=== PATIENT | male | born 1975 | race American Indian/Alaskan Native ===

== ENCOUNTER 2019-09-22 14:01 | Inpatient (IN) | payer OTHER ==
[2019-09-22] MEDS ORDERED: ONDANSETRON 4 MG/2 ML INJ ONE (14:12)
[2019-09-22] MEDS ORDERED: ONDANSETRON 4 MG/2 ML INJ IV ONE (14:14)
[2019-09-22] MEDS ORDERED: METOCLOPRAMIDE 10 MG/2 ML INJ IV ONE (14:28)
--- NOTE | 2019-09-22 14:29 | Emergency Department Report ---
ED General Adult HPI - General Chief complaint: Weakness Stated complaint: HBS Time Seen by Provider: 09/22/19 14:03 Source: patient, EMS (verbal report received from emergency medical services. EMS documentation not available at time of chart dictation ), RN notes reviewed, old records reviewed Mode of arrival: Stretcher Limitations: Physical Limitation - History of Present Illness Initial comments: Primary care DrBarrett: [facility] Past medical history: Stroke, cardiomyopathy, history of DVT, on xarelto The patient is a 43-year-old gentleman who is not known to this provider previously. He is brought to the hospital by EMS for weakness. Patient reports being in his usual state of health earlier on today, when approximately 30-45 minutes prior to arrival to this department, he develops generalized malaise, weakness, headache which is not sudden or thunderclap in nature, nausea, dizziness, and a feeling like his left upper extremity "was not there." He also endorses nontraumatic nonradiating chest pain. Symptoms are intermittent, and do not radiate anywhere, worse with attempted movement. The patient states he has to move his left upper extremity "to make sure it is there." He has no midline neck pain. He has mild neck discomfort. There is no abdominal pain. There is no back pain. He has an old stroke with reported residual right-sided deficits. He denies hematemesis of bright red blood per rectum. He denies black stool. He states he took his systemic anticoagulation this morning, as scheduled. -: Sudden Location: head, chest, left, upper extremity Quality: other Consistency: other Improves with: other Worsens with: other Associated Symptoms: other - Related Data Previous Rx's Medication Instructions Recorded Last Taken Type Acetaminophen [Acetaminophen TAB] 650 mg PO Q4H PRN #30 tablet 11/09/17 Unknown Rx AtorvaSTATin [Lipitor] 40 mg PO QHS #30 tablet 11/09/17 Unknown Rx Metoprolol Xl [Metoprolol 100 mg PO QDAY #60 tablet 11/09/17 Unknown Rx SUCCINATE ER TAB] Ondansetron [Zofran INJ] 4 mg IV Q8H PRN #1 vial 11/09/17 Unknown Rx Torsemide [Demadex] 60 mg PO BID@0600,1800 #60 tablet 11/09/17 Unknown Rx levoFLOXacin [Levaquin TAB] 500 mg PO Q24HR #5 tablet 11/09/17 Unknown Rx oxyCODONE /ACETAMINOPHEN [Percocet 1 tab PO Q4H PRN #20 tablet 11/09/17 Unknown Rx 5/325 mg] Allergies Allergy/AdvReac Type Severity Reaction Status Date / Time No Known Allergies Allergy Unverified 11/07/17 13:18 ED Review of Systems ROS: Stated complaint: HBS Other details as noted in HPI Constitutional: fever, malaise, weakness Eyes: denies: eye discharge ENT: denies: congestion Respiratory: denies: wheezing Cardiovascular: denies: chest pain, syncope Gastrointestinal: denies: abdominal pain Genitourinary: denies: dysuria Musculoskeletal: denies: back pain Skin: denies: lesions Neurological: headache, weakness Psychiatric: anxiety Hematological/Lymphatic: denies: easy bleeding ED Past Medical Hx - Past Medical History Hx Hypertension: Yes Hx CVA: Yes (TIA's) Hx Heart Attack/AMI: No Hx Congestive Heart Failure: Yes Hx Diabetes: Yes Hx Deep Vein Thrombosis: No Hx Liver Disease: No Hx Seizures: No Hx Asthma: No Hx COPD: No Hx Dementia: No - Surgical History Hx Coronary Stent: No Hx Pacemaker: No Hx Internal Defibrillator: No - Social History Smoking Status: Never Smoker Substance Use Type: None - Medications Home Medications: Home Medications Medication Instructions Recorded Confirmed Last Taken Type Acetaminophen [Acetaminophen TAB] 650 mg PO Q4H PRN #30 tablet 11/09/17 Unknown Rx AtorvaSTATin [Lipitor] 40 mg PO QHS #30 tablet 11/09/17 Unknown Rx Metoprolol Xl [Metoprolol 100 mg PO QDAY #60 tablet 11/09/17 Unknown Rx SUCCINATE ER TAB] Ondansetron [Zofran INJ] 4 mg IV Q8H PRN #1 vial 11/09/17 Unknown Rx Torsemide [Demadex] 60 mg PO BID@0600,1800 #60 tablet 11/09/17 Unknown Rx levoFLOXacin [Levaquin TAB] 500 mg PO Q24HR #5 tablet 11/09/17 Unknown Rx oxyCODONE /ACETAMINOPHEN [Percocet 1 tab PO Q4H PRN #20 tablet 11/09/17 Unknown Rx 5/325 mg] ED Physical Exam - General Limitations: No Limitations, Physical Limitation General appearance: alert, anxious, in distress, obese - Head Head exam: Present: atraumatic, normocephalic - Eye Eye exam: Present: normal appearance, PERRL, EOMI, other (visual acuity intact to finger counting and color perception at a close distance). Absent: nystagmus - ENT ENT exam: Present: mucous membranes moist - Neck Neck exam: Present: normal inspection, full ROM. Absent: tenderness, meningismus - Respiratory Respiratory exam: Present: normal lung sounds bilaterally. Absent: respiratory distress - Cardiovascular Cardiovascular Exam: Present: regular rate, normal rhythm, tachycardia, normal heart sounds. Absent: bradycardia, irregular rhythm, systolic murmur, diastolic murmur, rubs, gallop - GI/Abdominal GI/Abdominal exam: Present: soft. Absent: distended, tenderness, guarding, rebound, rigid, pulsatile mass - Rectal Rectal exam: Present: deferred - Extremities Exam Extremities exam: Present: normal inspection, full ROM, other (2+ pulses noted in the bilateral upper and lower extremities. There is no palpable cord. negative Homans sign. Muscular compartments are soft. The pelvis is stable.). Absent: pedal edema, calf tenderness - Back Exam Back exam: Present: normal inspection, full ROM. Absent: tenderness, CVA tenderness (R), CVA tenderness (L), paraspinal tenderness, vertebral tenderness - Neurological Exam Neurological exam: Present: alert, oriented X3, other (there is 4 out of 5 strength left arm. There is 4 out of 5 strength left leg. Decreased sensation to light touch left arm, left leg. There is discoordination in the left upper extremity. There is no facial droop. The tongue is midline. The extraocular movements are intact bilaterally. There is 5 out of 5 strength right arm and right leg.) - Psychiatric Psychiatric exam: Present: anxious - Skin Skin exam: Present: warm, dry, intact, normal color. Absent: rash ED Course Vital Signs 09/22/19 09/22/19 09/22/19 14:08 14:15 14:24 Temperature 97.5 F L Pulse Rate 112 H 110 H Respiratory 22 20 12 Rate Blood Pressure 148/110 O2 Sat by Pulse 100 100 Oximetry 09/22/19 09/22/19 09/22/19 14:46 15:00 15:15 Temperature Pulse Rate 103 H 110 H 102 H Respiratory 14 21 Rate Blood Pressure 128/94 128/94 O2 Sat by Pulse 96 100 99 Oximetry 09/22/19 16:00 Temperature Pulse Rate 108 H Respiratory 19 Rate Blood Pressure 138/92 O2 Sat by Pulse 99 Oximetry - Reevaluation(s) Reevaluation #1: 09/22/19 16:41 Differential diagnosis, including not limited to: Stroke, hemorrhagic versus ischemic, pneumonia, urinary tract infection, diabetic ketoacidosis, acute coronary syndrome, aortic dissection Assessment and plan: 43-year-old gentleman who is compliant with systemic anticoagulation, presenting with nonspecific neurologic symptoms and concomitant chest pain. I think an aortic dissection is unlikely as his x-ray the chest is unremarkable, and he has equal pulses in the upper and lower extremities. The patient is not a TPA candidate given that aortic dissection is currently on the differential diagnoses however, and also given that he takes systemic anticoagulation, and last took a dose of anticoagulation within the past 12 hours. He was seen in conjunction with neurology, Dr. Sevilla, who agreed with all of the aforementioned. In addition, he is found to be hyperglycemic with an anion gap acidosis, suggestive of possible diabetic ketoacidosis. The patient gave verbal and written consent for CT angiogram with contrast to exclude aortic dissection. We talked about risks, benefits and alternatives. The patient is awake and alert and oriented, clinically sober and does have decision-making capacity at this time. His headache is treated with Reglan. Small dose of IV fluids ordered given anticipation of contrast bolus, and hyperglycemia. We will reassess after his data points have resulted. I think a pulmonary embolism is unlikely at this time, as it would not be an adequate unifying diagnosis for chest pain and neurologic symptoms. In addition, he is compliant with systemic anticoagulation, and is not hypoxic at this time. Tachycardia likely multifactorial, including probable dehydration, anxiety, hyperglycemia. 09/22/19 16:43 Reevaluation #2: 09/22/19 17:07 Repeat laboratory studies suggest worsening anion gap acidosis. CT angiogram head and neck negative for acute disease. We will admit the patient to the medical service at this hospital. Hospital physician national coverage specialist was paged. We discussed with Dr. Vargas who recommends aspirin be held today Reevaluation #3: 09/22/19 17:13 Dr Jonna LOPEZ Medical Decision Making - Lab Data Result diagrams: 09/22/19 14:09 09/22/19 16:42 Vital Signs 09/22/19 09/22/19 09/22/19 14:08 14:15 14:24 Temperature 97.5 F L Pulse Rate 112 H 110 H Respiratory 22 20 12 Rate Blood Pressure 148/110 O2 Sat by Pulse 100 100 Oximetry 09/22/19 09/22/19 09/22/19 14:46 15:00 15:15 Temperature Pulse Rate 103 H 110 H 102 H Respiratory 14 21 Rate Blood Pressure 128/94 128/94 O2 Sat by Pulse 96 100 99 Oximetry 09/22/19 16:00 Temperature Pulse Rate 108 H Respiratory 19 Rate Blood Pressure 138/92 O2 Sat by Pulse 99 Oximetry Lab Results 09/22/19 09/22/19 09/22/19 Range/Units 14:09 14:09 14:09 WBC 11.5 H (4.5-11.0) K/mm3 RBC 6.87 H (3.65-5.03) M/mm3 Hgb 15.6 H (11.8-15.2) gm/dl Hct 50.5 H (35.5-45.6) % MCV 73 L (84-94) fl MCH 23 L (28-32) pg MCHC 31 L (32-34) % RDW 16.4 H (13.2-15.2) % Plt Count 134 L (140-440) K/mm3 Lymph % (Auto) 23.6 (13.4-35.0) % [place] % (Auto) 6.4 (0.0-7.3) % Eos % (Auto) 0.4 (0.0-4.3) % Baso % (Auto) 0.9 (0.0-1.8) % Lymph # 2.7 (1.2-5.4) K/mm3 [place] # 0.7 (0.0-0.8) K/mm3 Eos # 0.0 (0.0-0.4) K/mm3 Baso # 0.1 (0.0-0.1) K/mm3 Seg Neutrophils % 68.7 (40.0-70.0) % Seg Neutrophils # 7.9 H (1.8-7.7) K/mm3 PT 13.6 (12.2-14.9) Sec. INR 1.05 (0.87-1.13) APTT 29.0 (24.2-36.6) Sec. VBG pH (7.320-7.420) Sodium 134 L (137-145) mmol/L Potassium 3.9 (3.6-5.0) mmol/L Chloride 94.8 L (98-107) mmol/L Carbon Dioxide 20 L (22-30) mmol/L Anion Gap 23 mmol/L BUN 15 (9-20) mg/dL Creatinine 1.1 (0.8-1.5) mg/dL Estimated GFR > 60 ml/min BUN/Creatinine Ratio 14 % Glucose 512 H* (75-100) mg/dL Ketones Quantitative (Negative) Calcium 9.3 (8.4-10.2) mg/dL Magnesium (1.7-2.3) mg/dL Total Bilirubin 1.30 H (0.1-1.2) mg/dL AST 13 (5-40) units/L ALT 12 (7-56) units/L Alkaline Phosphatase 131 H (35-129) units/L Total Creatine Kinase (55-170) units/L Troponin T < 0.010 (0.00-0.029) ng/mL NT-Pro-B Natriuret Pep (0-450) pg/mL Total Protein 7.3 (6.3-8.2) g/dL Albumin 3.6 L (3.9-5) g/dL Albumin/Globulin Ratio 1.0 % Plasma/Serum Alcohol (0-0.07) % 09/22/19 09/22/19 09/22/19 Range/Units 14:09 14:09 14:09 WBC (4.5-11.0) K/mm3 RBC (3.65-5.03) M/mm3 Hgb (11.8-15.2) gm/dl Hct (35.5-45.6) % MCV (84-94) fl MCH (28-32) pg MCHC (32-34) % RDW (13.2-15.2) % Plt Count (140-440) K/mm3 Lymph % (Auto) (13.4-35.0) % [place] % (Auto) (0.0-7.3) % Eos % (Auto) (0.0-4.3) % Baso % (Auto) (0.0-1.8) % Lymph # (1.2-5.4) K/mm3 [place] # (0.0-0.8) K/mm3 Eos # (0.0-0.4) K/mm3 Baso # (0.0-0.1) K/mm3 Seg Neutrophils % (40.0-70.0) % Seg Neutrophils # (1.8-7.7) K/mm3 PT (12.2-14.9) Sec. INR (0.87-1.13) APTT (24.2-36.6) Sec. VBG pH 7.445 H (7.320-7.420) Sodium (137-145) mmol/L Potassium (3.6-5.0) mmol/L Chloride (98-107) mmol/L Carbon Dioxide (22-30) mmol/L Anion Gap mmol/L BUN (9-20) mg/dL Creatinine (0.8-1.5) mg/dL Estimated GFR ml/min BUN/Creatinine Ratio % Glucose (75-100) mg/dL Ketones Quantitative Negative (Negative) Calcium (8.4-10.2) mg/dL Magnesium (1.7-2.3) mg/dL Total Bilirubin (0.1-1.2) mg/dL AST (5-40) units/L ALT (7-56) units/L Alkaline Phosphatase (35-129) units/L Total Creatine Kinase (55-170) units/L Troponin T (0.00-0.029) ng/mL NT-Pro-B Natriuret Pep (0-450) pg/mL Total Protein (6.3-8.2) g/dL Albumin (3.9-5) g/dL Albumin/Globulin Ratio % Plasma/Serum Alcohol < 0.01 (0-0.07) % 09/22/19 09/22/19 Range/Units 14:09 14:09 WBC (4.5-11.0) K/mm3 RBC (3.65-5.03) M/mm3 Hgb (11.8-15.2) gm/dl Hct (35.5-45.6) % MCV (84-94) fl MCH (28-32) pg MCHC (32-34) % RDW (13.2-15.2) % Plt Count (140-440) K/mm3 Lymph % (Auto) (13.4-35.0) % [place] % (Auto) (0.0-7.3) % Eos % (Auto) (0.0-4.3) % Baso % (Auto) (0.0-1.8) % Lymph # (1.2-5.4) K/mm3 [place] # (0.0-0.8) K/mm3 Eos # (0.0-0.4) K/mm3 Baso # (0.0-0.1) K/mm3 Seg Neutrophils % (40.0-70.0) % Seg Neutrophils # (1.8-7.7) K/mm3 PT (12.2-14.9) Sec. INR (0.87-1.13) APTT (24.2-36.6) Sec. VBG pH (7.320-7.420) Sodium (137-145) mmol/L Potassium (3.6-5.0) mmol/L Chloride (98-107) mmol/L Carbon Dioxide (22-30) mmol/L Anion Gap mmol/L BUN (9-20) mg/dL Creatinine (0.8-1.5) mg/dL Estimated GFR ml/min BUN/Creatinine Ratio % Glucose (75-100) mg/dL Ketones Quantitative (Negative) Calcium (8.4-10.2) mg/dL Magnesium 1.80 (1.7-2.3) mg/dL Total Bilirubin (0.1-1.2) mg/dL AST (5-40) units/L ALT (7-56) units/L Alkaline Phosphatase (35-129) units/L Total Creatine Kinase 72 (55-170) units/L Troponin T (0.00-0.029) ng/mL NT-Pro-B Natriuret Pep 764.8 H (0-450) pg/mL Total Protein (6.3-8.2) g/dL Albumin (3.9-5) g/dL Albumin/Globulin Ratio % Plasma/Serum Alcohol (0-0.07) % - EKG Data -: EKG Interpreted by [facility] EKG shows normal: sinus rhythm Rate: normal - EKG Data 09/22/19 16:40 EKG today shows a sinus rhythm, tachycardia, there is a borderline leftward axis deviation, the QTC is prolonged, there is atrial enlargement, nonspecific T-wave abnormalities, the EKG is abnormal, it is not consistent with ST elevation myocardial infarction. The EKG appears to be grossly unchanged from prior EKG from 11/08/2017. - Radiology Data Radiology results: pending, report reviewed, image reviewed Noncontrast CT scan of the brain is negative for acute findings. X-ray the chest is negative for acute findings. Critical Care Time: Yes Critical care time in (mins) excluding proc time.: 60 Critical care attestation.: If time is entered above; I have spent that time in minutes in the direct care of this critically ill patient, excluding procedure time. ED Disposition Clinical Impression: Diabetes, Metabolic acidosis Stroke (cerebrum) Qualifiers: CVA mechanism: unspecified Qualified Code(s): I63.9 - Cerebral infarction, unspecified Disposition: DC-09 OP ADMIT IP TO THIS HOSP Is pt being admited?: Yes Condition: Stable Instructions: Diabetes Mellitus Type 2 in Adults (ED) Referrals: PRIMARY CARE, [Referring] - 3-5 Days
[2019-09-22 14:44] LABS: Basophils # (Auto) 0.1 K/mm3 (0.0-0.1); Basophils % (Auto) 0.9 % (0.0-1.8); Eosinophils % (Auto) 0.4 % (0.0-4.3); Lymphocytes # (Auto) 2.7 K/mm3 (1.2-5.4); Lymphocytes % (Auto) 23.6 % (13.4-35.0); Mean Corpuscular HGB Conc 31 % (32-34); Mean Corpuscular Volume 73 fl (84-94); Monocytes # (Auto) 0.7 K/mm3 (0.0-0.8); Monocytes % (Auto) 6.4 % (0.0-7.3); Red Blood Count 6.87 M/mm3 (3.65-5.03); Red Cell Distribution Width 16.4 % (13.2-15.2)
[2019-09-22 14:48] LABS: Alanine Aminotransferase 12 units/L (7-56); Albumin 3.6 g/dL (3.9-5); BUN/Creatinine Ratio 14; Blood Urea Nitrogen 15 mg/dL (9-20); Calcium 9.3 mg/dL (8.4-10.2); Hematocrit 50.5 % (35.5-45.6); Hemoglobin 15.6 gm/dl (11.8-15.2); Hemolysis Index 17
--- NOTE | 2019-09-22 14:48 | XRay Report ---
CHEST 1 VIEW INDICATION: CP. COMPARISON: 11/07/2017 FINDINGS: Support devices: None. Heart: Mild cardiomegaly. Lungs/Pleura: No acute air space or interstitial disease. Additional findings: None. IMPRESSION: 1. No acute findings. Signer Name: Daniel Barba MD Signed: 09/22/2019 2:44 PM Workstation Name: [id number]
[2019-09-22 14:49] LABS: Platelet Count 134 K/mm3 (140-440)
[2019-09-22 14:53] LABS: INR 1.05 (0.87-1.13)
[2019-09-22] MEDS ORDERED: SODIUM CHLORIDE 0.9% 250ML 250 ML IV ONE (15:02)
--- NOTE | 2019-09-22 15:11 | Cat Scan Report ---
CT HEAD WITHOUT CONTRAST INDICATION / CLINICAL INFORMATION: tsang neuro deficits. Code stroke TECHNIQUE: All CT scans at this location are performed using CT dose reduction for ALARA by means of automated e xposure control. COMPARISON: Head CT 01/07/2018 and MRI brain 11/09/2017 FINDINGS: HEMORRHAGE: No evidence of intracranial hemorrhage or extra-axial fluid collection. EXTRA-AXIAL SPACES: Cortical sulci, sylvian fissures and basilar cisterns have an unremarkable appear ance. VENTRICULAR SYSTEM: The ventricular system is of normal size and configuration. CEREBRAL PARENCHYMA: No areas of abnormal brain parenchymal attenuation are identified. There is no i ndication of recent infarction. MIDLINE SHIFT OR HERNIATION: There is no mass effect. CEREBELLUM / BRAINSTEM: Brainstem has an unremarkable appearance. An area of encephalomalacia is obse rved along the anterior inferior aspect of the left cerebellar hemisphere at the site of a previously documented left cerebellar infarction. The left cerebellar infarction was identified on head CT and MRI examinations dated 11/09/2027. INTRACRANIAL VESSELS:No abnormalities are identified on this noncon trast head CT. ORBITS: visualized portions of the orbits have an unremarkable appearance. SOFT TISSUES of HEAD: No significant abnormality. CALVARIUM: Evaluation of bone windows reveals no abnormalities. PARANASAL SINUSES / MASTOID AIR CELLS: Retention cyst versus polyp is present at the base of the righ t maxillary sinus. This is unchanged. Paranasal sinuses have an otherwise unremarkable appearance. Ev aluation of the orbits is remarkable for rightward deviation of the globes in a bilaterally symmetric al fashion. IMPRESSION: 1. Remote left cerebellar infarction. 2. No acute intracranial abnormalities are identified. Code stroke patient: I called report of this study to Dr. Mitchell at the [facility] at about 1356 C entral standard time. Signer Name: Eduardo Perez MD Signed: 09/22/2019 3:07 PM Workstation Name: [id number]
--- NOTE | 2019-09-22 15:21 | Emergency Department Report ---
ED Neuro Deficit HPI - General Chief Complaint: Weakness Stated Complaint: HBS Time Seen by Provider: 09/22/19 14:03 Source: patient Mode of arrival: Stretcher Limitations: No Limitations - History of Present Illness Initial Comments: [facility] TeleNeurology Consult Services The patient was informed the neurology consult would happen via TeleHealth by way of interactive audio and visual telecommunications and consented to receiving care in this manner for acute stroke protocol. DATE: August 23, 2019 Impression: Stroke Global weakness chest pain and fatigue right-sided numbness-the patient's overall exam is fairly nonfocal except for the right-sided numbness. It seems unlikely this is a large vessel occlusion but since he has some chest pain not unreasonable to get ah/n with visuallization of the aortic arch shortness of raffi ath and hypercoagulable state history. Can't get CT angiogram head and neck but do not expect large vessel occlusion. If no large vessel occlusion is seen patient can be admitted for workup for his neurologic symptoms. Would recommend consideration for inpatient neurology consultation. Also his hyperglycemia is likely playing a role. CT of the head without contrast does not show any acute changes and was relatively nonfocal exam may want to continue Xarelto or get MRI of the brain today to exclude her include strokes B anticoagulation can be continued if stroke is not present. Also his cardiomyopathy may be playing a role. Goal is for blood glucose in the approximately 120-140 range Not a tpa candidate due to: On full anticoagulation relatively nonfocal exam Symptoms (not) consistent with LVO however head and neck obtained with chest pain and neurologic symptoms this can eval aoritc arch as well Differential Diagnosis: Toxic metabolic encephalopathy with hyperglycemia, heart failure, TIA CVA 1. Cardioembolic stroke 2. Small vessel disease/lacune 3. Thromboembolic, geierr-yb-wogmkj mechanism 4. Hypercoagulable state-related infarct 5. Transient ischemic attack 6. Thrombotic mechanism, large artery disease Comments: [facility] contacted:14:49 [facility] at bedside:14:55 Called out stat NIHSS assessment time:14:55 Recommendations: -cta chest h/n -Lower blood glucose -Admitted for toxic metabolic/stroke workup Inpatient neurology consultation Inpatient stroke evaluation as per Neurology/ Internal Medicine Discussed with ED MD Please call with questions --------- CC weakness n/v dizziness History of Present Illness Patient is a 52 year old gentleman who was getting some lunch earlier and his hands stopped working with n/v/HERNANDEZ/CP. He feels weak all over. He began having symptomms at 13:15. He has CHF, TIAS, stroke one year ago. Gets SOB with exertion. TIAs with prior right sided weakness in the past. 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 Takes xerelto for DVTs. The patient's that his blood sugars typically run 300 or more. He feels very fatigued generally unwell. Diagnostic: BP 128/94 Glucose 444 Exam: 1a- LOC: Keenly responsive - =0 1b- LOC questions: Answers both questions correctly - 0 1c- LOC commands- Performs both tasks correctly- 0 2- Gaze: Normal; no gaze paresis or gaze deviation - 0 3- Visual [place]: normal, no Visual field deficit - 0 4- Facial movements: no facial palsy - 0 5- Upper limb motor - no drift -0 6- Lower limb motor - no drift - 0 7- Limb Coordination: absent ataxia - 0 8- Sensory : right face/arm/leg decreased on the right =1 9- Language - No aphasia - 0 10- Speech - No dysarthria -0 11- Neglect / Extinction - none found -0 NIHSS score =1 Medical Decision Making: - Extensive number of diagnosis or management options are considered above. - Extensive amount of complex data reviewed. - High risk of complication and/or morbidity or mortality are associated with differential diagnostic considerations above. - There may be Uncertain outcome and increased probability of prolonged functional impairment or high probability of severe prolonged functional impairment associated with some of these differential diagnosis. Medical Data Reviewed: 1.Data reviewed include clinical labs, radiology, Medical Tests; 2.Tests results discussed w/performing or interpreting physician; 3.Obtaining/reviewing old medical records; 4.Obtaining case history from another source; 5.Independent review of image, tracing or specimen. Patient was informed the Neurology Consult would happen via telehealth (remote video) and consented to receiving care in this manner. - Related Data Home Medications: Previous Rx's Medication Instructions Recorded Last Taken Type Acetaminophen [Acetaminophen TAB] 650 mg PO Q4H PRN #30 tablet 11/09/17 Unknown Rx AtorvaSTATin [Lipitor] 40 mg PO QHS #30 tablet 11/09/17 Unknown Rx Metoprolol Xl [Metoprolol 100 mg PO QDAY #60 tablet 11/09/17 Unknown Rx SUCCINATE ER TAB] Ondansetron [Zofran INJ] 4 mg IV Q8H PRN #1 vial 11/09/17 Unknown Rx Torsemide [Demadex] 60 mg PO BID@0600,1800 #60 tablet 11/09/17 Unknown Rx levoFLOXacin [Levaquin TAB] 500 mg PO Q24HR #5 tablet 11/09/17 Unknown Rx oxyCODONE /ACETAMINOPHEN [Percocet 1 tab PO Q4H PRN #20 tablet 11/09/17 Unknown Rx 5/325 mg] Allergies/Adverse Reactions: Allergies Allergy/AdvReac Type Severity Reaction Status Date / Time No Known Allergies Allergy Unverified 11/07/17 13:18 ED Review of Systems ROS: Stated complaint: HBS Other details as noted in HPI ED Past Medical Hx - Past Medical History Hx Hypertension: Yes Hx CVA: Yes (TIA's) Hx Heart Attack/AMI: No Hx Congestive Heart Failure: Yes Hx Diabetes: Yes Hx Deep Vein Thrombosis: No Hx Liver Disease: No Hx Seizures: No Hx Asthma: No Hx COPD: No Hx Dementia: No - Surgical History Hx Coronary Stent: No Hx Pacemaker: No Hx Internal Defibrillator: No - Social History Smoking Status: Never Smoker Substance Use Type: None - Medications Home Medications: Home Medications Medication Instructions Recorded Confirmed Last Taken Type Acetaminophen [Acetaminophen TAB] 650 mg PO Q4H PRN #30 tablet 11/09/17 Unknown Rx AtorvaSTATin [Lipitor] 40 mg PO QHS #30 tablet 11/09/17 Unknown Rx Metoprolol Xl [Metoprolol 100 mg PO QDAY #60 tablet 11/09/17 Unknown Rx SUCCINATE ER TAB] Ondansetron [Zofran INJ] 4 mg IV Q8H PRN #1 vial 11/09/17 Unknown Rx Torsemide [Demadex] 60 mg PO BID@0600,1800 #60 tablet 11/09/17 Unknown Rx levoFLOXacin [Levaquin TAB] 500 mg PO Q24HR #5 tablet 11/09/17 Unknown Rx oxyCODONE /ACETAMINOPHEN [Percocet 1 tab PO Q4H PRN #20 tablet 11/09/17 Unknown Rx 5/325 mg] ED Neuro Physical Exam - General Limitations: No Limitations Suspected Stroke: Yes - NIHSS Assessment Interval: Baseline 1a. Level of Consciousness: alert/keenly responsive 1b. LOC Questions: answers both correctly 1c. LOC Commands: performs tasks correctly 2. Best Gaze: normal 3. Visual: no visual loss 4. Facial Palsy: normal symmetrical movement 5b. Motor Arm Right: no drift 5a. Motor Arm Left: no drift 6a. Motor Leg Left: no drift 6b. Motor Leg Right: no drift 7. Limb Ataxia: absent 8. Sensory: mild/moderate sensory loss 9. Best Language: no aphasia 10. Dysarthria: normal 11. Extinction/Inattention: no abnormality Total Score: 1 Stroke Severity: Minor Stroke ED Course Vital Signs 09/22/19 09/22/19 14:08 14:15 Temperature 97.5 F L Pulse Rate 112 H Respiratory 22 20 Rate Blood Pressure 148/110 O2 Sat by Pulse 100 Oximetry - Lab Data Result diagrams: 09/22/19 14:09 09/22/19 14:09 Lab Results 09/22/19 09/22/19 09/22/19 Range/Units 14:09 14:09 14:09 WBC 11.5 H (4.5-11.0) K/mm3 RBC 6.87 H (3.65-5.03) M/mm3 Hgb 15.6 H (11.8-15.2) gm/dl Hct 50.5 H (35.5-45.6) % MCV 73 L (84-94) fl MCH 23 L (28-32) pg MCHC 31 L (32-34) % RDW 16.4 H (13.2-15.2) % Plt Count 134 L (140-440) K/mm3 Lymph % (Auto) 23.6 (13.4-35.0) % [place] % (Auto) 6.4 (0.0-7.3) % Eos % (Auto) 0.4 (0.0-4.3) % Baso % (Auto) 0.9 (0.0-1.8) % Lymph # 2.7 (1.2-5.4) K/mm3 [place] # 0.7 (0.0-0.8) K/mm3 Eos # 0.0 (0.0-0.4) K/mm3 Baso # 0.1 (0.0-0.1) K/mm3 Seg Neutrophils % 68.7 (40.0-70.0) % Seg Neutrophils # 7.9 H (1.8-7.7) K/mm3 PT 13.6 (12.2-14.9) Sec. INR 1.05 (0.87-1.13) APTT 29.0 (24.2-36.6) Sec. VBG pH (7.320-7.420) Sodium 134 L (137-145) mmol/L Potassium 3.9 (3.6-5.0) mmol/L Chloride 94.8 L (98-107) mmol/L Carbon Dioxide 20 L (22-30) mmol/L Anion Gap 23 mmol/L BUN 15 (9-20) mg/dL Creatinine 1.1 (0.8-1.5) mg/dL Estimated GFR > 60 ml/min BUN/Creatinine Ratio 14 % Ketones Quantitative (Negative) Calcium 9.3 (8.4-10.2) mg/dL Magnesium (1.7-2.3) mg/dL Total Bilirubin 1.30 H (0.1-1.2) mg/dL AST 13 (5-40) units/L ALT 12 (7-56) units/L Alkaline Phosphatase 131 H (35-129) units/L Total Creatine Kinase (55-170) units/L Troponin T < 0.010 (0.00-0.029) ng/mL NT-Pro-B Natriuret Pep (0-450) pg/mL Total Protein 7.3 (6.3-8.2) g/dL Albumin 3.6 L (3.9-5) g/dL Albumin/Globulin Ratio 1.0 % Plasma/Serum Alcohol (0-0.07) % 09/22/19 09/22/19 09/22/19 Range/Units 14:09 14:09 14:09 WBC (4.5-11.0) K/mm3 RBC (3.65-5.03) M/mm3 Hgb (11.8-15.2) gm/dl Hct (35.5-45.6) % MCV (84-94) fl MCH (28-32) pg MCHC (32-34) % RDW (13.2-15.2) % Plt Count (140-440) K/mm3 Lymph % (Auto) (13.4-35.0) % [place] % (Auto) (0.0-7.3) % Eos % (Auto) (0.0-4.3) % Baso % (Auto) (0.0-1.8) % Lymph # (1.2-5.4) K/mm3 [place] # (0.0-0.8) K/mm3 Eos # (0.0-0.4) K/mm3 Baso # (0.0-0.1) K/mm3 Seg Neutrophils % (40.0-70.0) % Seg Neutrophils # (1.8-7.7) K/mm3 PT (12.2-14.9) Sec. INR (0.87-1.13) APTT (24.2-36.6) Sec. VBG pH 7.445 H (7.320-7.420) Sodium (137-145) mmol/L Potassium (3.6-5.0) mmol/L Chloride (98-107) mmol/L Carbon Dioxide (22-30) mmol/L Anion Gap mmol/L BUN (9-20) mg/dL Creatinine (0.8-1.5) mg/dL Estimated GFR ml/min BUN/Creatinine Ratio % Ketones Quantitative Negative (Negative) Calcium (8.4-10.2) mg/dL Magnesium (1.7-2.3) mg/dL Total Bilirubin (0.1-1.2) mg/dL AST (5-40) units/L ALT (7-56) units/L Alkaline Phosphatase (35-129) units/L Total Creatine Kinase (55-170) units/L Troponin T (0.00-0.029) ng/mL NT-Pro-B Natriuret Pep (0-450) pg/mL Total Protein (6.3-8.2) g/dL Albumin (3.9-5) g/dL Albumin/Globulin Ratio % Plasma/Serum Alcohol < 0.01 (0-0.07) % 09/22/19 09/22/19 Range/Units 14:09 14:09 WBC (4.5-11.0) K/mm3 RBC (3.65-5.03) M/mm3 Hgb (11.8-15.2) gm/dl Hct (35.5-45.6) % MCV (84-94) fl MCH (28-32) pg MCHC (32-34) % RDW (13.2-15.2) % Plt Count (140-440) K/mm3 Lymph % (Auto) (13.4-35.0) % [place] % (Auto) (0.0-7.3) % Eos % (Auto) (0.0-4.3) % Baso % (Auto) (0.0-1.8) % Lymph # (1.2-5.4) K/mm3 [place] # (0.0-0.8) K/mm3 Eos # (0.0-0.4) K/mm3 Baso # (0.0-0.1) K/mm3 Seg Neutrophils % (40.0-70.0) % Seg Neutrophils # (1.8-7.7) K/mm3 PT (12.2-14.9) Sec. INR (0.87-1.13) APTT (24.2-36.6) Sec. VBG pH (7.320-7.420) Sodium (137-145) mmol/L Potassium (3.6-5.0) mmol/L Chloride (98-107) mmol/L Carbon Dioxide (22-30) mmol/L Anion Gap mmol/L BUN (9-20) mg/dL Creatinine (0.8-1.5) mg/dL Estimated GFR ml/min BUN/Creatinine Ratio % Ketones Quantitative (Negative) Calcium (8.4-10.2) mg/dL Magnesium 1.80 (1.7-2.3) mg/dL Total Bilirubin (0.1-1.2) mg/dL AST (5-40) units/L ALT (7-56) units/L Alkaline Phosphatase (35-129) units/L Total Creatine Kinase 72 (55-170) units/L Troponin T (0.00-0.029) ng/mL NT-Pro-B Natriuret Pep 764.8 H (0-450) pg/mL Total Protein (6.3-8.2) g/dL Albumin (3.9-5) g/dL Albumin/Globulin Ratio % Plasma/Serum Alcohol (0-0.07) % Critical care attestation.: If time is entered above; I have spent that time in minutes in the direct care of this critically ill patient, excluding procedure time. ED Disposition Clinical Impression: Stroke (cerebrum) Qualifiers: CVA mechanism: unspecified Qualified Code(s): I63.9 - Cerebral infarction, unspecified Disposition: OP ADMIT IP TO THIS HOSP Is pt being admited?: Yes Condition: Stable Referrals: PRIMARY CARE, [Primary Care Provider] - 3-5 Days
[2019-09-22] MEDS ORDERED: INSULIN REGULAR, HUMAN 100 UNITS/1 ML IV ONE (16:33)
[2019-09-22] MEDS ORDERED: DEXTROSE 50% IN WATER (25GM) 50 ML SYRINGE IV PRN ×2 (16:33→20:39)
--- NOTE | 2019-09-22 16:42 | Cat Scan Report ---
CTA neck without and with intravenous contrast material CLINICAL HISTORY: Cerebrovascular accident. TECHNIQUE: Following acquisition of a timing bolus 0.625 mm thick contiguous axial scans were obtained from aort ic arch to the skull base during rapid bolus intravenous contrast infusion. In addition to evaluation of axial source images multiplanar reconstructions were produced and reviewed for this report. 3 karli ne MIP reconstructions were produced.. These were also reviewed for this report. FINDINGS: No abnormalities are seen at the origins of the great vessels. Common carotid arteries, carotid bifurcations and cervical portions of the internal carotid arteries all have a normal appearance. There is no indication of hemodynamically significant stenosis. Normal and symmetrical vertebral arteries are present. There is no indication of stenosis along the c ourse of the vertebral arteries. Both vertebral arteries contribute to the basilar artery origin. The basilar artery has an unremarkable appearance. The degree of stenosis, if any, is determined utilizing NASCET like criteria. In this case there is no indication of hemodynamically significant stenosis at the carotid bifurcations or elsewhere. Evaluation of the nonvascular soft tissue structures reveal no abnormality. There is no indication of cervical lymphadenopathy. No abnormalities are seen along the course of the airway. Visualized porti ons of the parotid glands and the submandibular salivary glands have a normal appearance. Thyroid gla nd has a normal appearance. Retention cyst or polyp is demonstrated in the right maxillary sinus. Elisa luation of the lung apices reveals no evidence of lung nodule or infiltrate. Evaluation of the cervic al spine revealed no significant abnormalities. IMPRESSION: 1. No indication of hemodynamically significant stenosis at the carotid bifurcations or elsewhere. Contrast dose report: Omnipaque 350: 150 mL, administered intravenously All CT examinations performed at this facility utilize modulated dose reduction, iterative reconstruc tion or weight-based dosing, as appropriate, to obtain a radiation dose which is as low as can reason ably be achieved. Signer Name: Eduardo Perez MD Signed: 09/22/2019 4:37 PM Workstation Name: [id number]
--- NOTE | 2019-09-22 16:47 | Cat Scan Report ---
CTA head with intravenous contrast CLINICAL HISTORY: tsang cva TECHNIQUE: 0.625 mm thick contiguous axial scans were obtained from the skull base to the skull vertex during ra pid bolus administration of intravenous contrast material. Multiplanar reconstructions were produced in the coronal and sagittal planes. In addition 3 plane MIP instructions were produced and reviewed f or this report. The axial source images and reconstructed images were reviewed for this report. All CT scans at this location are performed using CT dose reduction for ALARA by means of automated e xposure control. FINDINGS: The caliber of the intracranial vessels is normal throughout. There is no indication of intracranial stenosis or large vessel occlusion. There is no indication of vasculitis. There is no evidence of aneurysm or other vascular malformation. IMPRESSION: No abnormalities are identified on CTA head. CONTRAST DOSE REPORT: Omnipaque 350: 150 ml administered intravenously. Signer Name: Eduardo Perez MD Signed: 09/22/2019 4:42 PM Workstation Name: [id number]
[2019-09-22 16:52] LABS: BUN/Creatinine Ratio 13; Blood Urea Nitrogen 15 mg/dL (9-20); Calcium 9.4 mg/dL (8.4-10.2); Hemolysis Index 20
[2019-09-22] MEDS ORDERED: D5W/0.45% NACL/KCL 20 MEQ 20 MEQ/1,000 ML BAG IV SCH (17:00)
[2019-09-22] MEDS ORDERED: INSULIN REGULAR, HUMAN 100 UNITS in SODIUM CHLORIDE 0.9% 99 ML IV SCH ×2 (17:00→21:00)
[2019-09-22 20:26] LABS: BUN/Creatinine Ratio 13; Blood Urea Nitrogen 14 mg/dL (9-20); Calcium 9.4 mg/dL (8.4-10.2); Hemolysis Index 8
[2019-09-22] MEDS ORDERED: ACETAMINOPHEN 325 MG TAB PO PRN ×3 (20:37→21:31)
[2019-09-22] MEDS ORDERED: SODIUM CHLORIDE 0.9% 1000 ML 1,000 ML IV ONE (20:39)
[2019-09-22] MEDS ORDERED: POTASSIUM CHLORIDE 10 MEQ 10 MEQ/100 ML BAG IV SCH ×2 (21:00)
--- NOTE | 2019-09-22 21:23 | History and Physical Report ---
History of Present Illness Date of examination: 09/22/19 Date of admission: 09/22/19 17:14 Chief complaint: Generalized weakness and left upper extremity numbness for 1 day History of present illness: 43 year old -[place] male with history of hypertension, CHF and type 2 diabetes comes in for generalized weakness and left upper extremity numbness and weakness. Left upper extremity symptoms have resolved while in the emergency room. Telemetry neurology was called and ER physician was advised stroke workup. During my exam patient was moving all 4 extremities. Slightly lethargic. His blood glucose levels were high in the emergency room. Patient being admitted for hyperosmolar nonketotic state. Not comatose. No fever or chills. Not taking any day diabetic medications for couple of months. Some shortness of breath present. No orthopnea. No hematemesis or vomiting. Past Medical History Hypertension: Yes CVA: Yes (TIA's) Congestive Heart Failure: Yes Diabetes: Yes Surgical History None Social History Smoking Status: Never Smoker Substance Use Type: None Family history htn - Medications Home Medications: Home Medications Medication Instructions Recorded Confirmed Last Taken Type Acetaminophen [Acetaminophen TAB] 650 mg PO Q4H PRN #30 tablet 11/09/17 Unknown Rx AtorvaSTATin [Lipitor] 40 mg PO QHS #30 tablet 11/09/17 Unknown Rx Metoprolol Xl [Metoprolol 100 mg PO QDAY #60 tablet 11/09/17 Unknown Rx SUCCINATE ER TAB] Ondansetron [Zofran INJ] 4 mg IV Q8H PRN #1 vial 11/09/17 Unknown Rx Torsemide [Demadex] 60 mg PO BID@0600,1800 #60 tablet 11/09/17 Unknown Rx levoFLOXacin [Levaquin TAB] 500 mg PO Q24HR #5 tablet 11/09/17 Unknown Rx oxyCODONE /ACETAMINOPHEN [Percocet 1 tab PO Q4H PRN #20 tablet 11/09/17 Unknown Rx 5/325 mg] Review of Systems ROS: Stated complaint: HBS Other details as noted in HPI Constitutional: fever, malaise, weakness Eyes: denies: eye discharge ENT: denies: congestion Respiratory: denies: wheezing Cardiovascular: denies: chest pain, syncope Gastrointestinal: denies: abdominal pain Genitourinary: denies: dysuria Musculoskeletal: denies: back pain Skin: denies: lesions Neurological: headache, weakness Psychiatric: anxiety Hematological/Lymphatic: denies: easy bleeding Medications and Allergies Allergies Allergy/AdvReac Type Severity Reaction Status Date / Time No Known Allergies Allergy Unverified 11/07/17 13:18 Home Medications Medication Instructions Recorded Confirmed Last Taken Type Acetaminophen [Acetaminophen TAB] 650 mg PO Q4H PRN #30 tablet 11/09/17 Unknown Rx AtorvaSTATin [Lipitor] 40 mg PO QHS #30 tablet 11/09/17 Unknown Rx Metoprolol Xl [Metoprolol 100 mg PO QDAY #60 tablet 11/09/17 Unknown Rx SUCCINATE ER TAB] Ondansetron [Zofran INJ] 4 mg IV Q8H PRN #1 vial 11/09/17 Unknown Rx Torsemide [Demadex] 60 mg PO BID@0600,1800 #60 tablet 11/09/17 Unknown Rx levoFLOXacin [Levaquin TAB] 500 mg PO Q24HR #5 tablet 11/09/17 Unknown Rx oxyCODONE /ACETAMINOPHEN [Percocet 1 tab PO Q4H PRN #20 tablet 11/09/17 Unknown Rx 5/325 mg] Active Meds: Active Medications Acetaminophen (Tylenol) 650 mg PO Q4H PRN PRN Reason: Pain MILD(1-3)/Fever >100.5/HERNANDEZ Dextrose (D50w (25gm) Syringe) 0 ml IV Q30MIN PRN; Protocol PRN Reason: Hypoglycemia Famotidine (Pepcid) 20 mg IV BID DELTA Hydromorphone HCl (Dilaudid) 1 mg IV Q3H PRN PRN Reason: Pain , Severe (7-10) Potassium Chloride/Dextrose/Sod Cl (D5w/0.45% Nacl/Kcl 20 Meq) 20 meq in 1,000 mls @ 125 mls/hr IV DIRECT DELTA Insulin Human Regular 100 (units/ Sodium Chloride) 100 mls @ 1 mls/hr IV TITR DELTA; Protocol Sodium Chloride (Nacl 0.9% 1000 Ml) 1,000 mls @ 125 mls/hr IV BOLUS ONE Stop: 09/23/19 04:38 Insulin Human Isoph/Insulin Regular (Humulin 70/30) 20 unit SUB-Q BIDDIAB [facility] Ondansetron HCl (Zofran) 4 mg IV Q8H PRN PRN Reason: Nausea And Vomiting Sodium Chloride (Sodium Chloride Flush Syringe 10 Ml) 10 ml IV BID DELTA Sodium Chloride (Sodium Chloride Flush Syringe 10 Ml) 10 ml IV PRN PRN PRN Reason: LINE FLUSH Exam - Constitutional Vitals: Temp Pulse Resp BP Pulse Ox 97.5 F L 108 H 19 138/92 99 09/22/19 14:08 09/22/19 16:00 09/22/19 16:00 09/22/19 16:00 09/22/19 16:00 General appearance: Present: no acute distress, well-nourished - EENT Eyes: Present: PERRL ENT: hearing intact, clear oral mucosa - Neck Neck: Present: supple, normal ROM - Respiratory Respiratory effort: normal Respiratory: bilateral: CTA - Cardiovascular Heart rate: 78 Rhythm: regular Heart Sounds: Present: S1 & S2. Absent: rub, click - Extremities Extremities: no ischemia, pulses intact, pulses symmetrical, No edema Peripheral Pulses: within normal limits - Abdominal General gastrointestinal: Present: soft, non-tender, non-distended, normal bowel sounds Male genitourinary: Present: normal - Rectal Rectal Exam: deferred - Integumentary Integumentary: Present: clear, warm, dry - Musculoskeletal Musculoskeletal: strength equal bilaterally (no focal deficits) - Psychiatric Psychiatric: appropriate mood/affect, intact judgment & insight - Neurologic Neurologic: CNII-XII intact, moves all extremities, gait normal Results - Labs CBC & Chem 7: 09/22/19 14:09 09/22/19 19:39 Labs: Laboratory Last Values WBC 11.5 K/mm3 (4.5-11.0) H 09/22/19 14:09 RBC 6.87 M/mm3 (3.65-5.03) H 09/22/19 14:09 Hgb 15.6 gm/dl (11.8-15.2) H 09/22/19 14:09 Hct 50.5 % (35.5-45.6) H 09/22/19 14:09 MCV 73 fl (84-94) L 09/22/19 14:09 MCH 23 pg (28-32) L 09/22/19 14:09 MCHC 31 % (32-34) L 09/22/19 14:09 RDW 16.4 % (13.2-15.2) H 09/22/19 14:09 Plt Count 134 K/mm3 (140-440) L 09/22/19 14:09 Lymph % (Auto) 23.6 % (13.4-35.0) 09/22/19 14:09 [place] % (Auto) 6.4 % (0.0-7.3) 09/22/19 14:09 Eos % (Auto) 0.4 % (0.0-4.3) 09/22/19 14:09 Baso % (Auto) 0.9 % (0.0-1.8) 09/22/19 14:09 Lymph # 2.7 K/mm3 (1.2-5.4) 09/22/19 14:09 [place] # 0.7 K/mm3 (0.0-0.8) 09/22/19 14:09 Eos # 0.0 K/mm3 (0.0-0.4) 09/22/19 14:09 Baso # 0.1 K/mm3 (0.0-0.1) 09/22/19 14:09 Seg Neutrophils % 68.7 % (40.0-70.0) 09/22/19 14:09 Seg Neutrophils # 7.9 K/mm3 (1.8-7.7) H 09/22/19 14:09 PT 13.6 Sec. (12.2-14.9) 09/22/19 14:09 INR 1.05 (0.87-1.13) 09/22/19 14:09 APTT 29.0 Sec. (24.2-36.6) 09/22/19 14:09 VBG pH 7.445 (7.320-7.420) H 09/22/19 14:09 Sodium 137 mmol/L (137-145) 09/22/19 19:39 Potassium 4.0 mmol/L (3.6-5.0) 09/22/19 19:39 Chloride 98.2 mmol/L (98-107) 09/22/19 19:39 Carbon Dioxide 21 mmol/L (22-30) L 09/22/19 19:39 Anion Gap 22 mmol/L 09/22/19 19:39 BUN 14 mg/dL (9-20) 09/22/19 19:39 Creatinine 1.1 mg/dL (0.8-1.5) 09/22/19 19:39 Estimated GFR > 60 ml/min 09/22/19 19:39 BUN/Creatinine Ratio 13 % 09/22/19 19:39 Glucose 318 mg/dL (75-100) H 09/22/19 19:39 POC Glucose 315 (70-105) H 09/22/19 18:59 Ketones Quantitative Negative (Negative) 09/22/19 14:09 Calcium 9.4 mg/dL (8.4-10.2) 09/22/19 19:39 Phosphorus 4.10 mg/dL (2.5-4.5) 09/22/19 16:42 Magnesium 1.70 mg/dL (1.7-2.3) 09/22/19 16:42 Total Bilirubin 1.30 mg/dL (0.1-1.2) H 09/22/19 14:09 AST 13 units/L (5-40) 09/22/19 14:09 ALT 12 units/L (7-56) 09/22/19 14:09 Alkaline Phosphatase 131 units/L (35-129) H 09/22/19 14:09 Total Creatine Kinase 72 units/L (55-170) 09/22/19 14:09 Troponin T 0.014 ng/mL (0.00-0.029) 09/22/19 19:39 NT-Pro-B Natriuret Pep 764.8 pg/mL (0-450) H 09/22/19 14:09 Total Protein 7.3 g/dL (6.3-8.2) 09/22/19 14:09 Albumin 3.6 g/dL (3.9-5) L 09/22/19 14:09 Albumin/Globulin Ratio 1.0 % 09/22/19 14:09 Plasma/Serum Alcohol < 0.01 % (0-0.07) 09/22/19 14:09 - Imaging and Cardiology EKG: report reviewed Chest x-ray: report reviewed (no acute findings) CT Scan - head: report reviewed Imaging and Cardiology: Head CT IMPRESSION: 1. Remote left cerebellar infarction. 2. No acute intracranial abnormalities are identified. Head CTA and neck CTA IMPRESSION: 1. No indication of hemodynamically significant stenosis at the carotid bifurcations or elsewhere. Assessment and Plan Assessment and plan: Critical care time 32 minutes Advance Directives: Yes (full code) VTE prophylaxis?: Chemical Plan of care discussed with patient/family: Yes - Patient Problems (1) Hyperosmolar non-ketotic state in patient with type 2 diabetes mellitus Onset Date: ~09/22/19 Current Visit: Yes Status: Acute Plan to address problem: Patient initiated on IV insulin IV fluids Novolin 70/30 20 units twice a day initiated Patient needs to be compliant Monitor lites closely (2) TIA (transient ischemic attack) Current Visit: Yes Status: Acute Plan to address problem: Patient had left upper extremity weakness which has resolved No MRA\ MRI brain ordered (3) CHF (congestive heart failure) Current Visit: No Status: Chronic Plan to address problem: Continue Lasix (4) Hypertension Current Visit: Yes Status: Chronic Qualifiers: Hypertension type: essential hypertension Qualified Code(s): I10 - Essential (primary) hypertension Plan to address problem: Continue antihypertensives (5) Hyponatremia Current Visit: Yes Status: Acute Plan to address problem: Mild Should correct with IV fluids and correction of blood glucose (6) DVT prophylaxis Current Visit: No Status: Acute Plan to address problem: Heparin 5000 every 12 and GI prophylaxis
[2019-09-22] MEDS ORDERED: FAMOTIDINE 20 MG/2 ML INJ IV ONE (21:30)
[2019-09-22] MEDS ORDERED: oxyCODONE /ACETAMINOPHEN 5-325MG TAB PO PRN (21:30)
[2019-09-22] MEDS ORDERED: ONDANSETRON 4 MG/2 ML INJ IV PRN (21:31)
[2019-09-22 21:37] LABS: BUN/Creatinine Ratio 13; Blood Urea Nitrogen 13 mg/dL (9-20); Calcium 9.2 mg/dL (8.4-10.2); Hemolysis Index 26
[2019-09-22] MEDS: HYDROmorphone 1 MG/1 ML INJ IV PRN (21:58)
[2019-09-22] MEDS ORDERED: HYDROmorphone 1 MG/1 ML INJ ONE (21:58)
[2019-09-22] MEDS: FAMOTIDINE 20 MG/2 ML INJ IV SCH (22:00)
[2019-09-23 00:17] LABS: BUN/Creatinine Ratio 12; Blood Urea Nitrogen 12 mg/dL (9-20); Calcium 9.2 mg/dL (8.4-10.2); Hemolysis Index 7
[2019-09-23 01:38] LABS: BUN/Creatinine Ratio 13; Blood Urea Nitrogen 12 mg/dL (9-20); Calcium 8.9 mg/dL (8.4-10.2); Hemolysis Index 2
[2019-09-23] MEDS ORDERED: DEXTROSE 50% IN WATER (25GM) 50 ML SYRINGE IV PRN (03:57)
[2019-09-23 04:23] LABS: BUN/Creatinine Ratio 12; Blood Urea Nitrogen 12 mg/dL (9-20); Calcium 8.9 mg/dL (8.4-10.2); Hemolysis Index 3
[2019-09-23 05:46] LABS: BUN/Creatinine Ratio 12; Blood Urea Nitrogen 12 mg/dL (9-20); Calcium 8.6 mg/dL (8.4-10.2); Hemolysis Index 8
[2019-09-23] MEDS: METOPROLOL SUCCINATE XL 100 MG TAB PO SCH ×2 (06:13→10:30)
[2019-09-23] MEDS: INSULIN LISPRO 100 UNIT/ML SUB-Q SCH ×4 (09:29→22:39)
[2019-09-23 09:31] LABS: Bilirubin,Urine NEG (Negative); Blood,Urine SM (Negative); Color,Urine Yellow (Yellow); Mucus,Urine FEW /HPF; Urobilinogen,Urine < 2.0 mg/dL (<2.0)
[2019-09-23 09:35] LABS: Protein,Urine >500 mg/dL (Negative)
[2019-09-23] MEDS: INSULIN NPH/REGULAR 70/30 INJ SUB-Q SCH ×2 (09:35→17:55)
[2019-09-23 09:36] LABS: Creatinine,Urine 212.5 mg/dL (0.1-20.0)
[2019-09-23 09:42] LABS: Amphetamine Screen,Urine PRESUMPTIVE NEGATIVE; Benzodiazepines Screen,Urine PRESUMPTIVE NEGATIVE; Cannabinoid Screen,Urine PRESUMPTIVE NEGATIVE; Cocaine Screen,Urine PRESUMPTIVE NEGATIVE; Methadone Screen,Urine PRESUMPTIVE NEGATIVE; Opiate Screen,Urine PRESUMPTIVE NEGATIVE
[2019-09-23] MEDS: FAMOTIDINE 20 MG/2 ML INJ IV SCH (10:03)
[2019-09-23 10:29] LABS: Microalbumin/Creatinine Ratio 713.4 ug/mg
--- NOTE | 2019-09-23 11:10 | Progress Note ---
Assessment and Plan Assessment and plan: Hyperosmolar non-ketotic state in patient with type 2 diabetes mellitus Patient initiated on IV insulin IV fluids Novolin 70/30 20 units twice a day initiated Patient needs to be compliant Monitor lytes closely Left upper extremity weakness and numbness MRI brain ordered To r/o stroke Chronic congestive heart failure Continue Lasix Entresto Hypertension Continue antihypertensives Hyponatremia Mild Should correct with IV fluids and correction of blood glucose DVT prophylaxis On Xarelto History of DVT On Xarelto Thrombocytopenia Monitor Patient stable to transfer to [facility] History Interval history: gen weakness improved left upper ext weakness and numbness Hospitalist Physical - Physical exam Narrative exam: Gen: Not in acute distress, lying in bed HEENT: Normocephalic, atraumatic Neck: supple, no JVD Heart: S1 and S2 reg, no murmurs, rubs or gallop Lungs: cleat to auscultation bilat, no crackles Abd: soft, NT, non distended, normal BS Ext: No edema, no clubbing, no cyanosis Neuro: Awake, alert, oriented to person, place, time,slight weakness LUE - Constitutional Vitals: Temp Pulse Resp BP Pulse Ox 97.5 F L 101 H 25 H 127/97 100 09/22/19 14:08 09/23/19 09:00 09/23/19 09:00 09/23/19 07:27 09/23/19 09:00 General appearance: Present: no acute distress, well-nourished Results - Labs CBC & Chem 7: 09/22/19 14:09 09/23/19 11:26 Labs: Laboratory Last Values WBC 11.5 K/mm3 (4.5-11.0) H 09/22/19 14:09 RBC 6.87 M/mm3 (3.65-5.03) H 09/22/19 14:09 Hgb 15.6 gm/dl (11.8-15.2) H 09/22/19 14:09 Hct 50.5 % (35.5-45.6) H 09/22/19 14:09 MCV 73 fl (84-94) L 09/22/19 14:09 MCH 23 pg (28-32) L 09/22/19 14:09 MCHC 31 % (32-34) L 09/22/19 14:09 RDW 16.4 % (13.2-15.2) H 09/22/19 14:09 Plt Count 134 K/mm3 (140-440) L 09/22/19 14:09 Lymph % (Auto) 23.6 % (13.4-35.0) 09/22/19 14:09 [place] % (Auto) 6.4 % (0.0-7.3) 09/22/19 14:09 Eos % (Auto) 0.4 % (0.0-4.3) 09/22/19 14:09 Baso % (Auto) 0.9 % (0.0-1.8) 09/22/19 14:09 Lymph # 2.7 K/mm3 (1.2-5.4) 09/22/19 14:09 [place] # 0.7 K/mm3 (0.0-0.8) 09/22/19 14:09 Eos # 0.0 K/mm3 (0.0-0.4) 09/22/19 14:09 Baso # 0.1 K/mm3 (0.0-0.1) 09/22/19 14:09 Seg Neutrophils % 68.7 % (40.0-70.0) 09/22/19 14:09 Seg Neutrophils # 7.9 K/mm3 (1.8-7.7) H 09/22/19 14:09 PT 13.6 Sec. (12.2-14.9) 09/22/19 14:09 INR 1.05 (0.87-1.13) 09/22/19 14:09 APTT 29.0 Sec. (24.2-36.6) 09/22/19 14:09 VBG pH 7.445 (7.320-7.420) H 09/22/19 14:09 Sodium 141 mmol/L (137-145) 09/23/19 04:48 Potassium 3.7 mmol/L (3.6-5.0) 09/23/19 04:48 Chloride 106.5 mmol/L (98-107) 09/23/19 04:48 Carbon Dioxide 25 mmol/L (22-30) 09/23/19 04:48 Anion Gap 13 mmol/L 09/23/19 04:48 BUN 12 mg/dL (9-20) 09/23/19 04:48 Creatinine 1.0 mg/dL (0.8-1.5) 09/23/19 04:48 Estimated GFR > 60 ml/min 09/23/19 04:48 BUN/Creatinine Ratio 12 % 09/23/19 04:48 Glucose 149 mg/dL (75-100) H 09/23/19 04:48 POC Glucose 102 (70-105) 09/22/19 23:18 Hemoglobin A1c 13.6 % (4-6) H 09/22/19 21:13 Ketones Quantitative Negative (Negative) 09/22/19 14:09 Calcium 8.6 mg/dL (8.4-10.2) 09/23/19 04:48 Phosphorus 3.30 mg/dL (2.5-4.5) 09/22/19 21:13 Magnesium 1.90 mg/dL (1.7-2.3) 09/22/19 21:13 Total Bilirubin 1.30 mg/dL (0.1-1.2) H 09/22/19 14:09 AST 13 units/L (5-40) 09/22/19 14:09 ALT 12 units/L (7-56) 09/22/19 14:09 Alkaline Phosphatase 131 units/L (35-129) H 09/22/19 14:09 Total Creatine Kinase 72 units/L (55-170) 09/22/19 14:09 Troponin T 0.014 ng/mL (0.00-0.029) 09/22/19 19:39 NT-Pro-B Natriuret Pep 764.8 pg/mL (0-450) H 09/22/19 14:09 Total Protein 7.3 g/dL (6.3-8.2) 09/22/19 14:09 Albumin 3.6 g/dL (3.9-5) L 09/22/19 14:09 Albumin/Globulin Ratio 1.0 % 09/22/19 14:09 Urine Color Yellow (Yellow) 09/23/19 08:00 Urine Turbidity Clear (Clear) 09/23/19 08:00 Urine pH 6.0 (5.0-7.0) 09/23/19 08:00 Ur Specific [place] 1.060 (1.003-1.030) H 09/23/19 08:00 Urine Protein >500 mg/dL (Negative) 09/23/19 08:00 Urine Glucose (UA) >=500 mg/dL (Negative) 09/23/19 08:00 Urine Ketones Neg mg/dL (Negative) 09/23/19 08:00 Urine Blood Sm (Negative) 09/23/19 08:00 Urine Nitrite Neg (Negative) 09/23/19 08:00 Urine Bilirubin Neg (Negative) 09/23/19 08:00 Urine Urobilinogen < 2.0 mg/dL (<2.0) 09/23/19 08:00 Ur Leukocyte Esterase Neg (Negative) 09/23/19 08:00 Urine WBC (Auto) 1.0 /HPF (0.0-6.0) 09/23/19 08:00 Urine RBC (Auto) 4.0 /HPF (0.0-6.0) 09/23/19 08:00 Urine Mucus Few /HPF 09/23/19 08:00 Urine Creatinine 212.5 mg/dL (0.1-20.0) H 09/23/19 08:49 Urine Microalbumin 151.6 mg/dL (0.1-34.0) H 09/23/19 08:49 Microalb/Creat Ratio 713.4 ug/mg 09/23/19 08:49 Urine Opiates Screen Presumptive negative 09/23/19 08:00 Urine Methadone Screen Presumptive negative 09/23/19 08:00 Ur Barbiturates Screen Presumptive negative 09/23/19 08:00 Ur Phencyclidine Scrn Presumptive negative 09/23/19 08:00 Ur Amphetamines Screen Presumptive negative 09/23/19 08:00 U Benzodiazepines Scrn Presumptive negative 09/23/19 08:00 Urine Cocaine Screen Presumptive negative 09/23/19 08:00 U Marijuana (THC) Screen Presumptive negative 09/23/19 08:00 Drugs of Abuse Note Disclamer 09/23/19 08:00 Plasma/Serum Alcohol < 0.01 % (0-0.07) 09/22/19 14:09 Active Medications - Current Medications Current Medications: Generic Name Dose Route Start Last Admin Trade Name Freq PRN Reason Stop Dose Admin Acetaminophen 650 mg 09/22/19 20:37 Tylenol PO Q4H PRN Pain MILD(1-3)/Fever >100.5/HERNANDEZ Atorvastatin Calcium 40 mg 09/22/19 22:00 09/23/19 06:13 Lipitor PO Not Given QHS DELTA Dextrose 50 ml 09/23/19 03:57 D50w (25gm) Syringe IV Q30MIN PRN Hypoglycemia Protocol Famotidine 20 mg 09/22/19 22:00 09/22/19 22:00 Pepcid IV 20 mg BID DELTA Administration Hydromorphone HCl 1 mg 09/22/19 20:37 09/22/19 21:58 Dilaudid IV 1 mg Q3H PRN Administration Pain , Severe (7-10) Potassium Chloride/Dextrose/Sod Cl 20 meq in 1,000 mls @ 75 mls/hr 09/22/19 17:00 09/22/19 21:58 D5w/0.45% Nacl/Kcl 20 Meq IV 75 mls/hr DIRECT DELTA Administration Insulin Glargine 10 units 09/23/19 08:00 Lantus SUB-Q QAMDIAB [facility] Insulin Human Isoph/Insulin Regular 20 unit 09/23/19 08:00 Humulin 70/30 SUB-Q BIDDIAB [facility] Insulin Human Lispro 0 unit 09/23/19 06:00 09/23/19 09:29 Humalog SUB-Q Not Given Q6HR [facility] Protocol Metoprolol Succinate 100 mg 09/22/19 22:00 09/23/19 06:13 Metoprolol Xl PO Not Given QDAY [facility] Ondansetron HCl 4 mg 09/22/19 20:37 Zofran IV Q8H PRN Nausea And Vomiting Oxycodone/Acetaminophen 1 tab 09/22/19 21:30 Percocet 5/325 PO Q4H PRN Pain, Moderate (4-6) Sodium Chloride 10 ml 09/22/19 22:00 09/22/19 22:00 Sodium Chloride Flush Syringe 10 Ml IV 10 ml BID DELTA Administration Sodium Chloride 10 ml 09/22/19 20:37 Sodium Chloride Flush Syringe 10 Ml IV PRN PRN LINE FLUSH Nutrition/Malnutrition Assess - Dietary Evaluation Nutrition/Malnutrition Findings: Nutrition Notes Start: 09/23/19 10:49 Freq: Status: Active Protocol: Document 09/23/19 10:50 LP (Rec: 09/23/19 10:53 LP [id number]) Nutrition Notes Need for Assessment generated from: MD Order Initial or Follow up Brief Note Current Diagnosis Diabetes,Hypertension,Heart Failure,Stroke Other Pertinent Diagnosis TIA Current Diet Clear Liquid Labs/Tests A1c 13.6 Pertinent Medications D5 1/2 NS KCL 20mEq at 75ml/hr Height 6 ft Weight 94.522 kg [place] Body Weight (kg) 80.90 BMI 28.2 Weight Status Overweight Subjective/Other Information Consult for diet education. Pt in ED. Nutrition Intervention Follow-Up By: 09/24/19 Additional Comments Follow for diet education
[2019-09-23 12:08] LABS: BUN/Creatinine Ratio 13; Blood Urea Nitrogen 13 mg/dL (9-20); Hemolysis Index 2
[2019-09-23] MEDS: INSULIN GLARGINE 100 UNITS/ML SUB-Q SCH (12:35)
[2019-09-23 16:33] LABS: BUN/Creatinine Ratio 12; Blood Urea Nitrogen 13 mg/dL (9-20); Calcium 9.1 mg/dL (8.4-10.2); Hemolysis Index 52
[2019-09-23] MEDS ORDERED: VALSARTAN PO SCH (18:30)
[2019-09-23] MEDS ORDERED: SACUBITRIL PO SCH (18:30)
[2019-09-23] MEDS: RIVAROXABAN 20 MG TAB PO SCH (20:35)
[2019-09-23 20:47] LABS: BUN/Creatinine Ratio 13; Blood Urea Nitrogen 14 mg/dL (9-20); Calcium 8.8 mg/dL (8.4-10.2); Hemolysis Index 6
[2019-09-23] MEDS ORDERED: INSULIN LISPRO 100 UNIT/ML SUB-Q SCH (22:00)
[2019-09-23] MEDS: SACUBITRIL/VALSARTAN 49-51 MG TAB PO SCH (22:38)
[2019-09-23] MEDS: FAMOTIDINE 20 MG TAB PO SCH (22:38)
[2019-09-24] MEDS: INSULIN NPH/REGULAR 70/30 INJ SUB-Q SCH ×2 (08:00→17:50)
[2019-09-24 08:13] LABS: Hematocrit 45.1 % (35.5-45.6); Hemoglobin 14.1 gm/dl (11.8-15.2); Mean Corpuscular HGB Conc 31 % (32-34); Mean Corpuscular Volume 74 fl (84-94); Red Blood Count 6.11 M/mm3 (3.65-5.03); Red Cell Distribution Width 15.9 % (13.2-15.2)
[2019-09-24 08:20] LABS: BUN/Creatinine Ratio 15; Blood Urea Nitrogen 15 mg/dL (9-20); Calcium 8.6 mg/dL (8.4-10.2); Hemolysis Index 3
[2019-09-24 08:24] LABS: Platelet Count 128 K/mm3 (140-440)
[2019-09-24] MEDS: INSULIN LISPRO 100 UNIT/ML SUB-Q SCH ×4 (08:50→22:20)
[2019-09-24 10:40] LABS: Chol/HDL Ratio 5.43 %
--- NOTE | 2019-09-24 10:42 | Magnetic Resonance Report ---
MRI BRAIN WITHOUT CONTRAST INDICATION / CLINICAL INFORMATION: TIA, altered mental status. TECHNIQUE: Multisequence, multiplanar images were obtained. COMPARISON: MR brain dated 11/09/2017, CT head dated 09/22/2019 FINDINGS: CEREBRAL and CEREBELLAR HEMISPHERES: There are multiple small and medium size areas of diffusion rest riction throughout the posterior right MCA distribution. These areas of diffusion restriction are ray isai within the posterior right frontal lobe, right parietal lobe and right subinsular cortex. One of the largest areas of diffusion restriction in the right parietal region measures 2.9 x 2.2 cm in a xial plane. No evidence for hemorrhage, mass or mass effect. Chronic infarct in the left inferior cer ebellum appears stable since the previous MR brain. The remaining brain parenchyma signal intensity a nd its johns-white interface are within normal limits. No extra-axial fluid collection. VENTRICLES: Normal in size and configuration for age. VISUALIZED ORBITS: No significant abnormality. VISUALIZED PARANASAL SINUSES: 2.4 cm mucous retention cyst in the inferior right maxillary sinus is n oted. The remaining sinuses are adequately aerated. The mastoid air cells are clear. ADDITIONAL FINDINGS: None. IMPRESSION: There are multiple small and medium size areas of subacute ischemia in the posterior division of the right MCA as described. No evidence for hemorrhage or mass effect. Chronic left cerebellar infarct. Signer Name: Wallace Hurd Jr, MD Signed: 09/24/2019 10:38 AM Workstation Name: [id number]
[2019-09-24] MEDS: ASPIRIN EC 81 MG TAB PO SCH (13:28)
[2019-09-24] MEDS: METOPROLOL SUCCINATE XL 100 MG TAB PO SCH (13:28)
[2019-09-24] MEDS: FAMOTIDINE 20 MG TAB PO SCH ×2 (13:28→21:39)
[2019-09-24] MEDS: RIVAROXABAN 20 MG TAB PO SCH (13:29)
[2019-09-24] MEDS: INSULIN GLARGINE 100 UNITS/ML SUB-Q SCH (13:30)
[2019-09-24] MEDS: SACUBITRIL/VALSARTAN 49-51 MG TAB PO SCH ×2 (13:30→21:39)
--- NOTE | 2019-09-24 15:25 | Consultation ---
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 Pt is regularly followed by [facility]. He presented with c/o bilateral hand numbness and left upper extremity weakness for about an hour prior to arrival. 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 He was standing at the counter getting his food when he noted the onset of his symptoms. He drove back to his workplace and suddenly felt nauseous and diaphoretic and sat down in a chair. He believes he lost consciousness at that point. His co-workers said he "passed out" and thus they called EMS. Pt next recalls being in the ambulance. On evaluation, pt still c/o bilateral hand numbness, the weakness has resolved. Head CT and CTA with NAF, neck CTA with NAF, brain MRI shows multiple small and medium size areas of subacute ischemia in the posterior division of the right MCA, no hemorrhage, chronic left cerebellar infarct. Pt denies any current cardiac complaints and states he has been doing well from a cardiac perspective. [facility] He was noted to have 12 beat run NSVT on tele this morning and thus cardiology has been consulted. Echocardiogram done here 10/2017 showed EF 15-20%, mild LVH, severe global hypokinesis of the LV, RV mild to mod dilated, RV systolic function mildly reduced, no atrial septal defect demonstrated, trace AR, trace MR, mild TR, mod pulm HTN with RVSP 57mmHg, no change in dimension of inferior vena cava with respiration c/w markedly increased RA pressure. Of note, pt was diagnosed with new onset HF and CMP in 12/2016 thought to be s econdary to viral myocarditis. 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 Shortly after the exposure, he developed fatigue, n/v, diarrhea and was subsequently hospitalized and diagnosed with HF and CMP. He reportedly underwent coronary angiography (LHC and RHC) at that time and was told his coronaries were normal. Past History Past Medical History: other (as per HPI) Medications and Allergies Allergies Allergy/AdvReac Type Severity Reaction Status Date / Time No Known Allergies Allergy Unverified 11/07/17 13:18 Home Medications Medication Instructions Recorded Confirmed Last Taken Type AtorvaSTATin [Lipitor] 40 mg PO QHS #30 tablet 11/09/17 09/23/19 Unknown Rx Metoprolol Xl [Metoprolol 100 mg PO QDAY #60 tablet 11/09/17 09/23/19 Unknown Rx SUCCINATE ER TAB] Torsemide [Demadex] 60 mg PO BID@0600,1800 #60 tablet 11/09/17 09/23/19 Unknown Rx Rivaroxaban [Xarelto] 20 mg PO DAILY 09/23/19 09/23/19 Unknown History Sacubitril/Valsartan [Entresto 97 1 tab PO BID 09/23/19 09/23/19 Unknown History mg-103 mg Tablet] Active Meds: Active Medications Acetaminophen (Tylenol) 650 mg PO Q4H PRN PRN Reason: Pain MILD(1-3)/Fever >100.5/HERNANDEZ Aspirin (Halfprin Ec) 81 mg PO QDAY [facility] Last Admin: 09/24/19 13:28 Dose: 81 mg Documented by: Atorvastatin Calcium (Lipitor) 40 mg PO QHS [facility] Last Admin: 09/23/19 22:38 Dose: 40 mg Documented by: Dextrose (D50w (25gm) Syringe) 50 ml IV Q30MIN PRN; Protocol PRN Reason: Hypoglycemia Famotidine (Pepcid) 20 mg PO BID [facility] Last Admin: 09/24/19 13:28 Dose: 20 mg Documented by: Hydromorphone HCl (Dilaudid) 1 mg IV Q3H PRN PRN Reason: Pain , Severe (7-10) Last Admin: 09/22/19 21:58 Dose: 1 mg Documented by: Insulin Glargine (Lantus) 10 units SUB-Q QAMDIAB [facility] Last Admin: 09/24/19 13:30 Dose: 10 units Documented by: Insulin Human Isoph/Insulin Regular (Humulin 70/30) 20 unit SUB-Q BIDDIAB [facility] Last Admin: 09/24/19 08:00 Dose: Not Given Documented by: Insulin Human Lispro (Humalog) 0 unit SUB-Q ACHS [facility]; Protocol Last Admin: 09/23/19 22:39 Dose: 4 unit Documented by: Metoprolol Succinate (Metoprolol Xl) 100 mg PO QDAY [facility] Last Admin: 09/24/19 13:28 Dose: 100 mg Documented by: Ondansetron HCl (Zofran) 4 mg IV Q8H PRN PRN Reason: Nausea And Vomiting Oxycodone/Acetaminophen (Percocet 5/325) 1 tab PO Q4H PRN PRN Reason: Pain, Moderate (4-6) Rivaroxaban (Xarelto) 20 mg PO DAILY [facility]; Protocol Last Admin: 09/24/19 13:29 Dose: 20 mg Documented by: Sodium Chloride (Sodium Chloride Flush Syringe 10 Ml) 10 ml IV BID [facility] Last Admin: 09/23/19 22:40 Dose: 10 ml Documented by: Sodium Chloride (Sodium Chloride Flush Syringe 10 Ml) 10 ml IV PRN PRN PRN Reason: LINE FLUSH Sodium Chloride (Sodium Chloride Flush Syringe 10 Ml) 10 ml IV PRN PRN PRN Reason: LINE FLUSH Torsemide (Demadex) 60 mg PO BID@0600,1800 [facility] Review of Systems Constitutional: no weight loss, no weight gain, no fever, no chills, no sweats Ears, nose, mouth and throat: no ear pain, no nose pain, no sinus pressure, no sinus pain Cardiovascular: syncope, no chest pain, no orthopnea, no palpitations, no rapid/irregular heart beat, no edema, no shortness of breath, no dyspnea on exertion, no high blood pressure Respiratory: no cough, no shortness of breath, no dyspnea on exertion, no congestion, no wheezing, no pain on inspiration Gastrointestinal: no abdominal pain, no nausea, no vomiting, no diarrhea, no constipation, no change in bowel habits Genitourinary Male: no dysuria, no hematuria, no flank pain, no discharge, no urinary frequency, no urinary hesitancy Musculoskeletal: other (bilateral hand numbness, LUE weakness), no neck stiffness, no neck pain, no shooting arm pain, no arm numbness/tingling, no low back pain, no shooting leg pain Integumentary: no rash, no pruritis, no redness, no sores, no wounds Neurological: syncope, other (bilateral hand numbness, LUE weakness), no head injury, no paralysis, no parathesias, no numbness, no tingling, no seizures Psychiatric: no anxiety Endocrine: no cold intolerance, no heat intolerance Hematologic/Lymphatic: no easy bruising, no easy bleeding Allergic/Immunologic: no urticaria, no wheezing Physical Examination Vital Signs Temp Pulse Resp BP Pulse Ox 97.5 F L 112 H 22 148/110 100 09/22/19 14:08 09/22/19 14:08 09/22/19 14:08 09/22/19 14:08 09/22/19 14:08 General appearance: no acute distress HEENT: Positive: PERRL, Normocephaly, Mucus Membranes Moist Neck: Positive: neck supple, trachea midline Cardiac: Positive: Reg Rate and Rhythm, S1/S2 Lungs: Positive: Decreased Breath Sounds Neuro: Positive: Grossly Intact Abdomen: Negative: Tender Skin: Negative: Rash Musculoskeletal: No Pain Extremities: Absent: edema Results 09/24/19 07:10 09/24/19 07:10 Lipids 09/24/19 Range/Units 07:10 Triglycerides 105 (2-149) mg/dL Cholesterol 174 (50-199) mg/dL HDL Cholesterol 32 L (40-59) mg/dL Cholesterol/HDL Ratio 5.43 % CBC 09/24/19 Range/Units 07:10 WBC 9.4 (4.5-11.0) K/mm3 RBC 6.11 H (3.65-5.03) M/mm3 Hgb 14.1 (11.8-15.2) gm/dl Hct 45.1 (35.5-45.6) % Plt Count 128 L (140-440) K/mm3 Comprehensive Metabolic Panel 09/23/19 09/23/19 09/24/19 Range/Units 15:56 20:23 07:10 Sodium 135 L 135 L 136 L (137-145) mmol/L Potassium 4.3 4.3 3.7 (3.6-5.0) mmol/L Chloride 96.9 L 102.4 100.4 (98-107) mmol/L Carbon Dioxide 21 L 23 23 (22-30) mmol/L BUN 13 14 15 (9-20) mg/dL Creatinine 1.1 1.1 1.0 (0.8-1.5) mg/dL Glucose 378 H 342 H 173 H (75-100) mg/dL Calcium 9.1 8.8 8.6 (8.4-10.2) mg/dL - Imaging and Cardiology Echo: report reviewed (Echocardiogram done here 10/2017 showed EF 15-20%, mild LVH, severe global hypokinesis of the LV, RV mild to mod dilated, RV systolic function mildly reduced, no atrial septal defect demonstrated, trace AR, trace MR, mild TR, mod pulm HTN with RVSP 57mmHg, no change in dimension of inferior vena cava with respiration c/w markedly increased RA pressure. ) Cardiac cath: report reviewed (coronary angiography (LHC and RHC) in 12/2016 was reportedly normal) EKG: report reviewed, image reviewed EKG interpretations - Telemetry EKG Rhythm: Sinus Rhythm - EKG Sinus rhythms and dysrhythmias: sinus rhythm Chamber hypertrophy or enlargement: left ventricular hypertro Assessment and Plan Pt presented with neurological symptoms, syncope and was noted to have NSVT this AM. Brain MRI shows multiple small and medium size areas of subacute ischemia in the posterior division of the right MCA, no hemorrhage, chronic left cerebellar infarct. Await neurology recs. Of note, pt is chronically anticoagulated with Xarelto which neurology may wish to hold in setting of subacute CVA. Pt has longstanding history of NICMP and NSVT and we cannot rule out a ca rdiogenic cause for his syncopal event. Therefore, we have recommended cardiac defibrillator. Pt is agreeable to LifeVest at this time and [facility] LifeVest ordered. Cont to observe on telemetry. F/u echo. Cont home GDMT for CMP as tolerated. The patient has been seen in conjunction with Dr. Bauer who agrees with the assessment and plan of care. - Patient Problems (1) CVA (cerebral vascular accident) Current Visit: Yes Status: Suspected (2) Syncope Current Visit: Yes Status: Suspected (3) HHNC (hyperglycemic hyperosmolar nonketotic coma) Current Visit: Yes Status: Acute (4) NSVT (nonsustained ventricular tachycardia) Current Visit: Yes Status: Acute (5) Nonischemic cardiomyopathy Current Visit: Yes Status: Chronic (6) Hypertension Current Visit: Yes Status: Chronic Qualifiers: Hypertension type: essential hypertension Qualified Code(s): I10 - Essenti tanya (primary) hypertension (7) Diabetes Current Visit: Yes Status: Chronic (8) History of DVT (deep vein thrombosis) Current Visit: Yes Status: Chronic (9) Dyslipidemia Current Visit: Yes Status: Acute (10) Thrombocytopenia Current Visit: Yes Status: Acute
--- NOTE | 2019-09-24 15:59 | Progress Note ---
Assessment and Plan Assessment and plan: Hyperosmolar non-ketotic state in patient with type 2 diabetes mellitus Now resolved, On Novolin 70/30 20 units twice a day initiated Patient needs to be compliant Monitor lytes closely Acute ischemic stroke Multiple small and medium infarcts in distribution of Right MCA Left upper extremity weakness and numbness Was on Xarelto for DVT Add Aspirin 81mg Consult Neurology PT/OT Chronic congestive heart failure Continue Lasix Entresto Hypertension Continue antihypertensives Hyponatremia Mild Should correct with IV fluids and correction of blood glucose DVT prophylaxis On Xarelto History of DVT On Xarelto Thrombocytopenia Monitor Full code status Poss dc home tomorrow after work up completed. History Interval history: gen weakness improved left upper ext numbness Hospitalist Physical - Physical exam Narrative exam: Gen: Not in acute distress, lying in bed HEENT: Normocephalic, atraumatic Neck: supple, no JVD Heart: S1 and S2 reg, no murmurs, rubs or gallop Lungs: clear to auscultation bilat, no crackles Abd: soft, NT, non distended, normal BS Ext: No edema, no clubbing, no cyanosis Neuro: Awake, alert, oriented to person, place, time, moves all ext, numness left upper ext - Constitutional Vitals: Temp Pulse Resp BP Pulse Ox 98.2 F 94 H 18 108/72 96 09/24/19 12:02 09/24/19 13:28 09/24/19 12:02 09/24/19 12:02 09/24/19 11:00 General appearance: Present: no acute distress Results - Labs CBC & Chem 7: 09/24/19 07:10 09/24/19 07:10 Labs: Laboratory Last Values WBC 9.4 K/mm3 (4.5-11.0) 09/24/19 07:10 RBC 6.11 M/mm3 (3.65-5.03) H 09/24/19 07:10 Hgb 14.1 gm/dl (11.8-15.2) 09/24/19 07:10 Hct 45.1 % (35.5-45.6) 09/24/19 07:10 MCV 74 fl (84-94) L 09/24/19 07:10 MCH 23 pg (28-32) L 09/24/19 07:10 MCHC 31 % (32-34) L 09/24/19 07:10 RDW 15.9 % (13.2-15.2) H 09/24/19 07:10 Plt Count 128 K/mm3 (140-440) L 09/24/19 07:10 Lymph % (Auto) 23.6 % (13.4-35.0) 09/22/19 14:09 [place] % (Auto) 6.4 % (0.0-7.3) 09/22/19 14:09 Eos % (Auto) 0.4 % (0.0-4.3) 09/22/19 14:09 Baso % (Auto) 0.9 % (0.0-1.8) 09/22/19 14:09 Lymph # 2.7 K/mm3 (1.2-5.4) 09/22/19 14:09 [place] # 0.7 K/mm3 (0.0-0.8) 09/22/19 14:09 Eos # 0.0 K/mm3 (0.0-0.4) 09/22/19 14:09 Baso # 0.1 K/mm3 (0.0-0.1) 09/22/19 14:09 Seg Neutrophils % 68.7 % (40.0-70.0) 09/22/19 14:09 Seg Neutrophils # 7.9 K/mm3 (1.8-7.7) H 09/22/19 14:09 PT 13.6 Sec. (12.2-14.9) 09/22/19 14:09 INR 1.05 (0.87-1.13) 09/22/19 14:09 APTT 29.0 Sec. (24.2-36.6) 09/22/19 14:09 VBG pH 7.445 (7.320-7.420) H 09/22/19 14:09 Sodium 136 mmol/L (137-145) L 09/24/19 07:10 Potassium 3.7 mmol/L (3.6-5.0) 09/24/19 07:10 Chloride 100.4 mmol/L (98-107) 09/24/19 07:10 Carbon Dioxide 23 mmol/L (22-30) 09/24/19 07:10 Anion Gap 16 mmol/L 09/24/19 07:10 BUN 15 mg/dL (9-20) 09/24/19 07:10 Creatinine 1.0 mg/dL (0.8-1.5) 09/24/19 07:10 Estimated GFR > 60 ml/min 09/24/19 07:10 BUN/Creatinine Ratio 15 % 09/24/19 07:10 Glucose 173 mg/dL (75-100) H 09/24/19 07:10 POC Glucose 174 (70-105) H 09/24/19 12:09 Hemoglobin A1c 13.6 % (4-6) H 09/22/19 21:13 Ketones Quantitative Negative (Negative) 09/22/19 14:09 Calcium 8.6 mg/dL (8.4-10.2) 09/24/19 07:10 Phosphorus 3.40 mg/dL (2.5-4.5) 09/24/19 07:10 Magnesium 1.80 mg/dL (1.7-2.3) 09/24/19 07:10 Total Bilirubin 1.30 mg/dL (0.1-1.2) H 09/22/19 14:09 AST 13 units/L (5-40) 09/22/19 14:09 ALT 12 units/L (7-56) 09/22/19 14:09 Alkaline Phosphatase 131 units/L (35-129) H 09/22/19 14:09 Total Creatine Kinase 72 units/L (55-170) 09/22/19 14:09 Troponin T 0.014 ng/mL (0.00-0.029) 09/22/19 19:39 NT-Pro-B Natriuret Pep 764.8 pg/mL (0-450) H 09/22/19 14:09 Total Protein 7.3 g/dL (6.3-8.2) 09/22/19 14:09 Albumin 3.6 g/dL (3.9-5) L 09/22/19 14:09 Albumin/Globulin Ratio 1.0 % 09/22/19 14:09 Triglycerides 105 mg/dL (2-149) 09/24/19 07:10 Cholesterol 174 mg/dL (50-199) 09/24/19 07:10 LDL Cholesterol Direct 138 mg/dL (50-130) H 09/24/19 07:10 HDL Cholesterol 32 mg/dL (40-59) L 09/24/19 07:10 Cholesterol/HDL Ratio 5.43 % 09/24/19 07:10 Urine Color Yellow (Yellow) 09/23/19 08:00 Urine Turbidity Clear (Clear) 09/23/19 08:00 Urine pH 6.0 (5.0-7.0) 09/23/19 08:00 Ur Specific [place] 1.060 (1.003-1.030) H 09/23/19 08:00 Urine Protein >500 mg/dL (Negative) 09/23/19 08:00 Urine Glucose (UA) >=500 mg/dL (Negative) 09/23/19 08:00 Urine Ketones Neg mg/dL (Negative) 09/23/19 08:00 Urine Blood Sm (Negative) 09/23/19 08:00 Urine Nitrite Neg (Negative) 09/23/19 08:00 Urine Bilirubin Neg (Negative) 09/23/19 08:00 Urine Urobilinogen < 2.0 mg/dL (<2.0) 09/23/19 08:00 Ur Leukocyte Esterase Neg (Negative) 09/23/19 08:00 Urine WBC (Auto) 1.0 /HPF (0.0-6.0) 09/23/19 08:00 Urine RBC (Auto) 4.0 /HPF (0.0-6.0) 09/23/19 08:00 Urine Mucus Few /HPF 09/23/19 08:00 Urine Creatinine 212.5 mg/dL (0.1-20.0) H 09/23/19 08:49 Urine Microalbumin 151.6 mg/dL (0.1-34.0) H 09/23/19 08:49 Microalb/Creat Ratio 713.4 ug/mg 09/23/19 08:49 Urine Opiates Screen Presumptive negative 09/23/19 08:00 Urine Methadone Screen Presumptive negative 09/23/19 08:00 Ur Barbiturates Screen Presumptive negative 09/23/19 08:00 Ur Phencyclidine Scrn Presumptive negative 09/23/19 08:00 Ur Amphetamines Screen Presumptive negative 09/23/19 08:00 U Benzodiazepines Scrn Presumptive negative 09/23/19 08:00 Urine Cocaine Screen Presumptive negative 09/23/19 08:00 U Marijuana (THC) Screen Presumptive negative 09/23/19 08:00 Drugs of Abuse Note Disclamer 09/23/19 08:00 Plasma/Serum Alcohol < 0.01 % (0-0.07) 09/22/19 14:09 Active Medications - Current Medications Current Medications: Generic Name Dose Route Start Last Admin Trade Name Freq PRN Reason Stop Dose Admin Acetaminophen 650 mg 09/22/19 20:37 Tylenol PO Q4H PRN Pain MILD(1-3)/Fever >100.5/HERNANDEZ Aspirin 81 mg 09/24/19 13:00 09/24/19 13:28 Halfprin Ec PO 81 mg QDAY DELTA Administration Atorvastatin Calcium 40 mg 09/22/19 22:00 09/23/19 22:38 Lipitor PO 40 mg QHS DELTA Administration Dextrose 50 ml 09/23/19 03:57 D50w (25gm) Syringe IV Q30MIN PRN Hypoglycemia Protocol Famotidine 20 mg 09/23/19 22:00 09/24/19 13:28 Pepcid PO 20 mg BID DELTA Administration Hydromorphone HCl 1 mg 09/22/19 20:37 09/22/19 21:58 Dilaudid IV 1 mg Q3H PRN Administration Pain , Severe (7-10) Insulin Glargine 10 units 09/23/19 08:00 09/24/19 13:30 Lantus SUB-Q 10 units QAMDIAB DELTA Administration Insulin Human Isoph/Insulin Regular 20 unit 09/23/19 08:00 09/24/19 08:00 Humulin 70/30 SUB-Q Not Given BIDDIAB DELTA Insulin Human Lispro 0 unit 09/23/19 22:30 09/23/19 22:39 Humalog SUB-Q 4 unit ACHS DELTA Administration Protocol Metoprolol Succinate 100 mg 09/22/19 22:00 09/24/19 13:28 Metoprolol Xl PO 100 mg QDAY DELTA Administration Ondansetron HCl 4 mg 09/22/19 20:37 Zofran IV Q8H PRN Nausea And Vomiting Oxycodone/Acetaminophen 1 tab 09/22/19 21:30 Percocet 5/325 PO Q4H PRN Pain, Moderate (4-6) Rivaroxaban 20 mg 09/23/19 19:00 09/24/19 13:29 Xarelto PO 20 mg DAILY DELTA Administration Protocol Sodium Chloride 10 ml 09/22/19 22:00 12/08/19 22:40 Sodium Chloride Flush Syringe 10 Ml IV 10 ml BID DELTA Administration Sodium Chloride 10 ml 09/22/19 20:37 Sodium Chloride Flush Syringe 10 Ml IV PRN PRN LINE FLUSH Sodium Chloride 10 ml 09/24/19 12:05 Sodium Chloride Flush Syringe 10 Ml IV PRN PRN LINE FLUSH Torsemide 60 mg 09/24/19 20:00 Demadex PO BID@0600,1800 [facility] Nutrition/Malnutrition Assess - Dietary Evaluation Nutrition/Malnutrition Findings: Nutrition Notes Start: 09/23/19 10:49 Freq: Status: Active Protocol: Document 09/24/19 12:55 LP (Rec: 09/24/19 12:58 LP [id number]) Nutrition Notes Initial or Follow up Brief Note Subjective/Other Information Pt states eating well, but has some vomiting at times after meals for months. Pt does know what he should be eating but eating take out frequently. Pt states drinking sugary drinks . Minimum of two criteria No Fluid Accumulation Mild (non-severe) #1 Nutrition Diagnosis Food and nutrition-related knowledge deficit Etiology DM and CHF diet As Evidenced by Signs and Symptoms Pt states not following diet at home Nutrition Intervention Teaching Recipient Patient Learning Readiness Good Teaching Methods Discussion,Handout Response to Teaching Verbalize understanding Education Handouts Provided CHF and fluid, consistent CHO Barriers to Learning No Barriers RD phone number provided Yes Patient aware of follow up options Yes Revisit per MD consult or patient Sign Off request:
[2019-09-24] MEDS: HYDROmorphone 1 MG/1 ML INJ IV PRN (21:37)
[2019-09-24] MEDS: TORSEMIDE 10 MG TAB PO SCH (21:39)
[2019-09-24] MEDS: ONDANSETRON 4 MG/2 ML INJ IV PRN (22:38)
[2019-09-25] MEDS: TORSEMIDE 10 MG TAB PO SCH ×2 (06:28→17:02)
[2019-09-25] MEDS: INSULIN LISPRO 100 UNIT/ML SUB-Q SCH ×4 (08:38→22:50)
[2019-09-25] MEDS: INSULIN NPH/REGULAR 70/30 INJ SUB-Q SCH ×2 (08:39→17:02)
[2019-09-25] MEDS: FAMOTIDINE 20 MG TAB PO SCH ×2 (10:45→21:36)
[2019-09-25] MEDS: ASPIRIN EC 81 MG TAB PO SCH (10:45)
[2019-09-25] MEDS: RIVAROXABAN 20 MG TAB PO SCH (10:46)
[2019-09-25] MEDS: SACUBITRIL/VALSARTAN 49-51 MG TAB PO SCH ×2 (10:47→21:36)
--- NOTE | 2019-09-25 10:48 | Progress Note ---
Assessment and Plan Echo reviewed - EF 15-20%, abnormal diastolic function, LA mod dilated, RV mildly dilated, RV systolic function mod reduced, negative bubble study, mild MR, mild TR, RVSP 42mmHg. Brain MRI shows multiple small and medium size areas of subacute ischemia in the posterior division of the right MCA, no hemorrhage, chronic left cerebellar infa rct. Await neurology recs. Of note, pt is chronically anticoagulated with Xarelto which neurology may wish to hold in setting of subacute CVA. Await LifeVest placement. Cont to observe on telemetry. Cont home cardiac regimen. The patient has been seen in conjunction with Dr. Bauer who agrees with the assessment and plan of care. - Patient Problems (1) CVA (cerebral vascular accident) Current Visit: Yes Status: Suspected (2) Syncope Current Visit: Yes Status: Suspected (3) HHNC (hyperglycemic hyperosmolar nonketotic coma) Current Visit: Yes Status: Acute (4) NSVT (nonsustained ventricular tachycardia) Current Visit: Yes Status: Acute (5) Nonischemic cardiomyopathy Current Visit: Yes Status: Chronic (6) Hypertension Current Visit: Yes Status: Chronic Qualifiers: Hypertension type: essential hypertension Qualified Code(s): I10 - Essential (primary) hypertension (7) Diabetes Current Visit: Yes Status: Chronic (8) History of DVT (deep vein thrombosis) Current Visit: Yes Status: Chronic (9) Dyslipidemia Current Visit: Yes Status: Acute (10) Thrombocytopenia Current Visit: Yes Status: Acute Subjective Date of service: 09/25/19 Principal diagnosis: CVA; NSVT Interval history: pt resting in bed, no current cardiac complaints. still with LUE numbness. in SR on tele, no acute events overnight. Objective Last Vital Signs Temp 98.4 F 09/25/19 07:43 Pulse 93 H 09/25/19 07:43 Resp 18 09/25/19 07:43 BP 104/76 09/25/19 07:43 Pulse Ox 98 09/25/19 08:20 - Physical Examination General: No Apparent Distress HEENT: Positive: PERRL, Normocephaly, Mucus Membranes Moist Neck: Positive: neck supple, trachea midline Cardiac: Positive: Reg Rate and Rhythm, S1/S2 Lungs: Positive: Decreased Breath Sounds Neuro: Positive: Grossly Intact, Other (LUE numbness) Abdomen: Negative: Tender Skin: Negative: Rash Musculoskeletal: No Pain Extremities: Absent: edema - Imaging and Cardiology EKG: report reviewed, image reviewed Echo: report reviewed (Echocardiogram done here 10/2017 showed EF 15-20%, mild LVH, severe global hypokinesis of the LV, RV mild to mod dilated, RV systolic function mildly reduced, no atrial septal defect demonstrated, trace AR, trace MR, mild TR, mod pulm HTN with RVSP 57mmHg, no change in dimension of inferior vena cava with respiration c/w markedly increased RA pressure. ) Cardiac cath: report reviewed (coronary angiography (LHC and RHC) in 12/2016 was reportedly normal) - Telemetry EKG Rhythm: Sinus Rhythm - EKG Sinus rhythms and dysrhythmias: sinus rhythm Chamber hypertrophy or enlargement: left ventricular hypertro
[2019-09-25] MEDS: INSULIN GLARGINE 100 UNITS/ML SUB-Q SCH (10:50)
[2019-09-25] MEDS: METOPROLOL SUCCINATE XL 100 MG TAB PO SCH (10:55)
[2019-09-25] MEDS: ONDANSETRON 4 MG/2 ML INJ IV PRN (12:16)
--- NOTE | 2019-09-25 15:42 | Progress Note ---
Assessment and Plan This is a 43 YO M with subacute r MCA stroke, on Xarelto and reports compliance Recommend: Would continue to anticoagulate but would consider switching to a different NOAC since technically he "failed" Xarelto. Risk of new stroke outweighs small chance of hemorrhagic conversion. Pt will need case management to check [facility] to see what he can get. [place] would be good if he can get it. Reviewed additional work up VTE prophylaxis, statin, A1C and lipids Continue care for all medical issues as you are doing Follow up with Neurology outpatient POC discussed at length with patient at the bedside. Subjective Date of service: 09/25/19 Principal diagnosis: CVA; NSVT Interval history: Feels better. Inquiring about discharge Objective - Vital Sign Vital Signs - 12hr 09/25/19 09/25/19 09/25/19 03:58 05:43 07:43 Temperature 98.0 F 98.4 F Pulse Rate 89 89 93 H Respiratory 18 18 Rate Blood Pressure 108/84 104/76 O2 Sat by Pulse 98 99 Oximetry 09/25/19 09/25/19 09/25/19 08:20 10:00 10:55 Temperature Pulse Rate 80 94 H Respiratory Rate Blood Pressure 98/62 O2 Sat by Pulse 98 Oximetry - General Apperance Constitutional: comfortable - EENT EENT: PERRL - Respiratory Respiratory: lungs clear, normal breath sounds - Cardiovascular Cardiovascular: regular rate - Gastrointestinal Gastrointestinal: normoactive bowel sounds - Neurologic Cranial nerve examination: PERRL, EOMI, V1/V2/V3 grossly intact, face symmetric, tongue midline Speech examination: intact Motor examination - right side: 5/5: biceps, triceps, wrist flexion, wrist extension, cad intern, hip flexors, knee extensors, dorsiflexion, toe extension (EHL), plantarflexion Motor examination - left side: 5/5: biceps, triceps, wrist flexion, wrist extension, cad intern, hip flexors, knee extensors, dorsiflexion, toe extension (EHL), plantarflexion Detailed sensory examination: intact - Laboratory Findings CBC and BMP: 09/24/19 07:10 09/24/19 07:10 Abnormal Lab Findings: Abnormal Labs 09/22/19 09/22/19 09/22/19 14:09 14:09 14:09 WBC 11.5 H RBC 6.87 H Hgb 15.6 H Hct 50.5 H MCV 73 L MCH 23 L MCHC 31 L RDW 16.4 H Plt Count 134 L Seg Neutrophils # 7.9 H VBG pH 7.445 H Sodium 134 L Potassium Chloride 94.8 L Carbon Dioxide 20 L Glucose 512 H* POC Glucose Hemoglobin A1c Total Bilirubin 1.30 H Alkaline Phosphatase 131 H NT-Pro-B Natriuret Pep Albumin 3.6 L LDL Cholesterol Direct HDL Cholesterol Ur Specific [place] Urine Creatinine Urine Microalbumin 09/22/19 09/22/19 09/22/19 14:09 14:10 16:42 WBC RBC Hgb Hct MCV MCH MCHC RDW Plt Count Seg Neutrophils # VBG pH Sodium 134 L Potassium Chloride 93.8 L Carbon Dioxide 17 L Glucose 512 H* POC Glucose 444 H Hemoglobin A1c Total Bilirubin Alkaline Phosphatase NT-Pro-B Natriuret Pep 764.8 H Albumin LDL Cholesterol Direct HDL Cholesterol Ur Specific [place] Urine Creatinine Urine Microalbumin 09/22/19 09/22/19 09/22/19 17:11 18:59 19:39 WBC RBC Hgb Hct MCV MCH MCHC RDW Plt Count Seg Neutrophils # VBG pH Sodium Potassium Chloride Carbon Dioxide 21 L Glucose 318 H POC Glucose 424 H 315 H Hemoglobin A1c Total Bilirubin Alkaline Phosphatase NT-Pro-B Natriuret Pep Albumin LDL Cholesterol Direct HDL Cholesterol Ur Specific [place] Urine Creatinine Urine Microalbumin 09/22/19 09/22/19 09/22/19 21:13 21:16 21:24 WBC RBC Hgb Hct MCV MCH MCHC RDW Plt Count Seg Neutrophils # VBG pH Sodium Potassium Chloride Carbon Dioxide 21 L Glucose 213 H POC Glucose 195 H Hemoglobin A1c 13.6 H Total Bilirubin Alkaline Phosphatase NT-Pro-B Natriuret Pep Albumin LDL Cholesterol Direct HDL Cholesterol Ur Specific [place] Urine Creatinine Urine Microalbumin 09/22/19 09/23/19 09/23/19 23:09 00:19 01:02 WBC RBC Hgb Hct MCV MCH MCHC RDW Plt Count Seg Neutrophils # VBG pH Sodium Potassium 3.5 L 3.5 L Chloride Carbon Dioxide Glucose 117 H 158 H POC Glucose 161 H Hemoglobin A1c Total Bilirubin Alkaline Phosphatase NT-Pro-B Natriuret Pep Albumin LDL Cholesterol Direct HDL Cholesterol Ur Specific [place] Urine Creatinine Urine Microalbumin 09/23/19 09/23/19 09/23/19 01:50 03:51 04:00 WBC RBC Hgb Hct MCV MCH MCHC RDW Plt Count Seg Neutrophils # VBG pH Sodium Potassium Chloride Carbon Dioxide Glucose 149 H POC Glucose 149 H 145 H Hemoglobin A1c Total Bilirubin Alkaline Phosphatase NT-Pro-B Natriuret Pep Albumin LDL Cholesterol Direct HDL Cholesterol Ur Specific [place] Urine Creatinine Urine Microalbumin 09/23/19 09/23/19 09/23/19 04:48 07:23 08:00 WBC RBC Hgb Hct MCV MCH MCHC RDW Plt Count Seg Neutrophils # VBG pH Sodium Potassium Chloride Carbon Dioxide Glucose 149 H POC Glucose 163 H Hemoglobin A1c Total Bilirubin Alkaline Phosphatase NT-Pro-B Natriuret Pep Albumin LDL Cholesterol Direct HDL Cholesterol Ur Specific [place] 1.060 H Urine Creatinine Urine Microalbumin 09/23/19 09/23/19 09/23/19 08:49 11:26 11:50 WBC RBC Hgb Hct MCV MCH MCHC RDW Plt Count Seg Neutrophils # VBG pH Sodium Potassium Chloride Carbon Dioxide 21 L Glucose 260 H POC Glucose 222 H Hemoglobin A1c Total Bilirubin Alkaline Phosphatase NT-Pro-B Natriuret Pep Albumin LDL Cholesterol Direct HDL Cholesterol Ur Specific [place] Urine Creatinine 212.5 H Urine Microalbumin 151.6 H 09/23/19 09/23/19 09/23/19 12:15 15:56 18:14 WBC RBC Hgb Hct MCV MCH MCHC RDW Plt Count Seg Neutrophils # VBG pH Sodium 135 L Potassium Chloride 96.9 L Carbon Dioxide 21 L Glucose 378 H POC Glucose 238 H 344 H Hemoglobin A1c Total Bilirubin Alkaline Phosphatase NT-Pro-B Natriuret Pep Albumin LDL Cholesterol Direct HDL Cholesterol Ur Specific [place] Urine Creatinine Urine Microalbumin 09/23/19 09/23/19 09/24/19 20:23 22:10 07:10 WBC RBC 6.11 H Hgb Hct MCV 74 L MCH 23 L MCHC 31 L RDW 15.9 H Plt Count 128 L Seg Neutrophils # VBG pH Sodium 135 L Potassium Chloride Carbon Dioxide Glucose 342 H POC Glucose 263 H Hemoglobin A1c Total Bilirubin Alkaline Phosphatase NT-Pro-B Natriuret Pep Albumin LDL Cholesterol Direct HDL Cholesterol Ur Specific [place] Urine Creatinine Urine Microalbumin 09/24/19 09/24/19 09/24/19 07:10 07:10 12:09 WBC RBC Hgb Hct MCV MCH MCHC RDW Plt Count Seg Neutrophils # VBG pH Sodium 136 L Potassium Chloride Carbon Dioxide Glucose 173 H POC Glucose 174 H Hemoglobin A1c Total Bilirubin Alkaline Phosphatase NT-Pro-B Natriuret Pep Albumin LDL Cholesterol Direct 138 H HDL Cholesterol 32 L Ur Specific [place] Urine Creatinine Urine Microalbumin 09/24/19 09/24/19 09/25/19 17:32 21:06 07:51 WBC RBC Hgb Hct MCV MCH MCHC RDW Plt Count Seg Neutrophils # VBG pH Sodium Potassium Chloride Carbon Dioxide Glucose POC Glucose 261 H 205 H 336 H Hemoglobin A1c Total Bilirubin Alkaline Phosphatase NT-Pro-B Natriuret Pep Albumin LDL Cholesterol Direct HDL Cholesterol Ur Specific [place] Urine Creatinine Urine Microalbumin 09/25/19 12:19 WBC RBC Hgb Hct MCV MCH MCHC RDW Plt Count Seg Neutrophils # VBG pH Sodium Potassium Chloride Carbon Dioxide Glucose POC Glucose 111 H Hemoglobin A1c Total Bilirubin Alkaline Phosphatase NT-Pro-B Natriuret Pep Albumin LDL Cholesterol Direct HDL Cholesterol Ur Specific [place] Urine Creatinine Urine Microalbumin - Diagnostic Findings Additional findings: MRI Brain r MCA stroke
--- NOTE | 2019-09-25 16:44 | Progress Note ---
Assessment and Plan Acute ischemic stroke Multiple small and medium infarcts in distribution of Right MCA on Ms. Simon Shows no ASD Left upper extremity weakness and numbness Continue with PT OT Was on Xarelto for DVT Continue Aspirin 81mg, statins Consult Neurology PT/OT Hyperosmolar non-ketotic state in patient with type 2 diabetes mellitus Now resolved, On Novolin 70/30 20 units twice a day initiated Patient needs to be compliant Monitor lytes closely Chronic congestive heart failure Condition fraction of 15-20% Continue Lasix Entresto Hypertension Continue antihypertensives Hyponatremia Mild Should correct with IV fluids and correction of blood glucose DVT prophylaxis On Xarelto History of DVT On Xarelto Thrombocytopenia Monitor Full code status Disposition: Discussed with case management. I withdrew life vest didn't prove by [facility] to be discharged thereafter Subjective Date of service: 09/25/19 Principal diagnosis: CVA; NSVT Interval history: Shortness of breath doing improved. Demanding to have a shower. Patient so obliged. I would continue life vest after [facility] approves Objective - Exam Narrative Exam: Constitutional: Well-nourished well-developed. In no distress Head: Normocephalic atraumatic Eyes: Pupils are equal round and reactive to light Nose: No enlarged turbinates, no septal deviation. Mouth: Moist mucous membranes. Neck: Supple no thyromegaly. No bruit. No JVD Heart: Regular rate and rhythm, S1-S2, S3. No rubs murmurs or gallop Lungs: Clear to auscultation bilaterally. no rales or rhonchi Abdomen: Soft, nontender. Bowel sound are present. Extremities: No edema, no cyanosis, no clubbing. Neuro: Alert oriented Oriented x3. No focal sensory or motor deficit. Skin: No rashes or hyperpigmented spots Musculoskeletal system: No joint pain or swelling Hematological: No petechia or subcutanous hemorrhages. Immunological: No multiple septic spots on the skin Lymphatic: No generalized lymphadenopathy Psychiatry: Euthymic. Calm. - Constitutional Vitals: Vital Signs - 12hr 09/25/19 09/25/19 09/25/19 05:43 07:43 08:20 Temperature 98.4 F Pulse Rate 89 93 H Respiratory 18 Rate Blood Pressure 104/76 O2 Sat by Pulse 99 98 Oximetry 09/25/19 09/25/19 10:00 10:55 Temperature Pulse Rate 80 94 H Respiratory Rate Blood Pressure 98/62 O2 Sat by Pulse Oximetry - Labs CBC & Chem 7: 09/24/19 07:10 09/24/19 07:10 Labs: Abnormal lab results 09/24/19 09/24/19 09/25/19 Range/Units 17:32 21:06 07:51 POC Glucose 261 H 205 H 336 H (70-105) 09/25/19 Range/Units 12:19 POC Glucose 111 H (70-105)
[2019-09-26] MEDS: TORSEMIDE 10 MG TAB PO SCH ×2 (05:52→17:18)
[2019-09-26 06:11] LABS: Basophils % (Auto) 0.3 % (0.0-1.8); Eosinophils # (Auto) 0.1 K/mm3 (0.0-0.4); Eosinophils % (Auto) 1.5 % (0.0-4.3); Lymphocytes # (Auto) 2.7 K/mm3 (1.2-5.4); Lymphocytes % (Auto) 30.6 % (13.4-35.0); Mean Corpuscular HGB Conc 31 % (32-34); Mean Corpuscular Volume 75 fl (84-94); Monocytes # (Auto) 0.6 K/mm3 (0.0-0.8); Monocytes % (Auto) 7.4 % (0.0-7.3); Red Blood Count 6.38 M/mm3 (3.65-5.03); Red Cell Distribution Width 16.3 % (13.2-15.2)
[2019-09-26 06:13] LABS: Hematocrit 47.7 % (35.5-45.6); Hemoglobin 14.7 gm/dl (11.8-15.2)
[2019-09-26 06:16] LABS: Platelet Count 130 K/mm3 (140-440)
[2019-09-26 06:36] LABS: Alanine Aminotransferase 13 units/L (7-56); BUN/Creatinine Ratio 19; Blood Urea Nitrogen 23 mg/dL (9-20); Calcium 8.7 mg/dL (8.4-10.2); Hemolysis Index 35
[2019-09-26] MEDS: RIVAROXABAN 20 MG TAB PO SCH (09:01)
[2019-09-26] MEDS: SACUBITRIL/VALSARTAN 49-51 MG TAB PO SCH ×2 (09:01→21:59)
[2019-09-26] MEDS: ASPIRIN EC 81 MG TAB PO SCH (09:01)
[2019-09-26] MEDS: FAMOTIDINE 20 MG TAB PO SCH ×2 (09:01→21:59)
[2019-09-26] MEDS: INSULIN NPH/REGULAR 70/30 INJ SUB-Q SCH ×2 (09:01→18:24)
[2019-09-26] MEDS: INSULIN LISPRO 100 UNIT/ML SUB-Q SCH ×4 (09:02→21:59)
[2019-09-26] MEDS: METOPROLOL SUCCINATE XL 100 MG TAB PO SCH (10:43)
[2019-09-26] MEDS: INSULIN GLARGINE 100 UNITS/ML SUB-Q SCH (10:44)
--- NOTE | 2019-09-26 10:53 | Progress Note ---
Assessment and Plan Currently stable cardiac status. Neurology recs noted - consider transition of Xarelto to Eliquis pending pt is able to obtain Eliquis from the [place]. Await [place] decision regarding LifeVest approval. Pending LifeVest is placed, pt may discharge from cardiology standpoint. Recommend pt follow up with [facility] cardiology within 1-2 weeks. The patient has been seen in conjunction with Dr. Bauer who agrees with the assessment and plan of care. - Patient Problems (1) CVA (cerebral vascular accident) Current Visit: Yes Status: Suspected (2) Syncope Current Visit: Yes Status: Suspected (3) HHNC (hyperglycemic hyperosmolar nonketotic coma) Current Visit: Yes Status: Acute (4) NSVT (nonsustained ventricular tachycardia) Current Visit: Yes Status: Acute (5) Nonischemic cardiomyopathy Current Visit: Yes Status: Chronic (6) Hypertension Current Visit: Yes Status: Chronic Qualifiers: Hypertension type: essential hypertension Qualified Code(s): I10 - Essential (primary) hypertension (7) Diabetes Current Visit: Yes Status: Chronic (8) History of DVT (deep vein thrombosis) Current Visit: Yes Status: Chronic (9) Dyslipidemia Current Visit: Yes Status: Acute (10) Thrombocytopenia Current Visit: Yes Status: Acute Subjective Date of service: 09/26/19 Principal diagnosis: CVA; NSVT Interval history: pt resting in bed, no current cardiac complaints. still with LUE numbness. in SR on tele, no acute events overnight. Objective Last Vital Signs Temp 98.0 F 09/26/19 08:35 Pulse 96 H 09/26/19 10:43 Resp 18 09/26/19 08:35 BP 105/72 09/26/19 10:43 Pulse Ox 99 09/26/19 08:33 - Physical Examination General: No Apparent Distress HEENT: Positive: PERRL, Normocephaly, Mucus Membranes Moist Neck: Positive: neck supple, trachea midline Cardiac: Positive: Reg Rate and Rhythm, S1/S2 Lungs: Positive: Decreased Breath Sounds Neuro: Positive: Grossly Intact, Other (LUE numbness) Abdomen: Negative: Tender Skin: Negative: Rash Musculoskeletal: No Pain Extremities: Absent: edema - Labs and Meds Cardiac Enzymes 09/26/19 Range/Units 05:01 AST 17 (5-40) units/L CBC 09/26/19 Range/Units 05:01 WBC 8.7 (4.5-11.0) K/mm3 RBC 6.38 H (3.65-5.03) M/mm3 Hgb 14.7 (11.8-15.2) gm/dl Hct 47.7 H (35.5-45.6) % Plt Count 130 L (140-440) K/mm3 Lymph # 2.7 (1.2-5.4) K/mm3 [place] # 0.6 (0.0-0.8) K/mm3 Eos # 0.1 (0.0-0.4) K/mm3 Baso # 0.0 (0.0-0.1) K/mm3 Comprehensive Metabolic Panel 09/26/19 Range/Units 05:01 Sodium 138 (137-145) mmol/L Potassium 3.6 (3.6-5.0) mmol/L Chloride 98.4 (98-107) mmol/L Carbon Dioxide 23 (22-30) mmol/L BUN 23 H (9-20) mg/dL Creatinine 1.2 (0.8-1.5) mg/dL Glucose 181 H (75-100) mg/dL Calcium 8.7 (8.4-10.2) mg/dL AST 17 (5-40) units/L ALT 13 (7-56) units/L Alkaline Phosphatase 107 (35-129) units/L Total Protein 6.5 (6.3-8.2) g/dL Albumin 3.0 L (3.9-5) g/dL - Imaging and Cardiology EKG: report reviewed, image reviewed Echo: report reviewed ( EF 15-20%, abnormal diastolic function, LA mod dilated, RV mildly dilated, RV systolic function mod reduced, negative bubble study, mild MR, mild TR, RVSP 42mmHg.) Cardiac cath: report reviewed (coronary angiography (LHC and RHC) in 12/2016 was reportedly normal) - Telemetry EKG Rhythm: Sinus Rhythm - EKG Sinus rhythms and dysrhythmias: sinus rhythm Chamber hypertrophy or enlargement: left ventricular hypertro
--- NOTE | 2019-09-26 13:55 | Progress Note ---
Assessment and Plan Assessment and plan: 43 year old -[place] male with history of hypertension, CHF and type 2 diabetes comes in for generalized weakness and left upper extremity numbness and weakness. Telemetry neurology was called and ER physician was advised stroke workup. Slightly lethargic. His blood glucose levels were high in the emergency room. Patient being admitted for hyperosmolar nonketotic state. Not comatose. No fever or chills. Not taking any day diabetic medications for couple of months. Some shortness of breath present. No orthopnea. No hematemesis or vomiting. Hyperosmolar non-ketotic state in patient with type 2 diabetes mellitus Now resolved, On Novolin 70/30 20 units twice a day initiated Patient needs to be compliant Monitor lytes closely Acute ischemic stroke Multiple small and medium infarcts in distribution of Right MCA Left upper extremity weakness and numbness Was on Xarelto for DVT Added Aspirin 81mg Consult Neurology PT/OT Non-ischemic cardiomyopathy EF 15-20% Life vest recommended Awaiting NSVT due to cardiomyopathy Chronic congestive heart failure Continue Lasix Entresto Hypertension Continue antihypertensives Hyponatremia Mild Should correct with IV fluids and correction of blood glucose DVT prophylaxis On Xarelto History of DVT On Xarelto Thrombocytopenia Monitor Full code status Patient stable to dc home after life vest to follow with cardiology in 1 week. History Interval history: gen weakness improved Still has left upper ext numbness Hospitalist Physical - Physical exam Narrative exam: Gen: Not in acute distress, lying in bed HEENT: Normocephalic, atraumatic Neck: supple, no JVD Heart: S1 and S2 reg, no murmurs, rubs or gallop Lungs: clear to auscultation bilat, no crackles Abd: soft, NT, non distended, normal BS Ext: No edema, no clubbing, no cyanosis Neuro: Awake, alert, oriented to person, place, time, moves all ext, paresthesia left upper ext - Constitutional Vitals: Temp Pulse Resp BP Pulse Ox 98.0 F 96 H 18 105/72 99 09/26/19 08:35 09/26/19 10:43 09/26/19 08:35 09/26/19 10:43 09/26/19 08:33 General appearance: Present: no acute distress Results - Labs CBC & Chem 7: 09/26/19 05:01 09/26/19 05:01 Labs: Laboratory Last Values WBC 8.7 K/mm3 (4.5-11.0) 09/26/19 05:01 RBC 6.38 M/mm3 (3.65-5.03) H 09/26/19 05:01 Hgb 14.7 gm/dl (11.8-15.2) 09/26/19 05:01 Hct 47.7 % (35.5-45.6) H 09/26/19 05:01 MCV 75 fl (84-94) L 09/26/19 05:01 MCH 23 pg (28-32) L 09/26/19 05:01 MCHC 31 % (32-34) L 09/26/19 05:01 RDW 16.3 % (13.2-15.2) H 09/26/19 05:01 Plt Count 130 K/mm3 (140-440) L 09/26/19 05:01 Lymph % (Auto) 30.6 % (13.4-35.0) 09/26/19 05:01 [place] % (Auto) 7.4 % (0.0-7.3) H 09/26/19 05:01 Eos % (Auto) 1.5 % (0.0-4.3) 09/26/19 05:01 Baso % (Auto) 0.3 % (0.0-1.8) 09/26/19 05:01 Lymph # 2.7 K/mm3 (1.2-5.4) 09/26/19 05:01 [place] # 0.6 K/mm3 (0.0-0.8) 09/26/19 05:01 Eos # 0.1 K/mm3 (0.0-0.4) 09/26/19 05:01 Baso # 0.0 K/mm3 (0.0-0.1) 09/26/19 05:01 Seg Neutrophils % 60.2 % (40.0-70.0) 09/26/19 05:01 Seg Neutrophils # 5.2 K/mm3 (1.8-7.7) 09/26/19 05:01 PT 13.6 Sec. (12.2-14.9) 09/22/19 14:09 INR 1.05 (0.87-1.13) 09/22/19 14:09 APTT 29.0 Sec. (24.2-36.6) 09/22/19 14:09 VBG pH 7.445 (7.320-7.420) H 09/22/19 14:09 Sodium 138 mmol/L (137-145) 09/26/19 05:01 Potassium 3.6 mmol/L (3.6-5.0) 09/26/19 05:01 Chloride 98.4 mmol/L (98-107) 09/26/19 05:01 Carbon Dioxide 23 mmol/L (22-30) 09/26/19 05:01 Anion Gap 20 mmol/L 09/26/19 05:01 BUN 23 mg/dL (9-20) H 09/26/19 05:01 Creatinine 1.2 mg/dL (0.8-1.5) 09/26/19 05:01 Estimated GFR > 60 ml/min 09/26/19 05:01 BUN/Creatinine Ratio 19 % 09/26/19 05:01 Glucose 181 mg/dL (75-100) H 09/26/19 05:01 POC Glucose 111 (70-105) H 09/26/19 12:57 Hemoglobin A1c 13.6 % (4-6) H 09/22/19 21:13 Ketones Quantitative Negative (Negative) 09/22/19 14:09 Calcium 8.7 mg/dL (8.4-10.2) 09/26/19 05:01 Phosphorus 3.40 mg/dL (2.5-4.5) 09/24/19 07:10 Magnesium 1.80 mg/dL (1.7-2.3) 09/24/19 07:10 Total Bilirubin 0.50 mg/dL (0.1-1.2) 09/26/19 05:01 AST 17 units/L (5-40) 09/26/19 05:01 ALT 13 units/L (7-56) 09/26/19 05:01 Alkaline Phosphatase 107 units/L (35-129) 09/26/19 05:01 Total Creatine Kinase 72 units/L (55-170) 09/22/19 14:09 Troponin T 0.014 ng/mL (0.00-0.029) 09/22/19 19:39 NT-Pro-B Natriuret Pep 764.8 pg/mL (0-450) H 09/22/19 14:09 Total Protein 6.5 g/dL (6.3-8.2) 09/26/19 05:01 Albumin 3.0 g/dL (3.9-5) L 09/26/19 05:01 Albumin/Globulin Ratio 0.9 % 09/26/19 05:01 Triglycerides 105 mg/dL (2-149) 09/24/19 07:10 Cholesterol 174 mg/dL (50-199) 09/24/19 07:10 LDL Cholesterol Direct 138 mg/dL (50-130) H 09/24/19 07:10 HDL Cholesterol 32 mg/dL (40-59) L 09/24/19 07:10 Cholesterol/HDL Ratio 5.43 % 09/24/19 07:10 Urine Color Yellow (Yellow) 09/23/19 08:00 Urine Turbidity Clear (Clear) 09/23/19 08:00 Urine pH 6.0 (5.0-7.0) 09/23/19 08:00 Ur Specific [place] 1.060 (1.003-1.030) H 09/23/19 08:00 Urine Protein >500 mg/dL (Negative) 09/23/19 08:00 Urine Glucose (UA) >=500 mg/dL (Negative) 09/23/19 08:00 Urine Ketones Neg mg/dL (Negative) 09/23/19 08:00 Urine Blood Sm (Negative) 09/23/19 08:00 Urine Nitrite Neg (Negative) 09/23/19 08:00 Urine Bilirubin Neg (Negative) 09/23/19 08:00 Urine Urobilinogen < 2.0 mg/dL (<2.0) 09/23/19 08:00 Ur Leukocyte Esterase Neg (Negative) 09/23/19 08:00 Urine WBC (Auto) 1.0 /HPF (0.0-6.0) 09/23/19 08:00 Urine RBC (Auto) 4.0 /HPF (0.0-6.0) 09/23/19 08:00 Urine Mucus Few /HPF 09/23/19 08:00 Urine Creatinine 212.5 mg/dL (0.1-20.0) H 09/23/19 08:49 Urine Microalbumin 151.6 mg/dL (0.1-34.0) H 09/23/19 08:49 Microalb/Creat Ratio 713.4 ug/mg 09/23/19 08:49 Urine Opiates Screen Presumptive negative 09/23/19 08:00 Urine Methadone Screen Presumptive negative 09/23/19 08:00 Ur Barbiturates Screen Presumptive negative 09/23/19 08:00 Ur Phencyclidine Scrn Presumptive negative 09/23/19 08:00 Ur Amphetamines Screen Presumptive negative 09/23/19 08:00 U Benzodiazepines Scrn Presumptive negative 09/23/19 08:00 Urine Cocaine Screen Presumptive negative 09/23/19 08:00 U Marijuana (THC) Screen Presumptive negative 09/23/19 08:00 Drugs of Abuse Note Disclamer 09/23/19 08:00 Plasma/Serum Alcohol < 0.01 % (0-0.07) 09/22/19 14:09 Active Medications - Current Medications Current Medications: Generic Name Dose Route Start Last Admin Trade Name Freq PRN Reason Stop Dose Admin Acetaminophen 650 mg 09/22/19 20:37 Tylenol PO Q4H PRN Pain MILD(1-3)/Fever >100.5/HERNANDEZ Aspirin 81 mg 09/24/19 13:00 09/26/19 09:01 Halfprin Ec PO 81 mg QDAY DELTA Administration Atorvastatin Calcium 40 mg 09/22/19 22:00 09/25/19 21:36 Lipitor PO 40 mg QHS DELTA Administration Dextrose 50 ml 09/23/19 03:57 D50w (25gm) Syringe IV Q30MIN PRN Hypoglycemia Protocol Famotidine 20 mg 09/23/19 22:00 09/26/19 09:01 Pepcid PO 20 mg BID DELTA Administration Hydromorphone HCl 1 mg 09/22/19 20:37 09/24/19 21:37 Dilaudid IV 1 mg Q3H PRN Administration Pain , Severe (7-10) Insulin Glargine 10 units 09/23/19 08:00 09/26/19 10:44 Lantus SUB-Q 10 units QAMDIAB DELTA Administration Insulin Human Isoph/Insulin Regular 20 unit 09/23/19 08:00 09/26/19 09:01 Humulin 70/30 SUB-Q 20 unit BIDDIAB DELTA Administration Insulin Human Lispro 0 unit 09/23/19 22:30 09/26/19 12:59 Humalog SUB-Q Not Given ACHS DELTA Protocol Metoprolol Succinate 100 mg 09/22/19 22:00 09/26/19 10:43 Metoprolol Xl PO 100 mg QDAY DELTA Administration Ondansetron HCl 4 mg 09/22/19 20:37 09/25/19 12:16 Zofran IV 4 mg Q8H PRN Administration Nausea And Vomiting Oxycodone/Acetaminophen 1 tab 09/22/19 21:30 Percocet 5/325 PO Q4H PRN Pain, Moderate (4-6) Rivaroxaban 20 mg 09/23/19 19:00 09/26/19 09:01 Xarelto PO 20 mg DAILY DELTA Administration Protocol Sodium Chloride 10 ml 09/22/19 22:00 09/26/19 09:04 Sodium Chloride Flush Syringe 10 Ml IV 10 ml BID DELTA Administration Sodium Chloride 10 ml 09/22/19 20:37 09/24/19 22:38 Sodium Chloride Flush Syringe 10 Ml IV 10 ml PRN PRN Administration LINE FLUSH Torsemide 60 mg 09/24/19 20:00 09/26/19 05:52 Demadex PO 60 mg BID@0600,1800 DELTA Administration Nutrition/Malnutrition Assess - Dietary Evaluation Nutrition/Malnutrition Findings: Nutrition Notes Start: 09/23/19 10:49 Freq: Status: Active Protocol: Document 09/24/19 12:55 LP (Rec: 09/24/19 12:58 LP [id number]) Nutrition Notes Initial or Follow up Brief Note Subjective/Other Information Pt states eating well, but has some vomiting at times after meals for months. Pt does know what he should be eating but eating take out frequently. Pt states drinking sugary drinks . Minimum of two criteria No Fluid Accumulation Mild (non-severe) #1 Nutrition Diagnosis Food and nutrition-related knowledge deficit Etiology DM and CHF diet As Evidenced by Signs and Symptoms Pt states not following diet at home Nutrition Intervention Teaching Recipient Patient Learning Readiness Good Teaching Methods Discussion,Handout Response to Teaching Verbalize understanding Education Handouts Provided CHF and fluid, consistent CHO Barriers to Learning No Barriers RD phone number provided Yes Patient aware of follow up options Yes [facility]is[facility] per MD consult or patient Sign Off request:
--- NOTE | 2019-09-26 18:03 | Progress Note ---
Assessment and Plan This is a 43 YO M with subacute r MCA stroke, on Xarelto and reports compliance Recommend: Would continue to anticoagulate but would consider switching to a different NOAC since technically he "failed" Xarelto. Risk of new stroke outweighs small chance of hemorrhagic conversion. Pt will need case management to check the [facility] formulary to see what he can get. Irish would be good if he can get it. Looks like case management is working on this Reviewed additional work up VTE prophylaxis, statin, A1C and lipids Continue care for all medical issues as you are doing Follow up with Neurology outpatient POC discussed at length with patient at the bedside. Subjective Date of service: 09/26/19 Principal diagnosis: CVA; NSVT Interval history: No new complaints, feeling ok Objective - Vital Sign Vital Signs - 12hr 09/26/19 09/26/19 09/26/19 08:33 08:35 10:00 Temperature 98.0 F Pulse Rate 105 H Respiratory 18 Rate Blood Pressure 97/70 O2 Sat by Pulse 99 Oximetry 09/26/19 10:43 Temperature Pulse Rate 96 H Respiratory Rate Blood Pressure 105/72 O2 Sat by Pulse Oximetry - General Apperance Constitutional: comfortable - EENT EENT: mucous membranes moist, mucous membranes dry - Respiratory Respiratory: lungs clear - Cardiovascular Cardiovascular: regular rate - Gastrointestinal Gastrointestinal: normoactive bowel sounds - Neurologic Cranial nerve examination: PERRL, EOMI, face symmetric, tongue midline Detailed motor examination: grossly full strength in - Laboratory Findings CBC and BMP: 09/26/19 05:01 09/26/19 05:01 Abnormal Lab Findings: Abnormal Labs 09/22/19 09/22/19 09/22/19 14:09 14:09 14:09 WBC 11.5 H RBC 6.87 H Hgb 15.6 H Hct 50.5 H MCV 73 L MCH 23 L MCHC 31 L RDW 16.4 H Plt Count 134 L Jack % (Auto) Seg Neutrophils # 7.9 H VBG pH 7.445 H Sodium 134 L Potassium Chloride 94.8 L Carbon Dioxide 20 L BUN Glucose 512 H* POC Glucose Hemoglobin A1c Total Bilirubin 1.30 H Alkaline Phosphatase 131 H NT-Pro-B Natriuret Pep Albumin 3.6 L LDL Cholesterol Direct HDL Cholesterol Ur Specific [place] Urine Creatinine Urine Microalbumin 09/22/19 09/22/19 09/22/19 14:09 14:10 16:42 WBC RBC Hgb Hct MCV MCH MCHC RDW Plt Count Jack % (Auto) Seg Neutrophils # VBG pH Sodium 134 L Potassium Chloride 93.8 L Carbon Dioxide 17 L BUN Glucose 512 H* POC Glucose 444 H Hemoglobin A1c Total Bilirubin Alkaline Phosphatase NT-Pro-B Natriuret Pep 764.8 H Albumin LDL Cholesterol Direct HDL Cholesterol Ur Specific [place] Urine Creatinine Urine Microalbumin 09/22/19 09/22/19 09/22/19 17:11 18:59 19:39 WBC RBC Hgb Hct MCV MCH MCHC RDW Plt Count Jack % (Auto) Seg Neutrophils # VBG pH Sodium Potassium Chloride Carbon Dioxide 21 L BUN Glucose 318 H POC Glucose 424 H 315 H Hemoglobin A1c Total Bilirubin Alkaline Phosphatase NT-Pro-B Natriuret Pep Albumin LDL Cholesterol Direct HDL Cholesterol Ur Specific [place] Urine Creatinine Urine Microalbumin 09/22/19 09/22/19 09/22/19 21:13 21:16 21:24 WBC RBC Hgb Hct MCV MCH MCHC RDW Plt Count Jack % (Auto) Seg Neutrophils # VBG pH Sodium Potassium Chloride Carbon Dioxide 21 L BUN Glucose 213 H POC Glucose 195 H Hemoglobin A1c 13.6 H Total Bilirubin Alkaline Phosphatase NT-Pro-B Natriuret Pep Albumin LDL Cholesterol Direct HDL Cholesterol Ur Specific [place] Urine Creatinine Urine Microalbumin 09/22/19 09/23/19 09/23/19 23:09 00:19 01:02 WBC RBC Hgb Hct MCV MCH MCHC RDW Plt Count Jack % (Auto) Seg Neutrophils # VBG pH Sodium Potassium 3.5 L 3.5 L Chloride Carbon Dioxide BUN Glucose 117 H 158 H POC Glucose 161 H Hemoglobin A1c Total Bilirubin Alkaline Phosphatase NT-Pro-B Natriuret Pep Albumin LDL Cholesterol Direct HDL Cholesterol Ur Specific [place] Urine Creatinine Urine Microalbumin 09/23/19 09/23/19 09/23/19 01:50 03:51 04:00 WBC RBC Hgb Hct MCV MCH MCHC RDW Plt Count Jack % (Auto) Seg Neutrophils # VBG pH Sodium Potassium Chloride Carbon Dioxide BUN Glucose 149 H POC Glucose 149 H 145 H Hemoglobin A1c Total Bilirubin Alkaline Phosphatase NT-Pro-B Natriuret Pep Albumin LDL Cholesterol Direct HDL Cholesterol Ur Specific [place] Urine Creatinine Urine Microalbumin 09/23/19 09/23/19 09/23/19 04:48 07:23 08:00 WBC RBC Hgb Hct MCV MCH MCHC RDW Plt Count Jack % (Auto) Seg Neutrophils # VBG pH Sodium Potassium Chloride Carbon Dioxide BUN Glucose 149 H POC Glucose 163 H Hemoglobin A1c Total Bilirubin Alkaline Phosphatase NT-Pro-B Natriuret Pep Albumin LDL Cholesterol Direct HDL Cholesterol Ur Specific [place] 1.060 H Urine Creatinine Urine Microalbumin 09/23/19 09/23/19 09/23/19 08:49 11:26 11:50 WBC RBC Hgb Hct MCV MCH MCHC RDW Plt Count Jack % (Auto) Seg Neutrophils # VBG pH Sodium Potassium Chloride Carbon Dioxide 21 L BUN Glucose 260 H POC Glucose 222 H Hemoglobin A1c Total Bilirubin Alkaline Phosphatase NT-Pro-B Natriuret Pep Albumin LDL Cholesterol Direct HDL Cholesterol Ur Specific [place] Urine Creatinine 212.5 H Urine Microalbumin 151.6 H 09/23/19 09/23/19 09/23/19 12:15 15:56 18:14 WBC RBC Hgb Hct MCV MCH MCHC RDW Plt Count Jack % (Auto) Seg Neutrophils # VBG pH Sodium 135 L Potassium Chloride 96.9 L Carbon Dioxide 21 L BUN Glucose 378 H POC Glucose 238 H 344 H Hemoglobin A1c Total Bilirubin Alkaline Phosphatase NT-Pro-B Natriuret Pep Albumin LDL Cholesterol Direct HDL Cholesterol Ur Specific [place] Urine Creatinine Urine Microalbumin 09/23/19 09/23/19 09/24/19 20:23 22:10 07:10 WBC RBC 6.11 H Hgb Hct MCV 74 L MCH 23 L MCHC 31 L RDW 15.9 H Plt Count 128 L Jack % (Auto) Seg Neutrophils # VBG pH Sodium 135 L Potassium Chloride Carbon Dioxide BUN Glucose 342 H POC Glucose 263 H Hemoglobin A1c Total Bilirubin Alkaline Phosphatase NT-Pro-B Natriuret Pep Albumin LDL Cholesterol Direct HDL Cholesterol Ur Specific [place] Urine Creatinine Urine Microalbumin 09/24/19 09/24/19 09/24/19 07:10 07:10 12:09 WBC RBC Hgb Hct MCV MCH MCHC RDW Plt Count Jack % (Auto) Seg Neutrophils # VBG pH Sodium 136 L Potassium Chloride Carbon Dioxide BUN Glucose 173 H POC Glucose 174 H Hemoglobin A1c Total Bilirubin Alkaline Phosphatase NT-Pro-B Natriuret Pep Albumin LDL Cholesterol Direct 138 H HDL Cholesterol 32 L Ur Specific [place] Urine Creatinine Urine Microalbumin 09/24/19 09/24/19 09/25/19 17:32 21:06 07:51 WBC RBC Hgb Hct MCV MCH MCHC RDW Plt Count Jack % (Auto) Seg Neutrophils # VBG pH Sodium Potassium Chloride Carbon Dioxide BUN Glucose POC Glucose 261 H 205 H 336 H Hemoglobin A1c Total Bilirubin Alkaline Phosphatase NT-Pro-B Natriuret Pep Albumin LDL Cholesterol Direct HDL Cholesterol Ur Specific [place] Urine Creatinine Urine Microalbumin 09/25/19 09/25/19 09/25/19 12:19 17:09 22:39 WBC RBC Hgb Hct MCV MCH MCHC RDW Plt Count Jack % (Auto) Seg Neutrophils # VBG pH Sodium Potassium Chloride Carbon Dioxide BUN Glucose POC Glucose 111 H 230 H 268 H Hemoglobin A1c Total Bilirubin Alkaline Phosphatase NT-Pro-B Natriuret Pep Albumin LDL Cholesterol Direct HDL Cholesterol Ur Specific [place] Urine Creatinine Urine Microalbumin 09/26/19 09/26/19 09/26/19 05:01 05:01 08:43 WBC RBC 6.38 H Hgb Hct 47.7 H MCV 75 L MCH 23 L MCHC 31 L RDW 16.3 H Plt Count 130 L Jack % (Auto) 7.4 H Seg Neutrophils # VBG pH Sodium Potassium Chloride Carbon Dioxide BUN 23 H Glucose 181 H POC Glucose 150 H Hemoglobin A1c Total Bilirubin Alkaline Phosphatase NT-Pro-B Natriuret Pep Albumin 3.0 L LDL Cholesterol Direct HDL Cholesterol Ur Specific [place] Urine Creatinine Urine Microalbumin 09/26/19 09/26/19 09/26/19 10:48 12:57 16:32 WBC RBC Hgb Hct MCV MCH MCHC RDW Plt Count Jack % (Auto) Seg Neutrophils # VBG pH Sodium Potassium Chloride Carbon Dioxide BUN Glucose POC Glucose 198 H 111 H 235 H Hemoglobin A1c Total Bilirubin Alkaline Phosphatase NT-Pro-B Natriuret Pep Albumin LDL Cholesterol Direct HDL Cholesterol Ur Specific [place] Urine Creatinine Urine Microalbumin
[2019-09-27] MEDS: TORSEMIDE 10 MG TAB PO SCH (07:09)
[2019-09-27] MEDS: INSULIN NPH/REGULAR 70/30 INJ SUB-Q SCH (08:53)
[2019-09-27] MEDS: INSULIN LISPRO 100 UNIT/ML SUB-Q SCH (08:53)
[2019-09-27] MEDS: INSULIN GLARGINE 100 UNITS/ML SUB-Q SCH (08:54)
[2019-09-27] MEDS: ASPIRIN EC 81 MG TAB PO SCH (10:07)
[2019-09-27] MEDS: FAMOTIDINE 20 MG TAB PO SCH (10:07)
[2019-09-27] MEDS: METOPROLOL SUCCINATE XL 100 MG TAB PO SCH (10:08)
[2019-09-27] MEDS: RIVAROXABAN 20 MG TAB PO SCH (10:08)
[2019-09-27] MEDS: SACUBITRIL/VALSARTAN 49-51 MG TAB PO SCH (10:08)
[2019-09-27 10:09] VITALS: BP 105/71
--- NOTE | 2019-09-27 18:47 | Event Note ---
Date: 09/27/19 I did not see this patient as he left AMA prior to my arrival. I had informed the Nurse I will see him but he chose to leave. Nursing and case management to follow with life vest.
== END 2019-09-27 11:40 | disposition left against medical advice (07) | DRG 64 ==
LOC: ED 14:01 → CC1 17:14 → 4A 09-23 21:45
PROVIDERS: ADMIT Internal Medicine; ATTEND Internal Medicine
DX: I63.9 Cerebral infarction, unspecified (principal); E11.00 Type 2 diabetes mellitus with hyperosmolarity without nonketotic hyperglycemic-hyperosmolar coma (NKHHC); E87.2 Acidosis; E87.1 Hypo-osmolality and hyponatremia; I42.9 Cardiomyopathy, unspecified; I47.2 Ventricular tachycardia; I11.0 Hypertensive heart disease with heart failure; E78.5 Hyperlipidemia, unspecified; D69.6 Thrombocytopenia, unspecified; G83.24 Monoplegia of upper limb affecting left nondominant side; R29.701 NIHSS score 1; E11.65 Type 2 diabetes mellitus with hyperglycemia; I50.9 Heart failure, unspecified; Z86.718 Personal history of other venous thrombosis and embolism; Z86.73 Personal history of transient ischemic attack (TIA), and cerebral infarction without residual deficits; Z82.49 Family history of ischemic heart disease and other diseases of the circulatory system; Z79.4 Long term (current) use of insulin
CPT/HCPCS: 36415; 70450; 70496; 70498; 70551; 71045; 80048; 80053; 80061; 80307; 80320; 81001; 82010; 82043; 82550; 82805; 82962; 83036; 83735; 83880; 84100; 84484; 85025; 85027; 85610; 85730; 93005; 93010; 93306; 94760; 96374; 96375; G0378; A9270-GY; G0480; J1170; J1815; J2405; Q9967

== ENCOUNTER 2020-04-27 21:44 | Emergency (ER) | payer OTHER ==
[2020-04-27 22:05] VITALS: BP 143/102
--- NOTE | 2020-04-27 22:48 | XRay Report ---
CHEST 2 VIEWS INDICATION / CLINICAL INFORMATION: Chest Pain. COMPARISON: 09/22/2019 FINDINGS: SUPPORT DEVICES: None. HEART / MEDIASTINUM: No significant abnormality. LUNGS / PLEURA: Pulmonary opacities are present in the right lung base. Left lung is grossly clear. N o pleural effusion. No pneumothorax. ADDITIONAL FINDINGS: No significant additional findings. IMPRESSION: 1. Right basilar pulmonary opacities possibly representing pneumonia. Please correlate clinically. Signer Name: Lia Ordonez MD Signed: 04/27/2020 10:43 PM Workstation Name: [id number]
[2020-04-27 23:00] LABS: Basophils # (Auto) 0.1 K/mm3 (0.0-0.1); Basophils % (Auto) 1.1 % (0.0-1.8); Eosinophils # (Auto) 0.1 K/mm3 (0.0-0.4); Eosinophils % (Auto) 0.7 % (0.0-4.3); Hematocrit 45.7 % (35.5-45.6); Hemoglobin 14.5 gm/dl (11.8-15.2); Lymphocytes # (Auto) 2.3 K/mm3 (1.2-5.4); Lymphocytes % (Auto) 31.1 % (13.4-35.0); Mean Corpuscular HGB Conc 32 % (32-34); Mean Corpuscular Volume 74 fl (84-94); Monocytes # (Auto) 0.5 K/mm3 (0.0-0.8); Monocytes % (Auto) 6.3 % (0.0-7.3); Red Blood Count 6.17 M/mm3 (3.65-5.03)
[2020-04-27 23:08] LABS: Platelet Count 140 K/mm3 (140-440)
[2020-04-27 23:14] LABS: INR 1.05 (0.87-1.13)
[2020-04-27 23:15] LABS: Partial Thromboplastin Time 31.4 Sec. (24.2-36.6)
[2020-04-27 23:22] LABS: BUN/Creatinine Ratio 12; Blood Urea Nitrogen 14 mg/dL (9-20); Calcium 9.1 mg/dL (8.4-10.2); Hemolysis Index 10
== END 2020-04-28 01:05 | disposition left against medical advice (07) ==
LOC: ED 21:44
DX: R06.00 Dyspnea, unspecified (principal); R07.89 Other chest pain; Z53.21 Procedure and treatment not carried out due to patient leaving prior to being seen by health care provider
CPT/HCPCS: 36415; 71046; 80048; 84484; 85025; 85610; 85730; 93005

== ENCOUNTER 2021-01-09 09:07 | Emergency (ER) | payer OTHER ==
[2021-01-09] MEDS ORDERED: ASPIRIN 325 MG TAB PO ONE (09:23)
--- NOTE | 2021-01-09 10:02 | XRay Report ---
CHEST 2 VIEWS INDICATION: chest pain, SOB. COMPARISON: 04/27/2020 FINDINGS: Support devices: None. Heart: Within normal limits. Lungs/pleura: No acute air space or interstitial disease. No pneumothorax. Subtle right infrahilar o pacity has resolved since the previous exam. Additional findings: None. IMPRESSION: No acute findings. Signer Name: Wallace Hurd Jr, MD Signed: 01/09/2021 9:57 AM Workstation Name: [id number]
[2021-01-09 10:20] LABS: Basophils % (Auto) 0.6 % (0.0-1.8); Eosinophils % (Auto) 0.7 % (0.0-4.3); Lymphocytes # (Auto) 1.1 K/mm3 (1.2-5.4); Lymphocytes % (Auto) 17.8 % (13.4-35.0); Mean Corpuscular HGB Conc 31 % (32-34); Mean Corpuscular Volume 75 fl (84-94); Monocytes # (Auto) 0.6 K/mm3 (0.0-0.8); Monocytes % (Auto) 9.7 % (0.0-7.3); Red Blood Count 6.57 M/mm3 (3.65-5.03); Red Cell Distribution Width 16.1 % (13.2-15.2)
[2021-01-09 10:21] LABS: Hematocrit 49.4 % (35.5-45.6); Hemoglobin 15.3 gm/dl (11.8-15.2)
[2021-01-09 10:22] LABS: Platelet Count 114 K/mm3 (140-440)
[2021-01-09 11:09] LABS: Alanine Aminotransferase 15 units/L (7-56); Albumin 3.4 g/dL (3.9-5)
--- NOTE | 2021-01-09 12:05 | Emergency Department Report ---
ED Shortness of Breath HPI - General Chief Complaint: Chest Pain Stated Complaint: HEART PAIN Time Seen by Provider: 01/09/21 11:41 Source: patient Mode of arrival: Ambulatory Limitations: No Limitations - History of Present Illness Initial Comments: Chief complaint: "I have been uncomfortable for a while. This is an exacerbation of my heart failure." HPI: This is a 45-year-old male with history of systolic heart failure ejection fraction 15 to 20%, CVA, diabetes mellitus, dyslipidemia, hypertension, DVT, who presents with shortness of breath for the past 4 days. Patient has been unable to lay flat. He has been unable to sleep. He has increased heart rate. He also has shortness of breath at rest. No changes in diet. He has been compliant with his medications. He has had several [facility] for similar presentations. Patient has chronic stabbing sharp chest pain daily. He states that "I am used to it" in regard to chest pain. Patient was diagnosed with COVID-19 last December. He received his first vaccine dose last week [facility]. Patient has had body aches. He denies fever. He has had nonproductive cough. Mr. Miranda takes Xarelto for history of upper and lower extremity DVT. He has been compliant with torsemide 60 mg twice daily as well as Entresto. PCP Randy Kelly. 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 Carlo CARDOZA Complaint: shortness of breath -: Gradual, days(s) (4 days) Severity: severe Consistency: constant Improves With: nothing Worsens With: lying flat, exertion Known History Of: congestive heart failure Associated Symptoms: chest pain, other (body aches) - Related Data Home Medications Medication Instructions Recorded Confirmed Last Taken Rivaroxaban [Xarelto] 20 mg PO DAILY 09/23/19 09/23/19 Unknown Sacubitril/Valsartan [Entresto 97 1 tab PO BID 09/23/19 09/23/19 Unknown mg-103 mg Tablet] Previous Rx's Medication Instructions Recorded Last Taken Type AtorvaSTATin [Lipitor] 40 mg PO QHS #30 tablet 11/09/17 Unknown Rx Metoprolol Xl [Metoprolol 100 mg PO QDAY #60 tablet 11/09/17 Unknown Rx SUCCINATE ER TAB] Torsemide [Demadex] 60 mg PO BID@0600,1800 #60 tablet 11/09/17 Unknown Rx Allergies Allergy/AdvReac Type Severity Reaction Status Date / Time No Known Allergies Allergy Verified 01/09/21 11:44 ED Review of Systems ROS: Stated complaint: HEART PAIN Other details as noted in HPI Comment: All other systems reviewed and negative Constitutional: denies: fever, malaise Respiratory: cough, shortness of breath Cardiovascular: chest pain Gastrointestinal: diarrhea. denies: abdominal pain, nausea, vomiting Neurological: headache ED Past Medical Hx - Past Medical History Previous Medical History?: Yes Hx Hypertension: Yes Hx CVA: Yes (TIA's right side weakness) Hx Heart Attack/AMI: Yes Hx Congestive Heart Failure: Yes Hx Diabetes: Yes Hx Deep Vein Thrombosis: No Hx Liver Disease: No Hx Seizures: No Hx Asthma: No Hx COPD: No Hx Dementia: No Additional medical history: Hyperlipidemia - Surgical History Past Surgical History?: Yes Hx Coronary Stent: No Hx Pacemaker: No Hx Internal Defibrillator: No Additional Surgical History: Tonsillectomy, incision and drainage axillary abscess - Family History Family history: hypertension - Social History Smoking Status: Never Smoker Substance Use Type: None - Medications Home Medications: Home Medications Medication Instructions Recorded Confirmed Last Taken Type AtorvaSTATin [Lipitor] 40 mg PO QHS #30 tablet 11/09/17 09/23/19 Unknown Rx Metoprolol Xl [Metoprolol 100 mg PO QDAY #60 tablet 11/09/17 09/23/19 Unknown Rx SUCCINATE ER TAB] Torsemide [Demadex] 60 mg PO BID@0600,1800 #60 tablet 11/09/17 09/23/19 Unknown Rx Rivaroxaban [Xarelto] 20 mg PO DAILY 09/23/19 09/23/19 Unknown History Sacubitril/Valsartan [Entresto 97 1 tab PO BID 09/23/19 09/23/19 Unknown History mg-103 mg Tablet] ED Physical Exam - General Limitations: No Limitations General appearance: alert, anxious, other (Hyperventilating, speaking sentences while out of breath, appears uncomfortable) - Head Head exam: Present: atraumatic, normocephalic - Eye Eye exam: Present: normal appearance - ENT ENT exam: Present: mucous membranes moist - Neck Neck exam: Present: normal inspection, full ROM - Respiratory Respiratory exam: Present: normal lung sounds bilaterally, other (Rapid breathing). Absent: wheezes, rales, rhonchi, chest wall tenderness, accessory muscle use, decreased breath sounds, prolonged expiratory - Cardiovascular Cardiovascular Exam: Present: normal rhythm, tachycardia, normal heart sounds. Absent: systolic murmur, diastolic murmur, rubs, gallop - GI/Abdominal GI/Abdominal exam: Present: soft, normal bowel sounds. Absent: distended, tenderness, guarding, rebound - Rectal Rectal exam: Present: deferred - Extremities Exam Extremities exam: Present: normal inspection - Back Exam Back exam: Present: normal inspection - Neurological Exam Neurological exam: Present: alert, oriented X3, normal gait (Normal steady gait with cane) - Psychiatric Psychiatric exam: Present: normal affect, anxious - Skin Skin exam: Present: warm, dry, intact, normal color. Absent: rash ED Course Vital Signs 01/09/21 01/09/21 09:23 10:18 Temperature 97.9 F 98.4 F Pulse Rate 109 H 74 Respiratory 20 22 Rate Blood Pressure 124/87 199/102 O2 Sat by Pulse 99 99 Oximetry - Reevaluation(s) Reevaluation #1: 01/09/21 13:15 I reevaluated patient. He is calm. He is breathing normally. Heart rate 102 bpm. I offered furosemide IV. He politely declined Lasix. He states that he has this medication at home. I attribute neck control hyperventilation to anxiety. Patient is now calm speaking full word sentences. He appears comfortable. ED Medical Decision Making - Lab Data Result diagrams: 01/09/21 10:05 01/09/21 10:05 Vital Signs - 24 hr 01/09/21 01/09/21 09:23 10:18 Temperature 97.9 F 98.4 F Pulse Rate 109 H 74 Respiratory 20 22 Rate Blood Pressure 124/87 199/102 O2 Sat by Pulse 99 99 Oximetry - Radiology Data Radiology results: report reviewed CHEST 2 VIEWS INDICATION: chest pain, SOB. COMPARISON: 04/27/2020 FINDINGS: Support devices: None. Heart: Within normal limits. Lungs/pleura: No acute air space or interstitial disease. No pneumothorax. Subtle right infrahilar opacity has resolved since the previous exam. Additional findings: None. IMPRESSION: No acute findings. Signer Name: Wallace Hurd Jr, MD Signed: 01/09/2021 8:57 AM Workstation Name: [id number] CTA CHEST WITH CONTRAST INDICATION : Dyspnea, tachycardia, history of DVT. TECHNIQUE: Axial imaging performed through the chest, with contrast bolus timing set to maximize opacification of the pulmonary arteries. Sagittal and coronal reformatted images. 3-plane MIP reformatted images were obtained. All CT scans at this location are performed using CT dose reduction for ALARA by means of automated exposure control. 100 mL of intravenous contrast administered. COMPARISON: None FINDINGS: Bolus: Contrast bolus timing is adequate. PTE: No filling defect is present to suggest PTE. Mediastinum: Mild cardiomegaly. No pericardial effusion. No pathologic mediastinal adenopathy. Lungs: The lungs are clear with no evidence for infiltrate, pleural effusion or pneumothorax. No significant underlying parenchymal lung disease. Bones: Degenerative changes in the spine with nothing acute. Upper abdomen: Limited imaging of the upper abdomen shows nothing acute. IMPRESSION: No evidence for pulmonary embolus. Mild cardiomegaly. Lungs clear. - Medical Decision Making 1. Mild exacerbation of systolic heart failure: No evidence of pulmonary embolism or pulmonary edema. No evidence of pneumonia. Due to history of DVT and tachycardia initially, CT angiogram indicated to rule out PE. CT angiogram was negative for acute thoracic process. I encouraged extra dose of torsemide for the next 3 days. BNP is elevated above baseline. 2. Chronic chest pain: I do not suspect acute coronary syndrome, patient's main concern was shortness of breath. Troponin within normal limits. Critical care attestation.: If time is entered above; I have spent that time in minutes in the direct care of this critically ill patient, excluding procedure time. ED Disposition Clinical Impression: Acute systolic heart failure, Cerebellar stroke, acute Disposition: DC-01 TO HOME OR SELFCARE Is pt being admited?: No Does the pt Need Aspirin: No Condition: Stable Instructions: Living With Heart Failure Referrals: [facility]Other] - 3-5 Days Heart Score - HEART Score History: Slightly suspicious EKG: Non-specific Age: 45-65 Risk factors: > 3 risk factors or hx of atherosclerotic disease Troponin: < normal limit HEART Score: 4
[2021-01-09 12:19] LABS: BUN/Creatinine Ratio 10; Blood Urea Nitrogen 13 mg/dL (9-20); Calcium 9.4 mg/dL (8.4-10.2); Hemolysis Index 3
[2021-01-09] MEDS ORDERED: FUROSEMIDE 40 MG/4 ML INJ IV ONE (13:09)
--- NOTE | 2021-01-09 13:30 | Cat Scan Report ---
CTA CHEST WITH CONTRAST INDICATION : Dyspnea, tachycardia, history of DVT. TECHNIQUE: Axial imaging performed through the chest, with contrast bolus timing set to maximize opa cification of the pulmonary arteries. Sagittal and coronal reformatted images. 3-plane MIP reformatte d images were obtained. All CT scans at this location are performed using CT dose reduction for ALAR A by means of automated exposure control. 100 mL of intravenous contrast administered. COMPARISON: None FINDINGS: Bolus: Contrast bolus timing is adequate. PTE: No filling defect is present to suggest PTE. Mediastinum: Mild cardiomegaly. No pericardial effusion. No pathologic mediastinal adenopathy. Lungs: The lungs are clear with no evidence for infiltrate, pleural effusion or pneumothorax. No sig nificant underlying parenchymal lung disease. Bones: Degenerative changes in the spine with nothing acute. Upper abdomen: Limited imaging of the upper abdomen shows nothing acute. IMPRESSION: No evidence for pulmonary embolus. Mild cardiomegaly. Lungs clear. Signer Name: Wallace Hurd Jr, MD Signed: 01/09/2021 1:25 PM Workstation Name: [id number]
[2021-01-09 14:20] VITALS: BP 132/94
== END 2021-01-09 14:21 | disposition home or self-care (01) ==
LOC: ED 09:07
DX: I50.21 Acute systolic (congestive) heart failure (principal); G46.4 Cerebellar stroke syndrome; I11.0 Hypertensive heart disease with heart failure; I50.9 Heart failure, unspecified; E11.9 Type 2 diabetes mellitus without complications; Z90.89 Acquired absence of other organs; Z98.890 Other specified postprocedural states; Z79.899 Other long term (current) drug therapy
CPT/HCPCS: 36415; 71046; 71275; 80053; 83880; 84484; 85025; 99284; Q9967

== ENCOUNTER 2021-02-12 05:36 | Observation (INO) | payer OTHER ==
[2021-02-12] MEDS ORDERED: FUROSEMIDE 40 MG/4 ML INJ IV ONE (06:25)
--- NOTE | 2021-02-12 06:29 | Emergency Department Report ---
HPI - General Chief Complaint: Dyspnea/Respdistress Time Seen by Provider: 02/12/21 06:18 - HPI HPI: Room 25 The patient is a 45-year-old male present with a chief complaint of shortness of breath. The patient states for the past 1.5 days he has had shortness of breath at rest and with exertion. Patient states he believes it is too much fluid on him. Patient has a history of CHF and states he has been compliant with his torsemide. Patient does admit to occasional sharp substernal chest pain but states that he "always" has chest pain. Patient admits to a cough that is occasionally productive for 1 day. Patient denies history of fever. Patient admits to bilateral lower extremity edema for the past 2 to 3 days ED Past Medical Hx - Past Medical History Previous Medical History?: Yes Hx Hypertension: Yes Hx CVA: Yes (TIA's right side weakness) Hx Heart Attack/AMI: Yes Hx Congestive Heart Failure: Yes Hx Diabetes: Yes Additional medical history: Hyperlipidemia - Surgical History Past Surgical History?: Yes Additional Surgical History: Tonsillectomy, incision and drainage axillary abscess - Family History Family history: no significant - Social History Smoking Status: Never Smoker Substance Use Type: None (Denies illicit drug use) - Medications Home Medications: Home Medications Medication Instructions Recorded Confirmed Last Taken Type AtorvaSTATin [Lipitor] 40 mg PO QHS #30 tablet 11/09/17 09/23/19 Unknown Rx Metoprolol Xl [Metoprolol 100 mg PO QDAY #60 tablet 11/09/17 09/23/19 Unknown Rx SUCCINATE ER TAB] Torsemide [Demadex] 60 mg PO BID@0600,1800 #60 tablet 11/09/17 09/23/19 Unknown Rx Rivaroxaban [Xarelto] 20 mg PO DAILY 09/23/19 09/23/19 Unknown History Sacubitril/Valsartan [Entresto 97 1 tab PO BID 09/23/19 09/23/19 Unknown History mg-103 mg Tablet] ED Review of Systems ROS: Stated complaint: SOB Other details as noted in HPI Constitutional: denies: fever Eyes: denies: eye pain ENT: denies: throat pain Respiratory: cough, shortness of breath Cardiovascular: chest pain Endocrine: no symptoms reported Gastrointestinal: denies: abdominal pain Genitourinary: denies: dysuria Musculoskeletal: denies: back pain Neurological: denies: headache Physical Exam - Physical Exam Vital Signs: Vital Signs 02/12/21 05:41 Temperature 97.6 F Pulse Rate 117 H Respiratory 18 Rate Blood Pressure 119/95 O2 Sat by Pulse 96 Oximetry Physical Exam: GENERAL: The patient is well-developed well-nourished male lying on stretcher not appearing to be in acute distress. [] HEENT: Normocephalic. Atraumatic. Extraocular motions are intact. Patient has moist mucous membranes. NECK: Supple. Trachea midline CHEST/LUNGS: Clear to auscultation. There is slightly increased work of breathing HEART/CARDIOVASCULAR: Regular. There is tachycardia. There is no gallop rub or murmur. ABDOMEN: Abdomen is soft, nontender. Patient has normal bowel sounds. There is no abdominal distention. SKIN: There is no rash. There is trace bilateral lower extremity pedal edema. There is no diaphoresis. NEURO: The patient is awake, alert, and oriented. The patient is cooperative. The patient has no focal neurologic deficits. The patient has normal speech MUSCULOSKELETAL: There is no evidence of acute injury. ED Course Vital Signs 02/12/21 05:41 Temperature 97.6 F Pulse Rate 117 H Respiratory 18 Rate Blood Pressure 119/95 O2 Sat by Pulse 96 Oximetry ED Medical Decision Making - Lab Data Result diagrams: 02/12/21 05:59 02/12/21 05:59 Laboratory Tests 02/12/21 02/12/21 02/12/21 05:59 05:59 05:59 WBC 7.9 RBC 6.80 H Hgb 15.8 H Hct 50.9 H MCV 75 L MCH 23 L MCHC 31 L RDW 15.6 H Plt Count 150 Lymph % (Auto) 29.9 [place] % (Auto) 6.7 Eos % (Auto) 0.6 Baso % (Auto) 0.9 Lymph # (Auto) 2.4 [place] # (Auto) 0.5 Eos # (Auto) 0.0 Baso # (Auto) 0.1 Seg Neutrophils % 61.9 Seg Neutrophils # 4.9 PT 22.3 H INR 1.96 H D-Dimer Sodium 135 L Potassium 4.7 Chloride 96.5 L Carbon Dioxide 27 Anion Gap 16 BUN 21 H Creatinine 1.6 H Estimated GFR 56 BUN/Creatinine Ratio 13 Glucose 556 H* Calcium 9.8 Total Bilirubin 1.20 AST 22 ALT 32 Alkaline Phosphatase 154 H Troponin T 0.021 NT-Pro-B Natriuret Pep Total Protein 6.9 Albumin 3.8 L Albumin/Globulin Ratio 1.2 02/12/21 02/12/21 05:59 07:01 WBC RBC Hgb Hct MCV MCH MCHC RDW Plt Count Lymph % (Auto) [place] % (Auto) Eos % (Auto) Baso % (Auto) Lymph # (Auto) [place] # (Auto) Eos # (Auto) Baso # (Auto) Seg Neutrophils % Seg Neutrophils # PT INR D-Dimer 248.92 H Sodium Potassium Chloride Carbon Dioxide Anion Gap BUN Creatinine Estimated GFR BUN/Creatinine Ratio Glucose Calcium Total Bilirubin AST ALT Alkaline Phosphatase Troponin T NT-Pro-B Natriuret Pep 4841 H Total Protein Albumin Albumin/Globulin Ratio Laboratory Tests 02/12/21 02/12/21 02/12/21 05:59 05:59 05:59 WBC 7.9 RBC 6.80 H Hgb 15.8 H Hct 50.9 H MCV 75 L MCH 23 L MCHC 31 L RDW 15.6 H Plt Count 150 Lymph % (Auto) 29.9 [place] % (Auto) 6.7 Eos % (Auto) 0.6 Baso % (Auto) 0.9 Lymph # (Auto) 2.4 [place] # (Auto) 0.5 Eos # (Auto) 0.0 Baso # (Auto) 0.1 Seg Neutrophils % 61.9 Seg Neutrophils # 4.9 PT 22.3 H INR 1.96 H D-Dimer VBG pH Sodium 135 L Potassium 4.7 Chloride 96.5 L Carbon Dioxide 27 Anion Gap 16 BUN 21 H Creatinine 1.6 H Estimated GFR 56 BUN/Creatinine Ratio 13 Glucose 556 H* Calcium 9.8 Total Bilirubin 1.20 AST 22 ALT 32 Alkaline Phosphatase 154 H Troponin T 0.021 NT-Pro-B Natriuret Pep Total Protein 6.9 Albumin 3.8 L Albumin/Globulin Ratio 1.2 02/12/21 02/12/21 02/12/21 05:59 07:01 08:22 WBC RBC Hgb Hct MCV MCH MCHC RDW Plt Count Lymph % (Auto) [place] % (Auto) Eos % (Auto) Baso % (Auto) Lymph # (Auto) [place] # (Auto) Eos # (Auto) Baso # (Auto) Seg Neutrophils % Seg Neutrophils # PT INR D-Dimer 248.92 H VBG pH Sodium Potassium Chloride Carbon Dioxide Anion Gap BUN Creatinine Estimated GFR BUN/Creatinine Ratio Glucose Calcium Total Bilirubin AST ALT Alkaline Phosphatase Troponin T 0.016 NT-Pro-B Natriuret Pep 4841 H Total Protein Albumin Albumin/Globulin Ratio 02/12/21 08:22 WBC RBC Hgb Hct MCV MCH MCHC RDW Plt Count Lymph % (Auto) [place] % (Auto) Eos % (Auto) Baso % (Auto) Lymph # (Auto) [place] # (Auto) Eos # (Auto) Baso # (Auto) Seg Neutrophils % Seg Neutrophils # PT INR D-Dimer VBG pH 7.401 Sodium Potassium Chloride Carbon Dioxide Anion Gap BUN Creatinine Estimated GFR BUN/Creatinine Ratio Glucose Calcium Total Bilirubin AST ALT Alkaline Phosphatase Troponin T NT-Pro-B Natriuret Pep Total Protein Albumin Albumin/Globulin Ratio - EKG Data -: EKG Interpreted by Me EKG shows normal: sinus rhythm Rate: tachycardia (111 bpm) - EKG Data When compared to previous EKG there are: previous EKG unavailable Interpretation: nonspecific ST-T wave junaid (T wave inversions in leads V5, V6) - Radiology Data Radiology results: report reviewed (Chest x-ray, VQ scan), image reviewed (Chest x-ray, VQ scan) interpreted by me: Chest [id number], no definite focal infiltrates. No pneumothorax [facility] [address] [place] [address] XRay Report Signed Patient: SOO DEAN MR#: [id number] : 1975 Acct:[id number] Age/Sex: 45 / M ADM Date: 02/12/21 Loc: ED Attending Dr: Ordering Physician: JULIO RAMIREZ MD Date of Service: 02/12/21 Procedure(s): XR chest routine 2V Accession Number(s): [id number] cc: JULIO RAMIREZ MD Fluoro Time In Minutes: CHEST 2 VIEWS INDICATION / CLINICAL INFORMATION: SOB. COMPARISON: 01/09/21. FINDINGS: SUPPORT DEVICES: None. HEART / MEDIASTINUM: Cardiomegaly is stable. Pulmonary vasculature is normal. LUNGS / PLEURA: No significant pulmonary or pleural abnormality. No pneumothorax. ADDITIONAL FINDINGS: No significant additional findings. IMPRESSION: Mild cardiomegaly without acute pulmonary disease or other change. Signer Name: Giancarlo Barboza MD Signed: 02/12/2021 6:30 AM Workstation Name: [id number] Transcribed By: RT Dictated By: Giancarlo Barboza MD Electronically Authenticated By: Giancarlo Barboza MD Signed Date/Time: 02/12/21629 DD/ 8 TD/TT: Print Cancel [facility] [address] [place] [address] Nuclear Medicine Report Signed Patient: SOO DEAN MR#: [id number] : 1975 Acct:[id number] Age/Sex: 45 / M ADM Date: 02/12/21 Loc: ED Attending Dr: Ordering Physician: JULIO RAMIREZ MD Date of Service: 02/12/21 Procedure(s): NM perfusion only lung scan Accession Number(s): [id number] cc: JULIO RAMIREZ MD NUCLEAR MEDICINE PERFUSION SCAN INDICATION: Shortness of breath, chest pain CORRELATION: Chest x-ray performed earlier today at 0612 hours. RADIOPHARMACEUTICAL: Perfusion: 5.5 mCi Tc-99m MAA given IV FINDINGS: Perfusion images show symmetric and uniform radiotracer distribution throughout bilateral lung zones with no evidence of segmental perfusion defects. Slightly prominent cardiac silhouette is noted. IMPRESSION: Low probability perfusion scan for pulmonary embolism. Signer Name: Wallace Hurd Jr, MD Signed: 02/12/2021 8:05 AM Workstation Name: [id number] Transcribed By: TTR Dictated By: WALLACE HURD JR, MD Electronically Authenticated By: WALLACE HURD JR, MD Signed Date/Time: 02/12/21804 DD/ 2 TD/TT: Print Cancel - Differential Diagnosis CHF exacerbation, pneumonia, bronchitis, ACS Critical care attestation.: If time is entered above; I have spent that time in minutes in the direct care of this critically ill patient, excluding procedure time. ED Disposition Clinical Impression: CHF exacerbation, Shortness of breath, Hyperglycemia Disposition: OP ADMIT IP TO THIS HOSP Is pt being admited?: Yes Does the pt Need Aspirin: No Condition: Fair Referrals: PRIMARY CARE, [Primary Care Provider] - 3-5 Days Time of Disposition: 09:49 (Hospitalist paged) Heart Score - HEART Score History: Slightly suspicious EKG: Non-specific Age: 45-65 Risk factors: > 3 risk factors or hx of atherosclerotic disease Troponin: < normal limit HEART Score: 4 - EKG Read Time Time EKG Completed: 06:03 EKG Read Time: 06:05
[2021-02-12 06:31] LABS: Basophils # (Auto) 0.1 K/mm3 (0.0-0.1); Basophils % (Auto) 0.9 % (0.0-1.8); Eosinophils % (Auto) 0.6 % (0.0-4.3); Lymphocytes # (Auto) 2.4 K/mm3 (1.2-5.4); Lymphocytes % (Auto) 29.9 % (13.4-35.0); Mean Corpuscular HGB Conc 31 % (32-34); Mean Corpuscular Volume 75 fl (84-94); Monocytes # (Auto) 0.5 K/mm3 (0.0-0.8); Monocytes % (Auto) 6.7 % (0.0-7.3); Red Cell Distribution Width 15.6 % (13.2-15.2)
--- NOTE | 2021-02-12 06:35 | XRay Report ---
CHEST 2 VIEWS INDICATION / CLINICAL INFORMATION: SOB. COMPARISON: 01/09/21. FINDINGS: SUPPORT DEVICES: None. HEART / MEDIASTINUM: Cardiomegaly is stable. Pulmonary vasculature is normal. LUNGS / PLEURA: No significant pulmonary or pleural abnormality. No pneumothorax. ADDITIONAL FINDINGS: No significant additional findings. IMPRESSION: Mild cardiomegaly without acute pulmonary disease or other change. Signer Name: Giancarlo Barboza MD Signed: 02/12/2021 6:30 AM Workstation Name: [id number]
[2021-02-12 06:36] LABS: Hematocrit 50.9 % (35.5-45.6); Hemoglobin 15.8 gm/dl (11.8-15.2); Platelet Count 150 K/mm3 (140-440)
[2021-02-12 06:46] LABS: INR 1.96 (0.87-1.13)
[2021-02-12 06:49] LABS: Albumin 3.8 g/dL (3.9-5); Calcium 9.8 mg/dL (8.4-10.2)
--- NOTE | 2021-02-12 08:10 | Nuclear Medicine Report ---
NUCLEAR MEDICINE PERFUSION SCAN INDICATION: Shortness of breath, chest pain CORRELATION: Chest x-ray performed earlier today at 0612 hours. RADIOPHARMACEUTICAL: Perfusion: 5.5 mCi Tc-99m MAA given IV FINDINGS: Perfusion images show symmetric and uniform radiotracer distribution throughout bilateral lung zones with no evidence of segmental perfusion defects. Slightly prominent cardiac silhouette is noted. IMPRESSION: Low probability perfusion scan for pulmonary embolism. Signer Name: Wallace Hurd Jr, MD Signed: 02/12/2021 8:05 AM Workstation Name: [id number]
[2021-02-12] MEDS ORDERED: INSULIN REGULAR, HUMAN 100 UNITS/1 ML IV ONE (09:17)
--- NOTE | 2021-02-12 10:55 | Electrocardiograph Report ---
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
[2021-02-12] MEDS ORDERED: DEXTROSE 50% IN WATER (25GM) 50 ML SYRINGE IV PRN (11:33)
--- NOTE | 2021-02-12 11:43 | History and Physical Report ---
History of Present Illness Chief complaint: Shortness of breath History of present illness: 45-year-old male with a medical history of congestive heart failure. He presented to the emergency room with shortness of breath. He states symptoms started about 2 days prior to presentation. He denies any dietary discretion. He also notes worsening leg swelling for the past 1 week even though he has been using his diuretics as ordered. He occasionally has chest pain but states that this is not new. Due to the above symptoms, he presented for further evaluation Here in the ER, he was noted to be tachypneic. He has pulmonary vascular congestion on chest x-ray. proBNP more than 5000. Patient was given Lasix and now been admitted for CHF Medications and Allergies Allergies Allergy/AdvReac Type Severity Reaction Status Date / Time No Known Allergies Allergy Verified 01/09/21 11:44 Home Medications Medication Instructions Recorded Confirmed Last Taken Type AtorvaSTATin [Lipitor] 40 mg PO QHS #30 tablet 03/13/21 Unknown Rx Insulin Glargine [Lantus VIAL] 20 units SUB-Q BID units 03/13/21 Unknown Rx Metoprolol Xl [Metoprolol 100 mg PO QDAY #60 tablet 03/13/21 Unknown Rx SUCCINATE ER TAB] Rivaroxaban [Xarelto] 20 mg PO DAILY #30 03/13/21 Unknown Rx Sacubitril/Valsartan [Entresto 97 1 each PO BID 30 Days #60 tablet 03/13/21 Unknown Rx mg-103 mg Tablet] Spironolactone [Aldactone] 25 mg PO QDAY #30 tablet 03/13/21 Unknown Rx Active Meds: Active Medications Dextrose (Dextrose 50% In Water (25gm) 50 Ml Syringe) 50 ml IV Q30MIN PRN; Protocol PRN Reason: Hypoglycemia Insulin Human Regular (Insulin Regular, Human 100 Units/1 Ml) 0 units SUB-Q ACHS DELTA; Protocol Review of Systems All systems: negative Respiratory: shortness of breath Exam - Constitutional Vitals: Temp Pulse Resp BP Pulse Ox 97.6 F 117 H 30 H 119/95 100 02/12/21 05:41 02/12/21 05:41 02/12/21 06:42 02/12/21 05:41 02/12/21 06:42 General appearance: Present: no acute distress, well-nourished - EENT Eyes: Present: PERRL ENT: hearing intact, clear oral mucosa - Neck Neck: Present: supple, normal ROM - Respiratory Respiratory effort: normal Respiratory: bilateral: CTA - Cardiovascular Heart Sounds: Present: S1 & S2. Absent: rub, click - Extremities Extremities: pulses symmetrical, No edema Peripheral Pulses: within normal limits - Abdominal General gastrointestinal: Present: soft, non-tender, non-distended, normal bowel sounds Male genitourinary: Present: normal - Integumentary Integumentary: Present: clear, warm, dry - Musculoskeletal Musculoskeletal: gait normal, strength equal bilaterally - Psychiatric Psychiatric: appropriate mood/affect, intact judgment & insight - Neurologic Neurologic: CNII-XII intact, moves all extremities HEART Score - HEART Score EKG: Non-specific Age: 45-65 Risk factors: > 3 risk factors or hx of atherosclerotic disease Troponin: Troponin T 0.016 ng/mL (0.00-0.029) 02/12/21 08:22 Troponin: < normal limit Results - Labs CBC & Chem 7: 02/12/21 05:59 02/12/21 05:59 Labs: Laboratory Last Values WBC 7.9 K/mm3 (4.5-11.0) 02/12/21 05:59 RBC 6.80 M/mm3 (3.65-5.03) H 02/12/21 05:59 Hgb 15.8 gm/dl (11.8-15.2) H 02/12/21 05:59 Hct 50.9 % (35.5-45.6) H 02/12/21 05:59 MCV 75 fl (84-94) L 02/12/21 05:59 MCH 23 pg (28-32) L 02/12/21 05:59 MCHC 31 % (32-34) L 02/12/21 05:59 RDW 15.6 % (13.2-15.2) H 02/12/21 05:59 Plt Count 150 K/mm3 (140-440) 02/12/21 05:59 Lymph % (Auto) 29.9 % (13.4-35.0) 02/12/21 05:59 Kay % (Auto) 6.7 % (0.0-7.3) 02/12/21 05:59 Eos % (Auto) 0.6 % (0.0-4.3) 02/12/21 05:59 Baso % (Auto) 0.9 % (0.0-1.8) 02/12/21 05:59 Lymph # (Auto) 2.4 K/mm3 (1.2-5.4) 02/12/21 05:59 Kay # (Auto) 0.5 K/mm3 (0.0-0.8) 02/12/21 05:59 Eos # (Auto) 0.0 K/mm3 (0.0-0.4) 02/12/21 05:59 Baso # (Auto) 0.1 K/mm3 (0.0-0.1) 02/12/21 05:59 Seg Neutrophils % 61.9 % (40.0-70.0) 02/12/21 05:59 Seg Neutrophils # 4.9 K/mm3 (1.8-7.7) 02/12/21 05:59 PT 22.3 Sec. (12.2-14.9) H 02/12/21 05:59 INR 1.96 (0.87-1.13) H 02/12/21 05:59 D-Dimer 248.92 ng/mlDDU (0-234) H 02/12/21 07:01 VBG pH 7.401 (7.320-7.420) 02/12/21 08:22 Sodium 135 mmol/L (137-145) L 02/12/21 05:59 Potassium 4.7 mmol/L (3.6-5.0) 02/12/21 05:59 Chloride 96.5 mmol/L (98-107) L 02/12/21 05:59 Carbon Dioxide 27 mmol/L (22-30) 02/12/21 05:59 Anion Gap 16 mmol/L 02/12/21 05:59 BUN 21 mg/dL (9-20) H 02/12/21 05:59 Creatinine 1.6 mg/dL (0.8-1.3) H 02/12/21 05:59 Estimated GFR 56 ml/min 02/12/21 05:59 BUN/Creatinine Ratio 13 % 02/12/21 05:59 Glucose 556 mg/dL (75-100) H* 02/12/21 05:59 Calcium 9.8 mg/dL (8.4-10.2) 02/12/21 05:59 Total Bilirubin 1.20 mg/dL (0.1-1.2) 02/12/21 05:59 AST 22 units/L (5-40) 02/12/21 05:59 ALT 32 units/L (7-56) 02/12/21 05:59 Alkaline Phosphatase 154 units/L (35-129) H 02/12/21 05:59 Troponin T 0.016 ng/mL (0.00-0.029) 02/12/21 08:22 NT-Pro-B Natriuret Pep 4841 pg/mL (0-450) H 02/12/21 05:59 Total Protein 6.9 g/dL (6.3-8.2) 02/12/21 05:59 Albumin 3.8 g/dL (3.9-5) L 02/12/21 05:59 Albumin/Globulin Ratio 1.2 % 02/12/21 05:59 Assessment and Plan Assessment and plan: Patient decided to leave [place]
[2021-02-12 12:31] VITALS: BP 126/86
--- NOTE | 2021-02-12 13:18 | Event Note ---
Date: 02/12/21 45-year-old male with a medical history of congestive heart failure. He presented to the emergency room with shortness of breath. He states symptoms started about 2 days prior to presentation. He denies any dietary discretion. He also notes worsening leg swelling for the past 1 week even though he has been using his diuretics as ordered. He occasionally has chest pain but states that this is not new. Due to the above symptoms, he presented for further evaluation Here in the ER, he was noted to be tachypneic. He has pulmonary vascular con gestion on chest x-ray. proBNP more than 5000. Patient was given Lasix. Plan was to admit patient for management of acute on chronic congestive heart failure but patient subsequently decided to go AGAINST MEDICAL ADVICE. He mentions that his is and he has a lot of things to go home. He understands the need to stay back in the hospital to be treated for his congestive heart failure but he still refuses admission. He signed AMA paper and left the hospital.
[2021-02-12] MEDS ORDERED: INSULIN REGULAR, HUMAN 100 UNITS/1 ML SUB-Q SCH (16:30)
== END 2021-02-12 12:15 | disposition left against medical advice (07) ==
LOC: ED 05:36 → 4A 10:25
PROVIDERS: ADMIT Internal Medicine; ATTEND Internal Medicine
DX: I11.0 Hypertensive heart disease with heart failure (principal); I50.9 Heart failure, unspecified; E11.65 Type 2 diabetes mellitus with hyperglycemia; E78.5 Hyperlipidemia, unspecified; Z86.73 Personal history of transient ischemic attack (TIA), and cerebral infarction without residual deficits; Z90.49 Acquired absence of other specified parts of digestive tract
CPT/HCPCS: 36415; 71046; 78580; 80053; 82805; 82962; 83880; 84484; 85025; 85379; 85610; 93005; 96374; 96375; 99285; A9540; G0378; J1940; J1815

== ENCOUNTER 2021-02-20 00:01 | Emergency (ER) | payer OTHER ==
--- NOTE | 2021-02-20 02:32 | XRay Report ---
CHEST 2 VIEWS INDICATION / CLINICAL INFORMATION: GRETA. COMPARISON: Chest radiograph 02/12/2021 FINDINGS: SUPPORT DEVICES: None. HEART / MEDIASTINUM: Stable mild cardiomegaly. Mild cephalization of the pulmonary vasculature. LUNGS / PLEURA: No significant pulmonary or pleural abnormality. No pneumothorax. ADDITIONAL FINDINGS: No significant additional findings. IMPRESSION: 1. Stable mild cardiomegaly with mild pulmonary vascular congestion. No focal consolidation or overt edema. Signer Name: Loly Hardin MD Signed: 02/20/2021 2:28 AM Workstation Name: [id number]
[2021-02-20 02:34] LABS: Basophils # (Auto) 0.1 K/mm3 (0.0-0.1); Eosinophils # (Auto) 0.1 K/mm3 (0.0-0.4); Eosinophils % (Auto) 0.7 % (0.0-4.3); Lymphocytes # (Auto) 2.2 K/mm3 (1.2-5.4); Mean Corpuscular HGB Conc 31 % (32-34); Mean Corpuscular Volume 74 fl (84-94); Monocytes # (Auto) 0.5 K/mm3 (0.0-0.8); Monocytes % (Auto) 5.6 % (0.0-7.3); Red Cell Distribution Width 15.8 % (13.2-15.2)
[2021-02-20 02:35] LABS: Hematocrit 53.7 % (35.5-45.6); Hemoglobin 16.9 gm/dl (11.8-15.2); Platelet Count 143 K/mm3 (140-440)
[2021-02-20 02:56] LABS: Alanine Aminotransferase 24 units/L (7-56); Albumin 3.8 g/dL (3.9-5); BUN/Creatinine Ratio 16; Blood Urea Nitrogen 23 mg/dL (9-20); Calcium 9.2 mg/dL (8.4-10.2); Hemolysis Index 3
[2021-02-20 03:44] LABS: HDL Cholesterol 34 mg/dL (40-59); LDL Cholesterol,Direct 118 mg/dL (50-130)
--- NOTE | 2021-02-20 06:57 | Emergency Department Report ---
ED Shortness of Breath HPI - General Chief Complaint: Dyspnea/Respdistress Stated Complaint: SOB Time Seen by Provider: 02/20/21 06:42 Source: patient Mode of arrival: Ambulatory Limitations: No Limitations - History of Present Illness Initial Comments: CC: "Just tired, short of breath" HPI: This is a 45 yo male with hx of HTN, systolic HF EF 15-20%, DM, CVA, DVT on Xarelto who presents with shortness of breath and fatigue for 3 days. He attributes missing his medication Entresto for his symptoms. He took extra Torsemide 60 mg dose prior to arrival to the ED. He is awaiting [facility] appointment for refill of his medications which are mailed to his home. MD Complaint: shortness of breath -: Gradual, days(s) (3 days) Severity: mild Consistency: constant Improves With: rest, medication Worsens With: exertion Known History Of: congestive heart failure Context: other (missing medications) Associated Symptoms: denies other symptoms - Related Data Home Medications Medication Instructions Recorded Confirmed Last Taken Rivaroxaban [Xarelto] 20 mg PO DAILY 09/23/19 02/20/21 Unknown Sacubitril/Valsartan [Entresto 97 1 tab PO BID 09/23/19 02/20/21 Unknown mg-103 mg Tablet] Previous Rx's Medication Instructions Recorded Last Taken Type AtorvaSTATin [Lipitor] 40 mg PO QHS #30 tablet 11/09/17 Unknown Rx Metoprolol Xl [Metoprolol 100 mg PO QDAY #60 tablet 11/09/17 Unknown Rx SUCCINATE ER TAB] Torsemide [Demadex] 60 mg PO BID@0600,1800 #60 tablet 11/09/17 Unknown Rx Sacubitril/Valsartan [Entresto 97 1 each PO BID 30 Days #60 tablet 02/20/21 Unknown Rx mg-103 mg Tablet] Allergies Allergy/AdvReac Type Severity Reaction Status Date / Time No Known Allergies Allergy Verified 01/09/21 11:44 ED Review of Systems ROS: Stated complaint: SOB Other details as noted in HPI Comment: All other systems reviewed and negative Constitutional: denies: fever, malaise Respiratory: shortness of breath. denies: cough Cardiovascular: denies: chest pain, palpitations Gastrointestinal: denies: abdominal pain, nausea, vomiting ED Past Medical Hx - Past Medical History Previous Medical History?: Yes Hx Hypertension: Yes Hx CVA: Yes (TIA's right side weakness) Hx Heart Attack/AMI: Yes Hx Congestive Heart Failure: Yes Hx Diabetes: Yes Hx Deep Vein Thrombosis: No Hx Liver Disease: No Hx Seizures: No Hx Asthma: No Hx COPD: No Hx Dementia: No Additional medical history: Hyperlipidemia - Surgical History Past Surgical History?: Yes Hx Coronary Stent: No Hx Pacemaker: No Hx Internal Defibrillator: No Additional Surgical History: Tonsillectomy, incision and drainage axillary abscess - Social History Smoking Status: Never Smoker Substance Use Type: Alcohol - Medications Home Medications: Home Medications Medication Instructions Recorded Confirmed Last Taken Type AtorvaSTATin [Lipitor] 40 mg PO QHS #30 tablet 11/09/17 02/20/21 Unknown Rx Metoprolol Xl [Metoprolol 100 mg PO QDAY #60 tablet 11/09/17 02/20/21 Unknown Rx SUCCINATE ER TAB] Torsemide [Demadex] 60 mg PO BID@0600,1800 #60 tablet 11/09/17 02/20/21 Unknown Rx Rivaroxaban [Xarelto] 20 mg PO DAILY 09/23/19 02/20/21 Unknown History Sacubitril/Valsartan [Entresto 97 1 tab PO BID 09/23/19 02/20/21 Unknown History mg-103 mg Tablet] Sacubitril/Valsartan [Entresto 97 1 each PO BID 30 Days #60 tablet 02/20/21 Unknown Rx mg-103 mg Tablet] ED Physical Exam - General Limitations: No Limitations General appearance: alert, in no apparent distress - Head Head exam: Present: atraumatic, normocephalic - Eye Eye exam: Present: normal appearance - ENT ENT exam: Present: mucous membranes moist - Neck Neck exam: Present: normal inspection, full ROM - Respiratory Respiratory exam: Present: normal lung sounds bilaterally. Absent: respiratory distress, wheezes, rales, rhonchi, chest wall tenderness, accessory muscle use, decreased breath sounds, prolonged expiratory - Cardiovascular Cardiovascular Exam: Present: regular rate, normal rhythm, normal heart sounds. Absent: systolic murmur, diastolic murmur, rubs, gallop - GI/Abdominal GI/Abdominal exam: Present: soft, normal bowel sounds. Absent: distended, tenderness, guarding, rebound - Rectal Rectal exam: Present: deferred - Extremities Exam Extremities exam: Present: pedal edema - Neurological Exam Neurological exam: Present: alert, oriented X3 - Psychiatric Psychiatric exam: Present: normal affect, normal mood - Skin Skin exam: Present: warm, dry, intact, normal color. Absent: rash ED Course Vital Signs 02/20/21 01:47 Temperature 98.4 F Pulse Rate 116 H Respiratory 16 Rate Blood Pressure 116/85 O2 Sat by Pulse 99 Oximetry ED Medical Decision Making - Lab Data Result diagrams: 02/20/21 01:58 02/20/21 01:58 Laboratory Results - last 24 hr 02/20/21 02/20/21 02/20/21 01:58 01:58 04:43 WBC 9.3 RBC 7.30 H Hgb 16.9 H Hct 53.7 H MCV 74 L MCH 23 L MCHC 31 L RDW 15.8 H Plt Count 143 Lymph % (Auto) 24.0 Door % (Auto) 5.6 Eos % (Auto) 0.7 Baso % (Auto) 1.0 Lymph # (Auto) 2.2 Door # (Auto) 0.5 Eos # (Auto) 0.1 Baso # (Auto) 0.1 Seg Neutrophils % 68.7 Seg Neutrophils # 6.4 Sodium 131 L Potassium 4.3 Chloride 93.3 L Carbon Dioxide 26 Anion Gap 16 BUN 23 H Creatinine 1.4 H Estimated GFR > 60 BUN/Creatinine Ratio 16 Glucose 468 H Calcium 9.2 Total Bilirubin 1.40 H AST 20 ALT 24 Alkaline Phosphatase 164 H Troponin T 0.041 H 0.034 H NT-Pro-B Natriuret Pep 4819 H Total Protein 7.4 Albumin 3.8 L Albumin/Globulin Ratio 1.1 Triglycerides 119 Cholesterol 160 LDL Cholesterol Direct 118 HDL Cholesterol 34 L Cholesterol/HDL Ratio 4.70 - EKG Data 02/20/21 06:57 EKG obtained 0644 EKG interpreted by mn Sinus tachycardia rate 100 bpm left axis deviation prolonged QTC T wave inversions in the lateral leads no ST elevation 02/20/21 06:58 EKG unchanged from 02/12/2021 - Radiology Data Radiology results: report reviewed Chest 2 views: Stable mild cardiomegaly with mild pulmonary vascular congestion. No focal, salivation or overt edema. - Medical Decision Making Acute systolic heart failure, history of nonischemic cardiomyopathy EF 10 to 15%. Patient self treated with extra dose of torsemide prior to arrival. He declined further diuresis in the emergency department. Patient declined hospitalization. He will follow-up with [facility]. I have prescribed Entresto. Acute hyperglycemia: No evidence of acidosis. Encouraged medication and diet compliance. Equivocal troponin elevation in setting of cardiomyopathy. Downtrending troponin values effectively ruling out acute myocardial infarction. Next Patient is discharged home in stable condition. Critical care attestation.: If time is entered above; I have spent that time in minutes in the direct care of this critically ill patient, excluding procedure time. ED Disposition Clinical Impression: Acute exacerbation of CHF (congestive heart failure), Type 2 diabetes mellitus with hyperglycemia, Cardiomyopathy Disposition: DC-01 TO HOME OR SELFCARE Is pt being admited?: No Does the pt Need Aspirin: No Condition: Stable Instructions: Diabetes Mellitus Type 2 in Adults (ED) Additional Instructions: Please return to the emergency department if your symptoms worsen. Prescriptions: Sacubitril/Valsartan [Entresto 97 mg-103 mg Tablet] 1 each PO BID 30 Days #60 tablet Referrals: LU RIGGS MD [Primary Care Provider] - 3-5 Days
[2021-02-20 07:38] VITALS: BP 146/74
--- NOTE | 2021-02-20 18:47 | Electrocardiograph Report ---
[facility] Test Date: 2021-02-20 Test Time: 06:44:08 Pat Name: SOO DEAN Department: Room: Gender: M Director Oracle: QUINCY : 1975 Requested By: SUZIE SHELTON Order Number: [id number] Reading MD: Ruben Spaulding Measurements Intervals [place] Rate: 104 P: 65 [place]: 187 QRS: -34 QRSD: 87 T: -59 QT: 363 QTc: 478 Interpretive Statements Sinus tachycardia LAE, consider biatrial enlargement Left axis deviation Abnrm T, consider ischemia, anterolateral lds Compared to ECG 02/12/2021 06:03:06 Possible ischemia now present No significant change noted. Electronically Signed On 02-20-2021 18:46:22 EDT by Ruben Spaulding
== END 2021-02-20 07:00 | disposition home or self-care (01) ==
LOC: ED 00:01
DX: I11.0 Hypertensive heart disease with heart failure (principal); I50.9 Heart failure, unspecified; E11.65 Type 2 diabetes mellitus with hyperglycemia; I42.8 Other cardiomyopathies; I25.2 Old myocardial infarction; Z79.899 Other long term (current) drug therapy
CPT/HCPCS: 36415; 71046; 80053; 80061; 83880; 84484; 85025; 93005; 99283

== ENCOUNTER 2021-03-09 00:57 | Inpatient (IN) | payer OTHER ==
--- NOTE | 2021-03-09 01:16 | Emergency Department Report ---
HPI - General Chief Complaint: Dyspnea/Respdistress Time Seen by Provider: 03/09/21 01:07 - HPI HPI: This is a 45-year-old -[place] male presents to the emergency department via EMS from home with a complaint of a 1 day history of shortness of breath. This is associated with some lower extremity swelling. He denies any fever, chest pain, nausea, vomiting, diaphoresis, abdominal pain. Patient has a past medical history of hypertension, systolic heart failure with EF 15 to 20%, diabetes, CVA, and DVT on Xarelto. He follows with the [facility] for primary care and cardiology. Patient says that he has been taking his medications compliantly and took his Lasix prior to arrival today. No recent travel or sick contacts at home. He was placed on CPAP by EMS secondary to work of breathing. ED Past Medical Hx - Past Medical History Previous Medical History?: Yes Hx Hypertension: Yes Hx CVA: Yes (TIA's right side weakness) Hx Heart Attack/AMI: Yes Hx Congestive Heart Failure: Yes Hx Diabetes: Yes Hx Deep Vein Thrombosis: No Hx Liver Disease: No Hx Seizures: No Hx Asthma: No Hx COPD: No Hx Dementia: No Additional medical history: Hyperlipidemia - Surgical History Past Surgical History?: Yes Hx Coronary Stent: No Hx Pacemaker: No Hx Internal Defibrillator: No Additional Surgical History: Tonsillectomy, incision and drainage axillary a bscess - Social History Smoking Status: Never Smoker Substance Use Type: Alcohol - Medications Home Medications: Home Medications Medication Instructions Recorded Confirmed Last Taken Type AtorvaSTATin [Lipitor] 40 mg PO QHS #30 tablet 11/09/17 02/20/21 Unknown Rx Metoprolol Xl [Metoprolol 100 mg PO QDAY #60 tablet 11/09/17 02/20/21 Unknown Rx SUCCINATE ER TAB] Torsemide [Demadex] 60 mg PO BID@0600,1800 #60 tablet 11/09/17 02/20/21 Unknown Rx Rivaroxaban [Xarelto] 20 mg PO DAILY 09/23/19 02/20/21 Unknown History Sacubitril/Valsartan [Entresto 97 1 tab PO BID 09/23/19 02/20/21 Unknown History mg-103 mg Tablet] Sacubitril/Valsartan [Entresto 97 1 each PO BID 30 Days #60 tablet 02/20/21 Unknown Rx mg-103 mg Tablet] ED Review of Systems ROS: Stated complaint: GRETA Other details as noted in HPI Comment: All other systems reviewed and negative Constitutional: denies: chills, fever Eyes: denies: eye pain, vision change ENT: denies: ear pain, throat pain Respiratory: orthopnea, shortness of breath Cardiovascular: edema. denies: chest pain Gastrointestinal: denies: abdominal pain, vomiting Genitourinary: denies: dysuria, discharge Musculoskeletal: denies: back pain, arthralgia Skin: denies: rash, lesions Neurological: denies: headache, weakness Physical Exam - Physical Exam Vital Signs: Vital Signs 03/09/21 01:13 Temperature 98.7 F Pulse Rate 110 H Respiratory 15 Rate Blood Pressure 125/94 [Right] O2 Sat by Pulse 100 Oximetry Physical Exam: GENERAL: The patient is well-developed well-nourished. HENT: Normocephalic. Atraumatic. Patient has moist mucous membranes. EYES: Extraocular motions are intact. NECK: Supple. Trachea is midline. CHEST/LUNGS: Coarse breath sounds throughout the chest. Tachypnea with shallow respirations. There is conversational dyspnea. HEART/CARDIOVASCULAR: Regular. There is mild tachycardia. There is no murmur. ABDOMEN: Abdomen is soft, nontender. Patient has normal bowel sounds. SKIN: Skin is warm and dry. NEURO: The patient is awake, alert, and oriented. The patient is cooperative. The patient has no focal neurologic deficits. MUSCULOSKELETAL: There is no tenderness or deformity. There is no limitation range of motion. ED Course Vital Signs 03/09/21 01:13 Temperature 98.7 F Pulse Rate 110 H Respiratory 15 Rate Blood Pressure 125/94 [Right] O2 Sat by Pulse 100 Oximetry - ABG Interpretation Ph: 7.488 PCO2: 29 PO2: 198 Bicarbonate: 21 Interpretation: respiratory alkalosis ED Medical Decision Making - Lab Data Result diagrams: 03/09/21 01:37 03/09/21 01:37 Lab Results 03/09/21 03/09/21 03/09/21 Range/Units 01:15 01:33 01:37 WBC 8.4 (4.5-11.0) K/mm3 RBC 6.14 H (3.65-5.03) M/mm3 Hgb 14.2 (11.8-15.2) gm/dl Hct 45.1 (35.5-45.6) % MCV 73 L (84-94) fl MCH 23 L (28-32) pg MCHC 32 (32-34) % RDW 15.4 H (13.2-15.2) % Plt Count 130 L (140-440) K/mm3 Lymph % (Auto) 22.8 (13.4-35.0) % [place] % (Auto) 6.6 (0.0-7.3) % Eos % (Auto) 0.6 (0.0-4.3) % Baso % (Auto) 0.9 (0.0-1.8) % Lymph # (Auto) 1.9 (1.2-5.4) K/mm3 [place] # (Auto) 0.6 (0.0-0.8) K/mm3 Eos # (Auto) 0.0 (0.0-0.4) K/mm3 Baso # (Auto) 0.1 (0.0-0.1) K/mm3 Seg Neutrophils % 69.1 (40.0-70.0) % Seg Neutrophils # 5.8 (1.8-7.7) K/mm3 PT (12.2-14.9) Sec. INR (0.87-1.13) ABG pH 7.488 H (7.350-7.450) pH Units ABG pCO2 29.0 mm Hg ABG pO2 198.6 H (80.0-90.0) mm Hg ABG HCO3 21.5 (20.0-26.0) mmol/L ABG O2 Saturation 99.3 H (95.0-99.0) % ABG O2 Content 20.4 (0.0-44) ABG Base Excess -0.6 (-2.0-3.0) mmol/L ABG Hemoglobin 14.7 (14.0-18.0) gm/dl ABG Carboxyhemoglobin 1.8 (0.0-5.0) % ABG Methemoglobin 0.5 (0.0-1.5) % VBG pH (7.320-7.420) Oxyhemoglobin 97.1 (95.0-99.0) % FiO2 50 % Sodium (137-145) mmol/L Potassium (3.6-5.0) mmol/L Chloride (98-107) mmol/L Carbon Dioxide (22-30) mmol/L Anion Gap mmol/L BUN (9-20) mg/dL Creatinine (0.8-1.3) mg/dL Estimated GFR ml/min BUN/Creatinine Ratio % Glucose (75-100) mg/dL POC Glucose 364 H (70-105) mg/dL Calcium (8.4-10.2) mg/dL Total Bilirubin (0.1-1.2) mg/dL AST (5-40) units/L ALT (7-56) units/L Alkaline Phosphatase (35-129) units/L Troponin T (0.00-0.029) ng/mL NT-Pro-B Natriuret Pep (0-450) pg/mL Total Protein (6.3-8.2) g/dL Albumin (3.9-5) g/dL Albumin/Globulin Ratio % 03/09/21 03/09/21 03/09/21 Range/Units 01:37 01:37 01:48 WBC (4.5-11.0) K/mm3 RBC (3.65-5.03) M/mm3 Hgb (11.8-15.2) gm/dl Hct (35.5-45.6) % MCV (84-94) fl MCH (28-32) pg MCHC (32-34) % RDW (13.2-15.2) % Plt Count (140-440) K/mm3 Lymph % (Auto) (13.4-35.0) % [place] % (Auto) (0.0-7.3) % Eos % (Auto) (0.0-4.3) % Baso % (Auto) (0.0-1.8) % Lymph # (Auto) (1.2-5.4) K/mm3 [place] # (Auto) (0.0-0.8) K/mm3 Eos # (Auto) (0.0-0.4) K/mm3 Baso # (Auto) (0.0-0.1) K/mm3 Seg Neutrophils % (40.0-70.0) % Seg Neutrophils # (1.8-7.7) K/mm3 PT 14.9 (12.2-14.9) Sec. INR 1.19 H (0.87-1.13) ABG pH TNR (7.350-7.450) pH Units ABG pCO2 TNR mm Hg ABG pO2 TNR (80.0-90.0) mm Hg ABG HCO3 TNR (20.0-26.0) mmol/L ABG O2 Saturation TNR (95.0-99.0) % ABG O2 Content TNR (0.0-44) ABG Base Excess TNR (-2.0-3.0) mmol/L ABG Hemoglobin TNR (14.0-18.0) gm/dl ABG Carboxyhemoglobin TNR (0.0-5.0) % ABG Methemoglobin TNR (0.0-1.5) % VBG pH (7.320-7.420) Oxyhemoglobin TNR (95.0-99.0) % FiO2 TNR % Sodium 133 L (137-145) mmol/L Potassium 3.9 (3.6-5.0) mmol/L Chloride 98.0 (98-107) mmol/L Carbon Dioxide 26 (22-30) mmol/L Anion Gap 13 mmol/L BUN 15 (9-20) mg/dL Creatinine 1.2 (0.8-1.3) mg/dL Estimated GFR > 60 ml/min BUN/Creatinine Ratio 13 % Glucose 391 H (75-100) mg/dL POC Glucose (70-105) mg/dL Calcium 9.0 (8.4-10.2) mg/dL Total Bilirubin 1.50 H (0.1-1.2) mg/dL AST 12 (5-40) units/L ALT 16 (7-56) units/L Alkaline Phosphatase 127 (35-129) units/L Troponin T 0.012 (0.00-0.029) ng/mL NT-Pro-B Natriuret Pep 3094 H (0-450) pg/mL Total Protein 6.6 (6.3-8.2) g/dL Albumin 3.4 L (3.9-5) g/dL Albumin/Globulin Ratio 1.1 % 03/09/21 Range/Units 01:48 WBC (4.5-11.0) K/mm3 RBC (3.65-5.03) M/mm3 Hgb (11.8-15.2) gm/dl Hct (35.5-45.6) % MCV (84-94) fl MCH (28-32) pg MCHC (32-34) % RDW (13.2-15.2) % Plt Count (140-440) K/mm3 Lymph % (Auto) (13.4-35.0) % [place] % (Auto) (0.0-7.3) % Eos % (Auto) (0.0-4.3) % Baso % (Auto) (0.0-1.8) % Lymph # (Auto) (1.2-5.4) K/mm3 [place] # (Auto) (0.0-0.8) K/mm3 Eos # (Auto) (0.0-0.4) K/mm3 Baso # (Auto) (0.0-0.1) K/mm3 Seg Neutrophils % (40.0-70.0) % Seg Neutrophils # (1.8-7.7) K/mm3 PT (12.2-14.9) Sec. INR (0.87-1.13) ABG pH (7.350-7.450) pH Units ABG pCO2 mm Hg ABG pO2 (80.0-90.0) mm Hg ABG HCO3 (20.0-26.0) mmol/L ABG O2 Saturation (95.0-99.0) % ABG O2 Content (0.0-44) ABG Base Excess (-2.0-3.0) mmol/L ABG Hemoglobin (14.0-18.0) gm/dl ABG Carboxyhemoglobin (0.0-5.0) % ABG Methemoglobin (0.0-1.5) % VBG pH 7.403 (7.320-7.420) Oxyhemoglobin (95.0-99.0) % FiO2 % Sodium (137-145) mmol/L Potassium (3.6-5.0) mmol/L Chloride (98-107) mmol/L Carbon Dioxide (22-30) mmol/L Anion Gap mmol/L BUN (9-20) mg/dL Creatinine (0.8-1.3) mg/dL Estimated GFR ml/min BUN/Creatinine Ratio % Glucose (75-100) mg/dL POC Glucose (70-105) mg/dL Calcium (8.4-10.2) mg/dL Total Bilirubin (0.1-1.2) mg/dL AST (5-40) units/L ALT (7-56) units/L Alkaline Phosphatase (35-129) units/L Troponin T (0.00-0.029) ng/mL NT-Pro-B Natriuret Pep (0-450) pg/mL Total Protein (6.3-8.2) g/dL Albumin (3.9-5) g/dL Albumin/Globulin Ratio % - EKG Data -: EKG Interpreted by Me EKG shows normal: sinus rhythm, axis (Left axis deviation), intervals, QRS complexes, ST-T waves (T wave inversions to the lateral leads) Rate: tachycardia (111 bpm) - EKG Data When compared to previous EKG there are: no significant change Interpretation: unchanged when compared t (02/20/21) - Radiology Data Radiology results: image reviewed interpreted by me: Chest x-ray shows moderate cardiomegaly. There is pulmonary vascular congestion and some interstitial edema. No widened mediastinum. - Medical Decision Making Patient presents with a 1 day history of progressively worsening shortness of breath. He presents in some respiratory distress with coarse breath sounds, tachypnea and conversational dyspnea. Patient had some improvement when he was switched from CPAP to BiPAP. ABG shows some mild respiratory acidosis. Chest x-ray shows pulmonary vascular congestion and some interstitial edema. The patient's labs are mostly unremarkable except for an elevated proBNP of greater than 3000. The patient also had some hyperglycemia without signs of diabetic ketoacidosis. He has been given IV Lasix and IV insulin. The patient will be admitted to the hospital for further evaluation and treatment was accepted for admission by the hospitalist, Dr. Carrington. Critical Care Time: Yes Critical care time in (mins) excluding proc time.: 35 Critical care attestation.: If time is entered above; I have spent that time in minutes in the direct care of this critically ill patient, excluding procedure time. Critical care time was spent on this patient in doing his initial evaluation, multiple reevaluations, ordering interpretation of labs and imaging, EMS report, IV Lasix for diuresis, IV insulin for his hyperglycemia, BiPAP management. Critical Care Time: 35 minutes ED Disposition Clinical Impression: Acute respiratory distress, Hyperglycemia Acute exacerbation of CHF (congestive heart failure) Qualifiers: Heart failure type: unspecified Qualified Code(s): I50.9 - Heart failure, unspecified Disposition: DC-09 OP ADMIT IP TO THIS HOSP Is pt being admited?: Yes Condition: Serious Time of Disposition: 02:45
[2021-03-09 01:27] LABS: ABG Base Excess -0.6 mmol/L (-2.0-3.0); ABG HCO3 21.5 mmol/L (20.0-26.0); ABG Methemoglobin 0.5 % (0.0-1.5); ABG Oxygen Saturation 99.3 % (95.0-99.0); ABG PH 7.488 pH Units (7.350-7.450); ABG PO2 198.6 mm Hg (80.0-90.0)
[2021-03-09 02:01] LABS: Basophils # (Auto) 0.1 K/mm3 (0.0-0.1); Basophils % (Auto) 0.9 % (0.0-1.8); Eosinophils % (Auto) 0.6 % (0.0-4.3); Hematocrit 45.1 % (35.5-45.6); Hemoglobin 14.2 gm/dl (11.8-15.2); Lymphocytes # (Auto) 1.9 K/mm3 (1.2-5.4); Lymphocytes % (Auto) 22.8 % (13.4-35.0); Mean Corpuscular HGB Conc 32 % (32-34); Mean Corpuscular Volume 73 fl (84-94); Monocytes # (Auto) 0.6 K/mm3 (0.0-0.8); Monocytes % (Auto) 6.6 % (0.0-7.3); Red Blood Count 6.14 M/mm3 (3.65-5.03); Red Cell Distribution Width 15.4 % (13.2-15.2)
[2021-03-09 02:12] LABS: Platelet Count 130 K/mm3 (140-440)
[2021-03-09 02:13] LABS: INR 1.19 (0.87-1.13)
[2021-03-09 02:18] LABS: ABG Base Excess TNR mmol/L (-2.0-3.0); ABG HCO3 TNR mmol/L (20.0-26.0); ABG PCO2 TNR mm Hg; ABG PH TNR pH Units (7.350-7.450); ABG PO2 TNR mm Hg (80.0-90.0)
[2021-03-09 02:19] LABS: ABG Methemoglobin TNR % (0.0-1.5); ABG Oxygen Saturation TNR % (95.0-99.0)
[2021-03-09 02:29] LABS: Alanine Aminotransferase 16 units/L (7-56); Albumin 3.4 g/dL (3.9-5); BUN/Creatinine Ratio 13; Blood Urea Nitrogen 15 mg/dL (9-20); Hemolysis Index 2
[2021-03-09] MEDS ORDERED: FUROSEMIDE 20 MG/2 ML INJ IV ONE ×2 (02:37→08:37)
[2021-03-09] MEDS ORDERED: INSULIN REGULAR, HUMAN 100 UNITS/1 ML IV ONE (02:38)
--- NOTE | 2021-03-09 03:39 | XRay Report ---
CHEST 1 VIEW 0123 INDICATION / CLINICAL INFORMATION: SOB COMPARISON: 02/20/2021 FINDINGS: SUPPORT DEVICES: None HEART / MEDIASTINUM: Mild cardiomegaly LUNGS / PLEURA: No significant pulmonary or pleural abnormality. No pneumothorax. ADDITIONAL FINDINGS: No significant additional findings. IMPRESSION: No significant acute abnormality Signer Name: Sameer Roque MD Signed: 03/09/2021 3:34 AM Workstation Name: [id number]
[2021-03-09] MEDS ORDERED: ACETAMINOPHEN 325 MG TAB PO PRN (03:58)
[2021-03-09] MEDS ORDERED: ONDANSETRON 4 MG/2 ML INJ IV PRN (03:58)
[2021-03-09] MEDS ORDERED: NITROGLYCERIN 0.4 MG TAB SUBL SL PRN (03:58)
[2021-03-09] MEDS ORDERED: ALBUTEROL 2.5 MG/3 ML NEBU IH PRN (03:58)
[2021-03-09] MEDS ORDERED: hydrALAZINE 20 MG/1 ML INJ IV PRN (04:03)
--- NOTE | 2021-03-09 04:08 | History and Physical Report ---
History of Present Illness Date of examination: 03/09/21 Date of admission: 03/09/21 02:45 Chief complaint: Dyspnea Respiratory distress Lower extremity swelling History of present illness: 45-year-old -Slov[place] male with past medical history of hypertension, systolic heart failure with EF 15 to 20%, diabetes, CVA, and DVT on Xarelto was brought to the emergency department via EMS from home with a complaint of a 1 day history of shortness of breath. This is associated with some lower extremity swelling. He denies any fever, chest pain, nausea, vomiting, diaphoresis, abdominal pain. He follows with the [facility] for primary care and cardiology. Patient says that he has been taking his medications compliantly and took his Lasix prior to arrival today. No recent travel or sick contacts at home. He was placed on CPAP by EMS secondary to work of breathing. In the emergency room patient is found to have acute CHF exacerbation. Patient's BNP is 3094 Past History Past Medical History: diabetes, DVT, heart failure, hypertension, stroke Medications and Allergies Allergies Allergy/AdvReac Type Severity Reaction Status Date / Time No Known Allergies Allergy Verified 01/09/21 11:44 Home Medications Medication Instructions Recorded Confirmed Last Taken Type AtorvaSTATin [Lipitor] 40 mg PO QHS #30 tablet 11/09/17 02/20/21 Unknown Rx Metoprolol Xl [Metoprolol 100 mg PO QDAY #60 tablet 11/09/17 02/20/21 Unknown Rx SUCCINATE ER TAB] Torsemide [Demadex] 60 mg PO BID@0600,1800 #60 tablet 11/09/17 02/20/21 Unknown Rx Rivaroxaban [Xarelto] 20 mg PO DAILY 09/23/19 02/20/21 Unknown History Sacubitril/Valsartan [Entresto 97 1 tab PO BID 09/23/19 02/20/21 Unknown History mg-103 mg Tablet] Sacubitril/Valsartan [Entresto 97 1 each PO BID 30 Days #60 tablet 02/20/21 Unknown Rx mg-103 mg Tablet] Active Meds: Active Medications Acetaminophen (Acetaminophen 325 Mg Tab) 650 mg PO Q4H PRN PRN Reason: Pain MILD(1-3)/Fever >100.5/HERNANDEZ Albuterol (Albuterol 2.5 Mg/3 Ml Nebu) 2.5 mg IH Q4HRT PRN PRN Reason: Shortness Of Breath Albuterol/Ipratropium (Ipratropium/Albuterol Sulfate 3 Ml Ampul.Neb) 1 ampul IH Q6HRT DELTA Atorvastatin Calcium (Atorvastatin 40 Mg Tab) 40 mg PO QHS DELTA Famotidine (Famotidine 10 Mg Tab) 10 mg PO BID DELTA Furosemide (Furosemide 40 Mg/4 Ml Inj) 40 mg IV BID@0600,1800 DELTA Hydralazine HCl (Hydralazine 20 Mg/1 Ml Inj) 10 mg IV Q6H PRN PRN Reason: htn Lisinopril (Lisinopril 5 Mg Tab) 2.5 mg PO QDAY DELTA Metoprolol Succinate (Metoprolol Succinate Xl 100 Mg Tab) 100 mg PO QDAY DELTA Miscellaneous Medication (Rivaroxaban) 20 mg PO DAILY [facility] Miscellaneous Medication (Sacubitril/Valsartan [Entresto 97 Mg-103 Mg Tablet]) 1 each PO BID DELTA Nitroglycerin (Nitroglycerin 0.4 Mg Tab Subl) 0.4 mg SL .Q5MIN PRN PRN Reason: Chest Pain Ondansetron HCl (Ondansetron 4 Mg/2 Ml Inj) 4 mg IV Q8H PRN PRN Reason: Nausea And Vomiting Sodium Chloride (Sodium Chloride 0.9% 10 Ml Flush Syringe) 10 ml IV BID DELTA Sodium Chloride (Sodium Chloride 0.9% 10 Ml Flush Syringe) 10 ml IV PRN PRN PRN Reason: LINE FLUSH Review of Systems Cardiovascular: edema, shortness of breath, dyspnea on exertion Respiratory: shortness of breath, dyspnea on exertion Musculoskeletal: other (Lower extremity swelling) Exam - Constitutional Vitals: Temp Pulse Resp BP Pulse Ox 98.7 F 104 H 28 H 124/90 100 03/09/21 01:13 03/09/21 03:00 03/09/21 03:00 03/09/21 03:00 03/09/21 03:00 General appearance: Present: mild distress, well-nourished - EENT Eyes: Present: PERRL ENT: hearing intact, clear oral mucosa - Neck Neck: Present: supple, normal ROM - Respiratory Respiratory effort: normal Respiratory: bilateral: rales - Cardiovascular Heart Sounds: Present: S1 & S2. Absent: rub, click - Extremities Extremities: pulses symmetrical Extremity abnormal: edema Peripheral Pulses: within normal limits - Abdominal General gastrointestinal: Present: soft, non-tender, non-distended, normal bowel sounds Male genitourinary: Present: normal - Integumentary Integumentary: Present: clear, warm, dry - Musculoskeletal Musculoskeletal: gait normal, strength equal bilaterally - Psychiatric Psychiatric: appropriate mood/affect, intact judgment & insight - Neurologic Neurologic: CNII-XII intact, moves all extremities HEART Score - HEART Score Troponin: Troponin T 0.012 ng/mL (0.00-0.029) 03/09/21 01:37 Results - Labs CBC & Chem 7: 03/09/21 01:37 03/09/21 01:37 Labs: Laboratory Last Values WBC 8.4 K/mm3 (4.5-11.0) 03/09/21 01:37 RBC 6.14 M/mm3 (3.65-5.03) H 03/09/21 01:37 Hgb 14.2 gm/dl (11.8-15.2) 03/09/21 01:37 Hct 45.1 % (35.5-45.6) 03/09/21 01:37 MCV 73 fl (84-94) L 03/09/21 01:37 MCH 23 pg (28-32) L 03/09/21 01:37 MCHC 32 % (32-34) 03/09/21 01:37 RDW 15.4 % (13.2-15.2) H 03/09/21 01:37 Plt Count 130 K/mm3 (140-440) L 03/09/21 01:37 Lymph % (Auto) 22.8 % (13.4-35.0) 03/09/21 01:37 [place] % (Auto) 6.6 % (0.0-7.3) 03/09/21 01:37 Eos % (Auto) 0.6 % (0.0-4.3) 03/09/21 01:37 Baso % (Auto) 0.9 % (0.0-1.8) 03/09/21 01:37 Lymph # (Auto) 1.9 K/mm3 (1.2-5.4) 03/09/21 01:37 [place] # (Auto) 0.6 K/mm3 (0.0-0.8) 03/09/21 01:37 Eos # (Auto) 0.0 K/mm3 (0.0-0.4) 03/09/21 01:37 Baso # (Auto) 0.1 K/mm3 (0.0-0.1) 03/09/21 01:37 Seg Neutrophils % 69.1 % (40.0-70.0) 03/09/21 01:37 Seg Neutrophils # 5.8 K/mm3 (1.8-7.7) 03/09/21 01:37 PT 14.9 Sec. (12.2-14.9) 03/09/21 01:37 INR 1.19 (0.87-1.13) H 03/09/21 01:37 ABG pH TNR 03/09/21 01:48 ABG pCO2 TNR 03/09/21 01:48 ABG pO2 TNR 03/09/21 01:48 ABG HCO3 TNR 03/09/21 01:48 ABG O2 Saturation TNR 03/09/21 01:48 ABG O2 Content TNR 03/09/21 01:48 ABG Base Excess TNR 03/09/21 01:48 ABG Hemoglobin TNR 03/09/21 01:48 ABG Carboxyhemoglobin TNR 03/09/21 01:48 ABG Methemoglobin TNR 03/09/21 01:48 VBG pH 7.403 (7.320-7.420) 03/09/21 01:48 Oxyhemoglobin TNR 03/09/21 01:48 FiO2 TNR 03/09/21 01:48 Sodium 133 mmol/L (137-145) L 03/09/21 01:37 Potassium 3.9 mmol/L (3.6-5.0) 03/09/21 01:37 Chloride 98.0 mmol/L (98-107) 03/09/21 01:37 Carbon Dioxide 26 mmol/L (22-30) 03/09/21 01:37 Anion Gap 13 mmol/L 03/09/21 01:37 BUN 15 mg/dL (9-20) 03/09/21 01:37 Creatinine 1.2 mg/dL (0.8-1.3) 03/09/21 01:37 Estimated GFR > 60 ml/min 03/09/21 01:37 BUN/Creatinine Ratio 13 % 03/09/21 01:37 Glucose 391 mg/dL (75-100) H 03/09/21 01:37 POC Glucose 364 mg/dL (70-105) H 03/09/21 01:33 Calcium 9.0 mg/dL (8.4-10.2) 03/09/21 01:37 Total Bilirubin 1.50 mg/dL (0.1-1.2) H 03/09/21 01:37 AST 12 units/L (5-40) 03/09/21 01:37 ALT 16 units/L (7-56) 03/09/21 01:37 Alkaline Phosphatase 127 units/L (35-129) 03/09/21 01:37 Troponin T 0.012 ng/mL (0.00-0.029) 03/09/21 01:37 NT-Pro-B Natriuret Pep 3094 pg/mL (0-450) H 03/09/21 01:37 Total Protein 6.6 g/dL (6.3-8.2) 03/09/21 01:37 Albumin 3.4 g/dL (3.9-5) L 03/09/21 01:37 Albumin/Globulin Ratio 1.1 % 03/09/21 01:37 - Imaging and Cardiology Chest x-ray: report reviewed Assessment and Plan VTE prophylaxis?: Chemical Plan of care discussed with patient/family: Yes - Patient Problems (1) Acute respiratory distress Current Visit: Yes Status: Acute Plan to address problem: Admit the patient to the medical telemetry. Put the patient on BiPAP. Lasix 40 mg IV every 12 hours. DuoNeb by nebulizer every 4 hours as needed. We do the fluid restriction. We also maintain in taken output. Echocardiogram. Will consult cardiology for evaluation (2) CHF exacerbation Current Visit: Yes Status: Acute Qualifiers: Heart failure type: unspecified Qualified Code(s): I50.9 - Heart failure, unspecified Plan to address problem: Put the patient on BiPAP. Lasix 40 mg IV every 12 hours. DuoNeb by nebulizer every 4 hours as needed. We do the fluid restriction. We also maintain in taken output. Echocardiogram. Will consult cardiology for evaluation (3) Hyperglycemia Current Visit: Yes Status: Acute Plan to address problem: 1800 kcal ADA diet. We will put the patient on Humalog sliding scale Accu-Chek before meals and at bedtime moderate dose coverage. Diabetic education (4) Cardiomyopathy Current Visit: No Status: Acute Plan to address problem: Lisinopril 2.5 mg p.o. daily. We will continue the cardiac medication. Echocardiogram. Cardiology consult (5) Stroke (cerebrum) Current Visit: No Status: Acute Plan to address problem: Xarelto 20 mg p.o. daily. Lipitor 40 mg p.o. daily. We will monitor the patient closely (6) Hypertension Current Visit: Yes Status: Acute Plan to address problem: Metoprolol XL 100 mg p.o. daily. Lisinopril 2.5 mg p.o. daily. Hydralazine 10 mg IV every 6 hours as needed. We will monitor the blood pressure closely (7) DVT prophylaxis Current Visit: No Status: Acute Plan to address problem: Xarelto 20 mg p.o. daily for DVT prophylaxis. Pepcid 20 mg p.o. twice daily for GI prophylaxis. Patient is a full code
[2021-03-09] MEDS ORDERED: FUROSEMIDE 40 MG/4 ML INJ IV SCH ×2 (06:00→08:37)
[2021-03-09] MEDS ORDERED: DEXTROSE 50% IN WATER (25GM) 50 ML SYRINGE IV PRN (08:00)
[2021-03-09] MEDS ORDERED: FUROSEMIDE 20 MG/2 ML INJ IV NR (08:37)
[2021-03-09] MEDS: IPRATROPIUM/ALBUTEROL SULFATE 3 ML AMPUL.NEB IH SCH ×3 (09:04→21:39)
[2021-03-09] MEDS: INSULIN GLARGINE 100 UNITS/ML SUB-Q SCH (09:14)
[2021-03-09] MEDS: INSULIN LISPRO 100 UNIT/ML SUB-Q SCH ×4 (09:24→22:46)
[2021-03-09] MEDS: SACUBITRIL/VALSARTAN 49-51 MG TAB PO SCH ×2 (09:45→22:39)
[2021-03-09] MEDS ORDERED: NON-FORMULARY EACH (Sacubitril/Valsartan [Entresto 97 Mg-103 Mg Tablet] 1 EACH Tablet) PO SCH (10:00)
[2021-03-09] MEDS ORDERED: LISINOPRIL 5 MG TAB PO SCH (10:00)
[2021-03-09] MEDS ORDERED: NON-FORMULARY EACH (Rivaroxaban 20 MG Tablet) PO SCH (10:00)
--- NOTE | 2021-03-09 10:49 | Progress Note ---
Assessment and Plan Assessment and plan: Acute hypoxic respiratory failure Continue BiPAP Increase Lasix to 60 mg twice daily Added metolazone Continue to monitor respiratory status Transfer to [facility] #Acute on chronic systolic CHF Increase Lasix to 60 mg IV twice daily Added metolazone Monitor electrolytes and replete as needed Cardiology evaluation Echocardiogram ordered #Diabetes mellitus Start on Lantus and sliding scale Monitor blood glucose #History of DVT On Xarelto 20 mg daily #Hypertension Continue home medications #DVT prophylaxis On Xarelto History Interval history: 45 yerar old male with a past medical history of systolic heart failure on entresto admitted with about few days history of shortness of breath. He mentions he ran out of his medications lately. He is on torsemide 60mg BID at home. He also mentions bilateral lower extremity swelling. He usually gets his medications at the [facility]. Here in the ED, he was noted to have respiratory failure and was placed on BIPAP. His chest x-ray showed bilateral pulmonary edema. proBNP more than 3000. He received 20 mg IV Lasix and admitted for further evaluation. Hospital course 03/09. Patient seen and examined at bedside this morning. He is awake and alert x3. She is slightly tired on BiPAP. Stat blood gas showed normal pH. Patient received additional 40 mg Lasix. Added metolazone 5 mg daily. He is on Xarelto for atrial fibrillation. Cardiology has been consulted. Patient will be transferred to the [facility] for close monitoring Hospitalist Physical - Physical exam Narrative exam: VITAL SIGNS: Reviewed. GENERAL: Awake HEAD: No signs of head trauma. EYES: Pupils are equal. Extraocular motions intact. MOUTH: Oropharynx is normal. NECK: No adenopathy, no JVD. CHEST: Diminished breath sounds, trace rales at bases CARDIAC: normal S1 and S2, without murmurs, gallops, or rubs. ABDOMEN: Soft, non tender and non distended. No rebound or guarding, and no masses palpated. Bowel Sounds normal. MUSCULOSKELETAL: Edema NEUROLOGIC EXAM: Alert and oriented x3. No focal neurologic deficits SKIN: No obvious lesions - Constitutional Vitals: Temp Pulse Resp BP Pulse Ox 97.9 F 103 H 20 123/98 100 03/09/21 08:13 03/09/21 08:13 03/09/21 08:13 03/09/21 08:13 03/09/21 08:13 HEART Score - HEART Score Troponin: Troponin T 0.012 ng/mL (0.00-0.029) 03/09/21 01:37 Results - Labs CBC & Chem 7: 03/10/21 04:48 03/10/21 04:48 Labs: Laboratory Last Values WBC 8.4 K/mm3 (4.5-11.0) 03/09/21 01:37 RBC 6.14 M/mm3 (3.65-5.03) H 03/09/21 01:37 Hgb 14.2 gm/dl (11.8-15.2) 03/09/21 01:37 Hct 45.1 % (35.5-45.6) 03/09/21 01:37 MCV 73 fl (84-94) L 03/09/21 01:37 MCH 23 pg (28-32) L 03/09/21 01:37 MCHC 32 % (32-34) 03/09/21 01:37 RDW 15.4 % (13.2-15.2) H 03/09/21 01:37 Plt Count 130 K/mm3 (140-440) L 03/09/21 01:37 Lymph % (Auto) 22.8 % (13.4-35.0) 03/09/21 01:37 [place] % (Auto) 6.6 % (0.0-7.3) 03/09/21 01:37 Eos % (Auto) 0.6 % (0.0-4.3) 03/09/21 01:37 Baso % (Auto) 0.9 % (0.0-1.8) 03/09/21 01:37 Lymph # (Auto) 1.9 K/mm3 (1.2-5.4) 03/09/21 01:37 [place] # (Auto) 0.6 K/mm3 (0.0-0.8) 03/09/21 01:37 Eos # (Auto) 0.0 K/mm3 (0.0-0.4) 03/09/21 01:37 Baso # (Auto) 0.1 K/mm3 (0.0-0.1) 03/09/21 01:37 Seg Neutrophils % 69.1 % (40.0-70.0) 03/09/21 01:37 Seg Neutrophils # 5.8 K/mm3 (1.8-7.7) 03/09/21 01:37 PT 14.9 Sec. (12.2-14.9) 03/09/21 01:37 INR 1.19 (0.87-1.13) H 03/09/21 01:37 ABG pH TNR 03/09/21 01:48 ABG pCO2 TNR 03/09/21 01:48 ABG pO2 TNR 03/09/21 01:48 ABG HCO3 TNR 03/09/21 01:48 ABG O2 Saturation TNR 03/09/21 01:48 ABG O2 Content TNR 03/09/21 01:48 ABG Base Excess TNR 03/09/21 01:48 ABG Hemoglobin TNR 03/09/21 01:48 ABG Carboxyhemoglobin TNR 03/09/21 01:48 ABG Methemoglobin TNR 03/09/21 01:48 VBG pH 7.403 (7.320-7.420) 03/09/21 01:48 Oxyhemoglobin TNR 03/09/21 01:48 FiO2 TNR 03/09/21 01:48 Sodium 133 mmol/L (137-145) L 03/09/21 01:37 Potassium 3.9 mmol/L (3.6-5.0) 03/09/21 01:37 Chloride 98.0 mmol/L (98-107) 03/09/21 01:37 Carbon Dioxide 26 mmol/L (22-30) 03/09/21 01:37 Anion Gap 13 mmol/L 03/09/21 01:37 BUN 15 mg/dL (9-20) 03/09/21 01:37 Creatinine 1.2 mg/dL (0.8-1.3) 03/09/21 01:37 Estimated GFR > 60 ml/min 03/09/21 01:37 BUN/Creatinine Ratio 13 % 03/09/21 01:37 Glucose 391 mg/dL (75-100) H 03/09/21 01:37 POC Glucose 320 mg/dL (70-105) H 03/09/21 08:53 Calcium 9.0 mg/dL (8.4-10.2) 03/09/21 01:37 Total Bilirubin 1.50 mg/dL (0.1-1.2) H 03/09/21 01:37 AST 12 units/L (5-40) 03/09/21 01:37 ALT 16 units/L (7-56) 03/09/21 01:37 Alkaline Phosphatase 127 units/L (35-129) 03/09/21 01:37 Troponin T 0.012 ng/mL (0.00-0.029) 03/09/21 01:37 NT-Pro-B Natriuret Pep 3094 pg/mL (0-450) H 03/09/21 01:37 Total Protein 6.6 g/dL (6.3-8.2) 03/09/21 01:37 Albumin 3.4 g/dL (3.9-5) L 03/09/21 01:37 Albumin/Globulin Ratio 1.1 % 03/09/21 01:37 Arthur/IV: Voiding Method Urinal Active Medications - Current Medications Current Medications: Generic Name Dose Route Start Last Admin Trade Name Freq PRN Reason Stop Dose Admin Acetaminophen 650 mg 03/09/21 03:58 Acetaminophen 325 Mg Tab PO Q4H PRN Pain MILD(1-3)/Fever >100.5/HERNANDEZ Albuterol 2.5 mg 03/09/21 03:58 Albuterol 2.5 Mg/3 Ml Nebu IH Q4HRT PRN Shortness Of Breath Albuterol/Ipratropium 1 ampul 03/09/21 08:00 03/09/21 09:04 Ipratropium/Albuterol Sulfate 3 Ml Ampul.Neb IH 1 ampul Q6HRT DELTA Administration Atorvastatin Calcium 40 mg 03/09/21 22:00 Atorvastatin 40 Mg Tab PO QHS DELTA Dextrose 50 ml 03/09/21 08:00 Dextrose 50% In Water (25gm) 50 Ml Syringe IV Q30MIN PRN Hypoglycemia Protocol Famotidine 10 mg 03/09/21 10:00 Famotidine 10 Mg Tab PO BID DELTA Furosemide 60 mg 03/09/21 18:00 Furosemide 100 Mg/10 Ml Inj IV BID@0600,1800 DELTA Hydralazine HCl 10 mg 03/09/21 04:03 Hydralazine 20 Mg/1 Ml Inj IV Q6H PRN htn Insulin Glargine 20 units 03/09/21 08:00 03/09/21 09:14 Insulin Glargine 100 Units/Ml SUB-Q 20 units QAMDIAB [facility] Administration Insulin Human Lispro 0 unit 03/09/21 07:30 03/09/21 09:24 Insulin Lispro 100 Unit/Ml SUB-Q 8 unit ACHS [facility] Administration Protocol Metolazone 5 mg 03/09/21 10:00 Metolazone 5 Mg Tab PO QDAY [facility] Metoprolol Succinate 100 mg 03/09/21 10:00 Metoprolol Succinate Xl 100 Mg Tab PO QDAY [facility] Nitroglycerin 0.4 mg 03/09/21 03:58 Nitroglycerin 0.4 Mg Tab Subl SL .Q5MIN PRN Chest Pain Ondansetron HCl 4 mg 03/09/21 03:58 Ondansetron 4 Mg/2 Ml Inj IV Q8H PRN Nausea And Vomiting Rivaroxaban 20 mg 03/09/21 08:00 Rivaroxaban 20 Mg Tab PO QDDIAB DELTA Sodium Chloride 10 ml 03/09/21 10:00 Sodium Chloride 0.9% 10 Ml Flush Syringe IV BID DELTA Sodium Chloride 10 ml 03/09/21 03:58 Sodium Chloride 0.9% 10 Ml Flush Syringe IV PRN PRN LINE FLUSH
[2021-03-09] MEDS: METOPROLOL SUCCINATE XL 100 MG TAB PO SCH (11:46)
[2021-03-09] MEDS: metOLazone 5 MG TAB PO SCH (11:47)
[2021-03-09] MEDS: FAMOTIDINE 10 MG TAB PO SCH ×2 (11:47→22:39)
--- NOTE | 2021-03-09 12:03 | Consultation ---
History of Present Illness Consult date: 03/09/21 Consult reason: congestive heart failure History of present illness: The patient is a 45-year-old man with longstanding systolic heart failure. He was first diagnosed in 2017, when he underwent a cardiac catheterization that revealed normal coronaries and severe left ventricular dysfunction. His left ventricular ejection fraction has been historically estimated at 15 to 20%. He maintains his usual follow-up at the [facility], and is on guideline directed medical therapy. He states that the doctors at the [facility] have mentioned the need for primary ICD implant sometime in the past several years, but there has been no follow-up. On his medical profile, he also takes Xarelto for chronic anticoagulation which he states was indicated for treatment of lower extremity venous thromboembolism. He presents to the hospital at this time with increasing shortness of breath, lower extremity edema and fatigue. EKG was normal sinus rhythm, left ventricle hypertrophy with nonspecific ST and T wave abnormalities. Chest x-ray revealed moderate to severe cardiomegaly, and mild to moderate interstitial edema. Patient states that he is fully compliant with his medications except that he ran out of his [employer]aresto a few days ago. He is on torsemide twice daily for diuresis. With regards to diet he understands he has to maintain a low-sodium diet, but has indulged in some /[employer] fast food in recent days. Currently on the telemetry floor, he is not in acute respiratory distress, but appears very lethargic, chronically ill, with 2-3+ lower extremity edema, and has dyspnea following minimal activity such as speaking several sentences. Past History Past Medical History: diabetes, DVT, heart failure, hypertension, stroke Medications and Allergies Allergies Allergy/AdvReac Type Severity Reaction Status Date / Time No Known Allergies Allergy Verified 01/09/21 11:44 Home Medications Medication Instructions Recorded Confirmed Last Taken Type AtorvaSTATin [Lipitor] 40 mg PO QHS #30 tablet 11/09/17 02/20/21 Unknown Rx Metoprolol Xl [Metoprolol 100 mg PO QDAY #60 tablet 11/09/17 02/20/21 Unknown Rx SUCCINATE ER TAB] Torsemide [Demadex] 60 mg PO BID@0600,1800 #60 tablet 11/09/17 02/20/21 Unknown Rx Rivaroxaban [Xarelto] 20 mg PO DAILY 09/23/19 02/20/21 Unknown History Sacubitril/Valsartan [Entresto 97 1 tab PO BID 09/23/19 02/20/21 Unknown History mg-103 mg Tablet] Sacubitril/Valsartan [Entresto 97 1 each PO BID 30 Days #60 tablet 02/20/21 Unknown Rx mg-103 mg Tablet] Active Meds: Active Medications Acetaminophen (Acetaminophen 325 Mg Tab) 650 mg PO Q4H PRN PRN Reason: Pain MILD(1-3)/Fever >100.5/HERNANDEZ Albuterol (Albuterol 2.5 Mg/3 Ml Nebu) 2.5 mg IH Q4HRT PRN PRN Reason: Shortness Of Breath Albuterol/Ipratropium (Ipratropium/Albuterol Sulfate 3 Ml Ampul.Neb) 1 ampul IH Q6HRT [facility] Last Admin: 03/09/21 09:04 Dose: 1 ampul Documented by: Atorvastatin Calcium (Atorvastatin 40 Mg Tab) 40 mg PO QHS [facility] Dextrose (Dextrose 50% In Water (25gm) 50 Ml Syringe) 50 ml IV Q30MIN PRN; Protocol PRN Reason: Hypoglycemia Famotidine (Famotidine 10 Mg Tab) 10 mg PO BID [facility] Last Admin: 03/09/21 11:47 Dose: 10 mg Documented by: Furosemide (Furosemide 100 Mg/10 Ml Inj) 60 mg IV BID@0600,1800 [facility] Hydralazine HCl (Hydralazine 20 Mg/1 Ml Inj) 10 mg IV Q6H PRN PRN Reason: SBP >/=160; DBP >/=100 Milrinone Lactate/Dextrose (Milrinone-D5w 20 Mg/100 Ml) 20 mg in 100 mls @ 10.204 mls/hr IV TITR [facility] Stop: 03/13/21 11:59 Insulin Glargine (Insulin Glargine 100 Units/Ml) 20 units SUB-Q QAMDIAB [facility] Last Admin: 03/09/21 09:14 Dose: 20 units Documented by: Insulin Human Lispro (Insulin Lispro 100 Unit/Ml) 0 unit SUB-Q ACHS [facility]; Protocol Last Admin: 03/09/21 09:24 Dose: 8 unit Documented by: Metolazone (Metolazone 5 Mg Tab) 5 mg PO QDAY [facility] Last Admin: 03/09/21 11:47 Dose: 5 mg Documented by: Metoprolol Succinate (Metoprolol Succinate Xl 100 Mg Tab) 100 mg PO QDAY [facility] Last Admin: 03/09/21 11:46 Dose: 100 mg Documented by: Nitroglycerin (Nitroglycerin 0.4 Mg Tab Subl) 0.4 mg SL .Q5MIN PRN PRN Reason: Chest Pain Ondansetron HCl (Ondansetron 4 Mg/2 Ml Inj) 4 mg IV Q8H PRN PRN Reason: Nausea And Vomiting Rivaroxaban (Rivaroxaban 20 Mg Tab) 20 mg PO QDDIAB [facility] Sodium Chloride (Sodium Chloride 0.9% 10 Ml Flush Syringe) 10 ml IV BID DELTA Sodium Chloride (Sodium Chloride 0.9% 10 Ml Flush Syringe) 10 ml IV PRN PRN PRN Reason: LINE FLUSH Spironolactone (Spironolactone 25 Mg Tab) 25 mg PO QDAY [facility] Review of Systems Cardiovascular: orthopnea, edema, shortness of breath, no chest pain, no palpitations, no rapid/irregular heart beat, no syncope, no lightheadedness Physical Examination Vital Signs Temp Pulse Resp BP Pulse Ox 98.7 F 110 H 15 125/94 100 03/09/21 01:13 03/09/21 01:13 03/09/21 01:13 03/09/21 01:13 03/09/21 01:13 General appearance: other (Lethargic, chronically ill) HEENT: Positive: PERRL Neck: Positive: neck supple Cardiac: Positive: Reg Rate and Rhythm Lungs: Positive: Decreased Breath Sounds Neuro: Positive: Weakness Abdomen: Positive: Soft Male genitourinary: Positive: deferred Skin: Positive: Clear Extremities: Present: +2 Edema Results 03/09/21 01:37 03/09/21 01:37 Cardiac Enzymes 03/09/21 Range/Units 01:37 AST 12 (5-40) units/L Coagulation 03/09/21 Range/Units 01:37 PT 14.9 (12.2-14.9) Sec. INR 1.19 H (0.87-1.13) CBC 03/09/21 Range/Units 01:37 WBC 8.4 (4.5-11.0) K/mm3 RBC 6.14 H (3.65-5.03) M/mm3 Hgb 14.2 (11.8-15.2) gm/dl Hct 45.1 (35.5-45.6) % Plt Count 130 L (140-440) K/mm3 Lymph # (Auto) 1.9 (1.2-5.4) K/mm3 [place] # (Auto) 0.6 (0.0-0.8) K/mm3 Eos # (Auto) 0.0 (0.0-0.4) K/mm3 Baso # (Auto) 0.1 (0.0-0.1) K/mm3 Comprehensive Metabolic Panel 03/09/21 Range/Units 01:37 Sodium 133 L (137-145) mmol/L Potassium 3.9 (3.6-5.0) mmol/L Chloride 98.0 (98-107) mmol/L Carbon Dioxide 26 (22-30) mmol/L BUN 15 (9-20) mg/dL Creatinine 1.2 (0.8-1.3) mg/dL Glucose 391 H (75-100) mg/dL Calcium 9.0 (8.4-10.2) mg/dL AST 12 (5-40) units/L ALT 16 (7-56) units/L Alkaline Phosphatase 127 (35-129) units/L Total Protein 6.6 (6.3-8.2) g/dL Albumin 3.4 L (3.9-5) g/dL EKG interpretations - Telemetry EKG Rhythm: Sinus Rhythm Assessment and Plan - Patient Problems (1) Acute on chronic systolic heart failure Current Visit: Yes Status: Acute Plan to address problem: Patient has a longstanding history of chronic systolic left ventricular failure, presents with acute exacerbation of chronic systolic heart failure. In addition to intravenous diuretics, and continued guideline directed medical therapy, will add intravenous milrinone. We will order an echocardiogram for further assessment of left ventricular systolic function. If the ejection fraction remains in is historically low range of 15 to 20%, the patient will need outpatient assessment for primary ICD placement. In anticipation of eventual ICD implant, we will order LifeVest monitoring on discharge.
[2021-03-09 13:08] LABS: ABG Base Excess 0.2 mmol/L (-2.0-3.0); ABG HCO3 23.3 mmol/L (20.0-26.0); ABG Methemoglobin 0.1 % (0.0-1.5); ABG Oxygen Saturation 99.6 % (95.0-99.0); ABG PCO2 33.5 mm Hg; ABG PO2 161.6 mm Hg (80.0-90.0)
[2021-03-09] MEDS: MILRINONE-D5W 20 MG/100 ML 20 MG/100 ML BAG IV SCH ×2 (15:23→22:42)
[2021-03-09] MEDS: RIVAROXABAN 20 MG TAB PO SCH (18:04)
[2021-03-09] MEDS: FUROSEMIDE 100 MG/10 ML INJ IV SCH (18:08)
[2021-03-09] MEDS: SPIRONOLACTONE 25 MG TAB PO SCH (22:46)
[2021-03-10] MEDS: IPRATROPIUM/ALBUTEROL SULFATE 3 ML AMPUL.NEB IH SCH ×3 (03:16→14:09)
[2021-03-10] MEDS: FUROSEMIDE 100 MG/10 ML INJ IV SCH ×2 (05:18→18:06)
[2021-03-10] MEDS ORDERED: SODIUM CHLORIDE 0.9% 1000 ML 1,000 ML ONE (05:55)
[2021-03-10] MEDS ORDERED: MORPHINE 2 MG/1 ML INJ ONE (05:56)
[2021-03-10] MEDS ORDERED: SODIUM CHLORIDE 0.9% 1000 ML IV SOLN IV ONE (05:59)
[2021-03-10] MEDS ORDERED: MORPHINE 2 MG/1 ML INJ IM ONE (05:59)
[2021-03-10 06:20] LABS: Basophils % (Auto) 0.3 % (0.0-1.8); Eosinophils # (Auto) 0.1 K/mm3 (0.0-0.4); Eosinophils % (Auto) 0.7 % (0.0-4.3); Hematocrit 45.5 % (35.5-45.6); Hemoglobin 14.2 gm/dl (11.8-15.2); Mean Corpuscular HGB Conc 31 % (32-34); Mean Corpuscular Volume 73 fl (84-94); Monocytes # (Auto) 0.6 K/mm3 (0.0-0.8); Monocytes % (Auto) 7.5 % (0.0-7.3); Red Cell Distribution Width 15.1 % (13.2-15.2)
[2021-03-10 06:22] LABS: Platelet Count 137 K/mm3 (140-440)
[2021-03-10 06:45] LABS: BUN/Creatinine Ratio 14; Blood Urea Nitrogen 18 mg/dL (9-20); Calcium 8.5 mg/dL (8.4-10.2); Hemolysis Index 0
[2021-03-10] MEDS: RIVAROXABAN 20 MG TAB PO SCH (09:01)
[2021-03-10] MEDS: INSULIN LISPRO 100 UNIT/ML SUB-Q SCH ×4 (09:04→22:13)
--- NOTE | 2021-03-10 09:06 | Progress Note ---
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 Follows at the [facility] Hx of lower extremity venous thromboembolism On Xarelto Strict I's and O's. Sodium and fluid restriction. Continue aggressive medical therapy for chronic systolic heart failure including a trial of intravenous milrinone therapy. Lifevest placement before discharge. Subjective Date of service: 03/10/21 Interval history: Patient reports his breathing is improving. Admits he is diuresing well. Intravenous milrinone continues. Objective Vital Signs Temp Pulse Pulse Resp Resp BP Pulse Ox 03/10/21 08:15 105 H 22 03/10/21 07:52 94 03/10/21 04:50 96 03/10/21 03:21 97.9 F 99 H 16 85/62 96 03/09/21 23:20 99.0 F 104 H 16 95/53 97 03/09/21 21:42 104 H 20 03/09/21 21:41 100 03/09/21 19:50 97.6 F 98 H 18 100/68 96 03/09/21 18:00 26 H 100 03/09/21 15:46 97.9 F 98 H 18 107/74 98 03/09/21 13:50 98 H 20 03/09/21 12:21 98 H 03/09/21 09:04 98 H 92 H 27 H 24 100 - Physical Examination General: No Apparent Distress HEENT: Positive: PERRL Neck: Positive: neck supple Cardiac: Positive: Reg Rate and Rhythm Lungs: Positive: Decreased Breath Sounds Neuro: Positive: Weakness Extremities: Present: +2 Edema - Labs and Meds CBC 03/10/21 Range/Units 04:48 WBC 8.2 (4.5-11.0) K/mm3 RBC 6.20 H (3.65-5.03) M/mm3 Hgb 14.2 (11.8-15.2) gm/dl Hct 45.5 (35.5-45.6) % Plt Count 137 L (140-440) K/mm3 Lymph # (Auto) 2.0 (1.2-5.4) K/mm3 [place] # (Auto) 0.6 (0.0-0.8) K/mm3 Eos # (Auto) 0.1 (0.0-0.4) K/mm3 Baso # (Auto) 0.0 (0.0-0.1) K/mm3 Comprehensive Metabolic Panel 03/10/21 Range/Units 04:48 Sodium 134 L (137-145) mmol/L Potassium 3.3 L (3.6-5.0) mmol/L Chloride 94.7 L (98-107) mmol/L Carbon Dioxide 28 (22-30) mmol/L BUN 18 (9-20) mg/dL Creatinine 1.3 (0.8-1.3) mg/dL Glucose 340 H (75-100) mg/dL Calcium 8.5 (8.4-10.2) mg/dL
[2021-03-10] MEDS: MILRINONE-D5W 20 MG/100 ML 20 MG/100 ML BAG IV SCH ×2 (09:20→22:11)
[2021-03-10] MEDS: INSULIN GLARGINE 100 UNITS/ML SUB-Q SCH ×2 (09:20→22:20)
[2021-03-10] MEDS: HYDROmorphone 1 MG/1 ML INJ IV PRN (09:40)
--- NOTE | 2021-03-10 10:23 | Progress Note ---
Assessment and Plan Assessment and plan: #Acute hypoxic respiratory failure Resolved #Acute on chronic systolic CHF On milrinone drip Lasix 60 mg IV twice daily Metolazone Monitor electrolytes and replete as needed Cardiology recs appreciated Echocardiogram - Global hypokinesis of the left ventricle with EF 10 -15% #Diabetes mellitus Adjust Lantus and sliding scale Monitor blood glucose #History of DVT On Xarelto 20 mg daily #LLE pain Has a history of DVT and has been on xarelto Will get LLE CT to evaluate US doppler also ordered #Hypertension Continue home medications #History of CVA No neurologic symptoms On eliquis #DVT prophylaxis On Xarelto History Interval history: 45 yerar old male with a past medical history of systolic heart failure on entresto admitted with about few days history of shortness of breath. He mentions he ran out of his medications lately. He is on torsemide 60mg BID at home. He also mentions bilateral lower extremity swelling. [facility] Here in the ED, he was noted to have respiratory failure and was placed on BIPAP. His chest x-ray showed bilateral pulmonary edema. proBNP more than 3000. He received 20 mg IV Lasix and admitted for further evaluation. Hospital course 03/09. Patient seen and examined at bedside this morning. He is awake and alert x3. She is slightly tired on BiPAP. Stat blood gas showed normal pH. Patient received additional 40 mg Lasix. Added metolazone 5 mg daily. He is on Xarelto for atrial fibrillation. Cardiology has been consulted. Patient will be transferred to the [facility] for close monitoring 03/10. His breathing has improved. Now off BIPAP. He was started on milrinone by cardiology yesterday. Currently on lasix and metolazone. Cardiology recs appreciated. He complains of LLE pain. He has a history of DVT and has been on xarelto. Will order LLE CT to evaluate. Will continue to monitor closely. Hospitalist Physical - Physical exam Narrative exam: VITAL SIGNS: Reviewed. GENERAL: Awake HEAD: No signs of head trauma. EYES: Pupils are equal. Extraocular motions intact. MOUTH: Oropharynx is normal. NECK: No adenopathy, no JVD. CHEST: Improved rales CARDIAC: normal S1 and S2, without murmurs, gallops, or rubs. ABDOMEN: Soft, non tender and non distended. No rebound or guarding, and no masses palpated. Bowel Sounds normal. MUSCULOSKELETAL: Edema NEUROLOGIC EXAM: Alert and oriented x3. No focal neurologic deficits SKIN: No obvious lesions - Constitutional Vitals: Temp Pulse Resp BP Pulse Ox 97.9 F 105 H 22 85/62 94 03/10/21 03:21 03/10/21 08:15 03/10/21 08:15 03/10/21 03:21 03/10/21 07:52 General appearance: Present: other (Lethargic, chronically ill) HEART Score - HEART Score Troponin: Troponin T 0.017 ng/mL (0.00-0.029) 03/09/21 11:01 Results - Labs CBC & Chem 7: 03/10/21 04:48 03/10/21 04:48 Labs: Laboratory Last Values WBC 8.2 K/mm3 (4.5-11.0) 03/10/21 04:48 RBC 6.20 M/mm3 (3.65-5.03) H 03/10/21 04:48 Hgb 14.2 gm/dl (11.8-15.2) 03/10/21 04:48 Hct 45.5 % (35.5-45.6) 03/10/21 04:48 MCV 73 fl (84-94) L 03/10/21 04:48 MCH 23 pg (28-32) L 03/10/21 04:48 MCHC 31 % (32-34) L 03/10/21 04:48 RDW 15.1 % (13.2-15.2) 03/10/21 04:48 Plt Count 137 K/mm3 (140-440) L 03/10/21 04:48 Lymph % (Auto) 24.0 % (13.4-35.0) 03/10/21 04:48 [place] % (Auto) 7.5 % (0.0-7.3) H 03/10/21 04:48 Eos % (Auto) 0.7 % (0.0-4.3) 03/10/21 04:48 Baso % (Auto) 0.3 % (0.0-1.8) 03/10/21 04:48 Lymph # (Auto) 2.0 K/mm3 (1.2-5.4) 03/10/21 04:48 [place] # (Auto) 0.6 K/mm3 (0.0-0.8) 03/10/21 04:48 Eos # (Auto) 0.1 K/mm3 (0.0-0.4) 03/10/21 04:48 Baso # (Auto) 0.0 K/mm3 (0.0-0.1) 03/10/21 04:48 Seg Neutrophils % 67.5 % (40.0-70.0) 03/10/21 04:48 Seg Neutrophils # 5.5 K/mm3 (1.8-7.7) 03/10/21 04:48 PT 14.9 Sec. (12.2-14.9) 03/09/21 01:37 INR 1.19 (0.87-1.13) H 03/09/21 01:37 ABG pH 7.460 pH Units (7.350-7.450) H 03/09/21 08:51 ABG pCO2 33.5 mm Hg 03/09/21 08:51 ABG pO2 161.6 mm Hg (80.0-90.0) H 03/09/21 08:51 ABG HCO3 23.3 mmol/L (20.0-26.0) 03/09/21 08:51 ABG O2 Saturation 99.6 % (95.0-99.0) H 03/09/21 08:51 ABG O2 Content TNR 03/09/21 01:48 ABG Base Excess 0.2 mmol/L (-2.0-3.0) 03/09/21 08:51 ABG Hemoglobin 14.7 gm/dl (14.0-18.0) 03/09/21 08:51 ABG Carboxyhemoglobin 1.2 % (0.0-5.0) 03/09/21 08:51 ABG Methemoglobin 0.1 % (0.0-1.5) 03/09/21 08:51 VBG pH 7.403 (7.320-7.420) 03/09/21 01:48 Oxyhemoglobin 98.3 % (95.0-99.0) 03/09/21 08:51 FiO2 40 % 03/09/21 08:51 Sodium 134 mmol/L (137-145) L 03/10/21 04:48 Potassium 3.3 mmol/L (3.6-5.0) L 03/10/21 04:48 Chloride 94.7 mmol/L (98-107) L 03/10/21 04:48 Carbon Dioxide 28 mmol/L (22-30) 03/10/21 04:48 Anion Gap 15 mmol/L 03/10/21 04:48 BUN 18 mg/dL (9-20) 03/10/21 04:48 Creatinine 1.3 mg/dL (0.8-1.3) 03/10/21 04:48 Estimated GFR > 60 ml/min 03/10/21 04:48 BUN/Creatinine Ratio 14 % 03/10/21 04:48 Glucose 340 mg/dL (75-100) H 03/10/21 04:48 POC Glucose 349 mg/dL (70-105) H 03/10/21 07:59 Calcium 8.5 mg/dL (8.4-10.2) 03/10/21 04:48 Total Bilirubin 1.50 mg/dL (0.1-1.2) H 03/09/21 01:37 AST 12 units/L (5-40) 03/09/21 01:37 ALT 16 units/L (7-56) 03/09/21 01:37 Alkaline Phosphatase 127 units/L (35-129) 03/09/21 01:37 Troponin T 0.017 ng/mL (0.00-0.029) 03/09/21 11:01 NT-Pro-B Natriuret Pep 3094 pg/mL (0-450) H 03/09/21 01:37 Total Protein 6.6 g/dL (6.3-8.2) 03/09/21 01:37 Albumin 3.4 g/dL (3.9-5) L 03/09/21 01:37 Albumin/Globulin Ratio 1.1 % 03/09/21 01:37 Arthur/IV: Voiding Method Urinal Active Medications - Current Medications Current Medications: Generic Name Dose Route Start Last Admin Trade Name Freq PRN Reason Stop Dose Admin Acetaminophen 650 mg 03/09/21 03:58 03/09/21 22:42 Acetaminophen 325 Mg Tab PO 650 mg Q4H PRN Administration Pain MILD(1-3)/Fever >100.5/HERNANDEZ Albuterol 2.5 mg 03/09/21 03:58 Albuterol 2.5 Mg/3 Ml Nebu IH Q4HRT PRN Shortness Of Breath Albuterol/Ipratropium 1 ampul 03/09/21 08:00 03/10/21 07:52 Ipratropium/Albuterol Sulfate 3 Ml Ampul.Neb IH 1 ampul Q6HRT DELTA Administration Atorvastatin Calcium 40 mg 03/09/21 22:00 03/09/21 22:39 Atorvastatin 40 Mg Tab PO 40 mg QHS DELTA Administration Dextrose 50 ml 03/09/21 08:00 Dextrose 50% In Water (25gm) 50 Ml Syringe IV Q30MIN PRN Hypoglycemia Protocol Famotidine 10 mg 03/09/21 10:00 03/09/21 22:39 Famotidine 10 Mg Tab PO 10 mg BID DELTA Administration Furosemide 60 mg 03/09/21 18:00 03/10/21 05:18 Furosemide 100 Mg/10 Ml Inj IV 60 mg BID@0600,1800 DELTA Administration Hydralazine HCl 10 mg 03/09/21 04:03 Hydralazine 20 Mg/1 Ml Inj IV Q6H PRN SBP >/=160; DBP >/=100 Hydromorphone HCl 1 mg 03/10/21 09:30 Hydromorphone 1 Mg/1 Ml Inj IV Q4H PRN Pain , Severe (7-10) Milrinone Lactate/Dextrose 20 mg in 100 mls @ 10.204 mls/hr 03/09/21 12:00 03/10/21 09:20 Milrinone-D5w 20 Mg/100 Ml IV 03/13/21 11:59 0.375 mcg/kg/min TITR DELTA 10.204 mls/hr Administration 0.375 MCG/KG/MIN Insulin Glargine 20 units 03/09/21 08:00 03/10/21 09:20 Insulin Glargine 100 Units/Ml SUB-Q 20 units QAMDIAB DELTA Administration Insulin Human Lispro 0 unit 03/09/21 07:30 03/10/21 09:04 Insulin Lispro 100 Unit/Ml SUB-Q 8 unit ACHS DELTA Administration Protocol Metolazone 5 mg 03/09/21 10:00 03/09/21 11:47 Metolazone 5 Mg Tab PO 5 mg QDAY DELTA Administration Metoprolol Succinate 100 mg 03/09/21 10:00 03/09/21 11:46 Metoprolol Succinate Xl 100 Mg Tab PO 100 mg QDAY DELTA Administration Nitroglycerin 0.4 mg 03/09/21 03:58 Nitroglycerin 0.4 Mg Tab Subl SL .Q5MIN PRN Chest Pain Ondansetron HCl 4 mg 03/09/21 03:58 Ondansetron 4 Mg/2 Ml Inj IV Q8H PRN Nausea And Vomiting Rivaroxaban 20 mg 03/09/21 08:00 03/10/21 09:01 Rivaroxaban 20 Mg Tab PO 20 mg QDDIAB DELTA Administration Sodium Chloride 10 ml 03/09/21 10:00 03/09/21 22:40 Sodium Chloride 0.9% 10 Ml Flush Syringe IV 10 ml BID DELTA Administration Sodium Chloride 10 ml 03/09/21 03:58 Sodium Chloride 0.9% 10 Ml Flush Syringe IV PRN PRN LINE FLUSH Spironolactone 25 mg 03/09/21 12:00 03/09/21 22:46 Spironolactone 25 Mg Tab PO Not Given QDAY DELTA
--- NOTE | 2021-03-10 10:34 | Cat Scan Report ---
CT PELVIS WITHOUT CONTRAST INDICATION / CLINICAL INFORMATION: Left hip pain. TECHNIQUE: Axial CT images were obtained through the pelvis without contrast. All CT scans at this location are performed using CT dose reduction for ALARA by means of automated exposure control. COMPARISON: None available. FINDINGS: BOWEL: No significant abnormality. APPENDIX: No significant abnormality. PERITONEUM: No free fluid. No free air. No fluid collection. LYMPH NODES: No significant adenopathy. ARTERIES: No significant abnormality. VEINS: No significant abnormality. URINARY BLADDER: No significant abnormality. REPRODUCTIVE ORGANS: No significant abnormality. ADDITIONAL FINDINGS: None. SKELETAL SYSTEM: Mild bilateral hip arthrosis. Mild ring osteophyte is noted at the femoral head neck junction bilaterally. No acute fracture or dislocation. No aggressive osseous lesions IMPRESSION: 1. No acute fracture or dislocation. 2. Mild bilateral hip arthrosis with ring osteophytes at this femoral head neck junction. Signer Name: Jae Mccabe MD Signed: 03/10/2021 10:30 AM Workstation Name: [id number]
--- NOTE | 2021-03-10 10:36 | Electrocardiograph Report ---
[facility] Test Date: 2021-03-09 Test Time: 01:20:16 Pat Name: SOO DEAN Department: Room: A468 1 Gender: M Batch Analyst: ROGELIO : 1975 Requested By: CYDNEY ELIZABETH Order Number: [id number] Reading MD: Rob Batres Measurements Intervals [place] Rate: 111 P: 55 LA: 187 QRS: -2 QRSD: 90 T: 196 QT: 337 QTc: 459 Interpretive Statements Sinus tachycardia Probable left atrial enlargement Nonspecific T abnormalities, diffuse leads Compared to ECG 02/20/2021 06:44:08 No significant change Electronically Signed On 03-10-2021 10:35:34 EDT by Rob Batres
--- NOTE | 2021-03-10 10:54 | Vascular Lab Report ---
VL venous duplex LE BILAT INDICATION / CLINICAL INFORMATION: DVT. TECHNIQUE: Duplex doppler imaging was performed using venous compression and other maneuvers. COMPARISON: None available. FINDINGS: No venous thrombosis is identified within the visualized extremity vasculature. ADDITIONAL FINDINGS: None. IMPRESSION: 1. No sonographic evidence for DVT in the visualized bilateral lower extremity vasculature. Signer Name: Thad Blanco MD Signed: 03/10/2021 10:49 AM Workstation Name: [email or web address]
--- NOTE | 2021-03-10 10:55 | Cat Scan Report ---
CT LEFT LOWER EXTREMITY WITHOUT CONTRAST INDICATION / CLINICAL INFORMATION: pain left lower extremity. TECHNIQUE: All CT scans at this location are performed using CT dose reduction for ALARA by means of automated e xposure control. COMPARISON: CT pelvis Noncon 03/10/2021. FINDINGS: BONES: No acute fracture. No aggressive osseous lesion. JOINT(S): Moderate left hip arthrosis. Mild tricompartmental arthrosis at the knee most pronounced in the medial tibiofemoral compartment. Small knee joint effusion. No intra-articular bodies. 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 Minimal smudgy appearance within the lipoma is noted. SOFT TISSUES: Generalized relatively symmetric soft tissue swelling and edema noted of bilateral lowe r extremities below the level the knee extending into the foot. No drainable fluid collections. ADDITIONAL FINDINGS: None. IMPRESSION: 1. No acute fracture or dislocation. 2. Mild tricompartmental arthrosis at the knee most pronounced in the medial tibiofemoral compartment . 3. Moderate left hip arthrosis. Please see dedicated CT of the hip for further details. 4. 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 There is minimal internal c omplexity and MRI with and without contrast is recommended to exclude atypical lipoma/liposarcoma. 5. Generalized symmetric bilateral soft tissue swelling and edema of the lower extremities below the level the knee. No drainable fluid collections. Signer Name: Jae Mccabe MD Signed: 03/10/2021 10:50 AM Workstation Name: [id number]
[2021-03-10] MEDS ORDERED: POTASSIUM CHLORIDE ER 20 MEQ TAB PO SCH (11:00)
[2021-03-10] MEDS: metOLazone 5 MG TAB PO SCH (11:14)
[2021-03-10] MEDS: FAMOTIDINE 10 MG TAB PO SCH ×2 (11:14→22:12)
[2021-03-10] MEDS: SACUBITRIL/VALSARTAN 24-26 MG TAB PO SCH ×2 (11:20→22:32)
[2021-03-10] MEDS: SPIRONOLACTONE 25 MG TAB PO SCH (11:21)
[2021-03-10] MEDS: METOPROLOL SUCCINATE XL 100 MG TAB PO SCH (11:24)
[2021-03-10] MEDS: POTASSIUM CHLORIDE 10 MEQ 10 MEQ/100 ML BAG IV SCH ×3 (11:49→18:07)
[2021-03-10] MEDS: GABAPENTIN 500 MG/10 ML ORAL LIQD PO SCH ×2 (18:05→22:12)
[2021-03-11] MEDS: FUROSEMIDE 100 MG/10 ML INJ IV SCH (05:59)
[2021-03-11] MEDS: RIVAROXABAN 20 MG TAB PO SCH (08:21)
[2021-03-11] MEDS: INSULIN LISPRO 100 UNIT/ML SUB-Q SCH ×4 (08:21→23:31)
[2021-03-11] MEDS: MILRINONE-D5W 20 MG/100 ML 20 MG/100 ML BAG IV SCH ×2 (08:53→23:20)
--- NOTE | 2021-03-11 10:11 | Progress Note ---
Assessment and Plan Assessment and plan: #Acute hypoxic respiratory failure Resolved #Acute on chronic systolic CHF On milrinone drip Lasix 60 mg IV twice daily DC metolazone. Awaiting AM labs Monitor electrolytes and replete as needed Cardiology recs appreciated Echocardiogram - Global hypokinesis of the left ventricle with EF 10 -15% He needs a lifevest prior to DC #Diabetes mellitus Adjust Lantus and sliding scale Monitor blood glucose #History of DVT On Xarelto 20 mg daily #LLE pain ?Neuropathic pain Has a history of DVT and has been on xarelto US doppler is negative for any DVT LLE CT shows no acute pathology. A posterior lesion is seen on the posterior aspect of the knee. MRI has been ordered to reevaluate. Low dose gabapentin #Hypertension Continue home medications #History of CVA No neurologic symptoms On eliquis #DVT prophylaxis On Xarelto History Interval history: 45 yerar old male with a past medical history of systolic heart failure on entresto admitted with about few days history of shortness of breath. He mentions he ran out of his medications lately. He is on torsemide 60mg BID at home. He also mentions bilateral lower extremity swelling. He usually gets his medications at the [facility]. Here in the ED, he was noted to have respiratory failure and was placed on BIPAP. His chest x-ray showed bilateral pulmonary edema. proBNP more than 3000. He received 20 mg IV Lasix and admitted for further evaluation. Hospital course 03/09. Patient seen and examined at bedside this morning. He is awake and alert x3. She is slightly tired on BiPAP. Stat blood gas showed normal pH. Patient received additional 40 mg Lasix. Added metolazone 5 mg daily. He is on Xarelto for atrial fibrillation. Cardiology has been consulted. Patient will be transferred to the [facility] for close monitoring 03/10. His breathing has improved. Now off BIPAP. He was started on milrinone by cardiology yesterday. Currently on lasix and metolazone. Cardiology recs appreciated. He complains of LLE pain. He has a history of DVT and has been on xarelto. Will order LLE CT to evaluate. Start low dose gabapentin. Will continue to monitor closely. 03/11. Has no breathing issues. On diuretics. Still on milrinone. Cardiology on board. His LLE CT shows no acute fracture. He has a mass around the posterior knee which could be lipoma vs liposarcoma. Will get MRI to reevaluate. He however says his pain on the left limb is better. Hospitalist Physical - Physical exam Narrative exam: VITAL SIGNS: Reviewed. GENERAL: Awake HEAD: No signs of head trauma. EYES: Pupils are equal. Extraocular motions intact. MOUTH: Oropharynx is normal. NECK: No adenopathy, no JVD. CHEST: Improved rales CARDIAC: normal S1 and S2, without murmurs, gallops, or rubs. ABDOMEN: Soft, non tender and non distended. No rebound or guarding, and no masses palpated. Bowel Sounds normal. MUSCULOSKELETAL: Edema NEUROLOGIC EXAM: Alert and oriented x3. No focal neurologic deficits SKIN: No obvious lesions - Constitutional Vitals: Temp Pulse Resp BP Pulse Ox 99.5 F 116 H 20 91/59 97 03/11/21 08:06 03/11/21 08:06 03/11/21 08:06 03/11/21 08:06 03/11/21 09:22 General appearance: Present: other (Lethargic, chronically ill) HEART Score - HEART Score Troponin: Troponin T 0.017 ng/mL (0.00-0.029) 03/09/21 11:01 Results - Labs CBC & Chem 7: 03/10/21 04:48 03/10/21 04:48 Labs: Laboratory Last Values WBC 8.2 K/mm3 (4.5-11.0) 03/10/21 04:48 RBC 6.20 M/mm3 (3.65-5.03) H 03/10/21 04:48 Hgb 14.2 gm/dl (11.8-15.2) 03/10/21 04:48 Hct 45.5 % (35.5-45.6) 03/10/21 04:48 MCV 73 fl (84-94) L 03/10/21 04:48 MCH 23 pg (28-32) L 03/10/21 04:48 MCHC 31 % (32-34) L 03/10/21 04:48 RDW 15.1 % (13.2-15.2) 03/10/21 04:48 Plt Count 137 K/mm3 (140-440) L 03/10/21 04:48 Lymph % (Auto) 24.0 % (13.4-35.0) 03/10/21 04:48 [place] % (Auto) 7.5 % (0.0-7.3) H 03/10/21 04:48 Eos % (Auto) 0.7 % (0.0-4.3) 03/10/21 04:48 Baso % (Auto) 0.3 % (0.0-1.8) 03/10/21 04:48 Lymph # (Auto) 2.0 K/mm3 (1.2-5.4) 03/10/21 04:48 [place] # (Auto) 0.6 K/mm3 (0.0-0.8) 03/10/21 04:48 Eos # (Auto) 0.1 K/mm3 (0.0-0.4) 03/10/21 04:48 Baso # (Auto) 0.0 K/mm3 (0.0-0.1) 03/10/21 04:48 Seg Neutrophils % 67.5 % (40.0-70.0) 03/10/21 04:48 Seg Neutrophils # 5.5 K/mm3 (1.8-7.7) 03/10/21 04:48 PT 14.9 Sec. (12.2-14.9) 03/09/21 01:37 INR 1.19 (0.87-1.13) H 03/09/21 01:37 ABG pH 7.460 pH Units (7.350-7.450) H 03/09/21 08:51 ABG pCO2 33.5 mm Hg 03/09/21 08:51 ABG pO2 161.6 mm Hg (80.0-90.0) H 03/09/21 08:51 ABG HCO3 23.3 mmol/L (20.0-26.0) 03/09/21 08:51 ABG O2 Saturation 99.6 % (95.0-99.0) H 03/09/21 08:51 ABG O2 Content TNR 03/09/21 01:48 ABG Base Excess 0.2 mmol/L (-2.0-3.0) 03/09/21 08:51 ABG Hemoglobin 14.7 gm/dl (14.0-18.0) 03/09/21 08:51 ABG Carboxyhemoglobin 1.2 % (0.0-5.0) 03/09/21 08:51 ABG Methemoglobin 0.1 % (0.0-1.5) 03/09/21 08:51 VBG pH 7.403 (7.320-7.420) 03/09/21 01:48 Oxyhemoglobin 98.3 % (95.0-99.0) 03/09/21 08:51 FiO2 40 % 03/09/21 08:51 Sodium 134 mmol/L (137-145) L 03/10/21 04:48 Potassium 3.3 mmol/L (3.6-5.0) L 03/10/21 04:48 Chloride 94.7 mmol/L (98-107) L 03/10/21 04:48 Carbon Dioxide 28 mmol/L (22-30) 03/10/21 04:48 Anion Gap 15 mmol/L 03/10/21 04:48 BUN 18 mg/dL (9-20) 03/10/21 04:48 Creatinine 1.3 mg/dL (0.8-1.3) 03/10/21 04:48 Estimated GFR > 60 ml/min 03/10/21 04:48 BUN/Creatinine Ratio 14 % 03/10/21 04:48 Glucose 340 mg/dL (75-100) H 03/10/21 04:48 POC Glucose 137 mg/dL (70-105) H 03/11/21 07:31 Calcium 8.5 mg/dL (8.4-10.2) 03/10/21 04:48 Total Bilirubin 1.50 mg/dL (0.1-1.2) H 03/09/21 01:37 AST 12 units/L (5-40) 03/09/21 01:37 ALT 16 units/L (7-56) 03/09/21 01:37 Alkaline Phosphatase 127 units/L (35-129) 03/09/21 01:37 Troponin T 0.017 ng/mL (0.00-0.029) 03/09/21 11:01 NT-Pro-B Natriuret Pep 3094 pg/mL (0-450) H 03/09/21 01:37 Total Protein 6.6 g/dL (6.3-8.2) 03/09/21 01:37 Albumin 3.4 g/dL (3.9-5) L 03/09/21 01:37 Albumin/Globulin Ratio 1.1 % 03/09/21 01:37 Arthur/IV: Voiding Method Urinal Active Medications - Current Medications Current Medications: Generic Name Dose Route Start Last Admin Trade Name Freq PRN Reason Stop Dose Admin Acetaminophen 650 mg 03/09/21 03:58 03/09/21 22:42 Acetaminophen 325 Mg Tab PO 650 mg Q4H PRN Administration Pain MILD(1-3)/Fever >100.5/HERNANDEZ Albuterol 2.5 mg 03/09/21 03:58 Albuterol 2.5 Mg/3 Ml Nebu IH Q4HRT PRN Shortness Of Breath Atorvastatin Calcium 40 mg 03/09/21 22:00 03/10/21 22:14 Atorvastatin 40 Mg Tab PO 40 mg QHS DELTA Administration Dextrose 50 ml 03/09/21 08:00 Dextrose 50% In Water (25gm) 50 Ml Syringe IV Q30MIN PRN Hypoglycemia Protocol Famotidine 10 mg 03/09/21 10:00 03/10/21 22:12 Famotidine 10 Mg Tab PO 10 mg BID DELTA Administration Furosemide 60 mg 03/09/21 18:00 03/11/21 05:59 Furosemide 100 Mg/10 Ml Inj IV 60 mg BID@0600,1800 DELTA Administration Gabapentin 300 mg 03/10/21 16:00 03/10/21 22:12 Gabapentin 500 Mg/10 Ml Oral Liqd PO 300 mg BID DELTA Administration Hydralazine HCl 10 mg 03/09/21 04:03 Hydralazine 20 Mg/1 Ml Inj IV Q6H PRN SBP >/=160; DBP >/=100 Hydromorphone HCl 1 mg 03/10/21 09:30 03/10/21 09:40 Hydromorphone 1 Mg/1 Ml Inj IV 1 mg Q4H PRN Administration Pain , Severe (7-10) Milrinone Lactate/Dextrose 20 mg in 100 mls @ 10.204 mls/hr 03/09/21 12:00 03/11/21 08:53 Milrinone-D5w 20 Mg/100 Ml IV 03/13/21 11:59 0.375 mcg/kg/min TITR DELTA 10.204 mls/hr Administration 0.375 MCG/KG/MIN Insulin Glargine 20 units 03/10/21 22:00 03/10/21 22:20 Insulin Glargine 100 Units/Ml SUB-Q 20 units BID DELTA Administration Insulin Human Lispro 0 unit 03/09/21 07:30 03/11/21 08:21 Insulin Lispro 100 Unit/Ml SUB[facility]Q [facility] Protocol Metolazone 5 mg 03/09/21 10:00 03/10/21 11:14 Metolazone 5 Mg Tab PO 5 mg QDAY DELTA Administration Metoprolol Succinate 100 mg 03/09/21 10:00 03/10/21 11:24 Metoprolol Succinate Xl 100 Mg Tab PO 100 mg QDAY DELTA Administration Nitroglycerin 0.4 mg 03/09/21 03:58 Nitroglycerin 0.4 Mg Tab Subl SL .Q5MIN PRN Chest Pain Ondansetron HCl 4 mg 03/09/21 03:58 03/10/21 16:57 Ondansetron 4 Mg/2 Ml Inj IV 4 mg Q8H PRN Administration Nausea And Vomiting Rivaroxaban 20 mg 03/09/21 08:00 03/11/21 08:21 Rivaroxaban 20 Mg Tab PO 20 mg QDDIAB DELTA Administration Sodium Chloride 10 ml 03/09/21 10:00 03/10/21 22:21 Sodium Chloride 0.9% 10 Ml Flush Syringe IV 10 ml BID DELTA Administration Sodium Chloride 10 ml 03/09/21 03:58 03/11/21 06:04 Sodium Chloride 0.9% 10 Ml Flush Syringe IV 10 ml PRN PRN Administration LINE FLUSH Spironolactone 25 mg 03/09/21 12:00 03/10/21 11:21 Spironolactone 25 Mg Tab PO Not Given QDAY DELTA
[2021-03-11] MEDS: metOLazone 5 MG TAB PO SCH (10:12)
[2021-03-11] MEDS: SPIRONOLACTONE 25 MG TAB PO SCH (10:12)
[2021-03-11] MEDS: FAMOTIDINE 10 MG TAB PO SCH ×2 (10:12→23:20)
[2021-03-11] MEDS: INSULIN GLARGINE 100 UNITS/ML SUB-Q SCH ×2 (10:13→23:26)
[2021-03-11] MEDS: GABAPENTIN 500 MG/10 ML ORAL LIQD PO SCH ×2 (10:13→23:23)
[2021-03-11] MEDS: SACUBITRIL/VALSARTAN 24-26 MG TAB PO SCH ×2 (10:13→23:20)
[2021-03-11] MEDS: METOPROLOL SUCCINATE XL 100 MG TAB PO SCH (10:16)
[2021-03-11] MEDS ORDERED: FUROSEMIDE 100 MG/10 ML INJ IV SCH (10:24)
--- NOTE | 2021-03-11 10:52 | Progress Note ---
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 Follows at the [facility] Hx of lower extremity venous thromboembolism On Xarelto Recommendations: Strict I's and O's. Sodium and fluid restriction. Continue aggressive medical therapy for chronic systolic heart failure including a trial of intravenous milrinone therapy. Lifevest has been placed for eventual bridge for ICD implant as an outpatient Subjective Date of service: 03/11/21 Interval history: Patient reports his breathing is improving. Intravenous milrinone continues. Pt reports he is diuresing well. Objective Vital Signs Temp Pulse Pulse Resp Resp BP BP 03/11/21 10:16 116 H 91/59 03/11/21 10:12 116 H 91/59 03/11/21 09:22 03/11/21 08:06 99.5 F 116 H 20 91/59 03/11/21 04:12 98.8 F 112 H 18 108/50 03/11/21 03:51 112 H 90/49 03/10/21 23:35 03/10/21 23:12 98.6 F 110 H 18 98/64 03/10/21 20:11 98.4 F 100 H 18 97/55 03/10/21 17:32 98 H 03/10/21 17:29 03/10/21 16:31 97.4 F L 100 H 18 118/70 03/10/21 14:20 104 H 20 03/10/21 11:30 105 H 03/10/21 11:24 97 H 114/83 03/10/21 11:21 97 H 114/83 03/10/21 11:01 114/83 03/10/21 10:59 97 H 114/83 Pulse Ox 03/11/21 10:16 03/11/21 10:12 03/11/21 09:22 97 03/11/21 08:06 92 03/11/21 04:12 100 03/11/21 03:51 97 03/10/21 23:35 95 03/10/21 23:12 98 03/10/21 20:11 98 03/10/21 17:32 03/10/21 17:29 93 03/10/21 16:31 98 03/10/21 14:20 03/10/21 11:30 03/10/21 11:24 03/10/21 11:21 03/10/21 11:01 03/10/21 10:59 96 - Physical Examination General: No Apparent Distress HEENT: Positive: PERRL Neck: Positive: neck supple Cardiac: Positive: Reg Rate and Rhythm Lungs: Positive: Decreased Breath Sounds Neuro: Positive: Weakness Abdomen: Positive: Soft Extremities: Present: +1 Edema
--- NOTE | 2021-03-11 13:13 | Magnetic Resonance Report ---
MRI LEFT KNEE WITHOUT AND WITH CONTRAST INDICATION / CLINICAL INFORMATION: Evaluate CT findings. 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 With and without MR w as recommended. TECHNIQUE: Multiplanar, multisequence MR images were obtained. No contrast used. COMPARISON: CT left knee 03/10/2021. FINDINGS: ACL: No significant abnormality. PCL: No significant abnormality. DISTAL QUADRICEPS TENDON: No significant abnormality. PATELLAR TENDON: No significant abnormality. MEDIAL MENISCUS: No significant abnormality. LATERAL MENISCUS: No significant abnormality. POSTEROLATERAL CORNER: No significant abnormality. MCL: No significant abnormality. LCL: No significant abnormality. DISTAL IT BAND: No significant abnormality. PATELLOFEMORAL ALIGNMENT: No significant abnormality. ARTICULAR CARTILAGE: Mild tricompartmental chondrosis most advanced patellofemoral compartment with u nderlying subchondral cystic change at the trochlear groove. JOINT SPACE: No significant joint effusion or synovitis. No significant popliteal cyst. No intra-manisha cular bodies. BONES: Mild subchondral bone marrow edema and trochlear groove. No fracture. No aggressive osseous le randy. 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 There is no significant postcontrast enhancement or aggressive features . Mild superficial edema noted along the lateral knee. ADDITIONAL FINDINGS: None. IMPRESSION: 1. 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 2. Mild tricompartmental chondrosis most advanced at the patellofemoral compartment. 3. No acute meniscal or ligament injury. Report dictated by: Jae Mccabe MD Report dictated on: 03/11/2021 11:36 AM I have reviewed the images, agree with this report, and edited this report as needed. Signer Name: Carmelina Paula MD Signed: 03/11/2021 1:08 PM Workstation Name: [email or web address]
[2021-03-11] MEDS: HYDROmorphone 1 MG/1 ML INJ IV PRN ×2 (14:26→19:06)
--- NOTE | 2021-03-11 14:58 | Magnetic Resonance Report ---
MR lumbar spine wo con INDICATION / CLINICAL INFORMATION: Evaluate spinal stenosis. TECHNIQUE: Multisequence, multiplanar images of the lumbar spine were obtained. COMPARISON: None available. FINDINGS: ALIGNMENT: Normal alignment. VERTEBRAE:No aggressive osseous marrow signal. There is a vertebral body hemangioma at L4 as well as L2. VISUALIZED SPINAL CORD: The conus appears within normal limits. [id number] ANALYSIS: L1-2: No significant spinal canal stenosis. No significant foraminal narrowing. L2-3: No significant spinal canal stenosis. No significant foraminal narrowing. L3-4: No significant spinal canal stenosis. No significant foraminal narrowing. L4-5: There is a focal left foraminal disc protrusion causing moderate left neural foraminal narrowin g. L5-S1: No significant spinal canal stenosis. No significant foraminal narrowing. PARASPINAL SOFT TISSUES: No significant abnormality. ADDITIONAL FINDINGS: None. IMPRESSION: Focal left foraminal disc protrusion at L4-5 causes moderate left foraminal narrowing at that level. There is no additional significant disc herniation, spinal stenosis, or neural foraminal stenosis. Definitions used for the purposes of this report: Lumbar canal stenosis (Rashmi et al. Br J Radiol. 2012;[id number]):[id number]): No stenosis: No attenuation of the CSF spaces Mild stenosis: Anterior CSF space mildly obliterated Moderate stenosis: Anterior CSF space is moderately obliterated; cauda equina partially aggregated Severe stenosis: Marked compression of the dural sac; cauda equina cannot be visually and a ppear as a bundle Lumbar lateral recess stenosis (Cammie et al. World J Radiol. 2017 March 13;9(5):223-229): No stenosis: Nerve root is bathed in fluid Mild stenosis: Narrowing of the lateral recess without root deviation Moderate stenosis: Narrowing of the recess with nerve root deviation Severe stenosis: Compression of the nerve root Lumbar neural foraminal stenosis (Neo et al. AJR Am J Roentgenol. 2010 Jan;194(4):1095-8): No stenosis: No attenuation of the fat in the foramen Mild stenosis: Loss of the fat in the foramen on two sides Moderate stenosis: Loss of the fat in the foramen all four sides Severe stenosis: Loss of the fat in the foramen all four sides and compression of the nerve root Signer Name: Ramon Feliciano MD Signed: 03/11/2021 2:53 PM Workstation Name: [email or web address] [id number]
[2021-03-11 15:12] LABS: Albumin 2.7 g/dL (3.9-5)
[2021-03-11] MEDS: FUROSEMIDE 40 MG/4 ML INJ IV SCH (19:01)
[2021-03-12 08:21] LABS: Basophils % (Auto) 0.3 % (0.0-1.8); Eosinophils # (Auto) 0.1 K/mm3 (0.0-0.4); Eosinophils % (Auto) 1.4 % (0.0-4.3); Hematocrit 46.8 % (35.5-45.6); Hemoglobin 15.1 gm/dl (11.8-15.2); Lymphocytes # (Auto) 1.5 K/mm3 (1.2-5.4); Mean Corpuscular HGB Conc 32 % (32-34); Mean Corpuscular Volume 73 fl (84-94); Monocytes # (Auto) 0.9 K/mm3 (0.0-0.8); Monocytes % (Auto) 10.2 % (0.0-7.3); Red Blood Count 6.43 M/mm3 (3.65-5.03); Red Cell Distribution Width 15.1 % (13.2-15.2)
[2021-03-12 08:38] LABS: Platelet Count 142 K/mm3 (140-440)
[2021-03-12 08:41] LABS: Alanine Aminotransferase 8 units/L (7-56); Albumin 3.1 g/dL (3.9-5); BUN/Creatinine Ratio 21; Blood Urea Nitrogen 31 mg/dL (9-20); Calcium 9.2 mg/dL (8.4-10.2); Hemolysis Index 8
--- NOTE | 2021-03-12 09:28 | Progress Note ---
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 Follows at the [facility] Hx of lower extremity venous thromboembolism On Xarelto Recommendations: Strict I's and O's. Sodium and fluid restriction. Continue aggressive medical therapy for chronic systolic heart failure including a trial of intravenous milrinone therapy. Lifevest has been placed for eventual bridge for ICD as an outpatient Subjective Date of service: 03/12/21 Interval history: Intravenous milrinone continues. Patient reports he is diuresing well. Objective Vital Signs Temp Pulse Resp BP Pulse Ox 03/12/21 07:54 98.4 F 108 H 18 98/61 93 03/12/21 05:06 96 H 03/12/21 04:46 98.9 F 99 H 18 102/54 98 03/12/21 00:16 97.3 F L 98 H 18 92/53 98 03/11/21 22:00 96 H 03/11/21 21:00 98 03/11/21 20:12 97.4 F L 98 H 18 94/63 96 03/11/21 19:37 97 03/11/21 19:36 20 03/11/21 15:43 98.3 F 101 H 20 91/54 92 03/11/21 14:57 116 H 03/11/21 12:58 97 03/11/21 10:16 116 H 91/59 03/11/21 10:12 116 H 91/59 - Physical Examination General: No Apparent Distress HEENT: Positive: PERRL Neck: Positive: neck supple Cardiac: Positive: Reg Rate and Rhythm Lungs: Positive: Decreased Breath Sounds Neuro: Positive: Weakness Extremities: Present: +1 Edema - Labs and Meds Cardiac Enzymes 03/11/21 03/12/21 Range/Units 14:26 07:46 AST 11 10 (5-40) units/L CBC 03/12/21 Range/Units 07:35 WBC 9.1 (4.5-11.0) K/mm3 RBC 6.43 H (3.65-5.03) M/mm3 Hgb 15.1 (11.8-15.2) gm/dl Hct 46.8 H (35.5-45.6) % Plt Count 142 (140-440) K/mm3 Lymph # (Auto) 1.5 (1.2-5.4) K/mm3 [place] # (Auto) 0.9 H (0.0-0.8) K/mm3 Eos # (Auto) 0.1 (0.0-0.4) K/mm3 Baso # (Auto) 0.0 (0.0-0.1) K/mm3 Comprehensive Metabolic Panel 03/11/21 03/12/21 Range/Units 14:26 07:46 Sodium 134 L 136 L (137-145) mmol/L Potassium 4.1 D 3.8 (3.6-5.0) mmol/L Chloride 91.4 L 91.9 L (98-107) mmol/L Carbon Dioxide 31 H 34 H (22-30) mmol/L BUN 27 H 31 H (9-20) mg/dL Creatinine 1.7 H 1.5 H (0.8-1.3) mg/dL Glucose 280 H 142 H (75-100) mg/dL Calcium 9.0 9.2 (8.4-10.2) mg/dL AST 11 10 (5-40) units/L ALT 9 8 (7-56) units/L Alkaline Phosphatase 109 103 (35-129) units/L Total Protein 6.8 7.1 (6.3-8.2) g/dL Albumin 2.7 L 3.1 L (3.9-5) g/dL
[2021-03-12] MEDS: FUROSEMIDE 40 MG/4 ML INJ IV SCH ×2 (09:50→19:18)
[2021-03-12] MEDS: INSULIN LISPRO 100 UNIT/ML SUB-Q SCH ×4 (09:50→21:24)
[2021-03-12] MEDS: SPIRONOLACTONE 25 MG TAB PO SCH (11:09)
[2021-03-12] MEDS: FAMOTIDINE 10 MG TAB PO SCH ×2 (11:09→21:23)
[2021-03-12] MEDS: INSULIN GLARGINE 100 UNITS/ML SUB-Q SCH ×2 (11:09→21:23)
[2021-03-12] MEDS: METOPROLOL SUCCINATE XL 100 MG TAB PO SCH (11:09)
[2021-03-12] MEDS: SACUBITRIL/VALSARTAN 24-26 MG TAB PO SCH ×2 (11:10→21:22)
[2021-03-12] MEDS: MILRINONE-D5W 20 MG/100 ML 20 MG/100 ML BAG IV SCH (11:13)
--- NOTE | 2021-03-12 13:01 | Progress Note ---
Assessment and Plan Assessment and plan: #Acute hypoxic respiratory failure Resolved #Acute on chronic systolic CHF On milrinone drip Lasix 40mg BID DC metolazone. Monitor electrolytes and replete as needed Cardiology recs appreciated Echocardiogram - Global hypokinesis of the left ventricle with EF 10 -15% He needs a lifevest prior to DC #ROMI Secondary to vasomotor nephropathy DC metolazone Monitor Renal function in AM #Diabetes mellitus Adjust Lantus and sliding scale Monitor blood glucose #History of DVT On Xarelto 20 mg daily #LLE pain ?Neuropathic pain Has a history of DVT and has been on xarelto US doppler is negative for any DVT LLE CT shows no acute pathology. A posterior lesion is seen on the posterior aspect of the knee. MRI shows lipoma Low dose gabapentin #Hypertension Continue home medications #History of CVA No neurologic symptoms On eliquis #DVT prophylaxis On Xarelto History Interval history: 45 yerar old male with a past medical history of systolic heart failure on entresto admitted with about few days history of shortness of breath. He mentions he ran out of his medications lately. He is on torsemide 60mg BID at home. He also mentions bilateral lower extremity swelling. He usually gets his medications at the [place]. Here in the ED, he was noted to have respiratory failure and was placed on BIPAP. His chest x-ray showed bilateral pulmonary edema. proBNP more than 3000. He received 20 mg IV Lasix and admitted for further evaluation. Hospital course 03/09. Patient seen and examined at bedside this morning. He is awake and alert x3. She is slightly tired on BiPAP. Stat blood gas showed normal pH. Patient received additional 40 mg Lasix. Added metolazone 5 mg daily. He is on Xarelto for atrial fibrillation. Cardiology has been consulted. Patient will be transferred to the [facility] for close monitoring 03/10. His breathing has improved. Now off BIPAP. He was started on milrinone by cardiology yesterday. Currently on lasix and metolazone. Cardiology recs appreciated. He complains of LLE pain. He has a history of DVT and has been on xarelto. Will order LLE CT to evaluate. Start low dose gabapentin. Will continue to monitor closely. 03/11. Has no breathing issues. On diuretics. Still on milrinone. Cardiology on board. His LLE CT shows no acute fracture. He has a mass around the posterior knee which could be lipoma vs liposarcoma. Will get MRI to reevaluate. He however says his pain on the left limb is better. 03/12. He is doinig great. has no shortness of breath. Breathing in RA>. Renal function bumped yesterday. Lasix decreased to 40mg BID> Will switch to PO meds tomorrow. He remains on milrinone. Cardiology is following - anticipate DC in AM. MRI lumbar shows disc protrusion at L4-L5 - [facility]. His MRI shows no malignant features in the lipoma. Hospitalist Physical - Physical exam Narrative exam: VITAL SIGNS: Reviewed. GENERAL: Awake HEAD: No signs of head trauma. EYES: Pupils are equal. Extraocular motions intact. MOUTH: Oropharynx is normal. NECK: No adenopathy, no JVD. CHEST: Improved rales CARDIAC: normal S1 and S2, without murmurs, gallops, or rubs. ABDOMEN: Soft, non tender and non distended. No rebound or guarding, and no masses palpated. Bowel Sounds normal. MUSCULOSKELETAL: Edema NEUROLOGIC EXAM: Alert and oriented x3. No focal neurologic deficits SKIN: No obvious lesions - Constitutional Vitals: Temp Pulse Resp BP Pulse Ox 98.5 F 101 H 18 109/66 96 03/12/21 11:04 03/12/21 12:39 03/12/21 11:04 03/12/21 11:04 03/12/21 11:04 General appearance: Present: other (Lethargic, chronically ill) HEART Score - HEART Score Troponin: Troponin T 0.017 ng/mL (0.00-0.029) 03/09/21 11:01 Results - Labs CBC & Chem 7: 03/12/21 07:35 03/12/21 07:46 Labs: Laboratory Last Values WBC 9.1 K/mm3 (4.5-11.0) 03/12/21 07:35 RBC 6.43 M/mm3 (3.65-5.03) H 03/12/21 07:35 Hgb 15.1 gm/dl (11.8-15.2) 03/12/21 07:35 Hct 46.8 % (35.5-45.6) H 03/12/21 07:35 MCV 73 fl (84-94) L 03/12/21 07:35 MCH 23 pg (28-32) L 03/12/21 07:35 MCHC 32 % (32-34) 03/12/21 07:35 RDW 15.1 % (13.2-15.2) 03/12/21 07:35 Plt Count 142 K/mm3 (140-440) 03/12/21 07:35 Lymph % (Auto) 16.0 % (13.4-35.0) 03/12/21 07:35 [place] % (Auto) 10.2 % (0.0-7.3) H 03/12/21 07:35 Eos % (Auto) 1.4 % (0.0-4.3) 03/12/21 07:35 Baso % (Auto) 0.3 % (0.0-1.8) 03/12/21 07:35 Lymph # (Auto) 1.5 K/mm3 (1.2-5.4) 03/12/21 07:35 [place] # (Auto) 0.9 K/mm3 (0.0-0.8) H 03/12/21 07:35 Eos # (Auto) 0.1 K/mm3 (0.0-0.4) 03/12/21 07:35 Baso # (Auto) 0.0 K/mm3 (0.0-0.1) 03/12/21 07:35 Seg Neutrophils % 72.1 % (40.0-70.0) H 03/12/21 07:35 Seg Neutrophils # 6.6 K/mm3 (1.8-7.7) 03/12/21 07:35 PT 14.9 Sec. (12.2-14.9) 03/09/21 01:37 INR 1.19 (0.87-1.13) H 03/09/21 01:37 ABG pH 7.460 pH Units (7.350-7.450) H 03/09/21 08:51 ABG pCO2 33.5 mm Hg 03/09/21 08:51 ABG pO2 161.6 mm Hg (80.0-90.0) H 03/09/21 08:51 ABG HCO3 23.3 mmol/L (20.0-26.0) 03/09/21 08:51 ABG O2 Saturation 99.6 % (95.0-99.0) H 03/09/21 08:51 ABG O2 Content TNR 03/09/21 01:48 ABG Base Excess 0.2 mmol/L (-2.0-3.0) 03/09/21 08:51 ABG Hemoglobin 14.7 gm/dl (14.0-18.0) 03/09/21 08:51 ABG Carboxyhemoglobin 1.2 % (0.0-5.0) 03/09/21 08:51 ABG Methemoglobin 0.1 % (0.0-1.5) 03/09/21 08:51 VBG pH 7.403 (7.320-7.420) 03/09/21 01:48 Oxyhemoglobin 98.3 % (95.0-99.0) 03/09/21 08:51 FiO2 40 % 03/09/21 08:51 Sodium 136 mmol/L (137-145) L 03/12/21 07:46 Potassium 3.8 mmol/L (3.6-5.0) 03/12/21 07:46 Chloride 91.9 mmol/L (98-107) L 03/12/21 07:46 Carbon Dioxide 34 mmol/L (22-30) H 03/12/21 07:46 Anion Gap 14 mmol/L 03/12/21 07:46 BUN 31 mg/dL (9-20) H 03/12/21 07:46 Creatinine 1.5 mg/dL (0.8-1.3) H 03/12/21 07:46 Estimated GFR > 60 ml/min 03/12/21 07:46 BUN/Creatinine Ratio 21 % 03/12/21 07:46 Glucose 142 mg/dL (75-100) H 03/12/21 07:46 POC Glucose 150 mg/dL (70-105) H 03/12/21 07:53 Calcium 9.2 mg/dL (8.4-10.2) 03/12/21 07:46 Total Bilirubin 1.40 mg/dL (0.1-1.2) H 03/12/21 07:46 AST 10 units/L (5-40) 03/12/21 07:46 ALT 8 units/L (7-56) 03/12/21 07:46 Alkaline Phosphatase 103 units/L (35-129) 03/12/21 07:46 Troponin T 0.017 ng/mL (0.00-0.029) 03/09/21 11:01 NT-Pro-B Natriuret Pep 3094 pg/mL (0-450) H 03/09/21 01:37 Total Protein 7.1 g/dL (6.3-8.2) 03/12/21 07:46 Albumin 3.1 g/dL (3.9-5) L 03/12/21 07:46 Albumin/Globulin Ratio 0.8 % 03/12/21 07:46 TSH 0.333 mlU/mL (0.270-4.200) 03/11/21 14:26 Free T4 1.27 ng/dL (0.76-1.46) 03/11/21 14:26 Arthur/IV: Voiding Method Urinal Active Medications - Current Medications Current Medications: Generic Name Dose Route Start Last Admin Trade Name Freq PRN Reason Stop Dose Admin Acetaminophen 650 mg 03/09/21 03:58 03/09/21 22:42 Acetaminophen 325 Mg Tab PO 650 mg Q4H PRN Administration Pain MILD(1-3)/Fever >100.5/HERNANDEZ Albuterol 2.5 mg 03/09/21 03:58 Albuterol 2.5 Mg/3 Ml Nebu IH Q4HRT PRN Shortness Of Breath Atorvastatin Calcium 40 mg 03/09/21 22:00 03/11/21 23:20 Atorvastatin 40 Mg Tab PO 40 mg QHS DELTA Administration Dextrose 50 ml 03/09/21 08:00 Dextrose 50% In Water (25gm) 50 Ml Syringe IV Q30MIN PRN Hypoglycemia Protocol Famotidine 10 mg 03/09/21 10:00 03/12/21 11:09 Famotidine 10 Mg Tab PO 10 mg BID DELTA Administration Furosemide 40 mg 03/11/21 18:00 03/12/21 09:50 Furosemide 40 Mg/4 Ml Inj IV Not Given 0600,1800 DELTA Gabapentin 300 mg 03/10/21 16:00 03/11/21 23:23 Gabapentin 500 Mg/10 Ml Oral Liqd PO 300 mg BID DELTA Administration Hydralazine HCl 10 mg 03/09/21 04:03 Hydralazine 20 Mg/1 Ml Inj IV Q6H PRN SBP >/=160; DBP >/=100 Hydromorphone HCl 1 mg 03/10/21 09:30 03/11/21 19:06 Hydromorphone 1 Mg/1 Ml Inj IV 1 mg Q4H PRN Administration Pain , Severe (7-10) Milrinone Lactate/Dextrose 20 mg in 100 mls @ 10.204 mls/hr 03/09/21 12:00 03/12/21 11:13 Milrinone-D5w 20 Mg/100 Ml IV 03/13/21 11:59 0.375 mcg/kg/min TITR DELTA 10.204 mls/hr Administration 0.375 MCG/KG/MIN Insulin Glargine 20 units 03/10/21 22:00 03/12/21 11:09 Insulin Glargine 100 Units/Ml SUB-Q 20 units BID DELTA Administration Insulin Human Lispro 0 unit 03/09/21 07:30 03/12/21 09:50 Insulin Lispro 100 Unit/Ml SUB-Q Not Given ACHS [facility] Protocol Metoprolol Succinate 100 mg 03/09/21 10:00 03/12/21 11:09 Metoprolol Succinate Xl 100 Mg Tab PO 100 mg QDAY DELTA Administration Nitroglycerin 0.4 mg 03/09/21 03:58 Nitroglycerin 0.4 Mg Tab Subl SL .Q5MIN PRN Chest Pain Ondansetron HCl 4 mg 03/09/21 03:58 03/10/21 16:57 Ondansetron 4 Mg/2 Ml Inj IV 4 mg Q8H PRN Administration Nausea And Vomiting Rivaroxaban 20 mg 03/09/21 08:00 03/11/21 08:21 Rivaroxaban 20 Mg Tab PO 20 mg QDDIAB DELTA Administration Sodium Chloride 10 ml 03/09/21 10:00 03/12/21 11:10 Sodium Chloride 0.9% 10 Ml Flush Syringe IV 10 ml BID DELTA Administration Sodium Chloride 10 ml 03/09/21 03:58 03/11/21 06:04 Sodium Chloride 0.9% 10 Ml Flush Syringe IV 10 ml PRN PRN Administration LINE FLUSH Spironolactone 25 mg 03/09/21 12:00 03/12/21 11:09 Spironolactone 25 Mg Tab PO 25 mg QDAY DELTA Administration
[2021-03-12] MEDS: RIVAROXABAN 20 MG TAB PO SCH (15:33)
[2021-03-12] MEDS: GABAPENTIN 500 MG/10 ML ORAL LIQD PO SCH ×2 (15:33→21:30)
[2021-03-13] MEDS: MILRINONE-D5W 20 MG/100 ML 20 MG/100 ML BAG IV SCH (00:06)
[2021-03-13] MEDS: FUROSEMIDE 40 MG/4 ML INJ IV SCH (06:10)
[2021-03-13 06:38] LABS: Alanine Aminotransferase 8 units/L (7-56); Albumin 3.1 g/dL (3.9-5); BUN/Creatinine Ratio 24; Blood Urea Nitrogen 31 mg/dL (9-20); Calcium 8.9 mg/dL (8.4-10.2); Hemolysis Index 0
[2021-03-13] MEDS ORDERED: POTASSIUM CHLORIDE ER 20 MEQ TAB PO ONE (07:00)
--- NOTE | 2021-03-13 07:59 | Discharge Summary ---
Providers - Providers Date of Admission: 03/09/21 09:03 Date of discharge: 03/13/21 Attending physician: JOAN POWER 03/09/21 04:02 Consult to Physician [CONS] Routine Comment: Consulting Provider: DEAN GOULD Physician Instructions: Reason For Exam: chf Primary care physician: [employer] [facility] Hospitalization Reason for admission: CHF exac Condition: Serious Hospital course: 45 year old male with a past medical history of systolic heart failure on entresto admitted with history of shortness of breath. He reported that he ran out of his medications prior to admission. The patient was taking torsemide 60mg BID at home. Patient also reported bilateral lower extremity swelling. He usually gets his medications at the [place]. In the ED, he was noted to have respiratory failure and was placed on BIPAP. His chest x-ray showed bilateral pulmonary edema. proBNP more than 3000. He received 20 mg IV Lasix and admitted for further evaluation. The patient was admitted with diagnosis of acute hypoxic respiratory failure, atrial fibrillation and acute on chronic systolic heart failure exacerbation. Patient also had diagnosis of acute kidney injury and diabetes mellitus type 2 along with hypertension and history of CVA. Acute kidney injury was felt to be secondary to vasomotor nephropathy. Hospital course 03/09. Patient seen and examined at bedside this morning. He is awake and alert x3. She is slightly tired on BiPAP. Stat blood gas showed normal pH. Patient received additional 40 mg Lasix. Added metolazone 5 mg daily. He is on Xarelto for atrial fibrillation. Cardiology has been consulted. Patient will be transferred to the [facility] for close monitoring 03/10. His breathing has improved. Now off BIPAP. He was started on milrinone by cardiology yesterday. Currently on lasix and metolazone. Cardiology recs appreciated. He complains of LLE pain. He has a history of DVT and has been on xarelto. Will order LLE CT to evaluate. Start low dose gabapentin. Will continue to monitor closely. 03/11. Has no breathing issues. On diuretics. Still on milrinone. Cardiology on board. His LLE CT shows no acute fracture. He has a mass around the posterior knee which could be lipoma vs liposarcoma. Will get MRI to reevaluate. He however says his pain on the left limb is better. 03/12. He is doinig great. has no shortness of breath. Breathing in RA>. Renal function bumped yesterday. Lasix decreased to 40mg BID> Will switch to PO meds tomorrow. He remains on milrinone. Cardiology is following - anticipate DC in AM. MRI lumbar shows disc protrusion at L4-L5 - he will need to follow up with [place] spinal surgery. His MRI shows no malignant features in the lipoma. 03/13. Cardiology will discontinue milrinone today and patient will be discharged home. He will be on LifeVest monitoring on discharge, as a bridge to eventual ICD implant. He plans to follow-up with his [place] [facility] consultant on Tuesday morning. Dedicated discharge time 35 minutes Disposition: DC-01 TO HOME OR SELFCARE Final Discharge Diagnosis (Prints w/discharge instructions): Acute on chronic systolic heart failure, nonischemic cardiomyopathy, lower extremity DVT on Xarelto, severe left ventricular dysfunction with an EF of 10 to 15% Core Measure Documentation - Palliative Care Palliative Care/ Comfort Measures: Not Applicable - Core Measures Any of the following diagnoses?: none Exam - Constitutional Vitals: Temp Pulse Resp BP Pulse Ox 98.2 F 100 H 20 96/63 100 03/12/21 23:42 03/12/21 23:42 03/12/21 23:42 03/12/21 23:42 03/12/21 23:42 General appearance: Present: no acute distress, well-nourished - EENT Eyes: Present: PERRL ENT: hearing intact, clear oral mucosa - Neck Neck: Present: supple, normal ROM - Respiratory Respiratory effort: normal Respiratory: bilateral: CTA - Cardiovascular Heart Sounds: Present: S1 & S2. Absent: rub, click - Extremities Extremities: pulses symmetrical, No edema Peripheral Pulses: within normal limits - Abdominal General gastrointestinal: Present: soft, non-tender, non-distended, normal bowel sounds Male genitourinary: Present: normal - Integumentary Integumentary: Present: clear, warm, dry - Musculoskeletal Musculoskeletal: gait normal, strength equal bilaterally - Psychiatric Psychiatric: appropriate mood/affect, intact judgment & insight - Neurologic Neurologic: CNII-XII intact, moves all extremities Plan Activity: advance as tolerated Weight Bearing Status: Weight Bear as Tolerated Diet: low fat, low cholesterol, low salt Follow up with: PRIMARY CARE, [Primary Care Provider] - 7 Days DEAN GOULD MD [Staff Physician] - 7 Days Prescriptions: Spironolactone [Aldactone] 25 mg PO QDAY #30 tablet Sacubitril/Valsartan [Entresto 97 mg-103 mg Tablet] 1 each PO BID 30 Days #60 tablet AtorvaSTATin [Lipitor] 40 mg PO QHS #30 tablet Metoprolol Xl [Metoprolol SUCCINATE ER TAB] 100 mg PO QDAY #60 tablet Rivaroxaban [Xarelto] 20 mg PO DAILY #30
[2021-03-13] MEDS: HYDROmorphone 1 MG/1 ML INJ IV PRN (08:06)
[2021-03-13] MEDS: RIVAROXABAN 20 MG TAB PO SCH (08:07)
[2021-03-13 08:45] VITALS: BP 113/72
[2021-03-13] MEDS: GABAPENTIN 500 MG/10 ML ORAL LIQD PO SCH (10:08)
[2021-03-13] MEDS: FAMOTIDINE 10 MG TAB PO SCH (10:09)
[2021-03-13] MEDS: METOPROLOL SUCCINATE XL 100 MG TAB PO SCH (10:09)
[2021-03-13] MEDS: INSULIN LISPRO 100 UNIT/ML SUB-Q SCH ×2 (10:09→11:55)
[2021-03-13] MEDS: INSULIN GLARGINE 100 UNITS/ML SUB-Q SCH (10:10)
[2021-03-13] MEDS: SACUBITRIL/VALSARTAN 24-26 MG TAB PO SCH (10:14)
[2021-03-13] MEDS: SPIRONOLACTONE 25 MG TAB PO SCH (10:14)
--- NOTE | 2021-03-13 10:44 | Progress Note ---
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 Follows at the [facility] Hx of lower extremity venous thromboembolism On Xarelto Recommendations: Advised low sodium diet and fluid restriction. Continue medical therapy for chronic systolic heart failure Lifevest has been placed for eventual bridge for ICD as an outpatient. Stable cardiac shaw for discharge home today with outpatient follow up with his ladies attendant at the [facility]. Subjective Date of service: 03/13/21 Interval history: Patient states he is feeling better. Objective Vital Signs Temp Pulse Resp BP Pulse Ox 03/13/21 07:53 98.6 F 107 H 18 113/72 95 03/13/21 03:37 98.1 F 108 H 20 105/63 94 03/12/21 23:42 98.2 F 100 H 20 96/63 100 03/12/21 19:40 97.2 F L 101 H 20 92/52 97 03/12/21 16:41 98.6 F 102 H 18 100/66 96 03/12/21 12:39 101 H 03/12/21 11:04 98.5 F 107 H 18 109/66 96 - Physical Examination General: No Apparent Distress HEENT: Positive: PERRL Neck: Positive: neck supple Cardiac: Positive: Reg Rate and Rhythm Lungs: Positive: Decreased Breath Sounds Neuro: Positive: Weakness Extremities: Absent: edema - Labs and Meds Cardiac Enzymes 03/13/21 Range/Units 04:37 AST 10 (5-40) units/L Comprehensive Metabolic Panel 03/13/21 Range/Units 04:37 Sodium 135 L (137-145) mmol/L Potassium 3.2 L (3.6-5.0) mmol/L Chloride 92.4 L (98-107) mmol/L Carbon Dioxide 32 H (22-30) mmol/L BUN 31 H (9-20) mg/dL Creatinine 1.3 (0.8-1.3) mg/dL Glucose 131 H (75-100) mg/dL Calcium 8.9 (8.4-10.2) mg/dL AST 10 (5-40) units/L ALT 8 (7-56) units/L Alkaline Phosphatase 105 (35-129) units/L Total Protein 7.0 (6.3-8.2) g/dL Albumin 3.1 L (3.9-5) g/dL
== END 2021-03-13 13:23 | disposition home or self-care (01) | DRG 291 ==
LOC: ED 00:57 → 4A 02:45 → OBSVTOIN 09:03
PROVIDERS: ADMIT Hospitalist; ATTEND Hospitalist
PROC: 4A033R1 Measurement of Arterial Saturation, Peripheral, Percutaneous Approach (ICD-10-PCS; principal; 2021-03-09)
PROC: 5A09357 Assistance with Respiratory Ventilation, Less than 24 Consecutive Hours, Continuous Positive Airway Pressure (ICD-10-PCS; 2021-03-09)
DX: I11.0 Hypertensive heart disease with heart failure (principal); J96.01 Acute respiratory failure with hypoxia; N17.0 Acute kidney failure with tubular necrosis; E87.3 Alkalosis; I50.23 Acute on chronic systolic (congestive) heart failure; I42.9 Cardiomyopathy, unspecified; I48.91 Unspecified atrial fibrillation; E78.5 Hyperlipidemia, unspecified; E11.65 Type 2 diabetes mellitus with hyperglycemia; Z79.899 Other long term (current) drug therapy; Z79.891 Long term (current) use of opiate analgesic; Z79.01 Long term (current) use of anticoagulants; Z79.4 Long term (current) use of insulin; Z86.73 Personal history of transient ischemic attack (TIA), and cerebral infarction without residual deficits; Z95.818 Presence of other cardiac implants and grafts; Z86.718 Personal history of other venous thrombosis and embolism
CPT/HCPCS: 36415; 71045; 72148; 72192; 80048; 80053; 82803; 82805; 82962; 83880; 84439; 84443; 84484; 85025; 85610; 93005; 93306; 93970; 94640; 96374; 96375; G0378; A9575; J1170; J1815; J1940; J2260; J2270; J2405; J7030

== ENCOUNTER 2021-06-22 03:27 | Emergency (ER) | payer OTHER ==
[2021-06-22] MEDS ORDERED: ASPIRIN 325 MG TAB PO ONE (04:04)
--- NOTE | 2021-06-22 04:06 | Event Note ---
ED Screening Note Date of service: 06/22/21 Time: 04:04 ED Screening Note: Patient is a 45-year-old -[place] male with a history of CHF, cardiomyopathy, hypertension, cty-bzcwicx-hspiemjem diabetes who presents to the ED with complaint of acute onset persistent shortness of breath on exertion, bilateral lower extremity swelling, and mild chest pain for the last 2 days, worse in the last 12 hours. Patient states that he is unable to walk for a few feet without resting because of persistent shortness of breath. Patient denies dizziness, syncope, cough, fever, chills, nausea and vomiting, neck pain, headache, palpitations, abdominal pain, diarrhea or back pain. This initial assessment/diagnostic orders/clinical plan/treatment(s) is/are subject to change based on patients health status, clinical progression and re- assessment by fellow clinical providers in the ED. Further treatment and workup at subsequent clinical providers discretion. Patient/guardian urged not to elope from the ED as their condition may be serious if not clinically assessed and managed. Initial orders include: EKG, CBC, CMP, troponin, BNP, chest x-ray
[2021-06-22 04:15] VITALS: BP 141/110
--- NOTE | 2021-06-22 04:24 | XRay Report ---
CHEST 1 VIEW INDICATION: dyspnea, h/o cardiomyopathy/CHF. COMPARISON: 03/09/2021 FINDINGS: Support devices: None. Heart: Enlarged, unchanged. There appears to be pulmonary venous hypertension. Lungs/Pleura: Mild interstitial opacities are suggestive of mild edema. No consolidation or effusion. IMPRESSION: 1. Pulmonary venous hypertension with probable mild interstitial edema. Signer Name: Jack Ceballos MD Signed: 06/22/2021 4:19 AM Workstation Name: [id number]
[2021-06-22 04:53] LABS: Basophils # (Auto) 0.2 K/mm3 (0.0-0.1); Basophils % (Auto) 1.6 % (0.0-1.8); Eosinophils # (Auto) 0.1 K/mm3 (0.0-0.4); Eosinophils % (Auto) 1.1 % (0.0-4.3); Hematocrit 49.2 % (35.5-45.6); Hemoglobin 15.5 gm/dl (11.8-15.2); Lymphocytes # (Auto) 1.9 K/mm3 (1.2-5.4); Lymphocytes % (Auto) 19.6 % (13.4-35.0); Mean Corpuscular HGB Conc 32 % (32-34); Mean Corpuscular Volume 75 fl (84-94); Monocytes # (Auto) 0.7 K/mm3 (0.0-0.8); Monocytes % (Auto) 7.1 % (0.0-7.3); Platelet Count 151 K/mm3 (140-440); Red Cell Distribution Width 16.3 % (13.2-15.2)
[2021-06-22 05:13] LABS: Albumin 3.8 g/dL (3.9-5); Calcium 9.8 mg/dL (8.4-10.2)
[2021-06-22 05:59] LABS: Chol/HDL Ratio 4.18 %
[2021-06-22] MEDS ORDERED: FUROSEMIDE 40 MG/4 ML INJ IV ONE (06:52)
--- NOTE | 2021-06-22 06:56 | Emergency Department Report ---
ED General Adult HPI - General Chief complaint: Dyspnea/Respdistress Stated complaint: CHF/SOB/CP PUI?: No Time Seen by Provider: 06/22/21 06:27 Source: patient, RN notes reviewed, old records reviewed Mode of arrival: Ambulatory Limitations: No Limitations - History of Present Illness Initial comments: The patient was evaluated in the emergency department for symptoms described in the history of present illness. He/she was evaluated in the context of the global COVID-19 pandemic, which necessitated consideration that the patient might be at risk for infection with the virus that causes COVID-19. Institutional protocols and algorithms that pertain to the evaluation of patients at risk for COVID-19 are in a state of rapid change based on information released by regulatory bodies including the CDC and federal and state organizations. These policies and algorithms were followed during the patient's care in the emergency department. Please note that these policies, procedures and recommendations changed on a rapid basis. Primary CARE doctor: [facility] The patient is a 45-year-old gentleman. He is vaccinated against COVID-19. His past medical history includes DVT, on Xarelto, nonischemic cardiomyopathy, ejection fraction 10 to 15%, does not currently have a LifeVest, also has a history of obstructive sleep apnea, does not have CPAP for 8 months, waiting for [place] to replace CPAP. He presents to the ER today with complaints of lower extremity swelling, shortness of breath, and orthopnea. He feels like he is fluid overload. He is compliant with his medications. Denies dietary indiscretions. He denies loss of taste and smell. To me he denies chest pain. His symptoms are somewhat improved from when he arrived here in the emergency room. He supposed to follow-up with his outpatient [place] cytology technologist within the next few weeks. -: Gradual, days(s) Location: left, right, lower extremity Radiation: non-radiation Consistency: constant Improves with: rest Worsens with: movement - Related Data Previous Rx's Medication Instructions Recorded Last Taken Type AtorvaSTATin [Lipitor] 40 mg PO QHS #30 tablet 03/13/21 Unknown Rx Insulin Glargine [Lantus VIAL] 20 units SUB-Q BID units 03/13/21 Unknown Rx Metoprolol Xl [Metoprolol 100 mg PO QDAY #60 tablet 03/13/21 Unknown Rx SUCCINATE ER TAB] Rivaroxaban [Xarelto] 20 mg PO DAILY #30 03/13/21 Unknown Rx Sacubitril/Valsartan [Entresto 97 1 each PO BID 30 Days #60 tablet 03/13/21 Unknown Rx mg-103 mg Tablet] Spironolactone [Aldactone] 25 mg PO QDAY #30 tablet 03/13/21 Unknown Rx Torsemide [Demadex] 125 mg PO BID #30 tablet 06/22/21 Unknown Rx Allergies Allergy/AdvReac Type Severity Reaction Status Date / Time No Known Allergies Allergy Verified 01/09/21 11:44 ED Review of Systems ROS: Stated complaint: CHF/SOB/CP Other details as noted in HPI Constitutional: denies: fever Eyes: denies: eye discharge ENT: denies: epistaxis Respiratory: shortness of breath Cardiovascular: dyspnea on exertion, edema. denies: chest pain Gastrointestinal: denies: abdominal pain, hematemesis, melena, hematochezia Genitourinary: denies: dysuria Musculoskeletal: denies: back pain Neurological: denies: weakness Hematological/Lymphatic: denies: easy bleeding ED Past Medical Hx - Past Medical History Hx Hypertension: Yes Hx CVA: Yes (TIA's right side weakness) Hx Heart Attack/AMI: Yes Hx Congestive Heart Failure: Yes Hx Diabetes: Yes Hx Deep Vein Thrombosis: No Hx Liver Disease: No Hx Seizures: No Hx Asthma: No Hx COPD: No Hx Dementia: No Additional medical history: Hyperlipidemia - Surgical History Hx Coronary Stent: No Hx Pacemaker: No Hx Internal Defibrillator: No Additional Surgical History: Tonsillectomy, incision and drainage axillary abscess - Social History Smoking Status: Never Smoker - Medications Home Medications: Home Medications Medication Instructions Recorded Confirmed Last Taken Type AtorvaSTATin [Lipitor] 40 mg PO QHS #30 tablet 03/13/21 Unknown Rx Insulin Glargine [Lantus VIAL] 20 units SUB-Q BID units 03/13/21 Unknown Rx Metoprolol Xl [Metoprolol 100 mg PO QDAY #60 tablet 03/13/21 Unknown Rx SUCCINATE ER TAB] Rivaroxaban [Xarelto] 20 mg PO DAILY #30 03/13/21 Unknown Rx Sacubitril/Valsartan [Entresto 97 1 each PO BID 30 Days #60 tablet 03/13/21 Unknown Rx mg-103 mg Tablet] Spironolactone [Aldactone] 25 mg PO QDAY #30 tablet 03/13/21 Unknown Rx Torsemide [Demadex] 125 mg PO BID #30 tablet 06/22/21 Unknown Rx ED Physical Exam - General Limitations: No Limitations General appearance: alert, in no apparent distress - Head Head exam: Present: atraumatic, normocephalic - Eye Eye exam: Present: normal appearance, EOMI. Absent: nystagmus - ENT ENT exam: Present: normal exam, normal orophraynx, mucous membranes moist, normal external ear exam - Neck Neck exam: Present: normal inspection, full ROM. Absent: tenderness, m eningismus - Respiratory Respiratory exam: Present: decreased breath sounds. Absent: respiratory distress, wheezes, rales, rhonchi, stridor - Cardiovascular Cardiovascular Exam: Present: normal rhythm, tachycardia. Absent: bradycardia, irregular rhythm, systolic murmur, diastolic murmur, rubs, gallop - GI/Abdominal GI/Abdominal exam: Present: soft. Absent: distended, tenderness, guarding, rebound, rigid, pulsatile mass - Rectal Rectal exam: Present: deferred - Extremities Exam Extremities exam: Present: normal inspection, full ROM, pedal edema (3+ edema in the bilateral lower extremities). Absent: calf tenderness - Back Exam Back exam: Present: normal inspection. Absent: tenderness, CVA tenderness (R), CVA tenderness (L), paraspinal tenderness, vertebral tenderness - Neurological Exam Neurological exam: Present: alert, oriented X3, other (No facial droop. Tongue midline. Extraocular movements intact bilaterally. Facial sensation intact to light touch in V1, V2, V3 distribution bilaterally. 5 and a 5 strength in 4 extremities. Sensation intact to light touch in 4 extremities.). Absent: motor sensory deficit - Psychiatric Psychiatric exam: Present: normal affect, normal mood - Skin Skin exam: Present: warm, dry, intact, normal color. Absent: rash ED Course Vital Signs 06/22/21 04:02 Temperature 97.9 F Pulse Rate 114 H Respiratory 18 Rate Blood Pressure 141/110 O2 Sat by Pulse 100 Oximetry - Reevaluation(s) Reevaluation #1: 06/22/21 06:54 Differential diagnosis, including without limited to: Acute CHF, cardiorenal syndrome, lower extremity edema, history of sleep apnea, noncompliant with CPAP, type II myocardial infarction Assessment and plan: 45-year-old gentleman, with known history of nonischemic cardiomyopathy, who denies travel, surgery, immobilization, DVT and pulmonary embolism risk factors, has a known history of prior lower extremity DVT, who is currently on Xarelto, does not currently have a LifeVest, presenting with evidence of decompensated congestive heart failure, manifest by shortness of breath, lower extremity edema. The patient states he feels clinically improved, however, given his laboratory studies, x-ray findings, and lower extremity edema, have recommended admission for guideline directed medical therapy for decompensated congestive heart failure. Elevated troponin is reviewed and appreciated, to me, the patient denies chest pain at this time, this is most likely a type II troponin leak. There may be a component of cardiorenal syndrome here. Start high-dose diuretics, place patient on media monitor, administer aspirin, admit patient to the medical service. I have discussed this plan of care with the patient. He has articulated understanding. He is agreeable to this plan of care. 06/22/21 07:37 Dr Norma Roque to admit to [facility] 06/22/21 08:23 Patient states he is going to leave AGAINST MEDICAL ADVICE. Patient is awake, alert, oriented, of sound mind, and has decision-making capacity. Multiple times have requested that this patient consider my recommendation for admission. He states he has family obligations at home that he needs to attend to. He s tates that he will return to the emergency room if and when he changes his mind. He is currently taking torsemide 100 mg twice daily. AMA conversation is witnessed by nurse Dennis Martínez. Hospital physician is updated. Patient endorses that he will return to the emergency room if/when he changes his mind. ED Medical Decision Making - Lab Data Result diagrams: 06/22/21 04:19 06/22/21 04:19 Vital Signs 06/22/21 04:02 Temperature 97.9 F Pulse Rate 114 H Respiratory 18 Rate Blood Pressure 141/110 O2 Sat by Pulse 100 Oximetry Lab Results 06/22/21 06/22/21 Range/Units 04:19 04:19 WBC 9.9 (4.5-11.0) K/mm3 RBC 6.60 H (3.65-5.03) M/mm3 Hgb 15.5 H (11.8-15.2) gm/dl Hct 49.2 H (35.5-45.6) % MCV 75 L (84-94) fl MCH 24 L (28-32) pg MCHC 32 (32-34) % RDW 16.3 H (13.2-15.2) % Plt Count 151 (140-440) K/mm3 Lymph % (Auto) 19.6 (13.4-35.0) % [place] % (Auto) 7.1 (0.0-7.3) % Eos % (Auto) 1.1 (0.0-4.3) % Baso % (Auto) 1.6 (0.0-1.8) % Lymph # (Auto) 1.9 (1.2-5.4) K/mm3 [place] # (Auto) 0.7 (0.0-0.8) K/mm3 Eos # (Auto) 0.1 (0.0-0.4) K/mm3 Baso # (Auto) 0.2 H (0.0-0.1) K/mm3 Seg Neutrophils % 70.6 H (40.0-70.0) % Seg Neutrophils # 7.0 (1.8-7.7) K/mm3 Sodium 139 (137-145) mmol/L Potassium 4.2 (3.6-5.0) mmol/L Chloride 98.4 (98-107) mmol/L Carbon Dioxide 30 (22-30) mmol/L Anion Gap 15 mmol/L BUN 24 H (9-20) mg/dL Creatinine 1.6 H (0.8-1.3) mg/dL Estimated GFR 56 ml/min BUN/Creatinine Ratio 15 % Glucose 322 H (75-100) mg/dL Calcium 9.8 (8.4-10.2) mg/dL Total Bilirubin 2.30 H (0.1-1.2) mg/dL AST 22 (5-40) units/L ALT 26 (7-56) units/L Alkaline Phosphatase 143 H (35-129) units/L Troponin T 1.120 H* (0.00-0.029) ng/mL NT-Pro-B Natriuret Pep 5643 H (0-450) pg/mL Total Protein 7.2 (6.3-8.2) g/dL Albumin 3.8 L (3.9-5) g/dL Albumin/Globulin Ratio 1.1 % Triglycerides 94 (2-149) mg/dL Cholesterol 138 (50-199) mg/dL LDL Cholesterol Direct 102 (50-130) mg/dL HDL Cholesterol 33 L (40-59) mg/dL Cholesterol/HDL Ratio 4.18 % - EKG Data -: EKG Interpreted by Me EKG shows normal: sinus rhythm Rate: tachycardia - EKG Data 06/22/21 06:53 EKG is interpreted by myself at 06: 5 3 Sinus rhythm, rate, 116 bpm. Left axis deviation, QTC 477 ms. T wave inversions in the lateral leads, and atrial enlargement. Minimal motion artifact. Abnormal EKG. Not a STEMI. Appears unchanged from prior EKG from March 09, 2021 - Radiology Data Radiology results: pending, report reviewed, image reviewed CHEST 1 VIEW INDICATION: dyspnea, h/o cardiomyopathy/CHF. COMPARISON: 03/09/2021 FINDINGS: Support devices: None. Heart: Enlarged, unchanged. There appears to be pulmonary venous hypertension. Lungs/Pleura: Mild interstitial opacities are suggestive of mild edema. No consolidation or effusion. IMPRESSION: 1. Pulmonary venous hypertension with probable mild interstitial edema. Signer Name: Jack Ceballos MD Signed: 06/22/2021 3:19 AM Workstation Name: [id number] Critical care attestation.: If time is entered above; I have spent that time in minutes in the direct care of this critically ill patient, excluding procedure time. ED Disposition Clinical Impression: Cardiomyopathy, Acute on chronic systolic heart failure Disposition: 07 LEFT AWOL/ELOPED Is pt being admited?: No Does the pt Need Aspirin: No Condition: Undetermined Additional Instructions: As we discussed, you have left the hospital/emergency room AGAINST MEDICAL ADVICE. By leaving, you risked , disability, paralysis, permanent loss of quality of life. The ER is open 24 hours a day, 7 days a week. It never closes. Please return to the emergency room right away if and when you change your mind. If you decide not to return to the emergency room, please follow-up with the listed physician referrals as soon as possible. Referrals: DEAN GOULD MD [Staff Physician] - [facility]
[2021-06-22] MEDS ORDERED: INSULIN REGULAR, HUMAN 100 UNITS/1 ML IV ONE (07:37)
--- NOTE | 2021-06-22 13:54 | Electrocardiograph Report ---
[facility] Test Date: 2021-06-22 Test Time: 04:05:41 Pat Name: SOO DEAN Department: Room: Gender: M Band Leader: RHEA : 1975 Requested By: CHARLENE SHAW Order Number: [id number] Reading MD: Ruben Spaulding Measurements Intervals [place] Rate: 116 P: 67 NH: 171 QRS: -20 QRSD: 96 T: 152 QT: 343 QTc: 477 Interpretive Statements Sinus tachycardia Left atrial enlargement Probable LVH with secondary repol abnrm Compared to ECG 03/09/2021 01:20:16 T-wave abnormality no longer present Electronically Signed On 06-22-2021 13:54:31 EDT by Ruben Spaulding
== END 2021-06-22 08:30 | disposition left against medical advice (07) ==
LOC: ED 03:27
DX: I42.9 Cardiomyopathy, unspecified (principal); I50.23 Acute on chronic systolic (congestive) heart failure; I11.0 Hypertensive heart disease with heart failure; Z86.73 Personal history of transient ischemic attack (TIA), and cerebral infarction without residual deficits; E11.8 Type 2 diabetes mellitus with unspecified complications
CPT/HCPCS: 36415; 71045; 80053; 80061; 83880; 84484; 85025; 93005; 99283

== ENCOUNTER 2021-07-30 02:28 | Observation (INO) | payer OTHER ==
[2021-07-30] MEDS ORDERED: FUROSEMIDE 20 MG/2 ML INJ IV ONE (03:27)
--- NOTE | 2021-07-30 03:27 | Emergency Department Report ---
ED Shortness of Breath HPI - General Chief Complaint: Dyspnea/Respdistress Stated Complaint: SOB/CHEST PAIN Time Seen by Provider: 07/30/21 03:06 Source: patient Mode of arrival: Wheelchair Limitations: No Limitations - History of Present Illness Initial Comments: Patient is a 45-year-old male who presents emergency room with complaints of chest pain and shortness of breath. Patient states his symptoms started 4 days ago. Patient states his symptoms are worsening. Patient states he is having a CHF exacerbation. Patient also complains of edema. Patient states his shortness of breath is better with rest and worse with exertion. Patient states his chest pain is better with rest and worse with exertion. Patient dates chest pain is a 10 out of 10. Patient denies nausea vomiting. Patient denies recent travel. Patient denies recent international travel. Patient denies exposure to the novel coronavirus. Patient denies sick contacts. Patient denies fever and chills. Patient denies cough. Patient denies diarrhea. Patient denies coming in contact with anybody with symptoms of the novel coronavirus. MD Complaint: shortness of breath, chest pain -: Sudden, days(s) Severity: severe Pain Scale: 10 Consistency: constant Improves With: rest Worsens With: exertion Known History Of: congestive heart failure Treatments Prior to Arrival: diuretics - Related Data Home Oxygen Therapy: No Previous Rx's Medication Instructions Recorded Last Taken Type AtorvaSTATin [Lipitor] 40 mg PO QHS #30 tablet 03/13/21 Unknown Rx Insulin Glargine [Lantus VIAL] 20 units SUB-Q BID units 03/13/21 Unknown Rx Metoprolol Xl [Metoprolol 100 mg PO QDAY #60 tablet 03/13/21 Unknown Rx SUCCINATE ER TAB] Rivaroxaban [Xarelto] 20 mg PO DAILY #30 03/13/21 Unknown Rx Sacubitril/Valsartan [Entresto 97 1 each PO BID 30 Days #60 tablet 03/13/21 U nknown Rx mg-103 mg Tablet] Spironolactone [Aldactone] 25 mg PO QDAY #30 tablet 03/13/21 Unknown Rx Torsemide [Demadex] 125 mg PO BID #30 tablet 06/22/21 Unknown Rx Allergies Allergy/AdvReac Type Severity Reaction Status Date / Time No Known Allergies Allergy Verified 01/09/21 11:44 ED Review of Systems ROS: Stated complaint: SOB/CHEST PAIN Other details as noted in HPI Constitutional: denies: chills, fever Eyes: denies: eye pain, eye discharge, vision change ENT: denies: ear pain, throat pain Respiratory: see HPI, shortness of breath, SOB with exertion, SOB at rest. denies: cough, wheezing Cardiovascular: as per HPI, dyspnea on exertion, edema. denies: chest pain, palpitations Endocrine: no symptoms reported Gastrointestinal: denies: abdominal pain, nausea, diarrhea Genitourinary: denies: urgency, dysuria Musculoskeletal: denies: back pain, joint swelling, arthralgia Skin: denies: rash, lesions Neurological: denies: headache, weakness, paresthesias Psychiatric: denies: anxiety, depression Hematological/Lymphatic: denies: easy bleeding, easy bruising ED Past Medical Hx - Past Medical History Previous Medical History?: Yes Hx Hypertension: Yes Hx CVA: Yes (TIA's right side weakness) Hx Heart Attack/AMI: Yes Hx Congestive Heart Failure: Yes Hx Diabetes: Yes Hx Deep Vein Thrombosis: No Hx Liver Disease: No Hx Seizures: No Hx Asthma: No Hx COPD: No Hx Dementia: No Additional medical history: Hyperlipidemia - Surgical History Past Surgical History?: Yes Hx Coronary Stent: No Hx Pacemaker: No Hx Internal Defibrillator: No Additional Surgical History: Tonsillectomy, incision and drainage axillary abscess - Family History Family history: no significant - Social History Smoking Status: Never Smoker Substance Use Type: None - Medications Home Medications: Home Medications Medication Instructions Recorded Confirmed Last Taken Type AtorvaSTATin [Lipitor] 40 mg PO QHS #30 tablet 03/13/21 Unknown Rx Insulin Glargine [Lantus VIAL] 20 units SUB-Q BID units 03/13/21 Unknown Rx Metoprolol Xl [Metoprolol 100 mg PO QDAY #60 tablet 03/13/21 Unknown Rx SUCCINATE ER TAB] Rivaroxaban [Xarelto] 20 mg PO DAILY #30 03/13/21 Unknown Rx Sacubitril/Valsartan [Entresto 97 1 each PO BID 30 Days #60 tablet 03/13/21 Unknown Rx mg-103 mg Tablet] Spironolactone [Aldactone] 25 mg PO QDAY #30 tablet 03/13/21 Unknown Rx Torsemide [Demadex] 125 mg PO BID #30 tablet 09/06/21 Unknown Rx ED Physical Exam - General Limitations: No Limitations General appearance: alert, in distress - Head Head exam: Present: atraumatic, normocephalic - Eye Eye exam: Present: normal appearance - ENT ENT exam: Present: mucous membranes moist - Neck Neck exam: Present: normal inspection - Respiratory Respiratory exam: Present: respiratory distress, rales, decreased breath sounds - Cardiovascular Cardiovascular Exam: Present: regular rate, normal rhythm. Absent: systolic murmur, diastolic murmur, rubs, gallop - GI/Abdominal GI/Abdominal exam: Present: soft, normal bowel sounds - Rectal Rectal exam: Present: deferred - Extremities Exam Extremities exam: Present: normal inspection - Back Exam Back exam: Present: normal inspection - Neurological Exam Neurological exam: Present: alert, oriented X3 - Psychiatric Psychiatric exam: Present: normal affect, normal mood - Skin Skin exam: Present: warm, dry, intact, normal color. Absent: rash ED Course Vital Signs 07/30/21 07/30/21 07/30/21 02:46 03:01 03:05 Temperature 97.7 F Pulse Rate 68 111 H 111 H Respiratory 33 H 20 Rate Blood Pressure 126/101 Blood Pressure 107/80 [Left] O2 Sat by Pulse 98 100 100 Oximetry 07/30/21 07/30/21 07/30/21 03:09 03:15 03:31 Temperature Pulse Rate 106 H 111 H Respiratory 22 40 H 39 H Rate Blood Pressure 107/80 107/80 Blood Pressure [Left] O2 Sat by Pulse 99 100 99 Oximetry 07/30/21 07/30/21 07/30/21 03:45 04:01 04:15 Temperature Pulse Rate 110 H 113 H 115 H Respiratory 48 H 33 H 35 H Rate Blood Pressure 131/85 141/99 141/99 Blood Pressure [Left] O2 Sat by Pulse 99 97 99 Oximetry 07/30/21 07/30/21 07/30/21 04:31 04:45 04:47 Temperature Pulse Rate 113 H 109 H Respiratory 34 H 39 H 20 Rate Blood Pressure 141/99 141/99 Blood Pressure [Left] O2 Sat by Pulse 99 99 Oximetry 07/30/21 07/30/21 07/30/21 05:01 05:15 05:31 Temperature Pulse Rate 105 H 108 H 104 H Respiratory 8 L 33 H 34 H Rate Blood Pressure 133/98 141/99 141/99 Blood Pressure [Left] O2 Sat by Pulse 99 98 98 Oximetry 07/30/21 07/30/21 07/30/21 05:45 06:01 06:15 Temperature Pulse Rate 103 H 108 H 105 H Respiratory 41 H 33 H 41 H Rate Blood Pressure 141/99 114/83 114/83 Blood Pressure [Left] O2 Sat by Pulse 98 98 98 Oximetry - Reevaluation(s) Reevaluation #1: Patient is still on 4 L of oxygen. 07/30/21 03:25 Reevaluation #2: Patient states his pain is improving. Patient states that shortness of breath is slightly better. Patient still requiring oxygen. Patient's work to breathe has improved. 07/30/21 04:25 Reevaluation #3: I discussed all results with patient. I discussed plan of care with patient. Patient agrees with plan of care and admission. Patient to be admitted to the hospitalist service. 07/30/21 05:26 - Consultations Consultation #1: Hospitalist consulted for admission. Hospitalist to admit patient. 07/30/21 05:25 ED Medical Decision Making - Lab Data Result diagrams: 07/30/21 03:46 07/30/21 03:46 - EKG Data -: EKG Interpreted by Me EKG shows normal: sinus rhythm, axis, intervals, QRS complexes Rate: normal - Radiology Data Radiology results: report reviewed, image reviewed interpreted by me: Chest x-ray: No pneumonia, no pneumothorax, no foreign body, no osseous f indings, vascular congestion noted. CHEST 1 VIEW 07/30/2021 3:43 AM INDICATION / CLINICAL INFORMATION: Dyspnea. COMPARISON: 06/22/2021 FINDINGS: SUPPORT DEVICES: None. HEART / MEDIASTINUM: No significant abnormality. LUNGS / PLEURA: No significant pulmonary or pleural abnormality. No pneumothorax. ADDITIONAL FINDINGS: No significant additional findings. IMPRESSION: 1. No acute findings. - Medical Decision Making Patient is a 45-year-old male who presents emergency room with complaints of chest pain and shortness of breath. Patient believes it secondary to his CHF. Patient also complains of edema. Patient had labs done which were essentially unremarkable except for mild renal insufficiency. Patient given aspirin, morphine and Lasix after initial evaluation. Patient found to be hypoxic was placed on oxygen. Patient required 4 L of oxygen via nasal cannula. Patient remained on oxygen entire time in the ER. Patient chest x-ray was negative for acute findings except for vascular congestion.. Impression reviewed the chest x -ray. Patient's EKG is negative for acute finding per is abnormal. Patient has global ST segment depression. Patient admitted to the hospital service for further evaluation treatment. Patient requires inpatient treatment and rule out of ACS. Patient also found to be in CHF exacerbation. Patient's BNP is elevated. Critical care time documented due to the multiple reassessments, prolonged time at the bedside, interpretation of diagnostics and labs. - Differential Diagnosis CHF, chest pain, ACS, shortness of breath, edema Critical Care Time: Yes Critical care time in (mins) excluding proc time.: 35 Critical care attestation.: If time is entered above; I have spent that time in minutes in the direct care of this critically ill patient, excluding procedure time. Critical Care Time: 35 minutes ED Disposition Clinical Impression: Shortness of breath, Renal insufficiency Chest pain Qualifiers: Chest pain type: unspecified Qualified Code(s): R07.9 - Chest pain, unspecified Respiratory failure Qualifiers: Chronicity: acute Respiratory failure complication: hypoxia Qualified Code(s): J96.01 - Acute respiratory failure with hypoxia Edema Qualifiers: Edema type: unspecified Qualified Code(s): R60.9 - Edema, unspecified CHF (congestive heart failure) Qualifiers: Heart failure type: unspecified Heart failure chronicity: acute Qualified Code(s): I50.9 - Heart failure, unspecified Disposition: ADMITTED INPATIENT Is pt being admited?: Yes Does the pt Need Aspirin: No Condition: Critical Time of Disposition: 05:14 Heart Score - HEART Score History: Highly suspicious EKG: Non-specific Age: 45-65 Risk factors: > 3 risk factors or hx of atherosclerotic disease Troponin: < normal limit HEART Score: 6 - EKG Read Time Time EKG Completed: 00:00 EKG Read Time: 00:00
[2021-07-30 04:12] LABS: Basophils % (Auto) 0.5 % (0.0-1.8); Eosinophils # (Auto) 0.1 K/mm3 (0.0-0.4); Eosinophils % (Auto) 1.3 % (0.0-4.3); Hematocrit 46.5 % (35.5-45.6); Lymphocytes # (Auto) 2.8 K/mm3 (1.2-5.4); Lymphocytes % (Auto) 28.9 % (13.4-35.0); Mean Corpuscular HGB Conc 32 % (32-34); Mean Corpuscular Volume 74 fl (84-94); Monocytes # (Auto) 0.7 K/mm3 (0.0-0.8); Monocytes % (Auto) 7.1 % (0.0-7.3); Red Cell Distribution Width 16.1 % (13.2-15.2)
[2021-07-30 04:14] LABS: Platelet Count 183 K/mm3 (140-440)
[2021-07-30 04:24] LABS: Alanine Aminotransferase 49 units/L (7-56); Albumin 3.4 g/dL (3.9-5); BUN/Creatinine Ratio 21; Blood Urea Nitrogen 31 mg/dL (9-20); Calcium 9.1 mg/dL (8.4-10.2); Hemolysis Index 6
[2021-07-30] MEDS ORDERED: ASPIRIN 325 MG TAB PO ONE (04:27)
[2021-07-30] MEDS ORDERED: MORPHINE 2 MG/1 ML INJ IV ONE (04:27)
[2021-07-30] MEDS ORDERED: ONDANSETRON 4 MG/2 ML INJ IV ONE (04:27)
--- NOTE | 2021-07-30 04:51 | XRay Report ---
CHEST 1 VIEW 07/30/2021 3:43 AM INDICATION / CLINICAL INFORMATION: Dyspnea. COMPARISON: 06/22/2021 FINDINGS: SUPPORT DEVICES: None. HEART / MEDIASTINUM: No significant abnormality. LUNGS / PLEURA: No significant pulmonary or pleural abnormality. No pneumothorax. ADDITIONAL FINDINGS: No significant additional findings. IMPRESSION: 1. No acute findings. Signer Name: Madhu Ashby MD Signed: 07/30/2021 4:47 AM Workstation Name: [id number]
[2021-07-30 08:20] VITALS: BP 113/83
--- NOTE | 2021-07-30 09:03 | History and Physical Report ---
History of Present Illness Date of admission: 07/30/21 05:29 Medications and Allergies Allergies Allergy/AdvReac Type Severity Reaction Status Date / Time No Known Allergies Allergy Verified 01/09/21 11:44 Home Medications Medication Instructions Recorded Confirmed Last Taken Type AtorvaSTATin [Lipitor] 40 mg PO QHS #30 tablet 03/13/21 Unknown Rx Insulin Glargine [Lantus VIAL] 20 units SUB-Q BID units 03/13/21 Unknown Rx Metoprolol Xl [Metoprolol 100 mg PO QDAY #60 tablet 03/13/21 Unknown Rx SUCCINATE ER TAB] Rivaroxaban [Xarelto] 20 mg PO DAILY #30 03/13/21 Unknown Rx Sacubitril/Valsartan [Entresto 97 1 each PO BID 30 Days #60 tablet 03/13/21 Unknown Rx mg-103 mg Tablet] Spironolactone [Aldactone] 25 mg PO QDAY #30 tablet 03/13/21 Unknown Rx Torsemide [Demadex] 125 mg PO BID #30 tablet 06/22/21 Unknown Rx Exam - Constitutional Vitals: Temp Pulse Resp BP Pulse Ox 97.7 F 94 H 18 113/83 99 07/30/21 03:05 07/30/21 08:15 07/30/21 08:15 07/30/21 08:15 07/30/21 08:15 HEART Score - HEART Score EKG: Non-specific Age: 45-65 Risk factors: > 3 risk factors or hx of atherosclerotic disease Troponin: Troponin T 0.018 ng/mL (0.00-0.029) 07/30/21 03:46 Troponin: < normal limit Results - Labs CBC & Chem 7: 07/30/21 03:46 07/30/21 03:46 Labs: Laboratory Last Values WBC 9.6 K/mm3 (4.5-11.0) 07/30/21 03:46 RBC 6.30 M/mm3 (3.65-5.03) H 07/30/21 03:46 Hgb 15.0 gm/dl (11.8-15.2) 07/30/21 03:46 Hct 46.5 % (35.5-45.6) H 07/30/21 03:46 MCV 74 fl (84-94) L 07/30/21 03:46 MCH 24 pg (28-32) L 07/30/21 03:46 MCHC 32 % (32-34) 07/30/21 03:46 RDW 16.1 % (13.2-15.2) H 07/30/21 03:46 Plt Count 183 K/mm3 (140-440) 07/30/21 03:46 Lymph % (Auto) 28.9 % (13.4-35.0) 07/30/21 03:46 [place] % (Auto) 7.1 % (0.0-7.3) 07/30/21 03:46 Eos % (Auto) 1.3 % (0.0-4.3) 07/30/21 03:46 Baso % (Auto) 0.5 % (0.0-1.8) 07/30/21 03:46 Lymph # (Auto) 2.8 K/mm3 (1.2-5.4) 07/30/21 03:46 [place] # (Auto) 0.7 K/mm3 (0.0-0.8) 07/30/21 03:46 Eos # (Auto) 0.1 K/mm3 (0.0-0.4) 07/30/21 03:46 Baso # (Auto) 0.0 K/mm3 (0.0-0.1) 07/30/21 03:46 Seg Neutrophils % 62.2 % (40.0-70.0) 07/30/21 03:46 Seg Neutrophils # 5.9 K/mm3 (1.8-7.7) 07/30/21 03:46 Sodium 138 mmol/L (137-145) 07/30/21 03:46 Potassium 3.8 mmol/L (3.6-5.0) 07/30/21 03:46 Chloride 101.3 mmol/L (98-107) 07/30/21 03:46 Carbon Dioxide 25 mmol/L (22-30) 07/30/21 03:46 Anion Gap 16 mmol/L 07/30/21 03:46 BUN 31 mg/dL (9-20) H 07/30/21 03:46 Creatinine 1.5 mg/dL (0.8-1.3) H 07/30/21 03:46 Estimated GFR > 60 ml/min 07/30/21 03:46 BUN/Creatinine Ratio 21 % 07/30/21 03:46 Glucose 99 mg/dL (75-100) 07/30/21 03:46 Calcium 9.1 mg/dL (8.4-10.2) 07/30/21 03:46 Total Bilirubin 2.80 mg/dL (0.1-1.2) H 07/30/21 03:46 AST 34 units/L (5-40) 07/30/21 03:46 ALT 49 units/L (7-56) 07/30/21 03:46 Alkaline Phosphatase 178 units/L (35-129) H 07/30/21 03:46 Troponin T 0.018 ng/mL (0.00-0.029) 07/30/21 03:46 NT-Pro-B Natriuret Pep 2918 pg/mL (0-450) H 07/30/21 05:49 Total Protein 7.2 g/dL (6.3-8.2) 07/30/21 03:46 Albumin 3.4 g/dL (3.9-5) L 07/30/21 03:46 Albumin/Globulin Ratio 0.9 % 07/30/21 03:46
[2021-07-30] MEDS ORDERED: FUROSEMIDE 40 MG/4 ML INJ IV ONE ×2 (10:01→13:00)
[2021-07-30] MEDS ORDERED: ALBUTEROL 2.5 MG/3 ML NEBU IH PRN (10:02)
[2021-07-30] MEDS ORDERED: ONDANSETRON 4 MG/2 ML INJ IV PRN (10:02)
[2021-07-30] MEDS ORDERED: MAGNESIUM HYDROXIDE (MOM) ORAL LIQD UDC PO PRN (10:02)
[2021-07-30] MEDS ORDERED: ACETAMINOPHEN 325 MG TAB PO PRN (10:02)
[2021-07-30] MEDS ORDERED: oxyCODONE /ACETAMINOPHEN 5-325MG TAB PO PRN (10:02)
[2021-07-30] MEDS ORDERED: NALOXONE 0.4 MG/1 ML INJ IV PRN (10:02)
--- NOTE | 2021-07-30 10:02 | Short Stay Summary ---
Short Stay Documentation Date of service: 07/30/21 Narrative H&P: Mr. Ruben Resendez is a 45-year-old male with significant past medical history of congestive heart failure, hypertension amongst others. He presents to the hospital complaint of 1-1/2-week of worsening shortness of breath and bilateral lower extremity swelling. He was given a dose of Lasix in the ER with remarkable improvement. At the time of my evaluation he was sitting in the room without oxygen no exertional dyspnea on ambulation. He still has some bilateral 1+ pitting edema lower extremity. He does notice significant difference in his respiration additional Lasix was given and on reevaluation he was clinically stable for discharge. I did discuss with him the importance of following up with his primary supervisor post wave in 3 to 5 days and also to monitor his renal function as he is beginning to show signs of renal impairment. His creatinine which is 1.6 remains stable from his last visit but he left AMA during that visit. He states that he has all his home medications at home. He also informs me that he has a baby that he would like to see. - History Principal diagnosis: Acute on chronic congestive heart failure Past Medical History: heart failure, hypertension Past Surgical History: No surgical history Social history: no significant social history, - Allergies and Medications Current Medications: Allergies No Known Allergies Allergy (Verified 01/09/21 11:44) Home Medications Medication Instructions Recorded Confirmed Last Taken Type AtorvaSTATin [Lipitor] 40 mg PO QHS #30 tablet 03/13/21 Unknown Rx Insulin Glargine [Lantus VIAL] 20 units SUB-Q BID units 03/13/21 Unknown Rx Metoprolol Xl [Metoprolol 100 mg PO QDAY #60 tablet 03/13/21 Unknown Rx SUCCINATE ER TAB] Rivaroxaban [Xarelto] 20 mg PO DAILY #30 03/13/21 Unknown Rx Sacubitril/Valsartan [Entresto 97 1 each PO BID 30 Days #60 tablet 03/13/21 Unknown Rx mg-103 mg Tablet] Spironolactone [Aldactone] 25 mg PO QDAY #30 tablet 03/13/21 Unknown Rx Torsemide [Demadex] 125 mg PO BID #30 tablet 06/22/21 Unknown Rx Active Medications Furosemide (Furosemide 40 Mg/4 Ml Inj) 40 mg IV ONCE ONE Stop: 07/30/21 10:02 - Physical exam General appearance: no acute distress, well-nourished Integumentary: no rash Lungs: Clear to auscultation Breasts: deferred Heart: Regular rate, Normal S1, Normal S2, No murmurs, no Murmur, no Gallops, no Rubs Gastrointestinal: normal, normoactive bowel sounds, no tenderness, no distended, no masses, no guarding, no organomegaly, no pulsatile mass, no pulsatile liver Rectal Exam: deferred Extremities: no ischemia, no No edema, Full ROM, abnormal (Has +1 pitting edema bilaterally) - Disposition Condition at discharge: Stable Disposition: HOME / SELF CARE / HOMELESS - Discharge Diagnoses (1) CHF (congestive heart failure) Status: Chronic Qualifiers: Heart failure type: unspecified Heart failure chronicity: acute on chronic Qualified Code(s): I50.9 - Heart failure, unspecified (2) ROMI (acute kidney injury) Status: Chronic (3) Vasomotor nephropathy Status: Acute Short Stay Discharge Plan Follow up with: PRIMARY MD SARA [Primary Care Provider] - 3-5 Days
[2021-07-30] MEDS ORDERED: SENNOSIDES 8.6 MG TAB PO SCH (22:00)
--- NOTE | 2021-08-05 14:35 | Electrocardiograph Report ---
[facility] Test Date: 2021-07-30 Test Time: 05:43:25 Pat Name: SOO DEAN Department: Room: A481 1 Gender: M Direct Care Worker: ANAND : 1975 Requested By: JUNIOR ADAMSON III Order Number: [id number] Reading MD: Rob Batres Measurements Intervals [place] Rate: 106 P: 59 FL: 181 QRS: -12 QRSD: 88 T: 178 QT: 357 QTc: 475 Interpretive Statements Sinus tachycardia Left atrial enlargement Nonspecific T abnormalities, lateral leads Compared to ECG 06/22/2021 04:05:41 T-wave abnormality now present Electronically Signed On 08-05-2021 14:34:34 EDT by Rob Batres
== END 2021-07-30 14:39 | disposition home or self-care (01) ==
LOC: ED 02:28 → 4A 05:29
PROVIDERS: ADMIT Internal Medicine Geriatric Medicine; ATTEND Internal Medicine
DX: J96.01 Acute respiratory failure with hypoxia (principal); N17.9 Acute kidney failure, unspecified; I11.0 Hypertensive heart disease with heart failure; I50.23 Acute on chronic systolic (congestive) heart failure; N28.9 Disorder of kidney and ureter, unspecified; E11.9 Type 2 diabetes mellitus without complications; E78.5 Hyperlipidemia, unspecified; Z79.4 Long term (current) use of insulin; Z90.49 Acquired absence of other specified parts of digestive tract
CPT/HCPCS: 36415; 71045; 80053; 83880; 84484; 85025; 93005; 96374; 96375; 96376; 99291; G0378; J1940; J2270; J2405

== ENCOUNTER 2021-08-13 18:32 | Inpatient (IN) | payer OTHER ==
[2021-08-13] MEDS ORDERED: FUROSEMIDE 40 MG/4 ML INJ IV ONE ×2 (20:51→23:00)
[2021-08-13 21:19] LABS: Basophils % (Auto) 0.5 % (0.0-1.8); Eosinophils # (Auto) 0.1 K/mm3 (0.0-0.4); Eosinophils % (Auto) 1.3 % (0.0-4.3); Lymphocytes # (Auto) 2.1 K/mm3 (1.2-5.4); Lymphocytes % (Auto) 23.2 % (13.4-35.0); Mean Corpuscular HGB Conc 30 % (32-34); Mean Corpuscular Volume 76 fl (84-94); Monocytes # (Auto) 0.6 K/mm3 (0.0-0.8); Monocytes % (Auto) 6.1 % (0.0-7.3); Red Blood Count 6.69 M/mm3 (3.65-5.03); Red Cell Distribution Width 17.2 % (13.2-15.2)
--- NOTE | 2021-08-13 21:25 | XRay Report ---
CHEST 1 VIEW 08/13/2021 8:13 PM INDICATION / CLINICAL INFORMATION: Shortness of breath. COMPARISON: 07/30/2021 FINDINGS: SUPPORT DEVICES: None. HEART / MEDIASTINUM: Stable. LUNGS / PLEURA: No significant pulmonary or pleural abnormality. No pneumothorax. ADDITIONAL FINDINGS: No significant additional findings. IMPRESSION: 1. No acute findings. Signer Name: Neto Tang DO Signed: 08/13/2021 9:21 PM Workstation Name: [email or web address]
[2021-08-13 21:29] LABS: Hematocrit 50.7 % (35.5-45.6); Hemoglobin 15.4 gm/dl (11.8-15.2)
[2021-08-13 21:30] LABS: INR 1.07 (0.87-1.13); Platelet Count 180 K/mm3 (140-440)
[2021-08-13 21:36] LABS: Creatine Kinase MB 5.9 ng/mL (0.0-4.0)
[2021-08-13 21:37] LABS: Alanine Aminotransferase 35 units/L (7-56); Albumin 3.5 g/dL (3.9-5); BUN/Creatinine Ratio 14; Blood Urea Nitrogen 18 mg/dL (9-20); Calcium 9.4 mg/dL (8.4-10.2); Hemolysis Index 6
--- NOTE | 2021-08-13 21:41 | Emergency Department Report ---
HPI - General Chief Complaint: Dyspnea/Respdistress Time Seen by Provider: 08/13/21 20:38 - HPI HPI: Room 20 The patient is a 45-year-old male present with a chief complaint of shortness of breath. The patient states he has had worsening shortness of breath over the past week. Patient has history of congestive heart failure and states over the past 3 to 4 days he has noticed progressive bilateral lower extremity edema going up above his knees. Patient states he felt chest congestion, had nausea vomiting and a decreased appetite. Patient also admits to cough for the past 3 to 4 days has been occasionally productive of clear sputum. ED Past Medical Hx - Past Medical History Hx Hypertension: Yes Hx CVA: Yes (TIA's right side weakness) Hx Heart Attack/AMI: Yes Hx Congestive Heart Failure: Yes Hx Diabetes: Yes Hx Deep Vein Thrombosis: No Hx Liver Disease: No Hx Seizures: No Hx Asthma: No Hx COPD: No Hx Dementia: No Additional medical history: Hyperlipidemia - Surgical History Hx Coronary Stent: No Hx Pacemaker: No Hx Internal Defibrillator: No Additional Surgical History: Tonsillectomy, incision and drainage axillary abscess - Social History Smoking Status: Unknown if ever smoked Substance Use Type: None - Medications Home Medications: Home Medications Medication Instructions Recorded Confirmed Last Taken Type AtorvaSTATin [Lipitor] 40 mg PO QHS #30 tablet 03/13/21 07/30/21 07/29/21 Rx Metoprolol Xl [Metoprolol 100 mg PO QDAY #60 tablet 03/13/21 07/30/21 07/29/21 Rx SUCCINATE ER TAB] Rivaroxaban [Xarelto] 20 mg PO DAILY #30 03/13/21 07/30/21 07/29/21 Rx Insulin Aspart (Nf) [NovoLOG 10 units SQ TIDAC 07/30/21 07/30/21 07/29/21 History Flexpen] Insulin Glargine [Lantus VIAL] 35 units SUB-Q QDAY 07/30/21 07/30/21 07/29/21 History Sacubitril/Valsartan [Entresto 1 each PO BID 07/30/21 07/30/21 07/29/21 History 49-51 mg] Torsemide [Demadex] 100 mg PO BID 07/30/21 07/30/21 07/29/21 History ED Review of Systems ROS: Stated complaint: CHEST PAIN/GRETA Other details as noted in HPI Physical Exam - Physical Exam Vital Signs: Vital Signs 08/13/21 08/13/21 08/13/21 19:07 19:16 19:30 Pulse Rate 117 H 116 H Respiratory 15 26 H 25 H Rate Blood Pressure 126/85 O2 Sat by Pulse 100 100 100 Oximetry ED Course Vital Signs 08/13/21 08/13/21 08/13/21 19:07 19:16 19:30 Pulse Rate 117 H 116 H Respiratory 15 26 H 25 H Rate Blood Pressure 126/85 O2 Sat by Pulse 100 100 100 Oximetry ED Medical Decision Making - Lab Data Result diagrams: 08/13/21 20:59 08/13/21 20:59 Laboratory Tests 08/13/21 08/13/21 08/13/21 20:59 20:59 20:59 WBC 9.0 RBC 6.69 H Hgb 15.4 H Hct 50.7 H MCV 76 L MCH 23 L MCHC 30 L RDW 17.2 H Plt Count 180 Lymph % (Auto) 23.2 [place] % (Auto) 6.1 Eos % (Auto) 1.3 Baso % (Auto) 0.5 Lymph # (Auto) 2.1 [place] # (Auto) 0.6 Eos # (Auto) 0.1 Baso # (Auto) 0.0 Seg Neutrophils % 68.9 Seg Neutrophils # 6.2 PT 15.1 H INR 1.07 ABG pH ABG pCO2 ABG pO2 ABG HCO3 ABG O2 Saturation ABG O2 Content ABG Base Excess ABG Hemoglobin ABG Carboxyhemoglobin ABG Methemoglobin Oxyhemoglobin FiO2 Sodium 141 Potassium 4.3 Chloride 104.0 Carbon Dioxide 25 Anion Gap 16 BUN 18 Creatinine 1.3 Estimated GFR > 60 BUN/Creatinine Ratio 14 Glucose 61 L Calcium 9.4 Total Bilirubin 2.40 H AST 26 ALT 35 Alkaline Phosphatase 172 H Total Creatine Kinase 142 CK-MB (CK-2) 5.9 H CK-MB (CK-2) Rel Index 4.1 H Troponin T 0.024 NT-Pro-B Natriuret Pep 2206 H Total Protein 7.3 Albumin 3.5 L Albumin/Globulin Ratio 0.9 08/13/21 21:00 WBC RBC Hgb Hct MCV MCH MCHC RDW Plt Count Lymph % (Auto) [place] % (Auto) Eos % (Auto) Baso % (Auto) Lymph # (Auto) [place] # (Auto) Eos # (Auto) Baso # (Auto) Seg Neutrophils % Seg Neutrophils # PT INR ABG pH 7.426 ABG pCO2 34.6 ABG pO2 387.9 H ABG HCO3 22.2 ABG O2 Saturation 99.6 H ABG O2 Content 21.0 ABG Base Excess -1.5 ABG Hemoglobin 14.6 ABG Carboxyhemoglobin 1.5 ABG Methemoglobin 0.5 Oxyhemoglobin 97.6 FiO2 85 Sodium Potassium Chloride Carbon Dioxide Anion Gap BUN Creatinine Estimated GFR BUN/Creatinine Ratio Glucose Calcium Total Bilirubin AST ALT Alkaline Phosphatase Total Creatine Kinase CK-MB (CK-2) CK-MB (CK-2) Rel Index Troponin T NT-Pro-B Natriuret Pep Total Protein Albumin Albumin/Globulin Ratio - EKG Data -: EKG Interpreted by Me EKG shows normal: sinus rhythm Rate: tachycardia - EKG Data When compared to previous EKG there are: no significant change Interpretation: unchanged when compared t (07/30/2021) - Radiology Data Radiology results: report reviewed (Chest x-ray), image reviewed (Chest x-ray) interpreted by me: Chest x-ray-no definite focal infiltrates, no pneumothorax [facility] [address] [place] [address] XRay Report Signed Patient: SOO DEAN MR#: [id number] : 1975 Acct:[id number] Age/Sex: 45 / M ADM Date: 08/13/21 Loc: ED Attending Dr: Ordering Physician: JULIO RAMIREZ MD Date of Service: 08/13/21 Pro cedure(s): XR chest 1V ap Accession Number(s): [id number] cc: JULIO RAMIREZ MD Fluoro Time In Minutes: CHEST 1 VIEW 08/13/2021 8:13 PM INDICATION / CLINICAL INFORMATION: Shortness of breath. COMPARISON: 07/30/2021 FINDINGS: SUPPORT DEVICES: None. HEART / MEDIASTINUM: Stable. LUNGS / PLEURA: No significant pulmonary or pleural abnormality. No pneumothorax. ADDITIONAL FINDINGS: No significant additional findings. IMPRESSION: 1. No acute findings. Signer Name: Neto Sánchez DO Signed: 08/13/2021 9:21 PM Workstation Name: [id number] Transcribed By: CLAUDIA Dictated By: NETO SÁNCHEZ DO Electronically Authenticated By: NETO SÁNCHEZ DO Signed Date/Time: 08/13/212120 DD/ 19 TD/TT: Print Cancel - Differential Diagnosis CHF exacerbation, pneumonia, COVID-19, Critical care attestation.: If time is entered above; I have spent that time in minutes in the direct care of this critically ill patient, excluding procedure time. ED Disposition Clinical Impression: CHF exacerbation, Dyspnea Disposition: ADMITTED INPATIENT Is pt being admited?: Yes Does the pt Need Aspirin: Yes Condition: Fair Referrals: [facility] [Primary Care Provider] - 3-5 Days Time of Disposition: 22:36 (Hospitalist notified (Dr Sprague)) Heart Score - HEART Score History: Slightly suspicious EKG: Non-specific Age: 45-65 Risk factors: 1-2 risk factors Troponin: < normal limit HEART Score: 3 - EKG Read Time Time EKG Completed: 22:30 EKG Read Time: 22:35
[2021-08-13 22:04] LABS: ABG Base Excess -1.5 mmol/L (-2.0-3.0); ABG HCO3 22.2 mmol/L (20.0-26.0); ABG Methemoglobin 0.5 % (0.0-1.5); ABG Oxygen Saturation 99.6 % (95.0-99.0); ABG PCO2 34.6 mm Hg; ABG PH 7.426 pH Units (7.350-7.450)
[2021-08-13 22:05] LABS: ABG PO2 387.9 mm Hg (80.0-90.0)
[2021-08-13] MEDS ORDERED: DEXTROSE 50% IN WATER (25GM) 50 ML SYRINGE IV PRN (23:23)
[2021-08-13] MEDS ORDERED: ONDANSETRON 4 MG/2 ML INJ IV PRN (23:23)
[2021-08-13] MEDS ORDERED: MAGNESIUM HYDROXIDE (MOM) ORAL LIQD UDC PO PRN (23:23)
[2021-08-13] MEDS ORDERED: MORPHINE 4 MG/1 ML INJ IV PRN (23:23)
[2021-08-13] MEDS ORDERED: MORPHINE 2 MG/1 ML INJ IV PRN (23:23)
[2021-08-13] MEDS ORDERED: ACETAMINOPHEN 325 MG TAB PO PRN (23:23)
--- NOTE | 2021-08-13 23:34 | History and Physical Report ---
History of Present Illness Date of examination: 08/13/21 Date of admission: 08/13/21 22:49 Chief complaint: Shortness of Breath Lower Extremity edema History of present illness: 45-year-old male with known history of hypertension, CHF, diabetes mellitus, hyperlipidemia and history of coronary artery disease with MT in the past presenting to the emergency room today complaining of shortness of breath. Shortness of breath was said to have started about a week ago and has gotten progressively worse in the last few days. He has also complained of progressive swelling of his lower extremities. He has had some mild cough which is nonproductive. Patient denies any fever or chills, no chest pain, no nausea vomiting and no abdominal pain. He denies any sick contacts and no recent travel. Denies any contact with anyone with COVID-19. Patient has been fully vaccinated against COVID-19. Work-up in the emergency room today, labs shows a BNP of 2206, chest x-ray shows no acute findings. EKG shows no significant abnormalities. Past History Past Medical History: acute MT, diabetes, heart failure, hypertension, hyperli pidemia, stroke Past Surgical History: Other (Tonsillectomy, incision and drainage axillary abscess) Social history: no significant social history Family history: no significant family history Medications and Allergies Allergies Allergy/AdvReac Type Severity Reaction Status Date / Time No Known Allergies Allergy Verified 07/30/21 10:18 Home Medications Medication Instructions Recorded Confirmed Last Taken Type AtorvaSTATin [Lipitor] 40 mg PO QHS #30 tablet 03/13/21 08/14/21 07/29/21 Rx Metoprolol Xl [Metoprolol 100 mg PO QDAY #60 tablet 03/13/21 08/14/21 07/29/21 Rx SUCCINATE ER TAB] Rivaroxaban [Xarelto] 20 mg PO DAILY #30 03/13/21 08/14/21 07/29/21 Rx Insulin Aspart (Nf) [NovoLOG 10 units SQ TIDAC 07/30/21 08/14/21 07/29/21 History Flexpen] Insulin Glargine [Lantus VIAL] 35 units SUB-Q QDAY 07/30/21 08/14/21 07/29/21 History Sacubitril/Valsartan [Entresto 1 each PO BID 07/30/21 08/14/21 07/29/21 History 49-51 mg] Torsemide [Demadex] 100 mg PO BID 07/30/21 08/14/21 07/29/21 History Active Meds: Active Medications Acetaminophen (Acetaminophen 325 Mg Tab) 650 mg PO Q4H PRN PRN Reason: Pain MILD(1-3)/Fever >100.5/HERNANDEZ Dextrose (Dextrose 50% In Water (25gm) 50 Ml Syringe) 50 ml IV Q30MIN PRN; Protocol PRN Reason: Hypoglycemia Dextrose (Dextrose 50% In Water (25gm) 50 Ml Syringe) 50 ml IV Q30MIN PRN; Protocol PRN Reason: Hypoglycemia Furosemide (Furosemide 40 Mg/4 Ml Inj) 40 mg IV BID@0600,1800 DELTA Insulin Human Lispro (Insulin Lispro 100 Unit/Ml) 0 unit SUB-Q ACHS DELTA; Protocol Magnesium Hydroxide (Magnesium Hydroxide (Mom) Oral Liqd Udc) 30 ml PO Q4H PRN PRN Reason: Constipation Morphine Sulfate (Morphine 2 Mg/1 Ml Inj) 2 mg IV Q4H PRN PRN Reason: Pain, Moderate (4-6) Morphine Sulfate (Morphine 4 Mg/1 Ml Inj) 4 mg IV Q4H PRN PRN Reason: Pain , Severe (7-10) Ondansetron HCl (Ondansetron 4 Mg/2 Ml Inj) 4 mg IV Q8H PRN PRN Reason: Nausea And Vomiting Sodium Chloride (Sodium Chloride 0.9% 10 Ml Flush Syringe) 10 ml IV BID [facility] Sodium Chloride (Sodium Chloride 0.9% 10 Ml Flush Syringe) 10 ml IV PRN PRN PRN Reason: LINE FLUSH Review of Systems Constitutional: no fever, no chills Ears, nose, mouth and throat: no nasal congestion, no sore throat Cardiovascular: no chest pain, no palpitations Respiratory: cough, shortness of breath Gastrointestinal: no abdominal pain, no nausea, no vomiting, no diarrhea Genitourinary Male: no dysuria, no hematuria, no flank pain, no nocturia Musculoskeletal: no neck pain, no low back pain Integumentary: no rash, no pruritis Neurological: no headaches, no confusion Psychiatric: no anxiety, no depression Endocrine: no polyphagia, no polydipsia, no polyuria, no nocturia Exam - Constitutional Vitals: Temp Pulse Resp BP Pulse Ox 112 H 35 H 127/85 97 10/28/21 23:00 08/13/21 23:00 08/13/21 23:00 08/13/21 23:00 General appearance: Present: mild distress, well-nourished, obese - EENT Eyes: Present: PERRL, EOM intact. Absent: scleral icterus ENT: hearing intact, clear oral mucosa, dentition normal - Neck Neck: Present: supple, normal ROM - Respiratory Respiratory effort: normal Respiratory: bilateral: CTA - Cardiovascular Rhythm: regular Heart Sounds: Present: S1 & S2. Absent: gallop, systolic murmur, diastolic murmur, rub, click - Extremities Extremities: no ischemia, pulses intact, pulses symmetrical, normal temperature, normal color, Full ROM Extremity abnormal: edema (2+ bilateral lower extremity edema) Peripheral Pulses: within normal limits - Abdominal General gastrointestinal: Present: soft, non-tender, non-distended, normal bowel sounds. Absent: mass - Integumentary Integumentary: Present: clear, warm, dry, normal turgor. Absent: rash - Musculoskeletal Musculoskeletal: strength equal bilaterally - Psychiatric Psychiatric: appropriate mood/affect, intact judgment & insight, memory intact, cooperative - Neurologic Neurologic: CNII-XII intact, no focal deficits, moves all extremities HEART Score - HEART Score EKG: Non-specific Age: 45-65 Risk factors: 1-2 risk factors Troponin: Troponin T 0.024 ng/mL (0.00-0.029) 08/13/21 20:59 Troponin: < normal limit Results - Labs CBC & Chem 7: 08/13/21 20:59 08/14/21 04:58 Labs: Abnormal lab results 08/13/21 08/13/21 08/13/21 Range/Units 20:59 20:59 20:59 RBC 6.69 H (3.65-5.03) M/mm3 Hgb 15.4 H (11.8-15.2) gm/dl Hct 50.7 H (35.5-45.6) % MCV 76 L (84-94) fl MCH 23 L (28-32) pg MCHC 30 L (32-34) % RDW 17.2 H (13.2-15.2) % PT 15.1 H (12.2-14.9) Sec. ABG pO2 (80.0-90.0) mm Hg ABG O2 Saturation (95.0-99.0) % Glucose 61 L (75-100) mg/dL Total Bilirubin 2.40 H (0.1-1.2) mg/dL Alkaline Phosphatase 172 H (35-129) units/L CK-MB (CK-2) 5.9 H (0.0-4.0) ng/mL CK-MB (CK-2) Rel Index 4.1 H (0-4) NT-Pro-B Natriuret Pep 2206 H (0-450) pg/mL Albumin 3.5 L (3.9-5) g/dL 08/13/21 Range/Units 21:00 RBC (3.65-5.03) M/mm3 Hgb (11.8-15.2) gm/dl Hct (35.5-45.6) % MCV (84-94) fl MCH (28-32) pg MCHC (32-34) % RDW (13.2-15.2) % PT (12.2-14.9) Sec. ABG pO2 387.9 H (80.0-90.0) mm Hg ABG O2 Saturation 99.6 H (95.0-99.0) % Glucose (75-100) mg/dL Total Bilirubin (0.1-1.2) mg/dL Alkaline Phosphatase (35-129) units/L CK-MB (CK-2) (0.0-4.0) ng/mL CK-MB (CK-2) Rel Index (0-4) NT-Pro-B Natriuret Pep (0-450) pg/mL Albumin (3.9-5) g/dL Assessment and Plan - Patient Problems (1) CHF exacerbation Current Visit: Yes Status: Acute Plan to address problem: Patient admitted and placed on telemetry. We will check inputs and outputs and also monitor daily weight. Patient commenced on diuretics. Patient scheduled for echocardiogram. Consult placed to cardiology for further evaluation and recommendations. (2) Dyslipidemia Current Visit: No Status: Acute Plan to address problem: We will resume routine home medications and monitor lipid profile. (3) HTN (hypertension) Current Visit: No Status: Acute Plan to address problem: We will continue routine home medications and monitor vital signs closely. (4) Diabetes Current Visit: No Status: Chronic Plan to address problem: Patient placed on sliding scale insulin. We will monitor Accu-Cheks. (5) DVT prophylaxis Current Visit: No Status: Acute Plan to address problem: Patient placed on subcutaneous heparin. (6) Full code status Current Visit: Yes Status: Acute Plan to address problem: Patient is full code
[2021-08-14 05:49] LABS: INR 1.18 (0.87-1.13)
[2021-08-14 05:54] LABS: BUN/Creatinine Ratio 16; Blood Urea Nitrogen 19 mg/dL (9-20); Calcium 9.1 mg/dL (8.4-10.2); Hemolysis Index 4
[2021-08-14] MEDS ORDERED: FUROSEMIDE 40 MG/4 ML INJ IV SCH (06:00)
[2021-08-14 06:57] LABS: Eosinophils # (Auto) 0.1 K/mm3 (0.0-0.4); Eosinophils % (Auto) 1.1 % (0.0-4.3); Mean Corpuscular HGB Conc 30 % (32-34); Mean Corpuscular Volume 74 fl (84-94); Monocytes # (Auto) 0.6 K/mm3 (0.0-0.8); Monocytes % (Auto) 7.5 % (0.0-7.3); Red Blood Count 5.84 M/mm3 (3.65-5.03)
[2021-08-14 06:58] LABS: Hematocrit 43.4 % (35.5-45.6); Hemoglobin 13.1 gm/dl (11.8-15.2)
[2021-08-14 06:59] LABS: Lymphocytes % (Auto) 21.7 % (13.4-35.0)
[2021-08-14 07:00] LABS: Basophils % (Auto) 0.4 % (0.0-1.8); Lymphocytes # (Auto) 1.7 K/mm3 (1.2-5.4)
[2021-08-14] MEDS: INSULIN LISPRO 100 UNIT/ML SUB-Q SCH ×2 (09:21→12:40)
--- NOTE | 2021-08-14 09:39 | Progress Note ---
Assessment and Plan Assessment and plan: (1) CHF exacerbation Current Visit: Yes Status: Acute Plan to address problem: Patient admitted and placed on telemetry. We will check inputs and outputs and also monitor daily weight. Patient commenced on diuretics. Patient scheduled for echocardiogram. Consult placed to cardiology for further evaluation and recommendations. (2) Dyslipidemia Current Visit: No Status: Acute Plan to address problem: We will resume routine home medications and monitor lipid profile. (3) HTN (hypertension) Current Visit: No Status: Acute Plan to address problem: We will continue routine home medications and monitor vital signs closely. (4) Diabetes Current Visit: No Status: Chronic Plan to address problem: Patient placed on sliding scale insulin. We will monitor Accu-Cheks. (5) DVT prophylaxis Current Visit: No Status: Acute Plan to address problem: Patient placed on subcutaneous heparin. (6) Full code status Current Visit: Yes Status: Acute Plan to address problem: Patient is full code Hospitalist Physical - Constitutional Vitals: Temp Pulse Resp BP Pulse Ox 98.3 F 109 H 20 122/87 100 08/14/21 08:13 08/14/21 08:13 08/14/21 08:13 08/14/21 08:13 08/14/21 08:13 General appearance: Present: mild distress, well-nourished, obese HEART Score - HEART Score EKG: Non-specific Age: 45-65 Risk factors: 1-2 risk factors Troponin: Troponin T 0.024 ng/mL (0.00-0.029) 08/13/21 20:59 Troponin: < normal limit Results - Labs CBC & Chem 7: 08/14/21 04:58 08/14/21 04:58 Labs: Laboratory Last Values WBC 7.9 K/mm3 (4.5-11.0) 08/14/21 04:58 RBC 5.84 M/mm3 (3.65-5.03) H 08/14/21 04:58 Hgb 13.1 gm/dl (11.8-15.2) 08/14/21 04:58 Hct 43.4 % (35.5-45.6) D 08/14/21 04:58 MCV 74 fl (84-94) L 08/14/21 04:58 MCH 23 pg (28-32) L 08/14/21 04:58 MCHC 30 % (32-34) L 08/14/21 04:58 RDW 17.0 % (13.2-15.2) H 08/14/21 04:58 Plt Count 180 K/mm3 (140-440) 08/13/21 20:59 Lymph % (Auto) 21.7 % (13.4-35.0) 08/14/21 04:58 [place] % (Auto) 7.5 % (0.0-7.3) H 08/14/21 04:58 Eos % (Auto) 1.1 % (0.0-4.3) 08/14/21 04:58 Baso % (Auto) 0.4 % (0.0-1.8) 08/14/21 04:58 Lymph # (Auto) 1.7 K/mm3 (1.2-5.4) 08/14/21 04:58 [place] # (Auto) 0.6 K/mm3 (0.0-0.8) 08/14/21 04:58 Eos # (Auto) 0.1 K/mm3 (0.0-0.4) 08/14/21 04:58 Baso # (Auto) 0.0 K/mm3 (0.0-0.1) 08/14/21 04:58 Seg Neutrophils % 69.3 % (40.0-70.0) 08/14/21 04:58 Seg Neutrophils # 5.5 K/mm3 (1.8-7.7) 08/14/21 04:58 PT 16.3 Sec. (12.2-14.9) H 08/14/21 04:58 INR 1.18 (0.87-1.13) H 08/14/21 04:58 ABG pH 7.426 pH Units (7.350-7.450) 08/13/21 21:00 ABG pCO2 34.6 mm Hg 08/13/21 21:00 ABG pO2 387.9 mm Hg (80.0-90.0) H 08/13/21 21:00 ABG HCO3 22.2 mmol/L (20.0-26.0) 08/13/21 21:00 ABG O2 Saturation 99.6 % (95.0-99.0) H 08/13/21 21:00 ABG O2 Content 21.0 (0.0-44) 08/13/21 21:00 ABG Base Excess -1.5 mmol/L (-2.0-3.0) 08/13/21 21:00 ABG Hemoglobin 14.6 gm/dl (14.0-18.0) 08/13/21 21:00 ABG Carboxyhemoglobin 1.5 % (0.0-5.0) 08/13/21 21:00 ABG Methemoglobin 0.5 % (0.0-1.5) 08/13/21 21:00 Oxyhemoglobin 97.6 % (95.0-99.0) 08/13/21 21:00 FiO2 85 % 08/13/21 21:00 Sodium 141 mmol/L (137-145) 08/14/21 04:58 Potassium 3.9 mmol/L (3.6-5.0) 08/14/21 04:58 Chloride 103.7 mmol/L (98-107) 08/14/21 04:58 Carbon Dioxide 24 mmol/L (22-30) 08/14/21 04:58 Anion Gap 17 mmol/L 08/14/21 04:58 BUN 19 mg/dL (9-20) 08/14/21 04:58 Creatinine 1.2 mg/dL (0.8-1.3) 08/14/21 04:58 Estimated GFR > 60 ml/min 08/14/21 04:58 BUN/Creatinine Ratio 16 % 08/14/21 04:58 Glucose 86 mg/dL (75-100) 08/14/21 04:58 POC Glucose 112 mg/dL (70-105) H 08/14/21 08:49 Calcium 9.1 mg/dL (8.4-10.2) 08/14/21 04:58 Total Bilirubin 2.40 mg/dL (0.1-1.2) H 08/13/21 20:59 AST 26 units/L (5-40) 08/13/21 20:59 ALT 35 units/L (7-56) 08/13/21 20:59 Alkaline Phosphatase 172 units/L (35-129) H 08/13/21 20:59 Total Creatine Kinase 142 units/L (55-170) 08/13/21 20:59 CK-MB (CK-2) 5.9 ng/mL (0.0-4.0) H 08/13/21 20:59 CK-MB (CK-2) Rel Index 4.1 (0-4) H 08/13/21 20:59 Troponin T 0.024 ng/mL (0.00-0.029) 08/13/21 20:59 NT-Pro-B Natriuret Pep 2206 pg/mL (0-450) H 08/13/21 20:59 Total Protein 7.3 g/dL (6.3-8.2) 08/13/21 20:59 Albumin 3.5 g/dL (3.9-5) L 08/13/21 20:59 Albumin/Globulin Ratio 0.9 % 08/13/21 20:59 Arthur/IV: Voiding Method Urinal Active Medications - Current Medications Current Medications: Generic Name Dose Route Start Last Admin Trade Name Freq PRN Reason Stop Dose Admin Acetaminophen 650 mg 08/13/21 23:23 Acetaminophen 325 Mg Tab PO Q4H PRN Pain MILD(1-3)/Fever >100.5/HERNANDEZ Dextrose 50 ml 08/13/21 23:23 08/13/21 23:37 Dextrose 50% In Water (25gm) 50 Ml Syringe IV 50 ml Q30MIN PRN Administration Hypoglycemia Protocol Furosemide 40 mg 08/14/21 06:00 08/14/21 06:41 Furosemide 40 Mg/4 Ml Inj IV 40 mg BID@0600,1800 [facility] Administration Insulin Human Lispro 0 unit 08/14/21 07:30 08/14/21 09:21 Insulin Lispro 100 Unit/Ml SUB-Q Not Given ACHS [facility] Protocol Magnesium Hydroxide 30 ml 08/13/21 23:23 Magnesium Hydroxide (Mom) Oral Liqd Udc PO Q4H PRN Constipation Morphine Sulfate 2 mg 08/13/21 23:23 Morphine 2 Mg/1 Ml Inj IV Q4H PRN Pain, Moderate (4-6) Morphine Sulfate 4 mg 08/13/21 23:23 Morphine 4 Mg/1 Ml Inj IV Q4H PRN Pain , Severe (7-10) Ondansetron HCl 4 mg 08/13/21 23:23 Ondansetron 4 Mg/2 Ml Inj IV Q8H PRN Nausea And Vomiting Sodium Chloride 10 ml 08/14/21 10:00 Sodium Chloride 0.9% 10 Ml Flush Syringe IV BID [facility] Sodium Chloride 10 ml 08/13/21 23:23 08/14/21 06:42 Sodium Chloride 0.9% 10 Ml Flush Syringe IV 10 ml PRN PRN Administration LINE FLUSH
[2021-08-14 10:28] LABS: Platelet Count 158 K/mm3 (140-440)
[2021-08-14 12:26] VITALS: BP 109/86
--- NOTE | 2021-08-14 13:24 | Consultation ---
History of Present Illness Consult date: 08/14/21 Consult reason: congestive heart failure History of present illness: The patient is a 45-year-old man with a history of longstanding, severe nonischemic cardiomyopathy and chronic systolic heart failure. He receives his usual care at the [facility]. We saw him in this hospital just 5 months ago, for acute on chronic exacerbation of systolic heart failure. He was treated with intravenous diuretics, a course of intravenous milrinone, improved and was discharged for outpatient follow-up. We also fitted him with a LifeVest on discharge. His left ventricular systolic ejection fraction has been historically between 10 and 20%. He presents for follow-up at this time with increasing shortness of breath and fatigue. His chest x-ray shows mild interstitial edema. He states that he is fully compliant with his medications and also compliant with recommended dietary salt restrictions. With regards to his outpatient follow-up he, he states that he has been seen at the [facility] several times since his last admission to the [facility], and there are ongoing discussions about primary ICD implant. With regards to his LifeVest, he states that his doctors at the [facility] recommended against continued LifeVest monitoring, and it was returned to the company. The reasons for discontinuation of LifeVest monitoring and not clear, his records are not available for review. In addition to his chronic systolic left ventricular failure, he is on oral anticoagulation for venous thromboembolism. On the current presentation, his ECG is normal sinus rhythm with nonspecific T wave changes. Chest x-ray reported shows a moderate to severe cardiomegaly, with very mild interstitial edema. Past History Past Medical History: acute CA, diabetes, heart failure, hypertension, hyperlipidemia, stroke Past Surgical History: Other (Tonsillectomy, incision and drainage axillary abscess) Social history: no significant social history Family history: no significant family history Medications and Allergies Allergies Allergy/AdvReac Type Severity Reaction Status Date / Time No Known Allergies Allergy Verified 07/30/21 10:18 Home Medications Medication Instructions Recorded Confirmed Last Taken Type AtorvaSTATin [Lipitor] 40 mg PO QHS #30 tablet 03/13/21 08/14/21 07/29/21 Rx Metoprolol Xl [Metoprolol 100 mg PO QDAY #60 tablet 03/13/21 08/14/21 07/29/21 Rx SUCCINATE ER TAB] Rivaroxaban [Xarelto] 20 mg PO DAILY #30 0508/14/21 07/29/21 Rx Insulin Aspart (Nf) [NovoLOG 10 units SQ TIDAC 07/30/21 08/14/21 07/29/21 History Flexpen] Insulin Glargine [Lantus VIAL] 35 units SUB-Q QDAY 07/30/21 08/14/21 07/29/21 History Sacubitril/Valsartan [Entresto 1 each PO BID 07/30/21 08/14/21 07/29/21 History 49-51 mg] Torsemide [Demadex] 100 mg PO BID 07/30/21 08/14/21 07/29/21 History Active Meds: Active Medications Acetaminophen (Acetaminophen 325 Mg Tab) 650 mg PO Q4H PRN PRN Reason: Pain MILD(1-3)/Fever >100.5/HERNANDEZ Dextrose (Dextrose 50% In Water (25gm) 50 Ml Syringe) 50 ml IV Q30MIN PRN; Protocol PRN Reason: Hypoglycemia Last Admin: 08/13/21 23:37 Dose: 50 ml Documented by: Furosemide (Furosemide 40 Mg/4 Ml Inj) 40 mg IV BID@0600,1800 DELTA Last Admin: 08/14/21 06:41 Dose: 40 mg Documented by: Insulin Human Lispro (Insulin Lispro 100 Unit/Ml) 0 unit SUB-Q ACHS [facility]; Protocol Last Admin: 08/14/21 12:40 Dose: Not Given Documented by: Magnesium Hydroxide (Magnesium Hydroxide (Mom) Oral Liqd Udc) 30 ml PO Q4H PRN PRN Reason: Constipation Morphine Sulfate (Morphine 2 Mg/1 Ml Inj) 2 mg IV Q4H PRN PRN Reason: Pain, Moderate (4-6) Morphine Sulfate (Morphine 4 Mg/1 Ml Inj) 4 mg IV Q4H PRN PRN Reason: Pain , Severe (7-10) Ondansetron HCl (Ondansetron 4 Mg/2 Ml Inj) 4 mg IV Q8H PRN PRN Reason: Nausea And Vomiting Sodium Chloride (Sodium Chloride 0.9% 10 Ml Flush Syringe) 10 ml IV BID [facility] Sodium Chloride (Sodium Chloride 0.9% 10 Ml Flush Syringe) 10 ml IV PRN PRN PRN Reason: LINE FLUSH Last Admin: 08/14/21 06:42 Dose: 10 ml Documented by: Review of Systems Cardiovascular: orthopnea, edema, shortness of breath, no chest pain, no palpitations, no rapid/irregular heart beat, no syncope, no lightheadedness Physical Examination Vital Signs Pulse Resp Pulse Ox 117 H 15 100 08/13/21 19:07 08/13/21 19:07 08/13/21 19:07 General appearance: no acute distress, other (Appears lethargic) HEENT: Positive: PERRL Neck: Positive: neck supple Cardiac: Positive: Reg Rate and Rhythm Lungs: Positive: Decreased Breath Sounds Neuro: Positive: Grossly Intact Abdomen: Positive: Soft Skin: Positive: Clear Extremities: Present: +1 Edema Results 08/14/21 04:58 08/14/21 04:58 Cardiac Enzymes 08/13/21 Range/Units 20:59 AST 26 (5-40) units/L CK-MB (CK-2) 5.9 H (0.0-4.0) ng/mL Coagulation 08/13/21 08/14/21 Range/Units 20:59 04:58 PT 15.1 H 16.3 H (12.2-14.9) Sec. INR 1.07 1.18 H (0.87-1.13) CBC 08/13/21 08/14/21 Range/Units 20:59 04:58 WBC 9.0 7.9 (4.5-11.0) K/mm3 RBC 6.69 H 5.84 H (3.65-5.03) M/mm3 Hgb 15.4 H 13.1 (11.8-15.2) gm/dl Hct 50.7 H 43.4 D (35.5-45.6) % Plt Count 180 158 (140-440) K/mm3 Lymph # (Auto) 2.1 1.7 (1.2-5.4) K/mm3 [place] # (Auto) 0.6 0.6 (0.0-0.8) K/mm3 Eos # (Auto) 0.1 0.1 (0.0-0.4) K/mm3 Baso # (Auto) 0.0 0.0 (0.0-0.1) K/mm3 Comprehensive Metabolic Panel 08/13/21 08/14/21 Range/Units 20:59 04:58 Sodium 141 141 (137-145) mmol/L Potassium 4.3 3.9 (3.6-5.0) mmol/L Chloride 104.0 103.7 (98-107) mmol/L Carbon Dioxide 25 24 (22-30) mmol/L BUN 18 19 (9-20) mg/dL Creatinine 1.3 1.2 (0.8-1.3) mg/dL Glucose 61 L 86 (75-100) mg/dL Calcium 9.4 9.1 (8.4-10.2) mg/dL AST 26 (5-40) units/L ALT 35 (7-56) units/L Alkaline Phosphatase 172 H (35-129) units/L Total Protein 7.3 (6.3-8.2) g/dL Albumin 3.5 L (3.9-5) g/dL EKG interpretations - Telemetry EKG Rhythm: Sinus Rhythm Assessment and Plan - Patient Problems (1) Acute on chronic systolic heart failure Current Visit: No Status: Acute Plan to address problem: In addition to intravenous diuretics, we will add a trial of intravenous m ilrinone. Aggressive treatment of acute on chronic systolic heart failure.
[2021-08-14] MEDS ORDERED: MILRINONE-D5W 20 MG/100 ML 20 MG/100 ML BAG IV SCH (14:00)
--- NOTE | 2021-08-14 14:14 | Electrocardiograph Report ---
[facility] Test Date: 2021-08-13 Test Time: 22:30:34 Pat Name: SOO DEAN Department: Room: A475 1 Gender: M Claims Manager: : 1975 Requested By: JULIO RAMIREZ Order Number: [id number] Reading MD: Rob Batres Measurements Intervals [place] Rate: 112 P: 67 ME: 178 QRS: -22 QRSD: 82 T: 147 QT: 350 QTc: 478 Interpretive Statements Sinus tachycardia Probable left atrial enlargement Left axis deviation Nonspecific T abnormalities, lateral leads Compared to ECG 07/30/2021 05:43:25 No significant changes Electronically Signed On 08-14-2021 14:14:33 EDT by Rob Batres
[2021-08-14] MEDS ORDERED: ASPIRIN EC 81 MG TAB PO SCH (15:00)
[2021-08-14] MEDS ORDERED: SPIRONOLACTONE 25 MG TAB PO SCH (15:00)
[2021-08-14] MEDS ORDERED: SACUBITRIL/VALSARTAN 49-51 MG TAB PO SCH (15:00)
[2021-08-14] MEDS ORDERED: carvediloL 6.25 MG TAB PO SCH (15:00)
--- NOTE | 2021-08-14 16:52 | Discharge Summary ---
Providers - Providers Date of Admission: 08/14/21 09:30 Date of discharge: 08/14/21 Attending physician: KRISTINA HERNANDEZ 08/13/21 23:23 Consult to Physician [CONS] Routine Comment: Consulting Provider: ANDI CHAVEZ Physician Instructions: Reason For Exam: CHF Exac. 08/13/21 23:24 Consult to Dietitian/Nutrition [CONS] Routine Physician Instructions: Reason For Exam: Reason for Consult: Diet education Primary care physician: [facility] Hospitalization Reason for admission: Shortness of Breath/acute on chronic systolic congestive heart failure Condition: Fair Pertinent studies: Chest x-ray Hospital course: 45-year-old male with known history of hypertension, CHF, diabetes mellitus, hyperlipidemia and history of coronary artery disease with [place] in the past presenting to the emergency room today complaining of shortness of breath. Shortness of breath was said to have started about a week ago and has gotten progressively worse in the last few days. He has also complained of progressive swelling of his lower extremities. He has had some mild cough which is nonproductive. Patient denies any fever or chills, no chest pain, no nausea vomiting and no abdominal pain. He denies any sick contacts and no recent travel. Denies any contact with anyone with COVID-19. Patient has been fully vaccinated against COVID-19. Work-up in the emergency room today, labs shows a BNP of 2206, chest x-ray shows no acute findings. EKG shows no significant abnormalities. Patient was admitted evaluated by cardiology started on milrinone drip, medications optimized. However patient did not want to stay for the completion of treatment, and wanted to leave AGAINST MEDICAL ADVICE. All caregivers counseled the patient the importance of completing the treatment and tests and consequences of leaving AGAINST MEDICAL ADVICE Patient verbalized understanding sinus repeat pulse and left AMA Patient encouraged to go to the nearest emergency room should he have worsening symptoms Patient left AMA Discharge diagnosis: --Acute on chronic systolic CHF EF 15 to 20% Current Visit: Yes Status: Acute Continue antifailure medications diuretics, beta-blockers, GARCÍA inhibitors Input output monitoring, fluid restriction, low-sodium diet Cardiology evaluation noted and appreciated Recommended milrinone drip --Dyslipidemia Current Visit: No Status: Acute Low-cholesterol diet and lipid-lowering medications --HTN (hypertension) moderate control Current Visit: No Status: Acute Continue current antihypertensives and as needed medications --Type II diabetes Current Visit: No Status: Chronic Accu-Chek , sliding scale coverage , ADA diet Long-acting insulin as needed , check hemoglobin A1c if not done last 6 months Diabetic education , nutrition education if needed Possible home health nurse for disease monitoring at discharge --DVT prophylaxis Current Visit: No Status: Acute Patient placed on subcutaneous heparin. --Full code status Current Visit: Yes Status: Acute Patient is full code Patient left AMA Disposition: LEFT AGAINST MEDICAL ADVICE Final Discharge Diagnosis (Prints w/discharge instructions): acute on chronic systolic congestive heart failure. severe cardiomyopathy EF 15 to 20%. Dyslipidemia. Hypertension. Type 2 diabetes mellitus Core Measure Documentation - Palliative Care Palliative Care/ Comfort Measures: Not Applicable - Core Measures Any of the following diagnoses?: heart failure - Heart Failure Discharge Requirements GARCÍA/ARB for LVSD if EF <40%: Not Applicable Reason for no GARCÍA/ARB: Patient refusal (Patient left AMA) Beta ruddy at discharge: No Reason for no beta ruddy on DC: Patient refusal (Left AMA) Exam - Constitutional Vitals: Temp Pulse Resp BP Pulse Ox 97.3 F L 109 H 20 109/86 100 08/14/21 11:08 08/14/21 11:08 08/14/21 11:08 08/14/21 11:08 08/14/21 11:08 Plan Follow up with: [facility] [Primary Care Provider] - 3-5 Days Forms: AMA Form
[2021-08-15] MEDS ORDERED: FLU VACC QUAD 2021-22(6MOS UP)/PF 60 MCG/0.5 ML SYRINGE IM ONE (12:00)
== END 2021-08-14 14:20 | disposition left against medical advice (07) | DRG 291 ==
LOC: ED 18:32 → 4A 22:49 → OBSVTOIN 08-14 09:30
PROVIDERS: ADMIT Internal Medicine Geriatric Medicine; ATTEND Internal Medicine
PROC: 4A033R1 Measurement of Arterial Saturation, Peripheral, Percutaneous Approach (ICD-10-PCS; principal; 2021-08-13)
DX: I11.0 Hypertensive heart disease with heart failure (principal); I50.23 Acute on chronic systolic (congestive) heart failure; E11.9 Type 2 diabetes mellitus without complications; E78.5 Hyperlipidemia, unspecified; I25.10 Atherosclerotic heart disease of native coronary artery without angina pectoris; I25.2 Old myocardial infarction; Z86.73 Personal history of transient ischemic attack (TIA), and cerebral infarction without residual deficits
CPT/HCPCS: 36415; 36600; 71045; 80048; 80053; 82550; 82553; 82803; 82962; 83880; 84484; 85025; 85610; 93005; G0378; J1940

== ENCOUNTER 2021-08-25 08:39 | Inpatient (IN) | payer OTHER ==
[2021-08-25] MEDS ORDERED: FUROSEMIDE 40 MG/4 ML INJ IV ONE (10:01)
--- NOTE | 2021-08-25 10:03 | Event Note ---
ED Screening Note ED Screening Note: A/C HF SOB JUST D/C EF 10 CHARGE NURSE YAZMIN AWARE OF NEED FOR BED This initial assessment/diagnostic orders/clinical plan/treatment(s) is/are subject to change based on patients health status, clinical progression and re- assessment by fellow clinical providers in the ED. Further treatment and workup at subsequent clinical providers discretion. Patient/guardian urged not to elope from the ED as their condition may be serious if not clinically assessed and managed. Initial orders include: CHF WORK UP/LASIX
[2021-08-25] MEDS ORDERED: FUROSEMIDE 100 MG/10 ML INJ IV ONE (10:19)
--- NOTE | 2021-08-25 10:44 | Emergency Department Report ---
HPI - General Chief Complaint: Dyspnea/Respdistress Time Seen by Provider: 08/25/21 10:00 - HPI HPI: MSE 4 The patient is a 45-year-old male present with a chief complaint of shortness of breath. The patient states since his discharge from this hospital approximately 1 week ago he has had a gradual increase of bilateral lower extremity edema and worsening shortness of breath. The patient states he has been compliant with his torsemide taking it twice daily. Patient states he continues have his chronic intermittent chest pain associated with nausea/vomiting. Patient admits to cough occasionally productive of clear sputum for the past few days. Patient denies history of fever. Patient states he has been vaccinated against Covid ED Past Medical Hx - Past Medical History Hx Hypertension: Yes Hx CVA: Yes (TIA's right side weakness) Hx Heart Attack/AMI: Yes Hx Congestive Heart Failure: Yes Hx Diabetes: Yes Additional medical history: Hyperlipidemia - Surgical History Additional Surgical History: Tonsillectomy, incision and drainage axillary abscess - Family History Family history: no significant - Social History Smoking Status: Never Smoker Substance Use Type: None - Medications Home Medications: Home Medications Medication Instructions Recorded Confirmed Last Taken Type AtorvaSTATin [Lipitor] 40 mg PO QHS #30 tablet 03/13/21 08/14/21 07/29/21 Rx Metoprolol Xl [Metoprolol 100 mg PO QDAY #60 tablet 03/13/21 08/14/21 07/29/21 Rx SUCCINATE ER TAB] Rivaroxaban [Xarelto] 20 mg PO DAILY #30 03/13/21 08/14/21 07/29/21 Rx Insulin Aspart (Nf) [NovoLOG 10 units SQ TIDAC 07/30/21 08/14/21 07/29/21 History Flexpen] Insulin Glargine [Lantus VIAL] 35 units SUB-Q QDAY 07/30/21 08/14/21 07/29/21 History Sacubitril/Valsartan [Entresto 1 each PO BID 07/30/21 08/14/21 07/29/21 History 49-51 mg] Torsemide [Demadex] 100 mg PO BID 07/30/21 08/14/21 07/29/21 History ED Review of Systems ROS: Stated complaint: CHEST PAIN/SHORTNESS OF BREATH Other details as noted in HPI Constitutional: denies: fever Eyes: denies: eye pain ENT: denies: throat pain Respiratory: cough, shortness of breath, SOB with exertion Cardiovascular: chest pain Endocrine: no symptoms reported Gastrointestinal: denies: abdominal pain Genitourinary: denies: dysuria Musculoskeletal: denies: back pain Neurological: denies: headache Physical Exam - Physical Exam Physical Exam: GENERAL: The patient is well-developed well-nourished male sitting in chair appearing fatigued but in no acute distress HEENT: Normocephalic. Atraumatic. Extraocular motions are intact. Patient has moist mucous membranes. NECK: Supple. Trachea midline CHEST/LUNGS: No rhonchi or crackles auscultated. HEART/CARDIOVASCULAR: Regular. There is no tachycardia. There is no gallop rub or murmur. ABDOMEN: Abdomen is soft, nontender. Patient has normal bowel sounds. There is no abdominal distention. SKIN: There is no rash. There is 2-3+ bilateral lower extremity pitting edema. There is no diaphoresis. NEURO: The patient is awake, alert, and oriented. The patient is cooperative. The patient has no focal neurologic deficits. The patient has normal speech MUSCULOSKELETAL: There is no evidence of acute injury. ED Medical Decision Making - Lab Data Result diagrams: 08/25/21 10:04 08/25/21 10:04 - EKG Data -: EKG Interpreted by Me EKG shows normal: sinus rhythm Rate: tachycardia (111 bpm) - EKG Data When compared to previous EKG there are: previous EKG unavailable Interpretation: nonspecific ST-T wave junaid - Radiology Data Radiology results: report reviewed (Chest x-ray), image reviewed (Chest x-ray) interpreted by me: Chest [id number]. No definite focal infiltrates. No pneumothorax. No pleural effusions appreciated [facility] [address] [place] [address] XRay Report Signed Patient: SOO DEAN MR#: [id number] : 1975 Acct:[id number] Age/Sex: 45 / M ADM Date: 08/25/21 Loc: ED Attending Dr: Ordering Physician: МАРИЯ PERES MD Date of Service: 08/25/21 Procedure(s): XR chest 1V ap Accession Number(s): [id number] cc: МАРИЯ PERES MD Fluoro Time In Minutes: CHEST 1 VIEW INDICATION / CLINICAL INFORMATION: Dyspnea.. COMPARISON: 08/13/2021. FINDINGS: SUPPORT DEVICES: None. HEART / MEDIASTINUM: Stable. LUNGS / PLEURA: No significant pulmonary or pleural abnormality. No pneumothorax. ADDITIONAL FINDINGS: No significant additional findings. IMPRESSION: 1. No acute findings. Signer Name: Bryant Dexter MD Signed: 08/25/2021 11:04 AM Workstation Name: [id number] Transcribed By: CALIXTO Dictated By: BRYANT DEXTER MD Electronically Authenticated By: BRYANT DEXTER MD Signed Date/Time: 08/25/21 1104 DD/ 1103 TD/TT: Print Cancel - Differential Diagnosis CHF exacerbation Critical care attestation.: If time is entered above; I have spent that time in minutes in the direct care of this critically ill patient, excluding procedure time. ED Disposition Clinical Impression: Acute on chronic systolic heart failure Disposition: ADMITTED INPATIENT Is pt being admited?: Yes Does the pt Need Aspirin: Yes Condition: Serious Time of Disposition: 11:49 (Hospitalist called (Dr. Roa))
--- NOTE | 2021-08-25 11:09 | XRay Report ---
CHEST 1 VIEW INDICATION / CLINICAL INFORMATION: Dyspnea.. COMPARISON: 08/13/2021. FINDINGS: SUPPORT DEVICES: None. HEART / MEDIASTINUM: Stable. LUNGS / PLEURA: No significant pulmonary or pleural abnormality. No pneumothorax. ADDITIONAL FINDINGS: No significant additional findings. IMPRESSION: 1. No acute findings. Signer Name: Bryant Duckworth MD Signed: 08/25/2021 11:04 AM Workstation Name: [id number]
[2021-08-25 11:12] LABS: Basophils % (Auto) 0.5 % (0.0-1.8); Eosinophils # (Auto) 0.1 K/mm3 (0.0-0.4); Eosinophils % (Auto) 1.3 % (0.0-4.3); Lymphocytes # (Auto) 1.7 K/mm3 (1.2-5.4); Lymphocytes % (Auto) 23.5 % (13.4-35.0); Mean Corpuscular HGB Conc 31 % (32-34); Mean Corpuscular Volume 75 fl (84-94); Monocytes # (Auto) 0.6 K/mm3 (0.0-0.8); Monocytes % (Auto) 8.3 % (0.0-7.3); Red Blood Count 6.25 M/mm3 (3.65-5.03); Red Cell Distribution Width 17.4 % (13.2-15.2)
[2021-08-25 11:15] LABS: Hemoglobin 14.6 gm/dl (11.8-15.2)
[2021-08-25 11:16] LABS: INR 1.09 (0.87-1.13); Platelet Count 164 K/mm3 (140-440)
[2021-08-25 11:17] LABS: Partial Thromboplastin Time 35.6 Sec. (24.2-36.6)
[2021-08-25 11:18] LABS: Alanine Aminotransferase 20 units/L (7-56); Albumin 3.4 g/dL (3.9-5); BUN/Creatinine Ratio 18; Blood Urea Nitrogen 23 mg/dL (9-20); Hemolysis Index 32
--- NOTE | 2021-08-25 11:59 | History and Physical Report ---
History of Present Illness Chief complaint: I cannot breathe History of present illness: 45 YO Male with HTN, Systolic CHF(EF 10%), CVA, DM, Migraine HERNANDEZ presents to ED for evaluation. Patient reports "I cannot breathe". Patient states that he has experienced shortness of breath over the past week since his discharge from the hospital. Patient acknowledges orthopnea, proximal nocturnal dyspnea, dyspnea on exertion, dyspnea at rest, bilateral leg edema, as well as 10 pound weight gain over the past week. Patient acknowledges compliance with outpatient medications. Patient transported to [facility] via private vehicle for further care and evaluation of the aforementioned symptoms. The patient was seen and evaluated in the emergency department. All lab and imaging studies reviewed. The patient was found to be unable to speak in complete sentences, using accessory muscles to breathe, retracting. Patient found to have a pulse oximetry of 86% on room air which is consistent with acute hypoxemic respiratory failure. Patient initiated on BiPAP with mild improvement in symptoms. Patient also found to have clinical symptoms consistent with CHF decompensation. Cardiology team consulted in ED. Patient admitted to [facility] and initiated on milrinone drip. Patient has fever, chills, chest pain, palpitation, adductive cough, skin rash, recent contact, or known exposure to COVID-19. Prior mission on 08/14/2021 reviewed. All medication listed at time of admission has been reconciled. Advanced care planning conducted in ED. Patient is fully vaccinated against COVID-19. Past History Past Medical History: diabetes, heart failure, migraines Past Surgical History: tonsillectomy Social history: single. denies: smoking, alcohol abuse, prescription drug abuse Family history: diabetes, hypertension Medications and Allergies Allergies Allergy/AdvReac Type Severity Reaction Status Date / Time No Known Allergies Allergy Verified 07/30/21 10:18 Home Medications Medication Instructions Recorded Confirmed Last Taken Type AtorvaSTATin [Lipitor] 40 mg PO QHS #30 tablet 03/13/21 08/14/21 07/29/21 Rx Metoprolol Xl [Metoprolol 100 mg PO QDAY #60 tablet 03/13/21 08/14/21 07/29/21 Rx SUCCINATE ER TAB] Rivaroxaban [Xarelto] 20 mg PO DAILY #30 03/13/21 08/14/21 07/29/21 Rx Insulin Aspart (Nf) [NovoLOG 10 units SQ TIDAC 07/30/21 08/14/21 07/29/21 History Flexpen] Insulin Glargine [Lantus VIAL] 35 units SUB-Q QDAY 07/30/21 08/14/21 07/29/21 History Sacubitril/Valsartan [Entresto 1 each PO BID 07/30/21 08/14/21 07/29/21 History 49-51 mg] Torsemide [Demadex] 100 mg PO BID 07/30/21 08/14/21 07/29/21 History Review of Systems Constitutional: weight gain, weakness, no fever, no chills, no sweats Ears, nose, mouth and throat: no ear pain, no tinnitis, no nose pain, no nasal congestion, no nasal discharge Cardiovascular: orthopnea, edema, dyspnea on exertion, paroxysmal nocturnal dys pnea, high blood pressure, leg edema, decreased exercise tolerance, no chest pain, no palpitations, no rapid/irregular heart beat, no lightheadedness Respiratory: no cough, no cough with sputum, no hemoptysis Gastrointestinal: no nausea, no vomiting, no diarrhea Genitourinary Male: no hematuria, no flank pain, no discharge, no urinary frequency, no urinary hesitancy Rectal: no pain, no incontinence, no bleeding Musculoskeletal: no neck stiffness, no neck pain, no shooting arm pain, no arm numbness/tingling Integumentary: no rash, no pruritis, no redness, no wounds, no jaundice, no boils Neurological: no transient paralysis, no paralysis, no weakness, no parathesias, no tingling, no seizures, no syncope Psychiatric: no anxiety, no change in sleep habits, no sleep disturbances, no insomnia, no change in appetite, no suicidal ideation Endocrine: no cold intolerance, no heat intolerance, no excessive thirst, no nocturia Hematologic/Lymphatic: no easy bruising, no easy bleeding, no lymphadenopathy, no lymphedema Allergic/Immunologic: no urticaria, no allergic rhinitis, no persistent infections, no anaphylaxis Exam - Constitutional Vitals: Temp Pulse Resp BP Pulse Ox 111 H 18 123/87 100 08/25/21 11:45 08/25/21 10:00 08/25/21 10:00 08/25/21 11:43 General appearance: Present: severe distress - EENT Eyes: Present: PERRL ENT: hearing intact, hearing decreased - Neck Neck: Present: supple - Respiratory Respiratory effort: labored, accessory muscle use, stridor Respiratory: bilateral: diminished, rales - Cardiovascular Heart Sounds: Present: S1 & S2. Absent: rub, click - Extremities Extremity abnormal: edema Peripheral Pulses: within normal limits - Abdominal General gastrointestinal: Present: soft, non-tender, non-distended, normal bowel sounds Male genitourinary: Present: normal - Integumentary Integumentary: Present: clear, dry - Musculoskeletal Musculoskeletal: generalized weakness - Psychiatric Psychiatric: appropriate mood/affect, intact judgment & insight - Neurologic Neurologic: CNII-XII intact, moves all extremities, no gait normal HEART Score - HEART Score Troponin: Troponin T 0.018 ng/mL (0.00-0.029) 08/25/21 10:04 Results - Labs CBC & Chem 7: 08/25/21 10:04 08/25/21 10:04 Labs: Abnormal lab results 08/25/21 08/25/21 08/25/21 Range/Units 10:04 10:04 10:04 RBC 6.25 H (3.65-5.03) M/mm3 Hct 47.0 H (35.5-45.6) % MCV 75 L (84-94) fl MCH 23 L (28-32) pg MCHC 31 L (32-34) % RDW 17.4 H (13.2-15.2) % [place] % (Auto) 8.3 H (0.0-7.3) % PT 15.3 H (12.2-14.9) Sec. Carbon Dioxide 21 L (22-30) mmol/L BUN 23 H (9-20) mg/dL Glucose 262 H (75-100) mg/dL Total Bilirubin 2.20 H (0.1-1.2) mg/dL Alkaline Phosphatase 155 H (35-129) units/L Albumin 3.4 L (3.9-5) g/dL Assessment and Plan - Patient Problems (1) Acute hypoxemic respiratory failure Current Visit: Yes Status: Acute Plan to address problem: Supplemental oxygen, pulse oximetry, nebulizer therapy, chest x-ray, noninvasive positive pressure ventilation, treat CHF. (2) CHF (congestive heart failure) Current Visit: Yes Status: Acute Qualifiers: Heart failure chronicity: acute Plan to address problem: End-stage CHF: Strict I/O, monitor urine output every shift, afterload reduc tion, diuresis with Lasix, initiate milrinone drip, supportive care. (3) Hypertension Current Visit: Yes Status: Acute Qualifiers: Hypertension type: primary hypertension Qualified Code(s): I10 - Essential (primary) hypertension Plan to address problem: Monitor blood pressure every shift, continue medical management (4) Diabetes Current Visit: Yes Status: Acute Plan to address problem: Consistent carbohydrate diet, sliding scale insulin, Accu-Chek, hypoglycemia protocol. (5) DVT prophylaxis Current Visit: Yes Status: Acute Plan to address problem: SCD to bilateral extremities while in bed, prophylactic anticoagulation (6) Advance care planning Current Visit: Yes Status: Acute Plan to address problem: Disease education conducted, care plan discussed, diagnoses discussed, poor prognosis discussed. Patient knowledges understanding agree with care plan, +30 minutes.
[2021-08-25] MEDS ORDERED: HYDROmorphone 1 MG/1 ML INJ IV PRN (12:00)
[2021-08-25] MEDS ORDERED: ACETAMINOPHEN 325 MG TAB PO PRN (12:00)
[2021-08-25] MEDS ORDERED: ALBUTEROL 2.5 MG/3 ML NEBU IH PRN (12:00)
[2021-08-25] MEDS ORDERED: ONDANSETRON 4 MG/2 ML INJ IV PRN (12:00)
[2021-08-25] MEDS ORDERED: oxyCODONE /ACETAMINOPHEN 5-325MG TAB PO PRN (12:00)
[2021-08-25] MEDS: MILRINONE-D5W 20 MG/100 ML 20 MG/100 ML BAG IV SCH (12:58)
[2021-08-25] MEDS: FUROSEMIDE 40 MG/4 ML INJ IV SCH (17:36)
--- NOTE | 2021-08-25 17:48 | Electrocardiograph Report ---
[facility] Test Date: 2021-08-25 Test Time: 11:40:39 Pat Name: SOO DEAN Department: Room: [facility] Gender: M [place]: GEORGE : 1975 Requested By: AISHA YO Order Number: [id number] Reading MD: Rob Batres Measurements Intervals [place] Rate: 111 P: 64 FL: 177 QRS: -11 QRSD: 95 T: 159 QT: 332 QTc: 452 Interpretive Statements Sinus tachycardia Probable left atrial enlargement T wave inversions, consider lateral ischemia Compared to ECG 08/13/2021 22:30:34 No significant change Electronically Signed On 08-25-2021 17:47:53 EST by Rob Batres
[2021-08-25] MEDS ORDERED: TORSEMIDE 100 MG TAB PO SCH (22:00)
[2021-08-25] MEDS: FAMOTIDINE 20 MG TAB PO SCH (23:31)
[2021-08-25] MEDS: SACUBITRIL/VALSARTAN 49-51 MG TAB PO SCH (23:55)
[2021-08-26 04:49] LABS: Basophils # (Auto) 0.1 K/mm3 (0.0-0.1); Basophils % (Auto) 0.7 % (0.0-1.8); Eosinophils # (Auto) 0.1 K/mm3 (0.0-0.4); Eosinophils % (Auto) 1.5 % (0.0-4.3); Lymphocytes # (Auto) 1.1 K/mm3 (1.2-5.4); Lymphocytes % (Auto) 12.1 % (13.4-35.0); Mean Corpuscular HGB Conc 31 % (32-34); Mean Corpuscular Volume 75 fl (84-94); Monocytes # (Auto) 0.6 K/mm3 (0.0-0.8); Monocytes % (Auto) 7.3 % (0.0-7.3); Red Blood Count 6.29 M/mm3 (3.65-5.03); Red Cell Distribution Width 17.4 % (13.2-15.2)
[2021-08-26 04:51] LABS: Hematocrit 47.1 % (35.5-45.6); Hemoglobin 14.5 gm/dl (11.8-15.2); Platelet Count 142 K/mm3 (140-440)
[2021-08-26 05:03] LABS: Bilirubin,Urine NEG (Negative); Blood,Urine MOD (Negative); Color,Urine Straw (Yellow); Urobilinogen,Urine < 2.0 mg/dL (<2.0); WBC,Urine < 1.0 /HPF (0.0-6.0)
[2021-08-26 05:12] LABS: Alanine Aminotransferase 16 units/L (7-56); Albumin 3.3 g/dL (3.9-5); BUN/Creatinine Ratio 14; Blood Urea Nitrogen 20 mg/dL (9-20); Calcium 8.9 mg/dL (8.4-10.2); Hemolysis Index 2
[2021-08-26] MEDS: FUROSEMIDE 40 MG/4 ML INJ IV SCH ×2 (05:45→21:00)
[2021-08-26] MEDS ORDERED: NON-FORMULARY EACH (Rivaroxaban 20 MG Tablet) PO SCH (10:00)
--- NOTE | 2021-08-26 13:39 | Electrocardiograph Report ---
[facility] Test Date: 2021-08-26 Test Time: 04:55:15 Pat Name: SOO DEAN Department: Room: [place] [address] Gender: M War[place] Drawer: JEANMARIE : 1975 Requested By: AISHA YO Order Number: [id number] Reading MD: Rob Batres Measurements Intervals [place] Rate: 115 P: 67 VT: 174 QRS: -39 QRSD: 92 T: 265 QT: 312 QTc: 433 Interpretive Statements Sinus tachycardia Probable left atrial enlargement Left axis deviation Compared to ECG 08/25/2021 11:40:39 No significant change Electronically Signed On 08-26-2021 13:39:03 EST by Rob Batres
[2021-08-26] MEDS: METOPROLOL SUCCINATE XL 100 MG TAB PO SCH (14:17)
[2021-08-26] MEDS: FAMOTIDINE 20 MG TAB PO SCH ×2 (14:18→22:31)
[2021-08-26] MEDS: RIVAROXABAN 20 MG TAB PO SCH (14:18)
[2021-08-26] MEDS: SACUBITRIL/VALSARTAN 49-51 MG TAB PO SCH ×2 (14:19→22:31)
--- NOTE | 2021-08-26 14:47 | Consultation ---
History of Present Illness Consult date: 08/26/21 Consult reason: congestive heart failure History of present illness: 45-year-old man with a long history of dilated nonischemic cardiomyopathy, chronic systolic heart failure, who maintains his regular outpatient care at the [facility]. He presents at this time with increasing shortness of breath, on chest x-ray there is mild interstitial edema consistent with acute exacerbation of chronic systolic heart failure. Please refer to previous consult notes for historical details of his heart failure. Past History Past Medical History: diabetes, heart failure, migraines Past Surgical History: tonsillectomy Social history: single. denies: smoking, alcohol abuse, prescription drug abuse Family history: diabetes, hypertension Medications and Allergies Allergies Allergy/AdvReac Type Severity Reaction Status Date / Time No Known Allergies Allergy Verified 07/30/21 10:18 Home Medications Medication Instructions Recorded Confirmed Last Taken Type AtorvaSTATin [Lipitor] 40 mg PO QHS #30 tablet 03/13/21 08/14/21 07/29/21 Rx Metoprolol Xl [Metoprolol 100 mg PO QDAY #60 tablet 03/13/21 08/14/21 07/29/21 R x SUCCINATE ER TAB] Rivaroxaban [Xarelto] 20 mg PO DAILY #30 03/13/21 08/14/21 07/29/21 Rx Insulin Aspart (Nf) [NovoLOG 10 units SQ TIDAC 07/30/21 08/14/21 07/29/21 History Flexpen] Insulin Glargine [Lantus VIAL] 35 units SUB-Q QDAY 07/30/21 08/14/21 07/29/21 History Sacubitril/Valsartan [Entresto 1 each PO BID 07/30/21 08/14/21 07/29/21 History 49-51 mg] Torsemide [Demadex] 100 mg PO BID 07/30/21 08/14/21 07/29/21 History Active Meds: Active Medications Acetaminophen (Acetaminophen 325 Mg Tab) 650 mg PO Q4H PRN PRN Reason: Pain MILD(1-3)/Fever >100.5/HERNANDEZ Albuterol (Albuterol 2.5 Mg/3 Ml Nebu) 2.5 mg IH Q4HRT PRN PRN Reason: Shortness Of Breath Atorvastatin Calcium (Atorvastatin 40 Mg Tab) 40 mg PO QHS DELTA Last Admin: 08/25/21 23:55 Dose: 40 mg Documented by: Famotidine (Famotidine 20 Mg Tab) 20 mg PO BID [facility] Last Admin: 08/26/21 14:18 Dose: 20 mg Documented by: Furosemide (Furosemide 40 Mg/4 Ml Inj) 40 mg IV BID@0600,1800 [facility] Last Admin: 08/26/21 05:45 Dose: 40 mg Documented by: Hydromorphone HCl (Hydromorphone 1 Mg/1 Ml Inj) 0.5 mg IV Q23H PRN PRN Reason: Pain , Severe (7-10) Last Admin: 08/26/21 04:53 Dose: 0.5 mg Documented by: Milrinone Lactate/Dextrose (Milrinone-D5w 20 Mg/100 Ml) 20 mg in 100 mls @ 10.206 mls/hr IV DIRECT DELTA; Protocol Last Infusion: 08/26/21 06:10 Dose: Infused Documented by: Metoprolol Succinate (Metoprolol Succinate Xl 100 Mg Tab) 100 mg PO QDAY [facility] Last Admin: 08/26/21 14:17 Dose: Not Given Documented by: Ondansetron HCl (Ondansetron 4 Mg/2 Ml Inj) 4 mg IV Q8H PRN PRN Reason: Nausea And Vomiting Last Admin: 08/26/21 04:54 Dose: 4 mg Documented by: Oxycodone/Acetaminophen (Oxycodone /Acetaminophen 5-325mg Tab) 1 tab PO Q16H PRN PRN Reason: Pain, Moderate (4-6) Rivaroxaban (Rivaroxaban 20 Mg Tab) 20 mg PO DAILY [facility] Last Admin: 08/26/21 14:18 Dose: 20 mg Documented by: Sodium Chloride (Sodium Chloride 0.9% 10 Ml Flush Syringe) 10 ml IV BID [facility] Last Admin: 08/26/21 10:46 Dose: 10 ml Documented by: Sodium Chloride (Sodium Chloride 0.9% 10 Ml Flush Syringe) 10 ml IV PRN PRN PRN Reason: LINE FLUSH Review of Systems Cardiovascular: chest pain, orthopnea, edema, shortness of breath, no p alpitations, no rapid/irregular heart beat, no syncope, no lightheadedness Physical Examination Vital Signs Pulse Resp BP Pulse Ox 111 H 18 123/87 100 08/25/21 10:00 08/25/21 10:00 08/25/21 10:00 08/25/21 10:00 General appearance: no acute distress HEENT: Positive: PERRL Neck: Positive: neck supple Cardiac: Positive: Reg Rate and Rhythm Lungs: Positive: Decreased Breath Sounds Neuro: Positive: Grossly Intact Abdomen: Positive: Soft Male genitourinary: Positive: deferred Skin: Positive: Clear Extremities: Present: +1 Edema Results 08/26/21 04:35 08/26/21 04:35 Cardiac Enzymes 08/26/21 Range/Units 04:35 AST 15 (5-40) units/L CBC 08/26/21 Range/Units 04:35 WBC 8.8 (4.5-11.0) K/mm3 RBC 6.29 H (3.65-5.03) M/mm3 Hgb 14.5 (11.8-15.2) gm/dl Hct 47.1 H (35.5-45.6) % Plt Count 142 (140-440) K/mm3 Lymph # (Auto) 1.1 L (1.2-5.4) K/mm3 [place] # (Auto) 0.6 (0.0-0.8) K/mm3 Eos # (Auto) 0.1 (0.0-0.4) K/mm3 Baso # (Auto) 0.1 (0.0-0.1) K/mm3 Comprehensive Metabolic Panel 08/26/21 Range/Units 04:35 Sodium 141 (137-145) mmol/L Potassium 3.4 L D (3.6-5.0) mmol/L Chloride 100.8 (98-107) mmol/L Carbon Dioxide 28 D (22-30) mmol/L BUN 20 (9-20) mg/dL Creatinine 1.4 H (0.8-1.3) mg/dL Glucose 215 H (75-100) mg/dL Calcium 8.9 (8.4-10.2) mg/dL AST 15 (5-40) units/L ALT 16 (7-56) units/L Alkaline Phosphatase 142 H (35-129) units/L Total Protein 6.8 (6.3-8.2) g/dL Albumin 3.3 L (3.9-5) g/dL EKG interpretations - Telemetry EKG Rhythm: Sinus Rhythm Assessment and Plan - Patient Problems (1) Acute on chronic systolic heart failure Current Visit: No Status: Acute Plan to address problem: Continue guideline directed medical therapy including intravenous diuretics, and salt restricted diet.
--- NOTE | 2021-08-26 17:20 | Progress Note ---
Assessment and Plan Assessment and plan: 45 YO Male with HTN, Systolic CHF(EF 10%), CVA, DM, Migraine HERNANDEZ presents to ED for evaluation. Patient reports "I cannot breathe". Patient states that he has experienced shortness of breath over the past week since his discharge from the hospital. Patient acknowledges orthopnea, proximal nocturnal dyspnea, dyspnea on exertion, dyspnea at rest, bilateral leg edema, as well as 10 pound weight gain over the past week. Patient acknowledges compliance with outpatient medications. Patient transported to [facility] via private vehicle for further care and evaluation of the aforementioned symptoms. The patient was seen and evaluated in the emergency department. All lab and imaging studies reviewed. The patient was found to be unable to speak in complete sentences, using accessory muscles to breathe, retracting. Patient found to have a pulse oximetry of 86% on room air which is consistent with acute hypoxemic respiratory failure. Patient initiated on BiPAP with mild improvement in symptoms. Patient also found to have clinical symptoms consistent with CHF decompensation. Cardiology team consulted in ED. Patient admitted to [facility] and initiated on milrinone drip. Patient has fever, chills, chest pain, palpitation, adductive cough, skin rash, recent contact, or known exposure to COVID-19. Prior mission on 08/14/2021 reviewed. All medication listed at time of admission has been reconciled. Advanced care planning conducted in ED. Patient is fully vaccinated against COVID-19. 08/26: Patient seen examined, lethargic, per discussion, [facility] due to recent stroke and lack of social support. Continue goal directed Medical therapy, strict I/O, re-evaluate with toe former stitchdowns (1) Acute on chronic systolic heart failure Current Visit: Yes Status: Acute Qualifiers: Heart failure chronicity: acute Plan to address problem: End-stage CHF: Strict I/O, monitor urine output every shift, afterload reduction, diuresis with Lasix, initiate milrinone drip, supportive care. (2)Acute hypoxemic respiratory failure Current Visit: Yes Status: Acute Plan to address problem: Supplemental oxygen, pulse oximetry, nebulizer therapy, chest x-ray, noninvasive positive pressure ventilation, treat CHF. (3) Hypertension Current Visit: Yes Status: Acute Qualifiers: Hypertension type: primary hypertension Qualified Code(s): I10 - Essential (primary) hypertension Plan to address problem: Monitor blood pressure every shift, continue medical management (4) Diabetes Current Visit: Yes Status: Acute Plan to address problem: Consistent carbohydrate diet, sliding scale insulin, Accu-Chek, hypoglycemia protocol. (5) DVT prophylaxis Current Visit: Yes Status: Acute Plan to address problem: SCD to bilateral extremities while in bed, prophylactic anticoagulation (6) Advance care planning Current Visit: Yes Status: Acute Plan to address problem: Disease education conducted, care plan discussed, diagnoses discussed, poor prognosis discussed. Patient knowledges understanding agree with care plan, +30 minutes. History Interval history: Patient seen and examined still with shortness of breath but now off Milironj. Hospitalist Physical - Physical exam Narrative exam: General appearance: Present:moderate distress, orthopenicc - EENT Eyes: Present: PERRL ENT: hearing intact, hearing decreased - Neck Neck: Present: supple - Respiratory Respiratory effort: labored, accessory muscle use,with exertion Respiratory: bilateral: diminished, rales - Cardiovascular Heart Sounds: Present: S1 & S2. Absent: rub, click - Extremities Extremity abnormal: edema +++ Peripheral Pulses: within normal limits - Abdominal General gastrointestinal: Present: soft, non-tender, non-distended, normal bowel sounds Male genitourinary: Present: normal - Integumentary Integumentary: Present: clear, - Musculoskeletal Musculoskeletal: generalized weakness - Psychiatric Psychiatric: appropriate mood/affect, intact judgment & insight - Neurologic Neurologic: CNII-XII intact, moves all extremities, no gait normal - Constitutional Vitals: Temp Pulse Resp BP Pulse Ox 98.0 F 108 H 18 114/81 97 08/26/21 01:48 08/26/21 14:00 08/26/21 14:00 08/26/21 14:00 08/26/21 14:00 General appearance: Present: no acute distress HEART Score - HEART Score Troponin: Troponin T < 0.010 ng/mL (0.00-0.029) 08/25/21 16:51 Results - Labs CBC & Chem 7: 08/26/21 04:35 08/26/21 04:35 Labs: Laboratory Last Values WBC 8.8 K/mm3 (4.5-11.0) 08/26/21 04:35 RBC 6.29 M/mm3 (3.65-5.03) H 08/26/21 04:35 Hgb 14.5 gm/dl (11.8-15.2) 08/26/21 04:35 Hct 47.1 % (35.5-45.6) H 08/26/21 04:35 MCV 75 fl (84-94) L 08/26/21 04:35 MCH 23 pg (28-32) L 08/26/21 04:35 MCHC 31 % (32-34) L 08/26/21 04:35 RDW 17.4 % (13.2-15.2) H 08/26/21 04:35 Plt Count 142 K/mm3 (140-440) 08/26/21 04:35 Lymph % (Auto) 12.1 % (13.4-35.0) L 08/26/21 04:35 [place] % (Auto) 7.3 % (0.0-7.3) 08/26/21 04:35 Eos % (Auto) 1.5 % (0.0-4.3) 08/26/21 04:35 Baso % (Auto) 0.7 % (0.0-1.8) 08/26/21 04:35 Lymph # (Auto) 1.1 K/mm3 (1.2-5.4) L 08/26/21 04:35 [place] # (Auto) 0.6 K/mm3 (0.0-0.8) 08/26/21 04:35 Eos # (Auto) 0.1 K/mm3 (0.0-0.4) 08/26/21 04:35 Baso # (Auto) 0.1 K/mm3 (0.0-0.1) 08/26/21 04:35 Seg Neutrophils % 78.4 % (40.0-70.0) H 08/26/21 04:35 Seg Neutrophils # 6.9 K/mm3 (1.8-7.7) 08/26/21 04:35 PT 15.3 Sec. (12.2-14.9) H 08/25/21 10:04 INR 1.09 (0.87-1.13) 08/25/21 10:04 APTT 35.6 Sec. (24.2-36.6) 08/25/21 10:04 Sodium 141 mmol/L (137-145) 08/26/21 04:35 Potassium 3.4 mmol/L (3.6-5.0) L D 08/26/21 04:35 Chloride 100.8 mmol/L (98-107) 08/26/21 04:35 Carbon Dioxide 28 mmol/L (22-30) D 08/26/21 04:35 Anion Gap 16 mmol/L 08/26/21 04:35 BUN 20 mg/dL (9-20) 08/26/21 04:35 Creatinine 1.4 mg/dL (0.8-1.3) H 08/26/21 04:35 Estimated GFR > 60 ml/min 08/26/21 04:35 BUN/Creatinine Ratio 14 % 08/26/21 04:35 Glucose 215 mg/dL (75-100) H 08/26/21 04:35 Calcium 8.9 mg/dL (8.4-10.2) 08/26/21 04:35 Total Bilirubin 2.90 mg/dL (0.1-1.2) H 08/26/21 04:35 AST 15 units/L (5-40) 08/26/21 04:35 ALT 16 units/L (7-56) 08/26/21 04:35 Alkaline Phosphatase 142 units/L (35-129) H 08/26/21 04:35 Troponin T < 0.010 ng/mL (0.00-0.029) 08/25/21 16:51 Total Protein 6.8 g/dL (6.3-8.2) 08/26/21 04:35 Albumin 3.3 g/dL (3.9-5) L 08/26/21 04:35 Albumin/Globulin Ratio 0.9 % 08/26/21 04:35 Urine Color Straw (Yellow) 08/26/21 Unknown Urine Turbidity Clear (Clear) 08/26/21 Unknown Urine pH 7.0 (5.0-7.0) 08/26/21 Unknown Ur Specific [place] 1.005 (1.003-1.030) 08/26/21 Unknown Urine Protein 30 mg/dl mg/dL (Negative) 08/26/21 Unknown Urine Glucose (UA) Neg mg/dL (Negative) 08/26/21 Unknown Urine Ketones Neg mg/dL (Negative) 08/26/21 Unknown Urine Blood Mod (Negative) 08/26/21 Unknown Urine Nitrite Neg (Negative) 08/26/21 Unknown Urine Bilirubin Neg (Negative) 08/26/21 Unknown Urine Urobilinogen < 2.0 mg/dL (<2.0) 08/26/21 Unknown Ur Leukocyte Esterase Neg (Negative) 08/26/21 Unknown Urine WBC (Auto) < 1.0 /HPF (0.0-6.0) 08/26/21 Unknown Urine RBC (Auto) 3.0 /HPF (0.0-6.0) 08/26/21 Unknown Active Medications - Current Medications Current Medications: Generic Name Dose Route Start Last Admin Trade Name Freq PRN Reason Stop Dose Admin Acetaminophen 650 mg 08/25/21 12:00 Acetaminophen 325 Mg Tab PO Q4H PRN Pain MILD(1-3)/Fever >100.5/HERNANDEZ Albuterol 2.5 mg 08/25/21 12:00 Albuterol 2.5 Mg/3 Ml Nebu IH Q4HRT PRN Shortness Of Breath Atorvastatin Calcium 40 mg 08/25/21 22:00 08/25/21 23:55 Atorvastatin 40 Mg Tab PO 40 mg QHS DELTA Administration Famotidine 20 mg 08/25/21 22:00 08/26/21 14:18 Famotidine 20 Mg Tab PO 20 mg BID DELTA Administration Furosemide 40 mg 08/25/21 18:00 08/26/21 05:45 Furosemide 40 Mg/4 Ml Inj IV 40 mg BID@0600,1800 DELTA Administration Hydromorphone HCl 0.5 mg 08/25/21 12:00 08/26/21 04:53 Hydromorphone 1 Mg/1 Ml Inj IV 0.5 mg Q23H PRN Administration Pain , Severe (7-10) Milrinone Lactate/Dextrose 20 mg in 100 mls @ 10.206 mls/hr 08/25/21 12:30 08/26/21 06:10 Milrinone-D5w 20 Mg/100 Ml IV Infused DIRECT DELTA Infusion Protocol 0.375 MCG/KG/MIN Metoprolol Succinate 100 mg 08/26/21 10:00 08/26/21 14:17 Metoprolol Succinate Xl 100 Mg Tab PO Not Given QDAY DELTA Ondansetron HCl 4 mg 08/25/21 12:00 08/26/21 04:54 Ondansetron 4 Mg/2 Ml Inj IV 4 mg Q8H PRN Administration Nausea And Vomiting Oxycodone/Acetaminophen 1 tab 08/25/21 12:00 Oxycodone /Acetaminophen 5-325mg Tab PO Q16H PRN Pain, Moderate (4-6) Rivaroxaban 20 mg 08/26/21 10:00 08/26/21 14:18 Rivaroxaban 20 Mg Tab PO 20 mg DAILY DELTA Administration Sodium Chloride 10 ml 08/25/21 22:00 08/26/21 10:46 Sodium Chloride 0.9% 10 Ml Flush Syringe IV 10 ml BID DELTA Administration Sodium Chloride 10 ml 08/25/21 12:00 Sodium Chloride 0.9% 10 Ml Flush Syringe IV PRN PRN LINE FLUSH
[2021-08-27] MEDS: FUROSEMIDE 40 MG/4 ML INJ IV SCH ×2 (06:12→17:14)
[2021-08-27] MEDS ORDERED: INSULIN REGULAR, HUMAN 100 UNITS/1 ML SUB-Q SCH (08:30)
[2021-08-27] MEDS ORDERED: DEXTROSE 50% IN WATER (25GM) 50 ML SYRINGE IV PRN (09:00)
[2021-08-27] MEDS: FAMOTIDINE 20 MG TAB PO SCH ×2 (09:38→21:47)
[2021-08-27] MEDS: SACUBITRIL/VALSARTAN 49-51 MG TAB PO SCH (09:39)
[2021-08-27] MEDS: METOPROLOL SUCCINATE XL 100 MG TAB PO SCH (09:39)
[2021-08-27] MEDS: INSULIN GLARGINE 100 UNITS/ML SUB-Q SCH (09:40)
[2021-08-27] MEDS: RIVAROXABAN 20 MG TAB PO SCH (09:40)
[2021-08-27] MEDS ORDERED: NON-FORMULARY EACH (Insulin Aspart (Nf) 100 UNIT/ML Insuln.Pen) SQ SCH (11:30)
--- NOTE | 2021-08-27 14:32 | Progress Note ---
Assessment and Plan - Patient Problems (1) Acute on chronic systolic heart failure Current Visit: No Status: Acute Plan to address problem: Patient has chronic systolic left ventricular failure. Managed [facility] [place] [facility] [place] Continue guideline directed medical therapy on discharge. Subjective Date of service: 08/27/21 Interval history: Patient is comfortable, in no acute distress. He states that he wants to go home today. He plans to follow-up at the [facility] next week. Objective Vital Signs Temp Pulse Pulse Resp Resp BP BP 08/27/21 14:00 100 H 41 H 104/65 08/27/21 13:31 100 H 13 100/60 08/27/21 13:00 98 H 100 H 35 H 100/60 08/27/21 12:31 100 H 48 H 95/63 08/27/21 12:00 100 H 22 95/63 08/27/21 11:31 102 H 39 H 101/73 08/27/21 11:10 97 H 25 H 08/27/21 10:30 103 H 24 101/69 08/27/21 10:00 111 H 29 H 101/69 08/27/21 09:39 108 H 112/70 08/27/21 09:30 109 H 31 H 101/62 08/27/21 09:00 109 H 98 H 18 112/70 08/27/21 08:40 08/27/21 08:30 108 H 25 H 101/62 08/27/21 08:00 98.0 F 103 H 30 H 101/62 08/27/21 07:30 100 H 27 H 106/69 08/27/21 07:00 106 H 29 H 106/69 08/27/21 06:30 108 H 33 H 113/79 08/27/21 06:00 109 H 36 H 113/79 08/27/21 05:30 107 H 28 H 113/57 08/27/21 05:00 105 H 105 H 18 113/57 08/27/21 04:30 107 H 34 H 120/80 08/27/21 04:15 111 H 08/27/21 04:00 98.4 F 112 H 15 120/80 08/27/21 03:30 108 H 15 108/73 08/27/21 03:00 105 H 43 H 108/73 08/27/21 02:30 111 H 37 H 113/81 08/27/21 02:00 109 H 40 H 113/81 08/27/21 01:30 111 H 31 H 120/78 08/27/21 01:00 112 H 20 120/78 08/27/21 00:50 104 H 08/27/21 00:30 107 H 42 H 119/82 08/27/21 00:00 98.3 F 114 H 37 H 119/82 08/26/21 23:30 113 H 37 H 115/73 08/26/21 23:00 111 H 26 H 115/73 08/26/21 22:41 45 H 08/26/21 22:30 104 H 40 H 113/77 08/26/21 22:04 111 H 38 H 113/77 08/26/21 22:00 105 H 52 H 113/77 08/26/21 21:50 104 H 14 110/69 08/26/21 21:40 116 H 22 110/69 08/26/21 21:33 98 F 08/26/21 21:30 102 H 44 H 110/69 08/26/21 21:29 44 H 08/26/21 21:00 114 H 16 110/69 08/26/21 20:30 108 H 16 110/58 08/26/21 20:17 08/26/21 20:15 98.7 F 88 18 98/72 08/26/21 20:00 98 F 08/26/21 19:30 104 H 36 H 96/65 08/26/21 19:00 108 H 17 96/65 08/26/21 18:30 111 H 18 98/70 08/26/21 18:06 107/53 08/26/21 17:30 106 H 39 H 92/56 08/26/21 17:00 108 H 24 103/62 08/26/21 16:30 108 H 21 114/75 08/26/21 16:00 103 H 29 H 112/71 08/26/21 15:30 103 H 22 117/78 08/26/21 15:00 106 H 24 109/74 Pulse Ox 08/27/21 14:00 93 08/27/21 13:31 99 08/27/21 13:00 97 08/27/21 12:31 92 08/27/21 12:00 93 08/27/21 11:31 92 08/27/21 11:10 100 11/11/21 10:30 97 08/27/21 10:00 97 08/27/21 09:39 08/27/21 09:30 96 08/27/21 09:00 98 08/27/21 08:40 96 08/27/21 08:30 94 08/27/21 08:00 97 08/27/21 07:30 97 08/27/21 07:00 98 08/27/21 06:30 93 08/27/21 06:00 94 08/27/21 05:30 96 08/27/21 05:00 96 08/27/21 04:30 100 08/27/21 04:15 08/27/21 04:00 99 08/27/21 03:30 98 08/27/21 03:00 97 08/27/21 02:30 97 08/27/21 02:00 98 08/27/21 01:30 96 08/27/21 01:00 94 08/27/21 00:50 08/27/21 00:30 95 08/27/21 00:00 89 08/26/21 23:30 99 08/26/21 23:00 95 08/26/21 22:41 99 08/26/21 22:30 96 08/26/21 22:04 68 L 08/26/21 22:00 83 L 08/26/21 21:50 08/26/21 21:40 08/26/21 21:33 08/26/21 21:30 93 08/26/21 21:29 08/26/21 21:00 71 L 08/26/21 20:30 98 08/26/21 20:17 99 08/26/21 20:15 98 08/26/21 20:00 08/26/21 19:30 99 08/26/21 19:00 97 08/26/21 18:30 97 08/26/21 18:06 85 08/26/21 17:30 99 08/26/21 17:00 100 08/26/21 16:30 99 08/26/21 16:00 96 08/26/21 15:30 99 08/26/21 15:00 99 - Physical Examination General: No Apparent Distress HEENT: Positive: PERRL Neck: Positive: neck supple Cardiac: Positive: Reg Rate and Rhythm Lungs: Positive: Decreased Breath Sounds Neuro: Positive: Grossly Intact Abdomen: Positive: Soft Skin: Positive: Clear Extremities: Present: +1 Edema
[2021-08-27] MEDS ORDERED: METOPROLOL SUCCINATE XL 100 MG TAB PO SCH (14:55)
--- NOTE | 2021-08-27 14:57 | Progress Note ---
Assessment and Plan Assessment and plan: 45 YO Male with HTN, Systolic CHF(EF 10%), CVA, DM, Migraine HERNANDEZ presents to ED for evaluation. Patient reports "I cannot breathe". Patient states that he has experienced shortness of breath over the past week since his discharge from the hospital. Patient acknowledges orthopnea, proximal nocturnal dyspnea, dyspnea on exertion, dyspnea at rest, bilateral leg edema, as well as 10 pound weight gain over the past week. Patient acknowledges compliance with outpatient medications. Patient transported to [facility] via private vehicle for further care and evaluation of the aforementioned symptoms. The patient was seen and evaluated in the emergency department. All lab and imaging studies reviewed. The patient was found to be unable to speak in complete sentences, using accessory muscles to breathe, retracting. Patient found to have a pulse oximetry of 86% on room air which is consistent with acute hypoxemic respiratory failure. Patient initiated on BiPAP with mild improvement in symptoms. Patient also found to have clinical symptoms consistent with CHF decompensation. Cardiology team consulted in ED. Patient admitted to [facility] and initiated on milrinone drip. Patient has fever, chills, chest pain, palpitation, adductive cough, skin rash, recent contact, or known exposure to COVID-19. Prior mission on 08/14/2021 reviewed. All medication listed at time of admission has been reconciled. Advanced care planning conducted in ED. Patient is fully vaccinated against COVID-19. 08/26: Patient seen examined, lethargic, per discussion, [facility] due to recent [facility] and lack of social support. Continue goal directed Medical therapy, strict I/O, re-evaluate with powder compounder 08/27: Patient seen and examined, asking to be discharged, discussed his clinic ally condition and the need for continued therapy. Habilitation Specialist recommends restarting Milirone, decrease Metoprolol to 50mg daily and hold GARCÍA/ARB. Strict I/O and daily weight (1) Acute on chronic systolic heart failure Current Visit: Yes Status: Acute Qualifiers: Heart failure chronicity: acute Plan to address problem: End-stage CHF: Strict I/O, monitor urine output every shift, afterload reduction, diuresis with Lasix, initiate milrinone drip, supportive care. (2)Acute hypoxemic respiratory failure Current Visit: Yes Status: Acute Plan to address problem: Supplemental oxygen, pulse oximetry, nebulizer therapy, chest x-ray, noninvasive positive pressure ventilation, treat CHF. (3) Hypertension Current Visit: Yes Status: Acute Qualifiers: Hypertension type: primary hypertension Qualified Code(s): I10 - Essential (primary) hypertension Plan to address problem: Monitor blood pressure every shift, continue medical management (4) Diabetes Current Visit: Yes Status: Acute Plan to address problem: Consistent carbohydrate diet, sliding scale insulin, Accu-Chek, hypoglycemia protocol. (5) DVT prophylaxis Current Visit: Yes Status: Acute Plan to address problem: SCD to bilateral extremities while in bed, prophylactic anticoagulation (6) Advance care planning Current Visit: Yes Status: Acute Plan to address problem: Disease education conducted, care plan discussed, diagnoses discussed, poor prognosis discussed. Patient knowledges understanding agree with care plan, +30 minutes. History Interval history: Patient seen and examined still with shortness of breath, advised to continue diuresis Hospitalist Physical - Physical exam Narrative exam: General appearance: Present:moderate distress, orthopenicc - EENT Eyes: Present: PERRL ENT: hearing intact, hearing decreased - Neck Neck: Present: supple - Respiratory Respiratory effort: labored, accessory muscle use,with exertion Respiratory: bilateral: diminished, rales - Cardiovascular Heart Sounds: Present: S1 & S2. Absent: rub, click - Extremities Extremity abnormal: edema +++ Peripheral Pulses: within normal limits - Abdominal General gastrointestinal: Present: soft, non-tender, non-distended, normal bowel sounds Male genitourinary: Present: normal - Integumentary Integumentary: Present: clear, - Musculoskeletal Musculoskeletal: generalized weakness - Psychiatric Psychiatric: appropriate mood/affect, intact judgment & insight - Neurologic Neurologic: CNII-XII intact, moves all extremities, no gait normal - Constitutional Vitals: Temp Pulse Resp BP Pulse Ox 99.1 F 100 H 41 H 104/65 93 08/27/21 12:00 08/27/21 14:00 08/27/21 14:00 08/27/21 14:00 08/27/21 14:00 General appearance: Present: no acute distress HEART Score - HEART Score Troponin: Troponin T < 0.010 ng/mL (0.00-0.029) 08/25/21 16:51 Results - Labs CBC & Chem 7: 08/26/21 04:35 08/26/21 04:35 Labs: Laboratory Last Values WBC 8.8 K/mm3 (4.5-11.0) 08/26/21 04:35 RBC 6.29 M/mm3 (3.65-5.03) H 08/26/21 04:35 Hgb 14.5 gm/dl (11.8-15.2) 08/26/21 04:35 Hct 47.1 % (35.5-45.6) H 08/26/21 04:35 MCV 75 fl (84-94) L 08/26/21 04:35 MCH 23 pg (28-32) L 08/26/21 04:35 MCHC 31 % (32-34) L 08/26/21 04:35 RDW 17.4 % (13.2-15.2) H 08/26/21 04:35 Plt Count 142 K/mm3 (140-440) 08/26/21 04:35 Lymph % (Auto) 12.1 % (13.4-35.0) L 08/26/21 04:35 [place] % (Auto) 7.3 % (0.0-7.3) 08/26/21 04:35 Eos % (Auto) 1.5 % (0.0-4.3) 08/26/21 04:35 Baso % (Auto) 0.7 % (0.0-1.8) 08/26/21 04:35 Lymph # (Auto) 1.1 K/mm3 (1.2-5.4) L 08/26/21 04:35 [place] # (Auto) 0.6 K/mm3 (0.0-0.8) 08/26/21 04:35 Eos # (Auto) 0.1 K/mm3 (0.0-0.4) 08/26/21 04:35 Baso # (Auto) 0.1 K/mm3 (0.0-0.1) 08/26/21 04:35 Seg Neutrophils % 78.4 % (40.0-70.0) H 08/26/21 04:35 Seg Neutrophils # 6.9 K/mm3 (1.8-7.7) 08/26/21 04:35 PT 15.3 Sec. (12.2-14.9) H 08/25/21 10:04 INR 1.09 (0.87-1.13) 08/25/21 10:04 APTT 35.6 Sec. (24.2-36.6) 08/25/21 10:04 Sodium 141 mmol/L (137-145) 08/26/21 04:35 Potassium 3.4 mmol/L (3.6-5.0) L D 08/26/21 04:35 Chloride 100.8 mmol/L (98-107) 08/26/21 04:35 Carbon Dioxide 28 mmol/L (22-30) D 08/26/21 04:35 Anion Gap 16 mmol/L 08/26/21 04:35 BUN 20 mg/dL (9-20) 08/26/21 04:35 Creatinine 1.4 mg/dL (0.8-1.3) H 08/26/21 04:35 Estimated GFR > 60 ml/min 08/26/21 04:35 BUN/Creatinine Ratio 14 % 08/26/21 04:35 Glucose 215 mg/dL (75-100) H 08/26/21 04:35 POC Glucose 169 mg/dL (70-105) H 08/27/21 11:50 Calcium 8.9 mg/dL (8.4-10.2) 08/26/21 04:35 Total Bilirubin 2.90 mg/dL (0.1-1.2) H 08/26/21 04:35 AST 15 units/L (5-40) 08/26/21 04:35 ALT 16 units/L (7-56) 08/26/21 04:35 Alkaline Phosphatase 142 units/L (35-129) H 08/26/21 04:35 Troponin T < 0.010 ng/mL (0.00-0.029) 08/25/21 16:51 Total Protein 6.8 g/dL (6.3-8.2) 08/26/21 04:35 Albumin 3.3 g/dL (3.9-5) L 08/26/21 04:35 Albumin/Globulin Ratio 0.9 % 08/26/21 04:35 Urine Color Straw (Yellow) 08/26/21 Unknown Urine Turbidity Clear (Clear) 08/26/21 Unknown Urine pH 7.0 (5.0-7.0) 08/26/21 Unknown Ur Specific [place] 1.005 (1.003-1.030) 08/26/21 Unknown Urine Protein 30 mg/dl mg/dL (Negative) 08/26/21 Unknown Urine Glucose (UA) Neg mg/dL (Negative) 08/26/21 Unknown Urine Ketones Neg mg/dL (Negative) 08/26/21 Unknown Urine Blood Mod (Negative) 08/26/21 Unknown Urine Nitrite Neg (Negative) 08/26/21 Unknown Urine Bilirubin Neg (Negative) 08/26/21 Unknown Urine Urobilinogen < 2.0 mg/dL (<2.0) 08/26/21 Unknown Ur Leukocyte Esterase Neg (Negative) 08/26/21 Unknown Urine WBC (Auto) < 1.0 /HPF (0.0-6.0) 08/26/21 Unknown Urine RBC (Auto) 3.0 /HPF (0.0-6.0) 08/26/21 Unknown Coronavirus (PCR) Negative (Negative) 08/27/21 Unknown Arthur/IV: Voiding Method Urinal Active Medications - Current Medications Current Medications: Generic Name Dose Route Start Last Admin Trade Name Freq PRN Reason Stop Dose Admin Acetaminophen 650 mg 08/25/21 12:00 Acetaminophen 325 Mg Tab PO Q4H PRN Pain MILD(1-3)/Fever >100.5/HERNANDEZ Albuterol 2.5 mg 08/25/21 12:00 Albuterol 2.5 Mg/3 Ml Nebu IH Q4HRT PRN Shortness Of Breath Atorvastatin Calcium 40 mg 08/25/21 22:00 08/26/21 22:31 Atorvastatin 40 Mg Tab PO 40 mg QHS DELTA Administration Dextrose 50 ml 08/27/21 09:00 Dextrose 50% In Water (25gm) 50 Ml Syringe IV Q30MIN PRN Hypoglycemia Protocol Famotidine 20 mg 08/25/21 22:00 08/27/21 09:38 Famotidine 20 Mg Tab PO 20 mg BID DELTA Administration Furosemide 40 mg 08/25/21 18:00 08/27/21 06:12 Furosemide 40 Mg/4 Ml Inj IV 40 mg BID@0600,1800 DELTA Administration Hydromorphone HCl 0.5 mg 08/25/21 12:00 08/26/21 04:53 Hydromorphone 1 Mg/1 Ml Inj IV 0.5 mg Q23H PRN Administration Pain , Severe (7-10) Milrinone Lactate/Dextrose 20 mg in 100 mls @ 10.206 mls/hr 08/25/21 12:30 08/26/21 06:10 Milrinone-D5w 20 Mg/100 Ml IV Infused DIRECT DELTA Infusion Protocol 0.375 MCG/KG/MIN Insulin Glargine 35 units 08/27/21 10:00 08/27/21 09:40 Insulin Glargine 100 Units/Ml SUB-Q 35 units QDAY DELTA Administration Insulin Human Lispro 0 unit 08/27/21 11:30 Insulin Lispro 100 Unit/Ml SUB-Q ACHS [facility] Protocol Metoprolol Succinate 100 mg 08/26/21 10:00 08/27/21 09:39 Metoprolol Succinate Xl 100 Mg Tab PO 100 mg QDAY DELTA Administration Ondansetron HCl 4 mg 08/25/21 12:00 08/26/21 04:54 Ondansetron 4 Mg/2 Ml Inj IV 4 mg Q8H PRN Administration Nausea And Vomiting Oxycodone/Acetaminophen 1 tab 08/25/21 12:00 Oxycodone /Acetaminophen 5-325mg Tab PO Q16H PRN Pain, Moderate (4-6) Rivaroxaban 20 mg 08/26/21 10:00 08/27/21 09:40 Rivaroxaban 20 Mg Tab PO 20 mg DAILY DELTA Administration Sodium Chloride 10 ml 08/25/21 22:00 08/27/21 09:40 Sodium Chloride 0.9% 10 Ml Flush Syringe IV 10 ml BID DELTA Administration Sodium Chloride 10 ml 08/25/21 12:00 Sodium Chloride 0.9% 10 Ml Flush Syringe IV PRN PRN LINE FLUSH
[2021-08-27] MEDS: INSULIN LISPRO 100 UNIT/ML SUB-Q SCH ×3 (16:56→21:46)
[2021-08-27] MEDS: MILRINONE-D5W 20 MG/100 ML 20 MG/100 ML BAG IV SCH (17:56)
[2021-08-28] MEDS: MILRINONE-D5W 20 MG/100 ML 20 MG/100 ML BAG IV SCH ×2 (02:24→21:35)
[2021-08-28] MEDS: FUROSEMIDE 40 MG/4 ML INJ IV SCH ×2 (06:36→18:26)
[2021-08-28] MEDS: INSULIN LISPRO 100 UNIT/ML SUB-Q SCH ×4 (09:48→21:35)
[2021-08-28] MEDS: INSULIN GLARGINE 100 UNITS/ML SUB-Q SCH (09:48)
[2021-08-28] MEDS: RIVAROXABAN 20 MG TAB PO SCH (09:49)
[2021-08-28] MEDS: FAMOTIDINE 20 MG TAB PO SCH ×2 (09:49→21:36)
[2021-08-28] MEDS ORDERED: METOPROLOL SUCCINATE XL 50 MG TAB PO SCH (10:00)
--- NOTE | 2021-08-28 10:34 | Progress Note ---
Assessment and Plan - Patient Problems (1) Acute on chronic systolic heart failure Current Visit: No Status: Acute Plan to address problem: Patient has chronic systolic left ventricular failure. Managed at the heart failure clinic at the [place]. Continue guideline directed medical therapy including intravenous diuretics and ongoing intravenous milrinone. Subjective Date of service: 08/28/21 Interval history: Patient is comfortable, in no acute distress. He is tolerating intravenous milrinone infusion. Objective Vital Signs Temp Pulse Pulse Resp BP BP Pulse Ox 08/28/21 10:06 98 08/28/21 08:10 98.4 F 104 H 20 115/74 98 08/28/21 05:50 97.2 F L 100 H 20 106/62 100 08/28/21 01:43 102 H 109/67 100 08/27/21 23:53 97.2 F L 103 H 20 94/58 97 08/27/21 22:00 95 08/27/21 21:56 99 08/27/21 21:00 98 08/27/21 20:02 97.3 F L 94 H 20 105/72 80 L 08/27/21 18:00 94 H 16 110/79 08/27/21 17:31 101 H 22 110/79 99 08/27/21 17:00 103 H 24 110/79 99 08/27/21 16:31 109 H 24 104/62 92 08/27/21 16:00 97.8 F 92 H 26 H 104/62 93 08/27/21 15:35 94 08/27/21 15:31 93 H 27 H 98/59 98 08/27/21 15:00 94 H 41 H 98/59 99 08/27/21 14:31 18 100/60 100 08/27/21 14:00 100 H 41 H 104/65 93 08/27/21 13:31 100 H 13 100/60 99 08/27/21 13:00 98 H 100 H 35 H 100/60 97 08/27/21 12:31 100 H 48 H 95/63 92 08/27/21 12:00 99.1 F 100 H 22 95/63 93 08/27/21 11:31 102 H 39 H 101/73 92 08/27/21 11:10 97 H 25 H 100 - Physical Examination General: No Apparent Distress HEENT: Positive: PERRL Neck: Positive: neck supple Cardiac: Positive: Reg Rate and Rhythm Lungs: Positive: clear to auscultation Neuro: Positive: Grossly Intact Abdomen: Positive: Soft Skin: Positive: Clear Extremities: Present: +1 Edema
--- NOTE | 2021-08-28 13:03 | Progress Note ---
Assessment and Plan Assessment and plan: 45 YO Male with HTN, Systolic CHF(EF 10%), CVA, DM, Migraine HERNANDEZ presents to ED for evaluation. Patient reports "I cannot breathe". Patient states that he has experienced shortness of breath over the past week since his discharge from the hospital. Patient acknowledges orthopnea, proximal nocturnal dyspnea, dyspnea on exertion, dyspnea at rest, bilateral leg edema, as well as 10 pound weight gain over the past week. Patient acknowledges compliance with outpatient medications. Patient transported to [facility] via private vehicle for further care and evaluation of the aforementioned symptoms. The patient was seen and evaluated in the emergency department. All lab and imaging studies reviewed. The patient was found to be unable to speak in complete sentences, using accessory muscles to breathe, retracting. Patient found to have a pulse oximetry of 86% on room air which is consistent with acute hypoxemic respiratory failure. Patient initiated on BiPAP with mild improvement in symptoms. Patient also found to have clinical symptoms consistent with CHF decompensation. Cardiology team consulted in ED. Patient admitted to [facility] and initiated on milrinone drip. Patient has fever, chills, chest pain, palpitation, adductive cough, skin rash, recent contact, or known exposure to COVID-19. Prior mission on 08/14/2021 reviewed. All medication listed at time of admission has been reconciled. Advanced care planning conducted in ED. Patient is fully vaccinated against COVID-19. 08/26: Patient seen examined, lethargic, per discussion, he [facility] due to recent stroke and lack of social support. Continue goal directed Medical therapy, strict I/O, re-evaluate with certified registered dental assistant 08/27: Patient seen and examined, asking to be discharged, discussed his clinic ally condition and the need for continued therapy. Business Applications Analyst recommends restarting Milirone, decrease Metoprolol to 50mg daily and hold GARCÍA/ARB. Strict I/O and daily weight 08/28: Patient seen and examined resting comfortable. Continue Milirone drip, patient tolerating. Discussed with cardiology and plan for discharge in 2 days. (2)Acute hypoxemic respiratory failure Current Visit: Yes Status: Acute Plan to address problem: Supplemental oxygen, pulse oximetry, nebulizer therapy, chest x-ray, noninvasive positive pressure ventilation, treat CHF. (3) Hypertension Current Visit: Yes Status: Acute Qualifiers: Hypertension type: primary hypertension Qualified Code(s): I10 - Essential (primary) hypertension Plan to address problem: Monitor blood pressure every shift, continue medical management (4) Diabetes Current Visit: Yes Status: Acute Plan to address problem: Consistent carbohydrate diet, sliding scale insulin, Accu-Chek, hypoglycemia pro tocol. (5) DVT prophylaxis Current Visit: Yes Status: Acute Plan to address problem: SCD to bilateral extremities while in bed, prophylactic anticoagulation (6) Advance care planning Current Visit: Yes Status: Acute Plan to address problem: Disease education conducted, care plan discussed, diagnoses discussed, poor prognosis discussed. Patient knowledges understanding agree with care plan, +30 minutes. History Interval history: Patient seen and examined still with shortness of breath, advised to continue diuresis, she is tolerating [facility] Physical - Physical exam Narrative exam: General appearance: Present:moderate distress, orthopenic - EENT Eyes: Present: PERRL ENT: hearing intact, hearing decreased - Neck Neck: Present: supple - Respiratory Respiratory effort: labored, accessory muscle use,with exertion Respiratory: bilateral: diminished, rales - Cardiovascular Heart Sounds: Present: S1 & S2. Absent: rub, click - Extremities Extremity abnormal: edema +++ Peripheral Pulses: within normal limits - Abdominal General gastrointestinal: Present: soft, non-tender, non-distended, normal bowel sounds Male genitourinary: Present: normal - Integumentary Integumentary: Present: clear, - Musculoskeletal Musculoskeletal: generalized weakness - Psychiatric Psychiatric: appropriate mood/affect, intact judgment & insight - Neurologic Neurologic: CNII-XII intact, moves all extremities, no gait normal - Constitutional Vitals: Temp Pulse Resp BP Pulse Ox 98.3 F 101 H 20 112/76 99 08/28/21 12:21 08/28/21 12:21 08/28/21 12:21 08/28/21 12:21 08/28/21 12:21 General appearance: Present: no acute distress HEART Score - HEART Score Troponin: Troponin T < 0.010 ng/mL (0.00-0.029) 08/25/21 16:51 Results - Labs CBC & Chem 7: 08/26/21 04:35 08/26/21 04:35 Labs: Laboratory Last Values WBC 8.8 K/mm3 (4.5-11.0) 08/26/21 04:35 RBC 6.29 M/mm3 (3.65-5.03) H 08/26/21 04:35 Hgb 14.5 gm/dl (11.8-15.2) 08/26/21 04:35 Hct 47.1 % (35.5-45.6) H 08/26/21 04:35 MCV 75 fl (84-94) L 08/26/21 04:35 MCH 23 pg (28-32) L 08/26/21 04:35 MCHC 31 % (32-34) L 08/26/21 04:35 RDW 17.4 % (13.2-15.2) H 08/26/21 04:35 Plt Count 142 K/mm3 (140-440) 08/26/21 04:35 Lymph % (Auto) 12.1 % (13.4-35.0) L 08/26/21 04:35 [place] % (Auto) 7.3 % (0.0-7.3) 08/26/21 04:35 Eos % (Auto) 1.5 % (0.0-4.3) 08/26/21 04:35 Baso % (Auto) 0.7 % (0.0-1.8) 08/26/21 04:35 Lymph # (Auto) 1.1 K/mm3 (1.2-5.4) L 08/26/21 04:35 [place] # (Auto) 0.6 K/mm3 (0.0-0.8) 08/26/21 04:35 Eos # (Auto) 0.1 K/mm3 (0.0-0.4) 08/26/21 04:35 Baso # (Auto) 0.1 K/mm3 (0.0-0.1) 08/26/21 04:35 Seg Neutrophils % 78.4 % (40.0-70.0) H 08/26/21 04:35 Seg Neutrophils # 6.9 K/mm3 (1.8-7.7) 08/26/21 04:35 PT 15.3 Sec. (12.2-14.9) H 08/25/21 10:04 INR 1.09 (0.87-1.13) 08/25/21 10:04 APTT 35.6 Sec. (24.2-36.6) 08/25/21 10:04 Sodium 141 mmol/L (137-145) 08/26/21 04:35 Potassium 3.4 mmol/L (3.6-5.0) L D 08/26/21 04:35 Chloride 100.8 mmol/L (98-107) 08/26/21 04:35 Carbon Dioxide 28 mmol/L (22-30) D 08/26/21 04:35 Anion Gap 16 mmol/L 08/26/21 04:35 BUN 20 mg/dL (9-20) 08/26/21 04:35 Creatinine 1.4 mg/dL (0.8-1.3) H 08/26/21 04:35 Estimated GFR > 60 ml/min 08/26/21 04:35 BUN/Creatinine Ratio 14 % 08/26/21 04:35 Glucose 215 mg/dL (75-100) H 08/26/21 04:35 POC Glucose 164 mg/dL (70-105) H 08/28/21 12:21 Calcium 8.9 mg/dL (8.4-10.2) 08/26/21 04:35 Total Bilirubin 2.90 mg/dL (0.1-1.2) H 08/26/21 04:35 AST 15 units/L (5-40) 08/26/21 04:35 ALT 16 units/L (7-56) 08/26/21 04:35 Alkaline Phosphatase 142 units/L (35-129) H 08/26/21 04:35 Troponin T < 0.010 ng/mL (0.00-0.029) 08/25/21 16:51 Total Protein 6.8 g/dL (6.3-8.2) 08/26/21 04:35 Albumin 3.3 g/dL (3.9-5) L 08/26/21 04:35 Albumin/Globulin Ratio 0.9 % 08/26/21 04:35 Urine Color Straw (Yellow) 08/26/21 Unknown Urine Turbidity Clear (Clear) 08/26/21 Unknown Urine pH 7.0 (5.0-7.0) 08/26/21 Unknown Ur Specific [place] 1.005 (1.003-1.030) 08/26/21 Unknown Urine Protein 30 mg/dl mg/dL (Negative) 08/26/21 Unknown Urine Glucose (UA) Neg mg/dL (Negative) 08/26/21 Unknown Urine Ketones Neg mg/dL (Negative) 08/26/21 Unknown Urine Blood Mod (Negative) 08/26/21 Unknown Urine Nitrite Neg (Negative) 08/26/21 Unknown Urine Bilirubin Neg (Negative) 08/26/21 Unknown Urine Urobilinogen < 2.0 mg/dL (<2.0) 08/26/21 Unknown Ur Leukocyte Esterase Neg (Negative) 08/26/21 Unknown Urine WBC (Auto) < 1.0 /HPF (0.0-6.0) 08/26/21 Unknown Urine RBC (Auto) 3.0 /HPF (0.0-6.0) 08/26/21 Unknown Nasal Screen MRSA (PCR) Negative (Negative) 08/27/21 06:10 Coronavirus (PCR) Negative (Negative) 08/27/21 Unknown Arthur/IV: Voiding Method Urinal Active Medications - Current Medications Current Medications: Generic Name Dose Route Start Last Admin Trade Name Freq PRN Reason Stop Dose Admin Acetaminophen 650 mg 08/25/21 12:00 Acetaminophen 325 Mg Tab PO Q4H PRN Pain MILD(1-3)/Fever >100.5/HERNANDEZ Albuterol 2.5 mg 08/25/21 12:00 Albuterol 2.5 Mg/3 Ml Nebu IH Q4HRT PRN Shortness Of Breath Atorvastatin Calcium 40 mg 08/25/21 22:00 08/27/21 21:47 Atorvastatin 40 Mg Tab PO 40 mg QHS DELTA Administration Dextrose 50 ml 08/27/21 09:00 Dextrose 50% In Water (25gm) 50 Ml Syringe IV Q30MIN PRN Hypoglycemia Protocol Famotidine 20 mg 08/25/21 22:00 08/28/21 09:49 Famotidine 20 Mg Tab PO 20 mg BID DELTA Administration Furosemide 40 mg 08/25/21 18:00 08/28/21 06:36 Furosemide 40 Mg/4 Ml Inj IV 40 mg BID@0600,1800 DELTA Administration Hydromorphone HCl 0.5 mg 08/25/21 12:00 08/26/21 04:53 Hydromorphone 1 Mg/1 Ml Inj IV 0.5 mg Q23H PRN Administration Pain , Severe (7-10) Milrinone Lactate/Dextrose 20 mg in 100 mls @ 10.206 mls/hr 08/25/21 12:30 08/28/21 02:24 Milrinone-D5w 20 Mg/100 Ml IV 0.38 mcg/kg/min DIRECT DELTA 10.206 mls/hr Administration Protocol 0.375 MCG/KG/MIN Insulin Glargine 35 units 08/27/21 10:00 08/28/21 09:48 Insulin Glargine 100 Units/Ml SUB-Q 35 units QDAY DELTA Administration Insulin Human Lispro 0 unit 08/27/21 11:30 08/28/21 09:48 Insulin Lispro 100 Unit/Ml SUB-Q 4 unit ACHS DELTA Administration Protocol Metoprolol Succinate 50 mg 08/28/21 10:00 08/28/21 09:48 Metoprolol Succinate Xl 50 Mg Tab PO 50 mg QDAY DELTA Administration Ondansetron HCl 4 mg 08/25/21 12:00 08/26/21 04:54 Ondansetron 4 Mg/2 Ml Inj IV 4 mg Q8H PRN Administration Nausea And Vomiting Oxycodone/Acetaminophen 1 tab 08/25/21 12:00 Oxycodone /Acetaminophen 5-325mg Tab PO Q16H PRN Pain, Moderate (4-6) Rivaroxaban 20 mg 08/26/21 10:00 08/28/21 09:49 Rivaroxaban 20 Mg Tab PO 20 mg DAILY DELTA Administration Sodium Chloride 10 ml 08/25/21 22:00 08/28/21 09:49 Sodium Chloride 0.9% 10 Ml Flush Syringe IV 10 ml BID DELTA Administration Sodium Chloride 10 ml 08/25/21 12:00 Sodium Chloride 0.9% 10 Ml Flush Syringe IV PRN PRN LINE FLUSH
[2021-08-29 04:35] VITALS: BP 117/82
[2021-08-29] MEDS: FUROSEMIDE 40 MG/4 ML INJ IV SCH (05:32)
[2021-08-29] MEDS: INSULIN LISPRO 100 UNIT/ML SUB-Q SCH (07:56)
--- NOTE | 2021-08-29 08:55 | Progress Note ---
Assessment and Plan Acute on chronic systolic heart failure Patient is close to euvolemia Dilated cardiomyopathy History of CVA Type II DM Telemetry showing sinus tachycardia Recommendations: May go home Discontinue IV milrinone Resume home dose of toprol XL, entresto and torsemide Follow-up with [place] cardiology in 1 week Advised fluid and salt restriction Subjective Date of service: 08/29/21 Principal diagnosis: CHF Interval history: Patient is feeling better today. He has diuresed well overnight. He denies chest pain or shortness of breath. Patient wants to go home in order to take care of his . He follows up with [place] cardiology. Objective Vital Signs Temp Pulse Resp BP Pulse Ox 08/29/21 07:55 97 08/29/21 07:54 99 H 08/29/21 03:34 98.7 F 111 H 16 117/82 96 08/28/21 23:26 97.1 F L 104 H 16 115/74 98 08/28/21 21:00 104 H 08/28/21 19:48 97 08/28/21 19:23 97.7 F 106 H 19 105/74 97 08/28/21 15:49 97.7 F 103 H 20 113/62 98 08/28/21 13:00 74 08/28/21 12:21 98.3 F 101 H 20 112/76 99 08/28/21 10:06 98 08/28/21 10:00 96 - Physical Examination General: No Apparent Distress HEENT: Positive: PERRL Neck: Positive: neck supple Cardiac: Positive: Tachycardia Lungs: Positive: Normal Exam Neuro: Positive: Grossly Intact Abdomen: Positive: Soft Skin: Positive: Clear Extremities: Present: +1 Edema
--- NOTE | 2021-08-29 09:16 | Discharge Summary ---
Providers - Providers Date of Admission: 08/25/21 12:00 Attending physician: JOAQUIN ZAYAS MD 08/25/21 12:05 Consult to Cardiology [CONS] Routine Consulting Provider: DEAN GOULD Reason For Exam: heart failure Primary care physician: PAYROLL ANALYST Hospitalization Reason for admission: SHORTNESS OF BREATH Condition: Stable Hospital course: 45 YO Male with HTN, Systolic CHF(EF 10%), CVA, DM, Migraine HERNANDEZ presents to ED for evaluation. Patient reports "I cannot breathe". Patient states that he has experienced shortness of breath over the past week since his discharge from the hospital. Patient acknowledges orthopnea, proximal nocturnal dyspnea, dyspnea on exertion, dyspnea at rest, bilateral leg edema, as well as 10 pound weight gain over the past week. Patient acknowledges compliance with outpatient medications. Patient transported to [facility] via private vehicle for further care and evaluation of the aforementioned symptoms. The patient was seen and evaluated in the emergency department. All lab and imaging studies reviewed. The patient was found to be unable to speak in complete sentences, using accessory muscles to breathe, retracting. Patient found to have a pulse oximetry of 86% on room air which is consistent with acute hypoxemic respiratory failure. Patient initiated on BiPAP with mild improvement in symptoms. Patient also found to have clinical symptoms consistent with CHF decompensation. Cardiology team consulted in ED. Patient admitted to [facility] and initiated on milrinone drip. Patient has fever, chills, chest pain, palpitation, adductive cough, skin rash, recent contact, or known exposure to COVID-19. Prior mission on 08/14/2021 reviewed. All medication listed at time of admission has been reconciled. Advanced care planning conducted in ED. Patient is fully vaccinated against COVID-19. 08/26: Patient seen examined, lethargic, per discussion, [facility] due to recent stroke and lack of social support. Continue goal directed Medical therapy, strict I/O, re-evaluate with refinery operator reforming unit 08/27: Patient seen and examined, asking to be discharged, discussed his clinically condition and the need for continued therapy. Mill Tender Washing recommends restarting Milirone, decrease Metoprolol to 50mg daily and hold GARCÍA/ARB. Strict I/O and daily weight 08/28: Patient seen and examined resting comfortable. Continue Milirone drip, patient tolerating. Discussed with cardiology and plan for discharge in 2 days. 08/29: PT seen and examined at this time, resting comfortable. Discussed with refinery operator reforming unit, patient will continue with salt restrictions and fluid restrictions. Milirone discontinued (1) Acute on chronic systolic heart failure (2) Acute hypoxemic respiratory failure Current Visit: Yes Status: Acute Plan to address problem: Supplemental oxygen, pulse oximetry, nebulizer therapy, chest x-ray, noninvasive positive pressure ventilation, treat CHF. (3) Hypertension Current Visit: Yes Status: Acute Qualifiers: Hypertension type: primary hypertension Qualified Code(s): I10 - Essential (primary) hypertension Plan to address problem: Monitor blood pressure every shift, continue medical management (4) Diabetes Current Visit: Yes Status: Acute Plan to address problem: Consistent carbohydrate diet, sliding scale insulin, Accu-Chek, hypoglycemia protocol. Disposition: 01 HOME / SELF CARE / HOMELESS Final Discharge Diagnosis (Prints w/discharge instructions): Acute on chronic systolic heart failure Time spent for discharge: 35 mins Core Measure Documentation - Palliative Care Palliative Care/ Comfort Measures: Not Applicable - Core Measures Any of the following diagnoses?: heart failure - Heart Failure Discharge Requirements GARCÍA/ARB for LVSD if EF <40%: Yes Beta ruddy at discharge: Yes Exam - Physical Exam Narrative exam: General appearance: Present:moderate distress, orthopenic - EENT Eyes: Present: PERRL ENT: hearing intact, hearing decreased - Neck Neck: Present: supple - Respiratory Respiratory effort: labored, accessory muscle use,with exertion Respiratory: bilateral: diminished, rales - Cardiovascular Heart Sounds: Present: S1 & S2. Absent: rub, click - Extremities Extremity abnormal: edema +++ Peripheral Pulses: within normal limits - Abdominal General gastrointestinal: Present: soft, non-tender, non-distended, normal bowel sounds Male genitourinary: Present: normal - Integumentary Integumentary: Present: clear, - Musculoskeletal Musculoskeletal: generalized weakness - Psychiatric Psychiatric: appropriate mood/affect, intact judgment & insight - Neurologic Neurologic: CNII-XII intact, moves all extremities, no gait normal - Constitutional Vitals: Temp Pulse Resp BP Pulse Ox 98.7 F 99 H 16 117/82 97 08/29/21 03:34 08/29/21 07:54 08/29/21 03:34 08/29/21 03:34 08/29/21 07:55 Plan Activity: advance as tolerated, fall precautions Diet: low salt Special Instructions: restrict fluid intake to (1000cc/day), record daily weights, record daily BP diary, record blood sugar diary Care Plan Goals: [facility] with [facility] CONTINUE HOME MEDS Resume home dose of toprol XL, entresto and torsemide Follow-up with [place] cardiology in 1 week Advised fluid and salt restriction Follow up with: PRIMARY CAREMD [Primary Care Provider] - 7 Days VICTORINO ROSARIO MD [Staff Physician] - 7 Days
== END 2021-08-29 09:55 | disposition home or self-care (01) | DRG 291 ==
LOC: ED 08:39 → 4A 12:00 → IMCU 19:03 → 4A 08-27 18:29
PROVIDERS: ADMIT Internal Medicine; ATTEND Internal Medicine
PROC: 5A09357 Assistance with Respiratory Ventilation, Less than 24 Consecutive Hours, Continuous Positive Airway Pressure (ICD-10-PCS; principal; 2021-08-25)
DX: I11.0 Hypertensive heart disease with heart failure (principal); J96.01 Acute respiratory failure with hypoxia; I50.23 Acute on chronic systolic (congestive) heart failure; Z20.822 Contact with and (suspected) exposure to COVID-19; E11.9 Type 2 diabetes mellitus without complications; E78.5 Hyperlipidemia, unspecified; I42.0 Dilated cardiomyopathy; G43.909 Migraine, unspecified, not intractable, without status migrainosus; Z83.3 Family history of diabetes mellitus; Z82.49 Family history of ischemic heart disease and other diseases of the circulatory system; I25.2 Old myocardial infarction; Z79.4 Long term (current) use of insulin; Z86.73 Personal history of transient ischemic attack (TIA), and cerebral infarction without residual deficits
CPT/HCPCS: 36415; 71045; 80053; 81001; 82962; 84484; 85025; 85610; 85730; 87641; 93005; G0378; Q9967; J1170; J1815; J1940; J2260; J2405; U0003

== ENCOUNTER 2021-12-11 23:09 | Inpatient (IN) | payer OTHER, MEDICARE ==
--- NOTE | 2021-12-12 00:25 | Emergency Department Report ---
ED General Adult HPI - General Chief complaint: Dyspnea/Respdistress Stated complaint: Shortness of breath PUI?: No Time Seen by Provider: 12/12/21 00:15 Source: patient, RN notes reviewed, old records reviewed Mode of arrival: Ambulatory Limitations: Physical Limitation - History of Present Illness Initial comments: The patient was evaluated in the emergency department for symptoms described in the history of present illness. He/she was evaluated in the context of the global COVID-19 pandemic, which necessitated consideration that the patient might be at risk for infection with the virus that causes COVID-19. [facility] protocols and algorithms that pertain to the evaluation of patients at risk for COVID-19 are in a state of rapid change based on information released by regulatory bodies including the CDC and federal and state organizations. These policies and algorithms were followed during the patient's care in the emergency department. Please note that these policies, procedures and recommendations changed on a rapid basis. Patient is a 46-year-old gentleman, who typically follows at the [facility], with a history of severe dilated nonischemic cardiomyopathy, EF of 10 to 15%, type 2 diabetes, and dyslipidemia, who presents to the ER today with a complaint of painless shortness of breath. Patient admitted to this hospital earlier on this month for acute decompensated conges tive heart failure. He was to follow-up with outpatient [place] hospital for AICD placement and evaluati on. Patient reports that at this point time, no AICD is intended or plan, secondary to high blood sugar levels. He also reports a prior evaluation for left ventricular assist device, as well as cardiac transplant. He endorses compliance with his medications and denies dietary indiscretions. He presents to the ER today with complaint of painless shortness of breath. He has chronic orthopnea, and sleeps sitting up. He reports unintentional 11 pound weight gain. Denies hematemesis and bright red blood per rectum. Denies physical pain. Indicates this is similar to prior episodes of CHF exacerbation. Further endorses that he is COVID-19 vaccinated. He was started on BiPAP in the emergency room, which improved his symptoms somewhat, but not completely -: Gradual Severity scale (0 -10): 4 Consistency: constant Improves with: rest Worsens with: movement, other (Laying flat) - Related Data Home Medications Medication Instructions Recorded Confirmed Last Taken Insulin Glargine [Lantus VIAL] 35 units SUB-Q QHS 07/30/21 11/27/21 08/26/21 Sacubitril/Valsartan [Entresto 1 each PO QAM&QHS 07/30/21 11/27/21 08/26/21 49-51 mg] Torsemide [Demadex] 100 mg PO BID 07/30/21 11/27/21 08/26/21 Insulin Aspart [Novolog Flexpen] 8 units SQ TIDAC 11/27/21 11/27/21 Unknown Previous Rx's Medication Instructions Recorded Last Taken Type AtorvaSTATin [Lipitor] 40 mg PO QHS #30 tablet 03/13/21 08/25/21 Rx Metoprolol Xl [Metoprolol 100 mg PO QDAY #60 tablet 03/13/21 08/26/21 Rx SUCCINATE ER TAB] Rivaroxaban [Xarelto] 20 mg PO DAILY #30 03/13/21 08/26/21 Rx Allergies Allergy/AdvReac Type Severity Reaction Status Date / Time No Known Allergies Allergy Verified 11/27/21 13:19 ED Review of Systems ROS: Stated complaint: SOB/NAUSEA/VOMITING Other details as noted in HPI Constitutional: malaise Eyes: denies: eye discharge ENT: denies: epistaxis Respiratory: shortness of breath Cardiovascular: orthopnea, edema. denies: chest pain Gastrointestinal: denies: abdominal pain, nausea, vomiting, hematemesis, melena, hematochezia Neurological: weakness Psychiatric: anxiety Hematological/Lymphatic: denies: easy bleeding ED Past Medical Hx - Past Medical History Previous Medical History?: Yes Hx Hypertension: Yes Hx CVA: Yes (TIA's right side weakness) Hx Heart Attack/AMI: Yes Hx Congestive Heart Failure: Yes (systolic chf) Hx Diabetes: Yes Hx Deep Vein Thrombosis: No Hx Liver Disease: No Hx Headaches / Migraines: Yes (migraines) Hx Seizures: No Hx Asthma: No Hx COPD: No Hx Dementia: No Additional medical history: Hyperlipidemia - Surgical History Past Surgical History?: Yes Hx Coronary Stent: No Hx Pacemaker: No Hx Internal Defibrillator: No Additional Surgical History: Tonsillectomy, incision and drainage axillary abscess - Social History Smoking Status: Never Smoker - Medications Home Medications: Home Medications Medication Instructions Recorded Confirmed Last Taken Type AtorvaSTATin [Lipitor] 40 mg PO QHS #30 tablet 03/13/21 11/27/21 08/25/21 Rx Metoprolol Xl [Metoprolol 100 mg PO QDAY #60 tablet 03/13/21 11/27/21 08/26/21 Rx SUCCINATE ER TAB] Rivaroxaban [Xarelto] 20 mg PO DAILY #30 03/13/21 11/27/21 08/26/21 Rx Insulin Glargine [Lantus VIAL] 35 units SUB-Q QHS 07/30/21 11/27/21 08/26/21 History Sacubitril/Valsartan [Entresto 1 each PO QAM&QHS 07/30/21 11/27/21 08/26/21 History 49-51 mg] Torsemide [Demadex] 100 mg PO BID 07/30/21 11/27/21 08/26/21 History Insulin Aspart [Novolog Flexpen] 8 units SQ TIDAC 11/27/21 11/27/21 Unknown History ED Physical Exam - General Limitations: Physical Limitation General appearance: alert, anxious, in distress - Head Head exam: Present: atraumatic, normocephalic - Eye Eye exam: Present: normal appearance, EOMI. Absent: nystagmus - ENT ENT exam: Present: normal exam, normal orophraynx, mucous membranes moist, normal external ear exam - Neck Neck exam: Present: normal inspection, full ROM. Absent: tenderness, meningi smus - Respiratory Respiratory exam: Present: respiratory distress, accessory muscle use. Absent: wheezes, rales, rhonchi, stridor - Cardiovascular Cardiovascular Exam: Present: normal rhythm, tachycardia, JVD. Absent: b radycardia, irregular rhythm, systolic murmur, diastolic murmur, rubs, gallop - GI/Abdominal GI/Abdominal exam: Present: soft. Absent: distended, tenderness, guarding, rebound, rigid, pulsatile mass - Rectal Rectal exam: Present: deferred - Extremities Exam Extremities exam: Present: normal inspection, full ROM, pedal edema (3+ edema in the bilateral lower extremities), other (There is no long bony tenderness. The muscular compartments are soft. 2+ pulses noted in the bilateral upper extremities). Absent: calf tenderness - Back Exam Back exam: Present: normal inspection. Absent: tenderness, CVA tenderness (R), CVA tenderness (L), paraspinal tenderness, vertebral tenderness - Neurological Exam Neurological exam: Present: alert, other (No facial droop. Tongue midline. Extraocular movements intact bilaterally. Facial sensation intact to light touch in V1, V2, V3 distribution bilaterally. 5 and a 5 strength in 4 extremities. Sensation intact to light touch in 4 extremities.). Absent: motor sensory deficit - Psychiatric Psychiatric exam: Present: anxious - Skin Skin exam: Present: warm, dry, intact, normal color. Absent: rash ED Course Vital Signs 12/11/21 12/12/21 12/12/21 23:48 01:02 02:00 Temperature 97.6 F Pulse Rate 115 H 114 H 107 H Respiratory 22 36 H 20 Rate Blood Pressure 118/92 Blood Pressure 127/96 125/87 [Right] O2 Sat by Pulse 100 100 98 Oximetry 12/12/21 04:19 Temperature Pulse Rate 101 H Respiratory 22 Rate Blood Pressure Blood Pressure 123/84 [Right] O2 Sat by Pulse 100 Oximetry - Reevaluation(s) Reevaluation #1: 12/12/21 01:28 Differential diagnosis, including but not limited to: Congestive heart failure, diabetic ketoacidosis, volume overload, electrolyte derangement Assessment and plan: 46-year-old gentleman with probable recurrent decompensated acute congestive heart failure, manifest by JVD, shortness of breath, lower extremity edema, and tachypnea. Patient currently on BiPAP. High-dose Lasix ordered. Patient not able to lay flat. Lower extremity ultrasound/duplex ordered. I think DVT/PE is very unlikely, given his known history of decompensated congestive heart failure and nonischemic cardiomyopathy, and similarity of presentation today to prior presentations. Maintain patient on BiPAP, admit patient to the medical service once diagnostics have resulted. I discussed this plan of care with the patient. He is agreeable to the plan of care. 12/12/21 01:53 Laboratory studies reviewed and appreciated. Have uptitrated BiPAP settings. Hospital physician, Dr. Carrington to admit to IMS Have personally contacted ultrasound technologist sonographer, and requested an ETA as to when they will perform the lower extremity DVT study. I am informed that she is on the way to perform the study. 12/12/21 06:04 DVT study negative for DVT. ED Medical Decision Making - Lab Data Result diagrams: 12/12/21 01:00 12/12/21 01:00 Vital Signs 12/11/21 12/12/21 23:48 01:02 Temperature 97.6 F Pulse Rate 115 H 114 H Respiratory 22 36 H Rate Blood Pressure 118/92 Blood Pressure 127/96 [Right] O2 Sat by Pulse 100 100 Oximetry Lab Results 12/12/21 Range/Units 01:00 VBG pH 7.371 (7.320-7.420) Lab Results 12/12/21 12/12/21 12/12/21 Range/Units 01:00 01:00 01:00 WBC 8.7 (4.5-11.0) K/mm3 RBC 6.55 H (3.65-5.03) M/mm3 Hgb 14.8 (11.8-15.2) gm/dl Hct 48.5 H (35.5-45.6) % MCV 74 L (84-94) fl MCH 23 L (28-32) pg MCHC 31 L (32-34) % RDW 18.1 H (13.2-15.2) % Plt Count 169 (140-440) K/mm3 Lymph % (Auto) 17.3 (13.4-35.0) % [place] % (Auto) 7.8 H (0.0-7.3) % Eos % (Auto) 0.6 (0.0-4.3) % Baso % (Auto) 0.7 (0.0-1.8) % Lymph # (Auto) 1.5 (1.2-5.4) K/mm3 [place] # (Auto) 0.7 (0.0-0.8) K/mm3 Eos # (Auto) 0.1 (0.0-0.4) K/mm3 Baso # (Auto) 0.1 (0.0-0.1) K/mm3 Seg Neutrophils % 73.6 H (40.0-70.0) % Seg Neutrophils # 6.4 (1.8-7.7) K/mm3 PT 17.4 H (12.2-14.9) Sec. INR 1.27 H (0.87-1.13) APTT 33.9 (24.2-36.6) Sec. VBG pH (7.320-7.420) Sodium 136 L (137-145) mmol/L Potassium 4.3 (3.6-5.0) mmol/L Chloride 100.5 (98-107) mmol/L Carbon Dioxide 21 L (22-30) mmol/L Anion Gap 19 mmol/L BUN 28 H (9-20) mg/dL Creatinine 1.3 (0.8-1.3) mg/dL Estimated GFR > 60 ml/min BUN/Creatinine Ratio 22 % Glucose 258 H (75-100) mg/dL Calcium 9.9 (8.4-10.2) mg/dL Magnesium 1.90 (1.7-2.3) mg/dL Total Bilirubin 4.40 H (0.1-1.2) mg/dL AST 23 (5-40) units/L ALT 37 (7-56) units/L Alkaline Phosphatase 261 H (35-129) units/L Total Creatine Kinase 74 (55-170) units/L Troponin T 0.018 (0.00-0.029) ng/mL NT-Pro-B Natriuret Pep 4752 H (0-450) pg/mL Total Protein 6.7 (6.3-8.2) g/dL Albumin 3.5 L (3.9-5) g/dL Albumin/Globulin Ratio 1.1 % / Range/Units 01:00 WBC (4.5-11.0) K/mm3 RBC (3.65-5.03) M/mm3 Hgb (11.8-15.2) gm/dl Hct (35.5-45.6) % MCV (84-94) fl MCH (28-32) pg MCHC (32-34) % RDW (13.2-15.2) % Plt Count (140-440) K/mm3 Lymph % (Auto) (13.4-35.0) % [place] % (Auto) (0.0-7.3) % Eos % (Auto) (0.0-4.3) % Baso % (Auto) (0.0-1.8) % Lymph # (Auto) (1.2-5.4) K/mm3 [place] # (Auto) (0.0-0.8) K/mm3 Eos # (Auto) (0.0-0.4) K/mm3 Baso # (Auto) (0.0-0.1) K/mm3 Seg Neutrophils % (40.0-70.0) % Seg Neutrophils # (1.8-7.7) K/mm3 PT (12.2-14.9) Sec. INR (0.87-1.13) APTT (24.2-36.6) Sec. VBG pH 7.371 (7.320-7.420) Sodium (137-145) mmol/L Potassium (3.6-5.0) mmol/L Chloride (98-107) mmol/L Carbon Dioxide (22-30) mmol/L Anion Gap mmol/L BUN (9-20) mg/dL Creatinine (0.8-1.3) mg/dL Estimated GFR ml/min BUN/Creatinine Ratio % Glucose (75-100) mg/dL Calcium (8.4-10.2) mg/dL Magnesium (1.7-2.3) mg/dL Total Bilirubin (0.1-1.2) mg/dL AST (5-40) units/L ALT (7-56) units/L Alkaline Phosphatase (35-129) units/L Total Creatine Kinase (55-170) units/L Troponin T (0.00-0.029) ng/mL NT-Pro-B Natriuret Pep (0-450) pg/mL Total Protein (6.3-8.2) g/dL Albumin (3.9-5) g/dL Albumin/Globulin Ratio % - EKG Data -: EKG Interpreted by Sc - EKG Data 12/12/21 01:23 The EKG is interpreted at 12: 33 Sinus rhythm, rate 117 bpm. Left axis deviation, with a normal P wave axis. Incomplete right bundle branch block, and atrial enlargement. Motion artifact. Abnormal EKG. Not a STEMI. With the exception of left axis deviation, appears to be unchanged from prior EKG from November 25, 2021 However, patient has had prior left axis deviation in the past, EKG from 2020 demonstrates left axis deviation. 12/12/21 01:24 - Radiology Data Radiology results: pending, report reviewed, image reviewed CHEST 1 VIEW INDICATION: Dyspnea. COMPARISON: 11/25/2021 FINDINGS: Support devices: None. Heart: Stable. Lungs/Pleura: No acute pulmonary or pleural findings. IMPRESSION: 1. No acute findings. Signer Name: Jack Ceballos MD Signed: 12/12/2021 12:14 AM Workstation Name: [id number] CHEST 2 VIEWS INDICATION / CLINICAL INFORMATION: Chest Pain. FINDINGS: SUPPORT DEVICES: None. HEART / MEDIASTINUM: Mild cardiomegaly. LUNGS / PLEURA: No significant pulmonary or pleural abnormality. No pneumothorax. Signer Name : Brandon Chirinos MD Signed: 11/25/2021 7:47 PM Workstation Name: [id number] Critical Care Time: Yes Critical care time in (mins) excluding proc time.: 35 Critical care attestation.: If time is entered above; I have spent that time in minutes in the direct care of this critically ill patient, excluding procedure time. ED Disposition Clinical Impression: Acute respiratory distress, Acute congestive heart failure, Lower extremity edema Disposition: ADMITTED INPATIENT Is pt being admited?: Yes Does the pt Need Aspirin: No Condition: Fair
--- NOTE | 2021-12-12 01:18 | XRay Report ---
CHEST 1 VIEW INDICATION: Dyspnea. COMPARISON: 11/25/2021 FINDINGS: Support devices: None. Heart: Stable. Lungs/Pleura: No acute pulmonary or pleural findings. IMPRESSION: 1. No acute findings. Signer Name: Jack Ceballos MD Signed: 12/12/2021 1:14 AM Workstation Name: [id number]
[2021-12-12] MEDS ORDERED: FUROSEMIDE 40 MG/4 ML INJ IV ONE (01:21)
[2021-12-12 01:24] LABS: Basophils # (Auto) 0.1 K/mm3 (0.0-0.1); Basophils % (Auto) 0.7 % (0.0-1.8); Eosinophils # (Auto) 0.1 K/mm3 (0.0-0.4); Eosinophils % (Auto) 0.6 % (0.0-4.3); Lymphocytes # (Auto) 1.5 K/mm3 (1.2-5.4); Lymphocytes % (Auto) 17.3 % (13.4-35.0); Mean Corpuscular HGB Conc 31 % (32-34); Mean Corpuscular Volume 74 fl (84-94); Monocytes # (Auto) 0.7 K/mm3 (0.0-0.8); Monocytes % (Auto) 7.8 % (0.0-7.3); Red Blood Count 6.55 M/mm3 (3.65-5.03); Red Cell Distribution Width 18.1 % (13.2-15.2)
[2021-12-12 01:43] LABS: Alanine Aminotransferase 37 units/L (7-56); Albumin 3.5 g/dL (3.9-5); BUN/Creatinine Ratio 22; Blood Urea Nitrogen 28 mg/dL (9-20); Calcium 9.9 mg/dL (8.4-10.2); Hemolysis Index 9
[2021-12-12 01:45] LABS: Hematocrit 48.5 % (35.5-45.6); Hemoglobin 14.8 gm/dl (11.8-15.2); Platelet Count 169 K/mm3 (140-440)
[2021-12-12 01:47] LABS: INR 1.27 (0.87-1.13); Partial Thromboplastin Time 33.9 Sec. (24.2-36.6)
[2021-12-12] MEDS ORDERED: MORPHINE 2 MG/1 ML INJ IV PRN (02:30)
[2021-12-12] MEDS ORDERED: HYDROmorphone 1 MG/1 ML INJ IV PRN (02:30)
[2021-12-12] MEDS ORDERED: ONDANSETRON 4 MG/2 ML INJ IV PRN (02:30)
[2021-12-12] MEDS ORDERED: ACETAMINOPHEN 325 MG TAB PO PRN (02:30)
[2021-12-12] MEDS ORDERED: ALBUTEROL 2.5 MG/3 ML NEBU IH PRN (02:30)
[2021-12-12] MEDS ORDERED: DEXTROSE 50% IN WATER (25GM) 50 ML SYRINGE IV PRN (02:30)
--- NOTE | 2021-12-12 02:39 | History and Physical Report ---
History of Present Illness Date of examination: 12/12/21 Date of admission: 12/12/21 Chief complaint: Dyspnea Respiratory distress History of present illness: 46-year-old male with a history of severe dilated nonischemic cardiomyopathy, EF of 10 to 15%, type 2 diabetes, and dyslipidemia, diabetes, cva was brought to the emergency room because of worsening shortness of breath over last couple of days. Patient complained of associated orthopnea, paroxysmal nocturnal dyspnea, exertional shortness of breath. Patient admitted to this hospital earlier on this month for acute decompensated congestive heart failure. In the emergency room patient is found to have acute CHF exacerbation, patient proBNP is 4752, troponin 0 0.018. Still going to admit the patient to the [facility]. We will put the patient on BiPAP Lasix and consult cardiology Past History Past Medical History: diabetes, heart failure, hypertension, hyperlipidemia, stroke Medications and Allergies Allergies Allergy/AdvReac Type Severity Reaction Status Date / Time No Known Allergies Allergy Verified 11/27/21 13:19 Home Medications Medication Instructions Recorded Confirmed Last Taken Type AtorvaSTATin [Lipitor] 40 mg PO QHS #30 tablet 03/13/21 11/27/21 08/25/21 Rx Metoprolol Xl [Metoprolol 100 mg PO QDAY #60 tablet 03/13/21 11/27/21 08/26/21 Rx SUCCINATE ER TAB] Rivaroxaban [Xarelto] 20 mg PO DAILY #30 03/13/21 11/27/21 08/26/21 Rx Insulin Glargine [Lantus VIAL] 35 units SUB-Q QHS 07/30/21 11/27/21 08/26/21 History Sacubitril/Valsartan [Entresto 1 each PO QAM&QHS 07/30/21 11/27/21 08/26/21 History 49-51 mg] Torsemide [Demadex] 100 mg PO BID 07/30/21 11/27/21 08/26/21 History Insulin Aspart [Novolog Flexpen] 8 units SQ TIDAC 11/27/21 11/27/21 Unknown History Active Meds: Active Medications Acetaminophen (Acetaminophen 325 Mg Tab) 650 mg PO Q4H PRN PRN Reason: Pain MILD(1-3)/Fever >100.5/HERNANDEZ Albuterol/Ipratropium (Ipratropium/Albuterol Sulfate 3 Ml Ampul.Neb) 1 ampul IH Q6HRT DELTA Dextrose (Dextrose 50% In Water (25gm) 50 Ml Syringe) 50 ml IV Q30MIN PRN; Protocol PRN Reason: Hypoglycemia Ondansetron HCl (Ondansetron 4 Mg/2 Ml Inj) 4 mg IV Q8H PRN PRN Reason: Nausea And Vomiting Sodium Chloride (Sodium Chloride 0.9% 10 Ml Flush Syringe) 10 ml IV BID DELTA Sodium Chloride (Sodium Chloride 0.9% 10 Ml Flush Syringe) 10 ml IV PRN PRN PRN Reason: LINE FLUSH Review of Systems Cardiovascular: orthopnea, edema, shortness of breath, dyspnea on exertion, high blood pressure, leg edema Respiratory: shortness of breath, dyspnea on exertion Exam - Constitutional Vitals: Temp Pulse Resp BP Pulse Ox 97.6 F 107 H 20 125/87 98 12/11/21 23:48 12/12/21 02:00 12/12/21 02:00 12/12/21 02:00 12/12/21 02:00 General appearance: Present: no acute distress, well-nourished - EENT Eyes: Present: PERRL ENT: hearing intact, clear oral mucosa - Neck Neck: Present: supple, normal ROM - Respiratory Respiratory effort: normal Respiratory: bilateral: rales - Cardiovascular Heart Sounds: Present: S1 & S2. Absent: rub, click - Extremities Extremities: pulses symmetrical Extremity abnormal: edema Peripheral Pulses: within normal limits - Abdominal General gastrointestinal: Present: soft, non-tender, non-distended, normal bowel sounds Male genitourinary: Present: normal - Integumentary Integumentary: Present: clear, warm, dry - Musculoskeletal Musculoskeletal: gait normal, strength equal bilaterally - Psychiatric Psychiatric: appropriate mood/affect, intact judgment & insight - Neurologic Neurologic: CNII-XII intact, moves all extremities HEART Score - HEART Score Troponin: Troponin T 0.018 ng/mL (0.00-0.029) 12/12/21 01:00 Results - Labs CBC & Chem 7: 12/12/21 01:00 12/12/21 01:00 Labs: Laboratory Last Values WBC 8.7 K/mm3 (4.5-11.0) 12/12/21 01:00 RBC 6.55 M/mm3 (3.65-5.03) H 12/12/21 01:00 Hgb 14.8 gm/dl (11.8-15.2) 12/12/21 01:00 Hct 48.5 % (35.5-45.6) H 12/12/21 01:00 MCV 74 fl (84-94) L 12/12/21 01:00 MCH 23 pg (28-32) L 12/12/21 01:00 MCHC 31 % (32-34) L 12/12/21 01:00 RDW 18.1 % (13.2-15.2) H 12/12/21 01:00 Plt Count 169 K/mm3 (140-440) 12/12/21 01:00 Lymph % (Auto) 17.3 % (13.4-35.0) 12/12/21 01:00 [place] % (Auto) 7.8 % (0.0-7.3) H 12/12/21 01:00 Eos % (Auto) 0.6 % (0.0-4.3) 12/12/21 01:00 Baso % (Auto) 0.7 % (0.0-1.8) 12/12/21 01:00 Lymph # (Auto) 1.5 K/mm3 (1.2-5.4) 12/12/21 01:00 [place] # (Auto) 0.7 K/mm3 (0.0-0.8) 12/12/21 01:00 Eos # (Auto) 0.1 K/mm3 (0.0-0.4) 12/12/21 01:00 Baso # (Auto) 0.1 K/mm3 (0.0-0.1) 12/12/21 01:00 Seg Neutrophils % 73.6 % (40.0-70.0) H 12/12/21 01:00 Seg Neutrophils # 6.4 K/mm3 (1.8-7.7) 12/12/21 01:00 PT 17.4 Sec. (12.2-14.9) H 12/12/21 01:00 INR 1.27 (0.87-1.13) H 12/12/21 01:00 APTT 33.9 Sec. (24.2-36.6) 12/12/21 01:00 VBG pH 7.371 (7.320-7.420) 12/12/21 01:00 Sodium 136 mmol/L (137-145) L 12/12/21 01:00 Potassium 4.3 mmol/L (3.6-5.0) 12/12/21 01:00 Chloride 100.5 mmol/L (98-107) 12/12/21 01:00 Carbon Dioxide 21 mmol/L (22-30) L 12/12/21 01:00 Anion Gap 19 mmol/L 12/12/21 01:00 BUN 28 mg/dL (9-20) H 12/12/21 01:00 Creatinine 1.3 mg/dL (0.8-1.3) 12/12/21 01:00 Estimated GFR > 60 ml/min 12/12/21 01:00 BUN/Creatinine Ratio 22 % 12/12/21 01:00 Glucose 258 mg/dL (75-100) H 12/12/21 01:00 Calcium 9.9 mg/dL (8.4-10.2) 12/12/21 01:00 Magnesium 1.90 mg/dL (1.7-2.3) 12/12/21 01:00 Total Bilirubin 4.40 mg/dL (0.1-1.2) H 12/12/21 01:00 AST 23 units/L (5-40) 12/12/21 01:00 ALT 37 units/L (7-56) 12/12/21 01:00 Alkaline Phosphatase 261 units/L (35-129) H 12/12/21 01:00 Total Creatine Kinase 74 units/L (55-170) 12/12/21 01:00 Troponin T 0.018 ng/mL (0.00-0.029) 12/12/21 01:00 NT-Pro-B Natriuret Pep 4752 pg/mL (0-450) H 12/12/21 01:00 Total Protein 6.7 g/dL (6.3-8.2) 12/12/21 01:00 Albumin 3.5 g/dL (3.9-5) L 12/12/21 01:00 Albumin/Globulin Ratio 1.1 % 12/12/21 01:00 - Imaging and Cardiology Chest x-ray: report reviewed Assessment and Plan VTE prophylaxis?: Chemical Plan of care discussed with patient/family: Yes - Patient Problems (1) Acute on chronic systolic heart failure Current Visit: No Status: Acute Plan to address problem: Admit the patient to the IMCU. Put the patient on BiPAP. cardiac diet. Fluid restriction. In maintain input output. Daily weight. Lasix 40 mg IV every 12 hours. Echocardiogram. Cardiology evaluation (2) Acute respiratory distress Current Visit: Yes Status: Acute Plan to address problem: Patient is on BiPAP. DuoNeb by nebulizer every 4 hours. Albuterol via nebulizer every 4 hours as needed (3) CAD (coronary artery disease) Current Visit: No Status: Acute Plan to address problem: We will put the patient on Lipitor 40 mg p.o. daily, metoprolol 100 mg p.o. daily. Echocardiogram. Cardiology evaluation (4) CVA (cerebral vascular accident) Current Visit: No Status: Acute Plan to address problem: Stable. We will continue the home medication. Outpatient follow-up with neurology (5) Dyslipidemia Current Visit: No Status: Acute Plan to address problem: Lipitor 40 mg p.o. nightly. We will recheck the lipid panel. Cardiology evaluation (6) Dyspnea Current Visit: No Status: Acute Plan to address problem: Patient is on BiPAP. Albuterol via nebulizer every 4 hours. DuoNeb by nebulizer every 4 hours as needed (7) HTN (hypertension) Current Visit: No Status: Acute Plan to address problem: Entresto 49-51 mg p.o. twice daily. Lasix 40 mg IV every 12 hours. We will monitor the blood pressure closely (8) Diabetes Current Visit: No Status: Acute Plan to address problem: 1800 kcal ADA diet. Humalog sliding scale moderate dose Accu-Chek before meals and at bedtime. Diabetic education (9) DVT prophylaxis Current Visit: No Status: Acute Plan to address problem: Heparin 5000 units subcu every 12 hours for DVT prophylaxis. Pepcid 20 mg p.o. twice daily for GI prophylaxis. Patient is a full code
[2021-12-12] MEDS ORDERED: DEXTROSE 10% *Hypoglycemia IV PRN (02:50)
--- NOTE | 2021-12-12 03:18 | Vascular Lab Report ---
DUPLEX DOPPLER LOWER EXTREMITY VEINS, BILATERAL INDICATION / CLINICAL INFORMATION: b/l lower ext swelling. TECHNIQUE: Duplex doppler imaging was performed through the veins of both lower extremities using venous severiano randy and other maneuvers. COMPARISON: 03/10/2021 FINDINGS: RIGHT COMMON FEMORAL VEIN: Negative. RIGHT FEMORAL VEIN: Negative. RIGHT POPLITEAL VEIN: Negative. RIGHT CALF VEINS: Negative. LEFT COMMON FEMORAL VEIN: Negative. LEFT FEMORAL VEIN: Negative. LEFT POPLITEAL VEIN: Negative. LEFT CALF VEINS: Negative. ADDITIONAL FINDINGS: None. IMPRESSION: 1. No sonographic evidence for DVT in either lower extremity. Signer Name: Jack Ceballos MD Signed: 12/12/2021 3:14 AM Workstation Name: [id number]
--- NOTE | 2021-12-12 09:33 | Electrocardiograph Report ---
[facility] Test Date: 2021-12-12 Test Time: 00:33:24 Pat Name: SOO DEAN Department: Room: [place] [address] Gender: M [place]: JEANMARIE : 1975 Requested By: NICK SETHI Order Number: [id number] Reading MD: Abraham Mccabe Measurements Intervals [place] Rate: 117 P: 73 [place]: 172 QRS: -38 QRSD: 93 T: 176 QT: 327 QTc: 455 Interpretive Statements Sinus tachycardia Probable left atrial enlargement Left axis deviation Compared to ECG 11/26/2021 13:34:57 Left-axis deviation now present Myocardial infarct finding no longer present T-wave abnormality no longer present Electronically Signed On 12-12-2021 9:33:01 EST by Abraham Mccabe
[2021-12-12] MEDS ORDERED: NON-FORMULARY EACH (Rivaroxaban 20 MG Tablet) PO SCH (10:00)
[2021-12-12] MEDS: FUROSEMIDE 40 MG/4 ML INJ IV SCH ×2 (10:12→18:55)
[2021-12-12] MEDS: FAMOTIDINE 20 MG TAB PO SCH (10:13)
[2021-12-12] MEDS: METOPROLOL SUCCINATE XL 100 MG TAB PO SCH (10:13)
[2021-12-12] MEDS: RIVAROXABAN 20 MG TAB PO SCH (10:14)
[2021-12-12] MEDS: SACUBITRIL/VALSARTAN 49-51 MG TAB PO SCH (10:14)
[2021-12-12] MEDS: INSULIN LISPRO 100 UNIT/ML SUB-Q SCH ×3 (10:33→19:28)
[2021-12-12] MEDS: IPRATROPIUM/ALBUTEROL SULFATE 3 ML AMPUL.NEB IH SCH ×2 (11:24→13:15)
--- NOTE | 2021-12-12 11:48 | Event Note ---
Date: 12/12/21 Patient seen and examined Case discussed with engagement specialist will be started on milrinone drip. He remains on BiPAP if unable to wean in the next 24 hours will obtain pulmonary consultation. He unfortunately looks weaker than previous times that I sent him. Due to shortness of breath could not get much information will reexamine and reevaluate in 24-hour
--- NOTE | 2021-12-12 12:54 | Consultation ---
History of Present Illness Consult date: 12/12/21 Consult reason: congestive heart failure History of present illness: The patient is a 46-year-old man with longstanding, severe nonischemic cardiomyopathy. His left ventricular ejection fraction has been reported at 10 to 15% over serial measurements on several recent admissions within the past year. He usually [facility], but has been uncertain about any planned [facility]. On a previous admission, we had discharged him on LifeVest as a bridge to [facility] primary I CD, but the LifeVest monitoring was discontinued by [facility] on outpatient followup. Comorbidities include paroxysmal atrial fibrillation for which he is on Xarelto. He presents to the hospital now with recurrent fatigue, shortness of breath, orthopnea and worsening edema. His presentation like several recent prior presentations is consistent with acute on chronic systolic left ventricular failure. In the past he has admitted to sometimes poor compliance with his medical therapy, and more consistently poor compliance with recommended dietary salt restrictions. His ECG on this presentation is sinus rhythm with nonspecific ST and T wave changes, no acute ischemia or infarction. Chest x-ray reveals a severe cardiomegaly, with minimal interstitial edema. He currently is in the emergency room, appears quite lethargic, on BiPAP. On exam, there is 1-2+ bilateral lower extremity edema. Past History Past Medical History: diabetes, heart failure, hypertension, hyperlipidemia, stroke Medications and Allergies Allergies Allergy/AdvReac Type Severity Reaction Status Date / Time No Known Allergies Allergy Verified 11/27/21 13:19 Home Medications Medication Instructions Recorded Confirmed Last Taken Type AtorvaSTATin [Lipitor] 40 mg PO QHS #30 tablet 03/13/21 11/27/21 08/25/21 Rx Metoprolol Xl [Metoprolol 100 mg PO QDAY #60 tablet 03/13/21 11/27/21 08/26/21 Rx SUCCINATE ER TAB] Rivaroxaban [Xarelto] 20 mg PO DAILY #30 03/13/21 11/27/21 08/26/21 Rx Insulin Glargine [Lantus VIAL] 35 units SUB-Q QHS 07/30/21 11/27/21 08/26/21 History Sacubitril/Valsartan [Entresto 1 each PO QAM&QHS 07/30/21 11/27/21 08/26/21 History 49-51 mg] Torsemide [Demadex] 100 mg PO BID 07/30/21 11/27/21 08/26/21 History Insulin Aspart [Novolog Flexpen] 8 units SQ TIDAC 11/27/21 11/27/21 Unknown History Active Meds: Active Medications Acetaminophen (Acetaminophen 325 Mg Tab) 650 mg PO Q4H PRN PRN Reason: Pain MILD(1-3)/Fever >100.5/HERNANDEZ Albuterol (Albuterol 2.5 Mg/3 Ml Nebu) 2.5 mg IH Q3HRT PRN PRN Reason: Shortness Of Breath Albuterol/Ipratropium (Ipratropium/Albuterol Sulfate 3 Ml Ampul.Neb) 1 ampul IH Q6HRT [facility] Last Admin: 12/12/21 11:24 Dose: Not Given Atorvastatin Calcium (Atorvastatin 40 Mg Tab) 40 mg PO QHS [facility] Dextrose (Dextrose 10% *Hypoglycemia) 0 ml IV PRN PRN PRN Reason: Hypoglycemia Famotidine (Famotidine 20 Mg Tab) 20 mg PO BID [facility] Last Admin: 12/12/21 10:13 Dose: 20 mg Furosemide (Furosemide 40 Mg/4 Ml Inj) 40 mg IV BID@0600,1800 [facility] Last Admin: 12/12/21 10:12 Dose: 40 mg Hydromorphone HCl (Hydromorphone 1 Mg/1 Ml Inj) 0.5 mg IV Q3H PRN PRN Reason: Pain , Severe (7-10) Insulin Glargine (Insulin Glargine 100 Units/Ml) 35 units SUB-Q QHS [facility] Insulin Human Lispro (Insulin Lispro 100 Unit/Ml) 0 unit SUB-Q [facility]; Protocol Last Admin: 12/12/21 10:33 Dose: 2 unit Metoprolol Succinate (Metoprolol Succinate Xl 100 Mg Tab) 100 mg PO QDAY [facility] Last Admin: 12/12/21 10:13 Dose: 100 mg Morphine Sulfate (Morphine 2 Mg/1 Ml Inj) 2 mg IV Q4H PRN PRN Reason: Pain, Moderate (4-6) Ondansetron HCl (Ondansetron 4 Mg/2 Ml Inj) 4 mg IV Q8H PRN PRN Reason: Nausea And Vomiting Rivaroxaban (Rivaroxaban 20 Mg Tab) 20 mg PO QDDIAB [facility] Last Admin: 12/12/21 10:14 Dose: 20 mg Sacubitril/Valsartan (Sacubitril/Valsartan 49-51 Mg Tab) 1 each PO BID [facility] Last Admin: 12/12/21 10:14 Dose: 1 each Sodium Chloride (Sodium Chloride 0.9% 10 Ml Flush Syringe) 10 ml IV BID [facility] Last Admin: 12/12/21 10:18 Dose: 10 ml Sodium Chloride (Sodium Chloride 0.9% 10 Ml Flush Syringe) 10 ml IV PRN PRN PRN Reason: LINE FLUSH Review of Systems Cardiovascular: orthopnea, edema, shortness of breath, no chest pain, no palpitations, no rapid/irregular heart beat, no syncope, no lightheadedness Physical Examination Vital Signs Temp Pulse Resp BP Pulse Ox 97.6 F 115 H 22 127/96 100 12/11/21 23:48 12/11/21 23:48 12/11/21 23:48 12/11/21 23:48 12/11/21 23:48 General appearance: other (Appears lethargic, but no acute respiratory distress) HEENT: Positive: PERRL Neck: Positive: neck supple Cardiac: Positive: Reg Rate and Rhythm Lungs: Positive: Decreased Breath Sounds Neuro: Positive: Grossly Intact Abdomen: Positive: Soft Male genitourinary: Positive: deferred Skin: Positive: Clear Extremities: Present: +1 Edema, +2 Edema Results 12/12/21 01:00 12/12/21 01:00 Cardiac Enzymes 12/12/21 Range/Units 01:00 AST 23 (5-40) units/L Coagulation 12/12/21 Range/Units 01:00 PT 17.4 H (12.2-14.9) Sec. INR 1.27 H (0.87-1.13) APTT 33.9 (24.2-36.6) Sec. CBC 12/12/21 Range/Units 01:00 WBC 8.7 (4.5-11.0) K/mm3 RBC 6.55 H (3.65-5.03) M/mm3 Hgb 14.8 (11.8-15.2) gm/dl Hct 48.5 H (35.5-45.6) % Plt Count 169 (140-440) K/mm3 Lymph # (Auto) 1.5 (1.2-5.4) K/mm3 [place] # (Auto) 0.7 (0.0-0.8) K/mm3 Eos # (Auto) 0.1 (0.0-0.4) K/mm3 Baso # (Auto) 0.1 (0.0-0.1) K/mm3 Comprehensive Metabolic Panel 12/12/21 Range/Units 01:00 Sodium 136 L (137-145) mmol/L Potassium 4.3 (3.6-5.0) mmol/L Chloride 100.5 (98-107) mmol/L Carbon Dioxide 21 L (22-30) mmol/L BUN 28 H (9-20) mg/dL Creatinine 1.3 (0.8-1.3) mg/dL Glucose 258 H (75-100) mg/dL Calcium 9.9 (8.4-10.2) mg/dL AST 23 (5-40) units/L ALT 37 (7-56) units/L Alkaline Phosphatase 261 H (35-129) units/L Total Protein 6.7 (6.3-8.2) g/dL Albumin 3.5 L (3.9-5) g/dL EKG interpretations - Telemetry EKG Rhythm: Sinus Tachycardia Assessment and Plan - Patient Problems (1) Acute on chronic systolic heart failure Current Visit: No Status: Acute Plan to address problem: We will place patient on optimal intravenous diuretics, intravenous milrinone, and other guideline directed medical therapy. Would recommend strict low-salt diet, and free water restriction to 1.5 L daily. (2) Paroxysmal atrial fibrillation Current Visit: Yes Status: Acute Plan to address problem: The patient's prior records report a history of paroxysmal atrial fibrillation for which he takes Xarelto. A review of his telemetry and ECG strips through his multiple admissions to this hospital over the past several years does not reveal any atrial fibrillation occurrences, but his outpatient records from the [facility] and not available for review at this time. We will continue Xarelto while [facility].
[2021-12-12] MEDS ORDERED: MILRINONE-D5W 20 MG/100 ML 20 MG/100 ML BAG IV SCH (13:00)
[2021-12-13] MEDS: FAMOTIDINE 20 MG TAB PO SCH ×3 (00:06→22:23)
[2021-12-13] MEDS: INSULIN LISPRO 100 UNIT/ML SUB-Q SCH ×5 (00:06→22:23)
[2021-12-13] MEDS: INSULIN GLARGINE 100 UNITS/ML SUB-Q SCH ×2 (00:06→22:23)
[2021-12-13] MEDS: SACUBITRIL/VALSARTAN 49-51 MG TAB PO SCH ×3 (00:06→22:23)
[2021-12-13] MEDS: FUROSEMIDE 40 MG/4 ML INJ IV SCH ×2 (05:33→17:57)
[2021-12-13 10:18] LABS: Basophils % (Auto) 0.6 % (0.0-1.8); Eosinophils # (Auto) 0.2 K/mm3 (0.0-0.4); Eosinophils % (Auto) 2.5 % (0.0-4.3); Lymphocytes # (Auto) 1.4 K/mm3 (1.2-5.4); Lymphocytes % (Auto) 19.8 % (13.4-35.0); Mean Corpuscular HGB Conc 30 % (32-34); Mean Corpuscular Volume 74 fl (84-94); Monocytes # (Auto) 0.5 K/mm3 (0.0-0.8); Monocytes % (Auto) 7.7 % (0.0-7.3); Red Blood Count 6.63 M/mm3 (3.65-5.03); Red Cell Distribution Width 18.3 % (13.2-15.2)
[2021-12-13 10:31] LABS: Hemoglobin 14.9 gm/dl (11.8-15.2)
--- NOTE | 2021-12-13 10:38 | Progress Note ---
Assessment and Plan Assessment and plan: 46-year-old male with a history of severe dilated nonischemic cardiomyopathy, EF of 10 to 15%, type 2 diabetes, and dyslipidemia, diabetes, cva was brought to the emergency room because of worsening shortness of breath over last couple of days. Patient complained of associated orthopnea, paroxysmal nocturnal dyspnea, exertional shortness of breath. Patient admitted to this hospital earlier on this month for acute decompensated congestive heart failure. In the emergency room patient is found to have acute CHF exacerbation, patient proBNP is 4752, troponin 0 0.018. Still going to admit the patient to the [facility]. We will put the patient on BiPAP Lasix and consult cardiology Acute on chronic hypoxic respiratory failure Acute hypoxic respiratory failure CAD History of CVA Dyslipidemia Diabetes mellitus Hypertension Paroxysmal atrial fibrillation Plan Continue supportive care next Per cardiology will optimal intravenous diuretics, intravenous milrinone, and other guideline directed medical therapy Monitor insulin regimen and blood sugar and adjust as appropriate Free water restriction of 1.5 L a day [facility] noted "A review of his telemetry and ECG strips through his multiple admissions to this hospital over the past several years does not reveal any atrial fibrillation occurrences, but [facility] and not available for review at this time. We will continue Xarelto while awaiting [facility] the [facility]." Extensive counseling provided to the patient states that he has not followed with cardiology of months as he is unable [facility]. Monitor and replace DVT and GI prophylaxis History Interval history: Patient seen and examined, sitting up, states he is feeling better. Milirone was held this morning due to low BP per nurse. Hospitalist Physical - Physical exam Narrative exam: General appearance: Present: No acute distress, well-nourished - EENT Eyes: Present: PERRL ENT: hearing intact, clear oral mucosa - Neck Neck: Present: supple, normal ROM - Respiratory Respiratory effort: normal Respiratory: bilateral: rales - Cardiovascular Heart Sounds: Present: S1 & S2. Absent: rub, click - Extremities Extremities: pulses symmetrical Extremity abnormal: +3 edema Peripheral Pulses: within normal limits - Abdominal General gastrointestinal: Present: soft, non-tender, non-distended, normal bowel sounds Male genitourinary: Present: normal - Integumentary Integumentary: Present: clear, warm - Musculoskeletal Musculoskeletal: gait normal, strength equal bilaterally - Psychiatric Psychiatric: appropriate mood/affect, intact judgment & insight - Neurologic Neurologic: CNII-XII intact, moves all extremities - Constitutional Vitals: Temp Pulse Resp BP Pulse Ox 98.7 F 86 20 94/55 98 12/13/21 04:00 12/13/21 07:30 12/13/21 07:30 12/13/21 07:30 12/13/21 07:30 General appearance: Present: other (Appears lethargic, but no acute respiratory distress) HEART Score - HEART Score Troponin: Troponin T 0.018 ng/mL (0.00-0.029) 12/12/21 01:00 Results - Labs CBC & Chem 7: 12/13/21 10:14 12/12/21 01:00 Labs: Laboratory Last Values WBC 7.0 K/mm3 (4.5-11.0) 12/13/21 10:14 RBC 6.63 M/mm3 (3.65-5.03) H 12/13/21 10:14 Hgb 14.9 gm/dl (11.8-15.2) 12/13/21 10:14 Hct 49.0 % (35.5-45.6) H 12/13/21 10:14 MCV 74 fl (84-94) L 12/13/21 10:14 MCH 22 pg (28-32) L 12/13/21 10:14 MCHC 30 % (32-34) L 12/13/21 10:14 RDW 18.3 % (13.2-15.2) H 12/13/21 10:14 Plt Count 169 K/mm3 (140-440) 12/12/21 01:00 Lymph % (Auto) 19.8 % (13.4-35.0) 12/13/21 10:14 [place] % (Auto) 7.7 % (0.0-7.3) H 12/13/21 10:14 Eos % (Auto) 2.5 % (0.0-4.3) 12/13/21 10:14 Baso % (Auto) 0.6 % (0.0-1.8) 12/13/21 10:14 Lymph # (Auto) 1.4 K/mm3 (1.2-5.4) 12/13/21 10:14 [place] # (Auto) 0.5 K/mm3 (0.0-0.8) 12/13/21 10:14 Eos # (Auto) 0.2 K/mm3 (0.0-0.4) 12/13/21 10:14 Baso # (Auto) 0.0 K/mm3 (0.0-0.1) 12/13/21 10:14 Seg Neutrophils % 69.4 % (40.0-70.0) 12/13/21 10:14 Seg Neutrophils # 4.8 K/mm3 (1.8-7.7) 12/13/21 10:14 PT 17.4 Sec. (12.2-14.9) H 12/12/21 01:00 INR 1.27 (0.87-1.13) H 12/12/21 01:00 APTT 33.9 Sec. (24.2-36.6) 12/12/21 01:00 VBG pH 7.371 (7.320-7.420) 12/12/21 01:00 Sodium 136 mmol/L (137-145) L 12/12/21 01:00 Potassium 4.3 mmol/L (3.6-5.0) 12/12/21 01:00 Chloride 100.5 mmol/L (98-107) 12/12/21 01:00 Carbon Dioxide 21 mmol/L (22-30) L 12/12/21 01:00 Anion Gap 19 mmol/L 12/12/21 01:00 BUN 28 mg/dL (9-20) H 12/12/21 01:00 Creatinine 1.3 mg/dL (0.8-1.3) 12/12/21 01:00 Estimated GFR > 60 ml/min 12/12/21 01:00 BUN/Creatinine Ratio 22 % 12/12/21 01:00 Glucose 258 mg/dL (75-100) H 12/12/21 01:00 POC Glucose 204 mg/dL (70-105) H 12/13/21 09:12 Calcium 9.9 mg/dL (8.4-10.2) 12/12/21 01:00 Magnesium 1.90 mg/dL (1.7-2.3) 12/12/21 01:00 Total Bilirubin 4.40 mg/dL (0.1-1.2) H 12/12/21 01:00 AST 23 units/L (5-40) 12/12/21 01:00 ALT 37 units/L (7-56) 12/12/21 01:00 Alkaline Phosphatase 261 units/L (35-129) H 12/12/21 01:00 Total Creatine Kinase 74 units/L (55-170) 12/12/21 01:00 Troponin T 0.018 ng/mL (0.00-0.029) 12/12/21 01:00 NT-Pro-B Natriuret Pep 4752 pg/mL (0-450) H 12/12/21 01:00 Total Protein 6.7 g/dL (6.3-8.2) 12/12/21 01:00 Albumin 3.5 g/dL (3.9-5) L 12/12/21 01:00 Albumin/Globulin Ratio 1.1 % 12/12/21 01:00 Arthur/IV: Voiding Method Urinal Active Medications - Current Medications Current Medications: Generic Name Dose Route Start Last Admin Trade Name Freq PRN Reason Stop Dose Admin Acetaminophen 650 mg 12/12/21 02:30 Acetaminophen 325 Mg Tab PO Q4H PRN Pain MILD(1-3)/Fever >100.5/HERNANDEZ Albuterol 2.5 mg 12/12/21 02:30 Albuterol 2.5 Mg/3 Ml Nebu IH Q3HRT PRN Shortness Of Breath Atorvastatin Calcium 40 mg 12/12/21 22:00 12/13/21 00:05 Atorvastatin 40 Mg Tab PO 40 mg QHS DELTA Administration Dextrose 0 ml 12/12/21 02:50 Dextrose 10% *Hypoglycemia IV PRN PRN Hypoglycemia Famotidine 20 mg 12/12/21 10:00 12/13/21 00:06 Famotidine 20 Mg Tab PO 20 mg BID DELTA Administration Furosemide 40 mg 12/12/21 06:00 12/13/21 05:33 Furosemide 40 Mg/4 Ml Inj IV 40 mg BID@0600,1800 DELTA Administration Hydromorphone HCl 0.5 mg 12/12/21 02:30 Hydromorphone 1 Mg/1 Ml Inj IV Q3H PRN Pain , Severe (7-10) Milrinone Lactate/Dextrose 20 mg in 100 mls @ 10.767 mls/hr 12/12/21 13:00 12/13/21 04:06 Milrinone-D5w 20 Mg/100 Ml IV 12/15/21 12:59 0 mcg/kg/min DIRECT DELTA 0 mls/hr Infusion Protocol 0.375 MCG/KG/MIN Insulin Glargine 35 units 12/12/21 22:00 12/13/21 00:06 Insulin Glargine 100 Units/Ml SUB-Q 35 units QHS DELTA Administration Insulin Human Lispro 0 unit 12/12/21 07:30 12/13/21 09:21 Insulin Lispro 100 Unit/Ml SUB-Q 3 unit ACHS DELTA Administration Protocol Metoprolol Succinate 100 mg 12/12/21 10:00 12/12/21 10:13 Metoprolol Succinate Xl 100 Mg Tab PO 100 mg QDAY DELTA Administration Morphine Sulfate 2 mg 12/12/21 02:30 Morphine 2 Mg/1 Ml Inj IV Q4H PRN Pain, Moderate (4-6) Ondansetron HCl 4 mg 12/12/21 02:30 Ondansetron 4 Mg/2 Ml Inj IV Q8H PRN Nausea And Vomiting Rivaroxaban 20 mg 12/12/21 08:00 12/12/21 10:14 Rivaroxaban 20 Mg Tab PO 20 mg QDDIAB DELTA Administration Sacubitril/Valsartan 1 each 12/12/21 10:00 12/13/21 00:06 Sacubitril/Valsartan 49-51 Mg Tab PO 1 each BID DELTA Administration Sodium Chloride 10 ml 12/12/21 10:00 12/13/21 00:07 Sodium Chloride 0.9% 10 Ml Flush Syringe IV 10 ml BID DELTA Administration Sodium Chloride 10 ml 12/12/21 02:30 Sodium Chloride 0.9% 10 Ml Flush Syringe IV PRN PRN LINE FLUSH
[2021-12-13] MEDS: RIVAROXABAN 20 MG TAB PO SCH (11:05)
[2021-12-13 11:10] LABS: Platelet Count 156 K/mm3 (140-440)
[2021-12-13 11:35] LABS: BUN/Creatinine Ratio 24; Blood Urea Nitrogen 31 mg/dL (9-20); Calcium 9.2 mg/dL (8.4-10.2); Hemolysis Index 2
[2021-12-13] MEDS: METOPROLOL SUCCINATE XL 100 MG TAB PO SCH (14:02)
--- NOTE | 2021-12-13 15:29 | Progress Note ---
Assessment and Plan - Patient Problems (1) Acute on chronic systolic heart failure Current Visit: No Status: Acute Plan to address problem: We will continue guideline directed medical therapy and dietary salt restrictions. The IV milrinone dose will be reduced to 0.125/kg, in response to low blood pressure. (2) Paroxysmal atrial fibrillation Current Visit: Yes Status: Acute Plan to address problem: The patient's prior records report a history of paroxysmal atrial fibrillation for which he takes Xarelto. A review of his telemetry and ECG strips through his multiple admissions to this hospital over the past several years does not reveal any atrial fibrillation occurrences, but [facility] not [facility] for review at this time. We will continue Xarelto while awaiting his records from the [place]. Subjective Date of service: 12/13/21 Principal diagnosis: Congestive heart failure Interval history: Patient looks and feels better, no new cardiac complaints. His shortness of breath and edema are resolving. The milrinone infusion was temporarily stopped due to low blood pressures. Objective Vital Signs Temp Pulse Pulse Resp BP Pulse Ox 12/13/21 13:30 89 30 H 99/54 100 12/13/21 13:00 90 17 112/52 98 12/13/21 12:30 81 21 112/43 95 12/13/21 12:00 86 24 96/52 98 12/13/21 11:30 88 16 91/55 98 12/13/21 11:00 86 20 93/50 98 12/13/21 10:30 88 25 H 91/55 99 12/13/21 10:00 90 92 H 17 91/55 95 12/13/21 09:30 90 11 L 91/55 99 12/13/21 09:00 89 12 85/53 97 12/13/21 08:30 94 H 22 91/50 97 12/13/21 08:05 92 H 12/13/21 08:00 87 26 H 84/32 98 12/13/21 07:30 86 20 94/55 98 12/13/21 07:00 91 H 33 H 94/55 99 12/13/21 06:30 93 H 25 H 87/49 98 12/13/21 06:00 93 H 30 H 87/51 99 12/13/21 05:30 93 H 26 H 92/38 96 12/13/21 05:00 90 30 H 86/47 98 12/13/21 04:30 94 H 21 87/52 99 12/13/21 04:10 94 H 93 H 19 82/47 99 12/13/21 04:00 98.7 F 95 H 32 H 78/48 100 12/13/21 03:50 99 H 13 77/44 98 12/13/21 03:40 98 H 12 77/44 99 12/13/21 03:30 93 H 28 H 77/44 99 12/13/21 03:20 95 H 24 89/45 99 12/13/21 03:10 92 H 27 H 89/45 100 12/13/21 03:00 93 H 27 H 89/45 98 12/13/21 02:50 95 H 30 H 91/58 99 12/13/21 02:30 94 H 13 91/58 100 12/13/21 02:00 92 H 27 H 80/52 95 12/13/21 01:30 96 H 8 L 90/55 100 12/13/21 01:00 92 H 27 H 87/51 100 12/13/21 00:30 96 H 19 89/47 98 12/13/21 00:00 98.4 F 97 H 14 89/47 100 12/12/21 23:30 96 H 27 H 88/51 100 12/12/21 23:00 98 H 21 82/56 99 12/12/21 22:30 96 H 25 H 85/54 100 12/12/21 22:00 94 H 27 H 94/64 100 12/12/21 21:30 93 H 30 H 108/75 100 12/12/21 21:00 91 H 26 H 108/75 100 12/12/21 20:34 100 12/12/21 20:30 93 H 17 108/75 96 12/12/21 20:15 101 H 12/12/21 20:00 94 H 37 H 108/75 98 12/12/21 19:30 88 40 H 101/67 100 12/12/21 19:00 92 H 34 H 113/62 98 12/12/21 18:41 89 37 H 109/78 99 12/12/21 18:30 87 33 H 103/75 97 12/12/21 18:21 93 H 19 103/75 98 12/12/21 18:11 93 H 19 103/75 91 12/12/21 18:00 94 H 29 H 119/79 100 12/12/21 17:53 99 12/12/21 17:30 89 22 117/81 99 12/12/21 17:00 94 H 33 H 95/79 93 12/12/21 16:30 97 H 34 H 115/87 82 L 12/12/21 16:00 97.4 F L 90 12 118/82 71 L 12/12/21 15:30 91 H 32 H 118/93 99 - Physical Examination General: No Apparent Distress HEENT: Positive: PERRL Neck: Positive: neck supple Cardiac: Positive: Reg Rate and Rhythm Lungs: Positive: Decreased Breath Sounds Neuro: Positive: Grossly Intact Abdomen: Positive: Soft Skin: Positive: Clear Extremities: Present: +1 Edema, +2 Edema - Labs and Meds CBC 12/13/21 Range/Units 10:14 WBC 7.0 (4.5-11.0) K/mm3 RBC 6.63 H (3.65-5.03) M/mm3 Hgb 14.9 (11.8-15.2) gm/dl Hct 49.0 H (35.5-45.6) % Plt Count 156 (140-440) K/mm3 Lymph # (Auto) 1.4 (1.2-5.4) K/mm3 [place] # (Auto) 0.5 (0.0-0.8) K/mm3 Eos # (Auto) 0.2 (0.0-0.4) K/mm3 Baso # (Auto) 0.0 (0.0-0.1) K/mm3 Comprehensive Metabolic Panel 12/13/21 Range/Units 10:14 Sodium 138 (137-145) mmol/L Potassium 3.4 L D (3.6-5.0) mmol/L Chloride 97.0 L (98-107) mmol/L Carbon Dioxide 28 D (22-30) mmol/L BUN 31 H (9-20) mg/dL Creatinine 1.3 (0.8-1.3) mg/dL Glucose 133 H (75-100) mg/dL Calcium 9.2 (8.4-10.2) mg/dL
[2021-12-14] MEDS: FUROSEMIDE 40 MG/4 ML INJ IV SCH (06:44)
[2021-12-14] MEDS: RIVAROXABAN 20 MG TAB PO SCH (09:18)
[2021-12-14] MEDS: FAMOTIDINE 20 MG TAB PO SCH (09:18)
[2021-12-14] MEDS: INSULIN LISPRO 100 UNIT/ML SUB-Q SCH ×2 (09:19→11:51)
--- NOTE | 2021-12-14 09:31 | Progress Note ---
Hospitalist Physical - Constitutional Vitals: Temp Pulse Resp BP Pulse Ox 97.9 F 110 H 29 H 109/70 99 12/14/21 07:25 12/14/21 07:00 12/14/21 07:00 12/14/21 07:00 12/14/21 07:00 General appearance: Present: other (Appears lethargic, but no acute respiratory distress) HEART Score - HEART Score Troponin: Troponin T 0.018 ng/mL (0.00-0.029) 12/12/21 01:00 Results - Labs CBC & Chem 7: 12/13/21 10:14 12/13/21 10:14 Labs: Laboratory Last Values WBC 7.0 K/mm3 (4.5-11.0) 12/13/21 10:14 RBC 6.63 M/mm3 (3.65-5.03) H 12/13/21 10:14 Hgb 14.9 gm/dl (11.8-15.2) 12/13/21 10:14 Hct 49.0 % (35.5-45.6) H 12/13/21 10:14 MCV 74 fl (84-94) L 12/13/21 10:14 MCH 22 pg (28-32) L 12/13/21 10:14 MCHC 30 % (32-34) L 12/13/21 10:14 RDW 18.3 % (13.2-15.2) H 12/13/21 10:14 Plt Count 156 K/mm3 (140-440) 12/13/21 10:14 Lymph % (Auto) 19.8 % (13.4-35.0) 12/13/21 10:14 [place] % (Auto) 7.7 % (0.0-7.3) H 12/13/21 10:14 Eos % (Auto) 2.5 % (0.0-4.3) 12/13/21 10:14 Baso % (Auto) 0.6 % (0.0-1.8) 12/13/21 10:14 Lymph # (Auto) 1.4 K/mm3 (1.2-5.4) 12/13/21 10:14 [place] # (Auto) 0.5 K/mm3 (0.0-0.8) 12/13/21 10:14 Eos # (Auto) 0.2 K/mm3 (0.0-0.4) 12/13/21 10:14 Baso # (Auto) 0.0 K/mm3 (0.0-0.1) 12/13/21 10:14 Seg Neutrophils % 69.4 % (40.0-70.0) 12/13/21 10:14 Seg Neutrophils # 4.8 K/mm3 (1.8-7.7) 12/13/21 10:14 PT 17.4 Sec. (12.2-14.9) H 12/12/21 01:00 INR 1.27 (0.87-1.13) H 12/12/21 01:00 APTT 33.9 Sec. (24.2-36.6) 12/12/21 01:00 VBG pH 7.371 (7.320-7.420) 12/12/21 01:00 Sodium 138 mmol/L (137-145) 12/13/21 10:14 Potassium 3.4 mmol/L (3.6-5.0) L D 12/13/21 10:14 Chloride 97.0 mmol/L (98-107) L 12/13/21 10:14 Carbon Dioxide 28 mmol/L (22-30) D 12/13/21 10:14 Anion Gap 16 mmol/L 12/13/21 10:14 BUN 31 mg/dL (9-20) H 12/13/21 10:14 Creatinine 1.3 mg/dL (0.8-1.3) 12/13/21 10:14 Estimated GFR > 60 ml/min 12/13/21 10:14 BUN/Creatinine Ratio 24 % 12/13/21 10:14 Glucose 133 mg/dL (75-100) H 12/13/21 10:14 POC Glucose 159 mg/dL (70-105) H 12/14/21 09:07 Calcium 9.2 mg/dL (8.4-10.2) 12/13/21 10:14 Magnesium 1.90 mg/dL (1.7-2.3) 12/12/21 01:00 Total Bilirubin 4.40 mg/dL (0.1-1.2) H 12/12/21 01:00 AST 23 units/L (5-40) 12/12/21 01:00 ALT 37 units/L (7-56) 12/12/21 01:00 Alkaline Phosphatase 261 units/L (35-129) H 12/12/21 01:00 Total Creatine Kinase 74 units/L (55-170) 12/12/21 01:00 Troponin T 0.018 ng/mL (0.00-0.029) 12/12/21 01:00 NT-Pro-B Natriuret Pep 4752 pg/mL (0-450) H 12/12/21 01:00 Total Protein 6.7 g/dL (6.3-8.2) 12/12/21 01:00 Albumin 3.5 g/dL (3.9-5) L 12/12/21 01:00 Albumin/Globulin Ratio 1.1 % 12/12/21 01:00 Arthur/IV: Voiding Method Urinal Active Medications - Current Medications Current Medications: Generic Name Dose Route Start Last Admin Trade Name Freq PRN Reason Stop Dose Admin Acetaminophen 650 mg 12/12/21 02:30 Acetaminophen 325 Mg Tab PO Q4H PRN Pain MILD(1-3)/Fever >100.5/HERNANDEZ Albuterol 2.5 mg 12/12/21 02:30 Albuterol 2.5 Mg/3 Ml Nebu IH Q3HRT PRN Shortness Of Breath Atorvastatin Calcium 40 mg 12/12/21 22:00 12/13/21 22:23 Atorvastatin 40 Mg Tab PO 40 mg QHS DELTA Administration Dextrose 0 ml 12/12/21 02:50 Dextrose 10% *Hypoglycemia IV PRN PRN Hypoglycemia Famotidine 20 mg 12/12/21 10:00 12/14/21 09:18 Famotidine 20 Mg Tab PO 20 mg BID DELTA Administration Furosemide 40 mg 12/12/21 06:00 12/14/21 06:44 Furosemide 40 Mg/4 Ml Inj IV 40 mg BID@0600,1800 DELTA Administration Hydromorphone HCl 0.5 mg 12/12/21 02:30 Hydromorphone 1 Mg/1 Ml Inj IV Q3H PRN Pain , Severe (7-10) Milrinone Lactate/Dextrose 20 mg in 100 mls @ 3.589 mls/hr 12/12/21 13:00 12/13/21 04:06 Milrinone-D5w 20 Mg/100 Ml IV 12/15/21 12:59 0 mcg/kg/min DIRECT DELTA 0 mls/hr Infusion Protocol 0.125 MCG/KG/MIN Insulin Glargine 35 units 12/12/21 22:00 12/13/21 22:23 Insulin Glargine 100 Units/Ml SUB-Q 35 units QHS DELTA Administration Insulin Human Lispro 0 unit 12/12/21 07:30 12/14/21 09:19 Insulin Lispro 100 Unit/Ml SUB-Q 2 unit ACHS DELTA Administration Protocol Metoprolol Succinate 100 mg 12/12/21 10:00 12/13/21 14:02 Metoprolol Succinate Xl 100 Mg Tab PO Not Given QDAY DELTA Morphine Sulfate 2 mg 12/12/21 02:30 Morphine 2 Mg/1 Ml Inj IV Q4H PRN Pain, Moderate (4-6) Ondansetron HCl 4 mg 12/12/21 02:30 Ondansetron 4 Mg/2 Ml Inj IV Q8H PRN Nausea And Vomiting Rivaroxaban 20 mg 12/12/21 08:00 12/14/21 09:18 Rivaroxaban 20 Mg Tab PO 20 mg QDDIAB DELTA Administration Sacubitril/Valsartan 1 each 12/12/21 10:00 12/13/21 22:23 Sacubitril/Valsartan 49-51 Mg Tab PO 1 each BID DELTA Administration Sodium Chloride 10 ml 12/12/21 10:00 12/13/21 22:28 Sodium Chloride 0.9% 10 Ml Flush Syringe IV 10 ml BID DELTA Administration Sodium Chloride 10 ml 12/12/21 02:30 Sodium Chloride 0.9% 10 Ml Flush Syringe IV PRN PRN LINE FLUSH
--- NOTE | 2021-12-14 11:19 | Discharge Summary ---
Providers - Providers Date of Admission: 12/12/21 02:30 Attending physician: JOAQUIN ZAYAS MD 12/12/21 02:30 Consult to Dietitian/Nutrition [CONS] Routine Physician Instructions: Reason For Exam: Reason for Consult: Diet education Consult to Physician [CONS] Routine Comment: Consulting Provider: ANDI CHAVEZ Physician Instructions: Reason For Exam: chf Primary care physician: [facility] Hospitalization Reason for admission: Shortness of breath Condition: Stable Hospital course: 46-year-old male with a history of severe dilated nonischemic cardiomyopathy, EF of 10 to 15%, type 2 diabetes, and dyslipidemia, diabetes, cva was brought to the emergency room because of worsening shortness of breath over last couple of days. Patient complained of associated orthopnea, paroxysmal nocturnal dyspnea, exertional shortness of breath. Patient admitted to this hospital earlier on this month for acute decompensated congestive heart failure. In the emergency room patient is found to have acute CHF exacerbation, patient proBNP is 4752, troponin 0 0.018. Still going to admit the patient to the [facility]. We will put the patient on BiPAP Lasix and consult cardiology 12/14: Continue supportive care next, Patient was managed with addressograph operator and and was treated with IV diuretics and intravenous milrinone on although guideline directed medical therapy. Also fluid restriction of 1.5 liters per day. Patient was also continued on Xarelto [facility] this [facility]. He did receive extensive counseling about low-salt diet water restrictions and to follow-up with his addressograph operator at the [facility] in addition to further evaluation considering recurrent admissions in the hospital and the severe cardiomyopathy. He verbalized understanding this morning is dressed and ready to be discharged. It appears that this has been okay with the addressograph operator. Acute on chronic hypoxic respiratory failure Acute hypoxic respiratory failure CAD History of CVA Dyslipidemia Diabetes mellitus Hypertension Paroxysmal atrial fibrillation Disposition: HOME / SELF CARE / HOMELESS Final Discharge Diagnosis (Prints w/discharge instructions): Acute on chronic combined systolic and diastolic congestive heart failure Time spent for discharge: 35 MINS Core Measure Documentation - Palliative Care Palliative Care/ Comfort Measures: Not Applicable - Core Measures Any of the following diagnoses?: heart failure - Heart Failure Discharge Requirements GARCÍA/ARB for LVSD if EF <40%: Yes Beta ruddy at discharge: Yes Exam - Physical Exam Narrative exam: VITAL SIGNS: Reviewed. GENERAL: The patient appears normally developed, Vital signs as documented. HEAD: No signs of head trauma. EYES: Pupils are equal. Extraocular motions intact. EARS: Hearing grossly intact. MOUTH: Oropharynx is normal. NECK: No adenopathy, no JVD. CHEST: Chest with clear breath sounds bilaterally. No wheezes, rales, or rhonchi. CARDIAC: Regular rate and rhythm. S1 and S2, without murmurs, gallops, or rubs. VASCULAR: +2 pitting edema bilaterally lower extremity [appears to be baseline]. Peripheral pulses normal and equal in all extremities. ABDOMEN: Soft, non tender and non distended. No rebound or guarding, and no masses palpated. Bowel Sounds normal. MUSCULOSKELETAL: Good range of motion of all major joints. Extremities without clubbing, cyanosis. +2 pitting edema. NEUROLOGIC EXAM: Alert and oriented x 3 No focal sensory or strength deficits. Speech normal. Follows commands. PSYCHIATRIC: Mood normal. SKIN: detail exam as documented in skin assessment - Constitutional Vitals: Temp Pulse Resp BP Pulse Ox 97.9 F 110 H 29 H 109/70 99 12/14/21 07:25 12/14/21 07:00 12/14/21 07:00 12/14/21 07:00 12/14/21 07:00 Plan Activity: advance as tolerated, fall precautions Diet: low salt Special Instructions: restrict fluid intake to (1.5 L/day), record daily weights, record daily BP diary Plan of Treatment: Please follow with addressograph operator at the [place] or our addressograph operator as recommended below Follow up with: [facility] [Primary Care Provider] - 3-5 Days DEAN GOULD MD [Staff Physician] - 7 Days Prescriptions: Torsemide [Demadex] 100 mg PO BID #60 tab Sacubitril/Valsartan [Entresto 49-51 mg] 1 each PO QAM&QHS #60 tab Metoprolol Xl [Metoprolol SUCCINATE ER TAB] 100 mg PO QDAY #60 tablet
[2021-12-14] MEDS: METOPROLOL SUCCINATE XL 100 MG TAB PO SCH (11:42)
[2021-12-14] MEDS: SACUBITRIL/VALSARTAN 49-51 MG TAB PO SCH (11:42)
--- NOTE | 2021-12-14 11:56 | Progress Note ---
Assessment and Plan - Patient Problems (1) Acute on chronic systolic heart failure Current Visit: No Status: Acute Plan to address problem: We will continue oral guideline directed medical therapy and dietary salt restrictions. Patient is stable for cardiac discharge on medical therapy. (2) Paroxysmal atrial fibrillation Current Visit: Yes Status: Acute Plan to address problem: The patient's prior records report a history of paroxysmal atrial fibrillation for which he takes Xarelto. A review of his telemetry and ECG strips through his multiple admissions to this hospital over the past several years does not reveal any atrial fibrillation occurrences, but his outpatient records from the [place] and not available for review at this time. We will continue Xarelto while awaiting his records from the [place]. Subjective Date of service: 12/14/21 Principal diagnosis: Congestive heart failure Interval history: Patient appears comfortable, he states that his symptoms have resolved and he wishes to go home today and continue outpatient follow-up with his primary telephone sterilizer. Objective Vital Signs Temp Pulse Pulse Resp Resp BP Pulse Ox 12/14/21 11:01 105 H 19 95/54 100 12/14/21 10:47 106 H 27 H 95/54 99 12/14/21 10:01 96 H 16 95/54 100 12/14/21 10:00 108 H 14 97 12/14/21 09:30 99 H 19 95/54 86 12/14/21 09:00 103 H 25 H 90/60 100 12/14/21 08:37 107 H 38 H 95/57 100 12/14/21 08:00 112 H 15 95/57 97 12/14/21 07:52 109 H 20 109/70 12/14/21 07:25 97.9 F 12/14/21 07:00 110 H 29 H 109/70 99 12/14/21 06:30 98 H 17 101/59 98 12/14/21 06:00 98 H 110 H 23 83/48 96 12/14/21 05:30 95 H 22 103/55 96 12/14/21 05:00 96 H 33 H 90/51 100 12/14/21 04:30 103 H 12 90/58 99 12/14/21 04:15 98 H 12/14/21 04:00 100 H 25 H 102/54 100 12/14/21 03:55 98.4 F 12/14/21 03:31 100 H 14 108/51 100 12/14/21 03:03 104 H 19 99/61 12/14/21 02:30 101 H 20 99/61 100 12/14/21 02:00 102 H 18 87/55 100 12/14/21 01:30 100 H 17 91/45 100 12/14/21 01:00 100 H 20 97/52 99 12/14/21 00:50 99 H 12/14/21 00:30 104 H 32 H 101/65 100 12/14/21 00:16 110 H 27 H 101/65 96 12/14/21 00:00 97.1 F L 110 H 27 H 96 12/13/21 23:30 102 H 34 H 101/65 99 12/13/21 23:06 101 H 31 H 101/65 12/13/21 22:30 98 H 27 H 101/65 99 12/13/21 22:00 97 H 31 H 20 96/63 99 12/13/21 21:30 98 H 33 H 97/67 71 L 12/13/21 21:00 99 H 28 H 112/75 100 12/13/21 20:30 96 H 27 H 107/65 100 12/13/21 20:10 99 H 12/13/21 20:00 97.3 F L 98 H 24 107/65 68 L 12/13/21 19:30 95 H 26 H 93/55 100 12/13/21 19:10 97 H 22 101/56 97 12/13/21 19:00 96 H 21 101/56 100 12/13/21 18:30 95 H 20 90/57 87 12/13/21 18:00 91 H 89 26 H 90/53 100 12/13/21 17:30 93 H 26 H 88/57 63 L 12/13/21 17:00 92 H 28 H 88/57 100 12/13/21 16:30 96 H 31 H 94/64 100 12/13/21 16:00 92 H 25 H 96/64 100 12/13/21 15:30 89 19 99/63 99 12/13/21 15:00 91 H 28 H 91/49 99 12/13/21 14:30 85 21 91/49 100 12/13/21 14:00 90 88 28 H 93/54 100 12/13/21 13:30 89 30 H 99/54 100 12/13/21 13:00 90 17 112/52 98 12/13/21 12:30 81 21 112/43 95 12/13/21 12:00 77 24 96/52 98 - Physical Examination General: No Apparent Distress HEENT: Positive: PERRL Neck: Positive: neck supple Cardiac: Positive: Reg Rate and Rhythm Lungs: Positive: Decreased Breath Sounds Neuro: Positive: Grossly Intact Abdomen: Positive: Soft Skin: Positive: Clear Extremities: Present: edema (trace)
[2021-12-14 14:32] VITALS: BP 103/61
== END 2021-12-14 14:50 | disposition home or self-care (01) | DRG 189 ==
LOC: ED 23:09 → IMCU 12-12 02:30
PROVIDERS: ADMIT Hospitalist; ATTEND Internal Medicine
PROC: 5A09357 Assistance with Respiratory Ventilation, Less than 24 Consecutive Hours, Continuous Positive Airway Pressure (ICD-10-PCS; principal; 2021-12-12)
DX: J96.21 Acute and chronic respiratory failure with hypoxia (principal); I50.43 Acute on chronic combined systolic (congestive) and diastolic (congestive) heart failure; I42.0 Dilated cardiomyopathy; I11.0 Hypertensive heart disease with heart failure; I48.0 Paroxysmal atrial fibrillation; E11.9 Type 2 diabetes mellitus without complications; G43.909 Migraine, unspecified, not intractable, without status migrainosus; E78.5 Hyperlipidemia, unspecified; I25.10 Atherosclerotic heart disease of native coronary artery without angina pectoris; Z79.4 Long term (current) use of insulin; Z86.73 Personal history of transient ischemic attack (TIA), and cerebral infarction without residual deficits
CPT/HCPCS: 36415; 71045; 80048; 80053; 82550; 82805; 82962; 83735; 83880; 84484; 85025; 85610; 85730; 93005; 93010; 93970; 94640; G0378; Q9967; J1815; J1940; J2260

== ENCOUNTER 2021-12-16 02:58 | Inpatient (IN) | payer OTHER, MEDICARE ==
[2021-12-16] MEDS ORDERED: NITROGLYCERIN 0.4 MG TAB SUBL SL ONE (03:42)
[2021-12-16] MEDS ORDERED: ASPIRIN 81 MG TAB CHEW PO ONE (03:42)
[2021-12-16] MEDS ORDERED: MORPHINE 4 MG/1 ML INJ IV ONE (03:43)
[2021-12-16] MEDS ORDERED: ONDANSETRON 4 MG/2 ML INJ IV ONE (03:43)
--- NOTE | 2021-12-16 03:45 | Emergency Department Report ---
ED General Adult HPI - General Chief complaint: Chest Pain Stated complaint: CHEST PAIN BILATERAL LEG PAIN GRETA PUI?: No Time Seen by Provider: 12/16/21 03:21 Source: patient, EMS ( EMS documentation not available at time of chart dictation ), RN notes reviewed, old records reviewed Mode of arrival: Stretcher Limitations: Physical Limitation - History of Present Illness Initial comments: The patient was evaluated in the emergency department for symptoms described in the history of present illness. He/she was evaluated in the context of the global COVID-19 pandemic, which necessitated consideration that the patient might be at risk for infection with the virus that causes COVID-19. Institutional protocols and algorithms that pertain to the evaluation of patients at risk for COVID-19 are in a state of rapid change based on information released by regulatory bodies including the CDC and federal and state organizations. These policies and algorithms were followed during the patient's care in the emergency department. Please note that these policies, procedures and recommendations changed on a rapid basis. Primary CARE doctor: [facility] Cardiology: Dr. Batres, [place] [facility], [facility] cardiology Past medical history: Dilated nonischemic cardiomyopathy, EF of 10 to 15%, type 2 diabetes, dyslipidemia, history of stroke, history of paroxysmal A. fib, on Xarelto. The patient is a 46-year-old gentleman whom I am familiar with. I evaluated this patient last week for acute decompensated congestive heart failure. He was admitted to the medical service and seen by cardiology, and medically optimized and subsequently discharged. The patient reports compliance with his medications and diet and lifestyle recommendations. He presents to the ER today with a complaint of bilateral lower extremity swelling, chest tightness, shortness of breath and orthopnea. He endorses compliance with his medicines. He endorses compliance with his Xarelto. He re ports this feels similar to prior episodes of CHF exacerbation. -: Gradual, hour(s), days(s) Location: chest, left, right, lower extremity Severity scale (0 -10): 7 Quality: aching Consistency: constant Improves with: rest Worsens with: movement - Related Data Home Medications Medication Instructions Recorded Confirmed Last Taken Insulin Glargine [Lantus VIAL] 35 units SUB-Q QHS 07/30/21 12/13/21 08/26/21 Insulin Aspart [Novolog Flexpen] 8 units SQ TIDAC 11/27/21 12/13/21 Unknown Previous Rx's Medication Instructions Recorded Last Taken Type AtorvaSTATin [Lipitor] 40 mg PO QHS #30 tablet 03/13/21 08/25/21 Rx Rivaroxaban [Xarelto] 20 mg PO DAILY #30 03/13/21 08/26/21 Rx Metoprolol Xl [Metoprolol 100 mg PO QDAY #60 tablet 12/14/21 Unknown Rx SUCCINATE ER TAB] Sacubitril/Valsartan [Entresto 1 each PO QAM&QHS #60 tab 12/14/21 Unknown Rx 49-51 mg] Torsemide [Demadex] 100 mg PO BID #60 tab 12/14/21 Unknown Rx Allergies Allergy/AdvReac Type Severity Reaction Status Date / Time No Known Allergies Allergy Verified 12/13/21 02:18 ED Review of Systems ROS: Stated complaint: CHEST PAIN BILATERAL LEG PAIN GRETA Other details as noted in HPI Constitutional: malaise. denies: fever Eyes: denies: eye discharge Respiratory: shortness of breath. denies: cough Cardiovascular: chest pain, dyspnea on exertion, orthopnea, edema Gastrointestinal: denies: abdominal pain, nausea, vomiting, hematemesis, melena, hematochezia Musculoskeletal: arthralgia, myalgia Neurological: denies: weakness Psychiatric: anxiety Hematological/Lymphatic: denies: easy bleeding ED Past Medical Hx - Past Medical History Previous Medical History?: Yes Hx Hypertension: Yes Hx CVA: Yes (TIA's right side weakness) Hx Heart Attack/AMI: Yes Hx Congestive Heart Failure: Yes Hx Diabetes: Yes Hx Deep Vein Thrombosis: No Hx Liver Disease: No Hx Headaches / Migraines: Yes (migraines) Hx Seizures: No Hx Asthma: No Hx COPD: No Hx Dementia: No Additional medical history: Hyperlipidemia - Surgical History Past Surgical History?: Yes Hx Coronary Stent: No Hx Pacemaker: No Hx Internal Defibrillator: No Additional Surgical History: Tonsillectomy, incision and drainage axillary abscess - Social History Smoking Status: Never Smoker - Medications Home Medications: Home Medications Medication Instructions Recorded Confirmed Last Taken Type AtorvaSTATin [Lipitor] 40 mg PO QHS #30 tablet 03/13/21 12/13/21 08/25/21 Rx Rivaroxaban [Xarelto] 20 mg PO DAILY #30 03/13/21 12/13/21 08/26/21 Rx Insulin Glargine [Lantus VIAL] 35 units SUB-Q QHS 07/30/21 12/13/21 08/26/21 History Insulin Aspart [Novolog Flexpen] 8 units SQ TIDAC 11/27/21 12/13/21 Unknown History Metoprolol Xl [Metoprolol 100 mg PO QDAY #60 tablet 12/14/21 Unknown Rx SUCCINATE ER TAB] Sacubitril/Valsartan [Entresto 1 each PO QAM&QHS #60 tab 12/14/21 Unknown Rx 49-51 mg] Torsemide [Demadex] 100 mg PO BID #60 tab 12/14/21 Unknown Rx ED Physical Exam - General Limitations: Physical Limitation General appearance: alert, anxious - Head Head exam: Present: atraumatic, normocephalic - Eye Eye exam: Present: normal appearance, EOMI. Absent: nystagmus - ENT ENT exam: Present: normal exam, normal orophraynx, mucous membranes moist, normal external ear exam - Neck Neck exam: Present: normal inspection, full ROM. Absent: tenderness, meningismus - Respiratory Respiratory exam: Present: normal lung sounds bilaterally. Absent: respiratory distress, wheezes, rales, rhonchi, stridor - Cardiovascular Cardiovascular Exam: Present: normal rhythm, tachycardia, normal heart sounds, JVD. Absent: bradycardia, irregular rhythm, systolic murmur, diastolic murmur, rubs, gallop - GI/Abdominal GI/Abdominal exam: Present: soft. Absent: distended, tenderness, guarding, rebound, rigid, pulsatile mass - Rectal Rectal exam: Present: deferred - Extremities Exam Extremities exam: Present: normal inspection, full ROM, tenderness, pedal edema, other (3+ edema in the bilateral lower extremities. There is no long bony tenderness. The muscular compartments are soft. 2+ pulses noted in the bilateral upper and lower extremities.). Absent: calf tenderness - Back Exam Back exam: Present: normal inspection. Absent: tenderness, CVA tenderness (R), CVA tenderness (L), paraspinal tenderness, vertebral tenderness - Neurological Exam Neurological exam: Present: alert, oriented X3, other (No facial droop. Tongue midline. Extraocular movements intact bilaterally. Facial sensation intact to light touch in V1, V2, V3 distribution bilaterally. 5 and a 5 strength in 4 extremities. Sensation intact to light touch in 4 extremities.). Absent: motor sensory deficit - Psychiatric Psychiatric exam: Present: anxious - Skin Skin exam: Present: warm, dry, intact, normal color. Absent: rash ED Course Vital Signs 12/16/21 12/16/21 12/16/21 03:15 03:26 03:30 Temperature 97.9 F Pulse Rate 120 H 120 H Respiratory 20 18 Rate Blood Pressure 119/82 119/82 Blood Pressure 131/83 [Right] O2 Sat by Pulse 93 95 96 Oximetry 12/16/21 12/16/21 12/16/21 03:46 04:00 04:15 Temperature Pulse Rate 118 H 119 H 121 H Respiratory 18 29 H Rate Blood Pressure 121/92 133/83 Blood Pressure [Right] O2 Sat by Pulse 95 93 Oximetry 12/16/21 12/16/21 04:16 04:30 Temperature Pulse Rate 121 H 119 H Respiratory 29 H 11 L Rate Blood Pressure 133/83 122/91 Blood Pressure [Right] O2 Sat by Pulse 95 95 Oximetry - Reevaluation(s) Reevaluation #1: 12/16/21 04:56 Differential diagnosis, including but not limited to: GERD, gastritis, hiatal hernia, pneumonia, costochondritis, acute coronary syndrome, decompensated congestive heart failure, pulmonary embolism Assessment and plan: 46-year-old gentleman with probable decompensated congestive heart failure. D-dimer negative, EKG unchanged from prior, chest x- ray unremarkable, he is tachypneic with JVD, and obvious evidence of volume overload in his bilateral lower extremities. He endorses compliance with his Xarelto. proBNP almost 5000. Have recommended admission to the medical service for treatment of presumed decompensated congestive heart failure. He will be treated supportively and symptomatically. He is agreeable to this plan of care. Hospital physician is paged to arrange admission to the medical service. I will defer to the inpatient team to contact cardiology for consultation, if they so desire 12/16/21 05:10 Dr Alem Sprague to admit to [facility] ED Medical Decision Making - Lab Data Result diagrams: 12/16/21 03:42 12/16/21 03:42 Vital Signs 12/16/21 12/16/21 12/16/21 03:15 03:26 03:30 Temperature 97.9 F Pulse Rate 120 H 120 H Respiratory 20 18 Rate Blood Pressure 119/82 119/82 Blood Pressure 131/83 [Right] O2 Sat by Pulse 93 95 96 Oximetry 12/16/21 12/16/21 12/16/21 03:46 04:00 04:15 Temperature Pulse Rate 118 H 119 H 121 H Respiratory 18 29 H Rate Blood Pressure 121/92 133/83 Blood Pressure [Right] O2 Sat by Pulse 95 93 Oximetry 12/16/21 12/16/21 04:16 04:30 Temperature Pulse Rate 121 H 119 H Respiratory 29 H 11 L Rate Blood Pressure 133/83 122/91 Blood Pressure [Right] O2 Sat by Pulse 95 95 Oximetry Lab Results 12/16/21 12/16/21 12/16/21 Range/Units 03:42 03:42 03:42 WBC 7.7 (4.5-11.0) K/mm3 RBC 6.17 H (3.65-5.03) M/mm3 Hgb 13.9 (11.8-15.2) gm/dl Hct 45.5 (35.5-45.6) % MCV 74 L (84-94) fl MCH 23 L (28-32) pg MCHC 31 L (32-34) % RDW 18.1 H (13.2-15.2) % Plt Count 164 (140-440) K/mm3 PT 18.0 H (12.2-14.9) Sec. INR 1.32 H (0.87-1.13) APTT 40.2 H (24.2-36.6) Sec. D-Dimer 213.71 (0-234) ng/mlDDU Sodium 134 L (137-145) mmol/L Potassium 3.9 (3.6-5.0) mmol/L Chloride 99.7 (98-107) mmol/L Carbon Dioxide 22 (22-30) mmol/L Anion Gap 16 mmol/L BUN 19 (9-20) mg/dL Creatinine 1.1 (0.8-1.3) mg/dL Estimated GFR > 60 ml/min BUN/Creatinine Ratio 17 % Glucose 210 H (75-100) mg/dL Calcium 9.2 (8.4-10.2) mg/dL Magnesium (1.7-2.3) mg/dL Total Bilirubin 2.50 H (0.1-1.2) mg/dL AST 33 (5-40) units/L ALT 33 (7-56) units/L Alkaline Phosphatase 288 H (35-129) units/L Total Creatine Kinase (55-170) units/L Troponin T 0.015 (0.00-0.029) ng/mL NT-Pro-B Natriuret Pep (0-450) pg/mL Total Protein 6.9 (6.3-8.2) g/dL Albumin 2.9 L (3.9-5) g/dL Albumin/Globulin Ratio 0.7 % // Range/Units 03:44 WBC (4.5-11.0) K/mm3 RBC (3.65-5.03) M/mm3 Hgb (11.8-15.2) gm/dl Hct (35.5-45.6) % MCV (84-94) fl MCH (28-32) pg MCHC (32-34) % RDW (13.2-15.2) % Plt Count (140-440) K/mm3 PT (12.2-14.9) Sec. INR (0.87-1.13) APTT (24.2-36.6) Sec. D-Dimer (0-234) ng/mlDDU Sodium (137-145) mmol/L Potassium (3.6-5.0) mmol/L Chloride (98-107) mmol/L Carbon Dioxide (22-30) mmol/L Anion Gap mmol/L BUN (9-20) mg/dL Creatinine (0.8-1.3) mg/dL Estimated GFR ml/min BUN/Creatinine Ratio % Glucose (75-100) mg/dL Calcium (8.4-10.2) mg/dL Magnesium 1.80 (1.7-2.3) mg/dL Total Bilirubin (0.1-1.2) mg/dL AST (5-40) units/L ALT (7-56) units/L Alkaline Phosphatase (35-129) units/L Total Creatine Kinase 51 L (55-170) units/L Troponin T (0.00-0.029) ng/mL NT-Pro-B Natriuret Pep 4543 H (0-450) pg/mL Total Protein (6.3-8.2) g/dL Albumin (3.9-5) g/dL Albumin/Globulin Ratio % - EKG Data -: EKG Interpreted by Me EKG shows normal: sinus rhythm Rate: tachycardia - EKG Data When compared to previous EKG there are: no significant change 12/16/21 04:53 The EKG is interpreted at 03: 48 Sinus rhythm, tachycardia, rate 120 bpm. Borderline leftward axis deviation. Normal P wave axis. QTC 4 5 4 ms. Nonspecific T wave abnormalities. This is an abnormal EKG. This is not a STEMI - Radiology Data Radiology results: pending, report reviewed, image reviewed CHEST 1 VIEW INDICATION: Chest Pain. COMPARISON: 12/12/2021 FINDINGS: Support devices: None. Heart: Stable. Lungs/Pleura: No acute pulmonary or pleural findings. IMPRESSION: 1. No acute findings. Signer Name: Jack Ceballos MD Dolores d: 12/16/2021 3:10 AM Workstation Name: [id number] DUPLEX DOPPLER LOWER EXTREMITY VEINS, BILATERAL INDICATION / CLINICAL INFORMATION: b/l lower ext swelling. TECHNIQUE: Duplex doppler imaging was performed through the veins of both lower extremities using venous compression and other maneuvers. COMPARISON: 03/10/2021 FINDINGS: RIGHT COMMON FEMORAL VEIN: Negative. RIGHT FEMORAL VEIN: Negative. RIGHT POPLITEAL VEIN: Negative. RIGHT CALF VEINS: Negative. LEFT COMMON FEMORAL VEIN: Negative. LEFT FEMORAL VEIN: Negative. LEFT POPLITEAL VEIN: Negative. LEFT CALF VEINS: Negative. ADDITIONAL FINDINGS: None. IMPRESSION: 1. No sonographic evidence for DVT in either lower extremity. Signer Name: Jack Ceballos MD Signed: 12/12/2021 2:14 AM Workstation Name: [id number] Critical Care Time: Yes Critical care time in (mins) excluding proc time.: 35 Critical care attestation.: If time is entered above; I have spent that time in minutes in the direct care of this critically ill patient, excluding procedure time. ED Disposition Clinical Impression: Acute on chronic systolic heart failure Disposition: ADMITTED INPATIENT Is pt being admited?: Yes Does the pt Need Aspirin: No Condition: Good
--- NOTE | 2021-12-16 04:15 | XRay Report ---
CHEST 1 VIEW INDICATION: Chest Pain. COMPARISON: 12/12/2021 FINDINGS: Support devices: None. Heart: Stable. Lungs/Pleura: No acute pulmonary or pleural findings. IMPRESSION: 1. No acute findings. Signer Name: Jack Ceballos MD Signed: 12/16/2021 4:10 AM Workstation Name: [id number]
[2021-12-16 04:17] LABS: Mean Corpuscular HGB Conc 31 % (32-34); Mean Corpuscular Volume 74 fl (84-94); Red Blood Count 6.17 M/mm3 (3.65-5.03); Red Cell Distribution Width 18.1 % (13.2-15.2)
[2021-12-16 04:26] LABS: Hematocrit 45.5 % (35.5-45.6); Hemoglobin 13.9 gm/dl (11.8-15.2); Platelet Count 164 K/mm3 (140-440)
[2021-12-16 04:27] LABS: INR 1.32 (0.87-1.13)
[2021-12-16 04:28] LABS: Partial Thromboplastin Time 40.2 Sec. (24.2-36.6)
[2021-12-16 04:43] LABS: Alanine Aminotransferase 33 units/L (7-56); Albumin 2.9 g/dL (3.9-5); BUN/Creatinine Ratio 17; Blood Urea Nitrogen 19 mg/dL (9-20); Calcium 9.2 mg/dL (8.4-10.2); Hemolysis Index 13
[2021-12-16] MEDS ORDERED: FUROSEMIDE 40 MG/4 ML INJ IV ONE (04:47)
[2021-12-16 05:51] LABS: Basophils % (Manual) 0 % (0.0-1.8); Eosinophils % (Manual) 0 % (0.0-4.3); Hypochromasia 1+; Total Cells Counted 100
[2021-12-16 05:52] LABS: Anisocytosis 1+; Platelet Estimate Consistent w Auto
[2021-12-16 07:24] LABS: Basophils # (Auto) 0.1 K/mm3 (0.0-0.1); Eosinophils # (Auto) 0.1 K/mm3 (0.0-0.4); Eosinophils % (Auto) 1.9 % (0.0-4.3); Monocytes # (Auto) 0.9 K/mm3 (0.0-0.8); Monocytes % (Auto) 12.4 % (0.0-7.3)
--- NOTE | 2021-12-16 11:01 | History and Physical Report ---
History of Present Illness Date of examination: 12/16/21 History of present illness: The patient was evaluated in the emergency department for symptoms described in the history of present illness. He/she was evaluated in the context of the global COVID-19 pandemic, which necessitated consideration that the patient janine ht be at risk for infection with the virus that causes COVID-19. Institutional protocols and algorithms that pertain to the evaluation of patients at risk for COVID-19 are in a state of rapid change based on information released by regulatory bodies including the CDC and federal and state organizations. These policies and algorithms were followed during the patient's care in the emergency department. Please note that these policies, procedures and recommendations changed on a rapid basis. Primary CARE doctor: [facility] Cardiology: Dr. Batres, [place] [facility], [facility] cardiology Past medical history: Dilated nonischemic cardiomyopathy, EF of 10 to 15%, type 2 diabetes, dyslipidemia, history of stroke, history of paroxysmal A. fib, on Xarelto. The patient is a 46-year-old gentleman whom I am familiar with. I evaluated this patient last week for acute decompensated congestive heart failure. He was admitted to the medical service and seen by cardiology, and medically optimized and subsequently discharged. The patient reports compliance with his medications and diet and lifestyle recommendations. He presents to the ER today with a complaint of bilateral lower extremity swelling, chest tightness, shortness of breath and orthopnea. He endorses compliance with his medicines. He endorses compliance with his Xarelto. He reports this feels similar to prior episodes of CHF exacerbation. Medications and Allergies Allergies Allergy/AdvReac Type Severity Reaction Status Date / Time No Known Allergies Allergy Verified 12/16/21 06:39 Home Medications Medication Instructions Recorded Confirmed Last Taken Type AtorvaSTATin [Lipitor] 40 mg PO QHS #30 tablet 03/13/21 12/16/21 08/25/21 Rx Rivaroxaban [Xarelto] 20 mg PO DAILY #30 03/13/21 12/16/21 08/26/21 Rx Insulin Glargine [Lantus VIAL] 35 units SUB-Q QHS 07/30/21 12/16/21 08/26/21 History Insulin Aspart [Novolog Flexpen] 8 units SQ TIDAC 11/27/21 12/16/21 Unknown History Metoprolol Xl [Metoprolol 100 mg PO QDAY #60 tablet 12/14/21 12/16/21 Unknown Rx SUCCINATE ER TAB] Sacubitril/Valsartan [Entresto 1 each PO QAM&QHS #60 tab 12/14/21 12/16/21 Unknown Rx 49-51 mg] Torsemide [Demadex] 100 mg PO BID #60 tab 12/14/21 12/16/21 Unknown Rx Exam - Constitutional Vitals: Temp Pulse Resp BP Pulse Ox 97.9 F 102 H 24 111/78 93 12/16/21 03:26 12/16/21 10:00 12/16/21 10:00 12/16/21 10:00 12/16/21 10:00 HEART Score - HEART Score Troponin: Troponin T 0.015 ng/mL (0.00-0.029) 12/16/21 03:42 Results - Labs CBC & Chem 7: 12/16/21 03:42 12/17/21 07:30 Labs: Abnormal lab results 12/16/21 12/16/21 12/16/21 Range/Units 03:42 03:42 03:42 RBC 6.17 H (3.65-5.03) M/mm3 MCV 74 L (84-94) fl MCH 23 L (28-32) pg MCHC 31 L (32-34) % RDW 18.1 H (13.2-15.2) % [place] % (Auto) 12.4 H (0.0-7.3) % [place] # (Auto) 0.9 H (0.0-0.8) K/mm3 PT 18.0 H (12.2-14.9) Sec. INR 1.32 H (0.87-1.13) APTT 40.2 H (24.2-36.6) Sec. Sodium 134 L (137-145) mmol/L Glucose 210 H (75-100) mg/dL Total Bilirubin 2.50 H (0.1-1.2) mg/dL Alkaline Phosphatase 288 H (35-129) units/L Total Creatine Kinase (55-170) units/L NT-Pro-B Natriuret Pep (0-450) pg/mL Albumin 2.9 L (3.9-5) g/dL 12/16/21 Range/Units 03:44 RBC (3.65-5.03) M/mm3 MCV (84-94) fl MCH (28-32) pg MCHC (32-34) % RDW (13.2-15.2) % [place] % (Auto) (0.0-7.3) % [place] # (Auto) (0.0-0.8) K/mm3 PT (12.2-14.9) Sec. INR (0.87-1.13) APTT (24.2-36.6) Sec. Sodium (137-145) mmol/L Glucose (75-100) mg/dL Total Bilirubin (0.1-1.2) mg/dL Alkaline Phosphatase (35-129) units/L Total Creatine Kinase 51 L (55-170) units/L NT-Pro-B Natriuret Pep 4543 H (0-450) pg/mL Albumin (3.9-5) g/dL Assessment and Plan --CHF exacerbation - admit to telemetry bed - monitor with serial CE and EKG - will place on Aspirin, statin, and Lasix IV - order 2D echo and consult cardiology - cardiac diet now, daily weights, monitor in's and O's - provide DVT Px with lovenox
[2021-12-16] MEDS ORDERED: ACETAMINOPHEN 325 MG TAB PO PRN (11:02)
[2021-12-16] MEDS ORDERED: MORPHINE 4 MG/1 ML INJ IV PRN (12:00)
[2021-12-16] MEDS ORDERED: HYDROcodone/ACETAMINOPHEN 5-325 MG TAB PO PRN (12:00)
[2021-12-16] MEDS ORDERED: ONDANSETRON 4 MG/2 ML INJ IV PRN (12:00)
[2021-12-16] MEDS ORDERED: IBUPROFEN 600 MG TAB PO PRN (12:00)
[2021-12-16] MEDS ORDERED: NON-FORMULARY EACH (Rivaroxaban 20 MG Tablet) PO SCH (15:30)
[2021-12-16] MEDS ORDERED: INSULIN ASPART 100 UNIT/ML SQ SCH (16:30)
[2021-12-16] MEDS ORDERED: INSULN SQ SCH (16:30)
[2021-12-16] MEDS: INSULIN LISPRO 100 UNIT/ML SUB-Q SCH (17:25)
[2021-12-16] MEDS: FUROSEMIDE 40 MG/4 ML INJ IV SCH (18:11)
[2021-12-16] MEDS: FAMOTIDINE 20 MG TAB PO SCH (21:29)
[2021-12-16] MEDS: DOCUSATE SODIUM 100 MG CAP PO SCH (23:25)
[2021-12-16] MEDS: POTASSIUM CHLORIDE ER 10 MEQ TAB PO SCH (23:25)
[2021-12-17] MEDS: FUROSEMIDE 40 MG/4 ML INJ IV SCH ×2 (05:48→17:13)
[2021-12-17 08:50] LABS: BUN/Creatinine Ratio 18; Blood Urea Nitrogen 22 mg/dL (9-20); Calcium 9.4 mg/dL (8.4-10.2); Hemolysis Index 1
[2021-12-17] MEDS: RIVAROXABAN 20 MG TAB PO SCH (09:52)
[2021-12-17] MEDS: FAMOTIDINE 20 MG TAB PO SCH ×2 (09:52→21:48)
[2021-12-17] MEDS: INSULIN LISPRO 100 UNIT/ML SUB-Q SCH ×3 (09:52→17:11)
[2021-12-17] MEDS: ASPIRIN 325 MG TAB PO SCH (09:52)
[2021-12-17] MEDS: DOCUSATE SODIUM 100 MG CAP PO SCH ×2 (09:54→21:48)
[2021-12-17] MEDS: POTASSIUM CHLORIDE ER 10 MEQ TAB PO SCH ×3 (09:54→21:48)
--- NOTE | 2021-12-17 12:38 | Consultation ---
History of Present Illness Consult date: 12/17/21 Consult reason: congestive heart failure History of present illness: The patient is a 46-year-old man with a long history of severe dilated nonischemic cardiomyopathy, multiple admissions for exacerbation of congestive heart failure. He was just here last week, and discharged himself after 2 to 3 days, stating that he felt better, needed to get back home to a new baby. He now presents with recurrent fatigue, dyspnea, lower extremity edema and clinical evidence of acute exacerbation of chronic systolic heart failure. He has begun to feel better after intravenous diuretics, has no chest pain, no palpitations, no syncope. EKG in the emergency room was a sinus tachycardia at 120, with nonspecific T wave abnormalities. Chest x-ray showed severe cardiomegaly, and mild interstitial edema. Serial left ventricular function assessments in the past have documented his ejection fraction at 15 to 20%. Past History Past Medical History: heart failure Medications and Allergies Allergies Allergy/AdvReac Type Severity Reaction Status Date / Time No Known Allergies Allergy Verified 12/16/21 06:39 Home Medications Medication Instructions Recorded Confirmed Last Taken Type AtorvaSTATin [Lipitor] 40 mg PO QHS #30 tablet 03/13/21 12/16/21 08/25/21 Rx Rivaroxaban [Xarelto] 20 mg PO DAILY #30 03/13/21 12/16/21 08/26/21 Rx Insulin Glargine [Lantus VIAL] 35 units SUB-Q QHS 07/30/21 12/16/21 08/26/21 History Insulin Aspart [Novolog Flexpen] 8 units SQ TIDAC 11/27/21 12/16/21 Unknown History Metoprolol Xl [Metoprolol 100 mg PO QDAY #60 tablet 12/14/21 12/16/21 Unknown Rx SUCCINATE ER TAB] Sacubitril/Valsartan [Entresto 1 each PO QAM&QHS #60 tab 12/14/21 12/16/21 Unknown Rx 49-51 mg] Torsemide [Demadex] 100 mg PO BID #60 tab 12/14/21 12/16/21 Unknown Rx Active Meds: Active Medications Acetaminophen (Acetaminophen 325 Mg Tab) 650 mg PO Q4H PRN PRN Reason: Pain MILD(1-3)/Fever >100.5/HERNANDEZ Hydrocodone Bitart/Acetaminophen (Hydrocodone/Acetaminophen 5-325 Mg Tab) 2 each PO Q6H PRN PRN Reason: Pain, Moderate (4-6) Aspirin (Aspirin 325 Mg Tab) 325 mg PO QDAY [facility] Last Admin: 12/17/21 09:52 Dose: 325 mg Docusate Sodium (Docusate Sodium 100 Mg Cap) 100 mg PO BID [facility] Last Admin: 12/17/21 09:54 Dose: Not Given Famotidine (Famotidine 20 Mg Tab) 20 mg PO BID [facility] Last Admin: 12/17/21 09:52 Dose: 20 mg Furosemide (Furosemide 40 Mg/4 Ml Inj) 40 mg IV BID@0600,1800 [facility] Last Admin: 12/17/21 05:48 Dose: 40 mg Ibuprofen (Ibuprofen 600 Mg Tab) 600 mg PO Q6H PRN PRN Reason: Pain, Mild (1-3) Insulin Human Lispro (Insulin Lispro 100 Unit/Ml) 8 unit SUB-Q TIDAC [facility] Last Admin: 12/17/21 11:57 Dose: 8 unit Morphine Sulfate (Morphine 4 Mg/1 Ml Inj) 4 mg IV Q4H PRN PRN Reason: Pain , Severe (7-10) Ondansetron HCl (Ondansetron 4 Mg/2 Ml Inj) 4 mg IV Q8H PRN PRN Reason: Nausea And Vomiting Potassium Chloride (Potassium Chloride Er 10 Meq Tab) 10 meq PO BID [facility] Last Admin: 12/17/21 09:57 Dose: Not Given Rivaroxaban (Rivaroxaban 20 Mg Tab) 20 mg PO DAILY [facility] Last Admin: 12/17/21 09:52 Dose: 20 mg Sodium Chloride (Sodium Chloride 0.9% 10 Ml Flush Syringe) 10 ml IV BID [facility] Last Admin: 12/17/21 09:54 Dose: 10 ml Sodium Chloride (Sodium Chloride 0.9% 10 Ml Flush Syringe) 10 ml IV PRN PRN PRN Reason: LINE FLUSH Review of Systems Cardiovascular: orthopnea, edema, shortness of breath, no chest pain, no palpitations, no rapid/irregular heart beat, no syncope, no lightheadedness Physical Examination Vital Signs BP Pulse Ox 119/82 93 12/16/21 03:15 12/16/21 03:15 General appearance: no acute distress HEENT: Positive: PERRL Neck: Positive: neck supple Cardiac: Positive: Reg Rate and Rhythm Lungs: Positive: Decreased Breath Sounds Neuro: Positive: Grossly Intact Abdomen: Positive: Soft Male genitourinary: Positive: deferred Skin: Positive: Clear Extremities: Present: +2 Edema Results 12/16/21 03:42 12/17/21 07:30 Comprehensive Metabolic Panel 12/17/21 Range/Units 07:30 Sodium 139 (137-145) mmol/L Potassium 4.0 (3.6-5.0) mmol/L Chloride 101.1 (98-107) mmol/L Carbon Dioxide 24 (22-30) mmol/L BUN 22 H (9-20) mg/dL Creatinine 1.2 (0.8-1.3) mg/dL Glucose 124 H (75-100) mg/dL Calcium 9.4 (8.4-10.2) mg/dL EKG interpretations - Telemetry EKG Rhythm: Sinus Tachycardia Assessment and Plan - Patient Problems (1) Acute on chronic systolic heart failure Current Visit: Yes Status: Acute Plan to address problem: In addition to diuretic therapy, we will place patient on intravenous milrinone. Optimal, guideline directed medical management.
--- NOTE | 2021-12-17 13:19 | Electrocardiograph Report ---
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
--- NOTE | 2021-12-17 16:47 | Progress Note ---
Assessment and Plan --CHF exacerbation - admit to telemetry bed - monitor with serial CE and EKG - will place on Aspirin, statin, and Lasix IV - order 2D echo and consult cardiology - cardiac diet now, daily weights, monitor in's and O's - provide DVT Px with lovenox -- initiated on milrone drip Subjective Date of service: 12/17/21 Objective - Constitutional Vitals: Vital Signs - 12hr 12/17/21 12/17/21 12/17/21 07:22 10:00 10:43 Temperature 98.4 F 98.5 F Pulse Rate 108 H 110 H Pulse Rate [ Radial] Respiratory 18 18 Rate Blood Pressure 114/78 117/86 O2 Sat by Pulse 98 98 96 Oximetry 12/17/21 13:01 Temperature Pulse Rate Pulse Rate [ 78 Radial] Respiratory 18 Rate Blood Pressure O2 Sat by Pulse 100 Oximetry - Labs CBC & Chem 7: 12/16/21 03:42 12/17/21 07:30 Labs: Abnormal lab results 12/16/21 12/17/21 12/17/21 Range/Units 21:15 07:20 07:30 BUN 22 H (9-20) mg/dL Glucose 124 H (75-100) mg/dL POC Glucose 194 H 138 H (70-105) mg/dL 12/17/21 12/17/21 Range/Units 11:55 15:56 BUN (9-20) mg/dL Glucose (75-100) mg/dL POC Glucose 170 H 153 H (70-105) mg/dL HEART Score - HEART Score Troponin: Troponin T 0.015 ng/mL (0.00-0.029) 12/16/21 03:42
[2021-12-17] MEDS: MILRINONE-D5W 20 MG/100 ML 20 MG/100 ML BAG IV SCH (17:18)
[2021-12-18] MEDS: FUROSEMIDE 40 MG/4 ML INJ IV SCH ×2 (05:50→17:35)
[2021-12-18] MEDS: MILRINONE-D5W 20 MG/100 ML 20 MG/100 ML BAG IV SCH ×2 (05:56→22:20)
[2021-12-18] MEDS: INSULIN LISPRO 100 UNIT/ML SUB-Q SCH ×3 (08:52→17:35)
[2021-12-18] MEDS: RIVAROXABAN 20 MG TAB PO SCH (09:05)
[2021-12-18] MEDS: ASPIRIN 325 MG TAB PO SCH (09:05)
[2021-12-18] MEDS: FAMOTIDINE 20 MG TAB PO SCH ×2 (09:06→22:20)
[2021-12-18] MEDS: POTASSIUM CHLORIDE ER 10 MEQ TAB PO SCH ×2 (09:07→22:17)
[2021-12-18] MEDS: DOCUSATE SODIUM 100 MG CAP PO SCH ×2 (09:07→22:16)
--- NOTE | 2021-12-18 13:15 | Progress Note ---
Assessment and Plan - Patient Problems (1) Acute on chronic systolic heart failure Current Visit: Yes Status: Acute Plan to address problem: Continue intravenous diuretics, milrinone and oral guideline directed medical therapy. Subjective Date of service: 12/18/21 Principal diagnosis: Acute on chronic systolic heart failure Interval history: Patient is comfortable, no new cardiac complaints, he is diuresing well on diuretics and intravenous milrinone. Objective Vital Signs Temp Pulse Resp BP Pulse Ox 12/18/21 12:14 97.9 F 106 H 18 118/71 99 12/18/21 09:30 97 12/18/21 07:52 98.0 F 107 H 18 125/73 97 12/18/21 03:39 98.4 F 109 H 18 106/69 96 12/18/21 01:00 98 12/17/21 23:16 98.2 F 108 H 18 113/74 98 12/17/21 19:45 96 12/17/21 19:39 97.5 F L 110 H 16 105/72 96 12/17/21 15:14 98.0 F 114 H 18 118/85 98 - Physical Examination General: No Apparent Distress HEENT: Positive: PERRL Neck: Positive: neck supple Cardiac: Positive: Reg Rate and Rhythm Lungs: Positive: Decreased Breath Sounds Neuro: Positive: Grossly Intact Abdomen: Positive: Soft Skin: Positive: Clear Extremities: Present: +1 Edema
--- NOTE | 2021-12-18 16:13 | Progress Note ---
Assessment and Plan --CHF exacerbation - admit to telemetry bed - monitor with serial CE and EKG - will place on Aspirin, statin, and Lasix IV - order 2D echo and consult cardiology - cardiac diet now, daily weights, monitor in's and O's - provide DVT Px with lovenox -- initiated on milrone drip Subjective Date of service: 12/18/21 Principal diagnosis: Acute on chronic systolic heart failure Objective - Constitutional Vitals: Vital Signs - 12hr 12/18/21 12/18/21 12/18/21 07:52 09:30 12:14 Temperature 98.0 F 97.9 F Pulse Rate 107 H 106 H Respiratory 18 18 Rate Blood Pressure 125/73 118/71 O2 Sat by Pulse 97 97 99 Oximetry - Labs CBC & Chem 7: 12/16/21 03:42 12/17/21 07:30 Labs: Abnormal lab results 12/17/21 12/18/21 12/18/21 Range/Units 20:11 07:51 15:24 POC Glucose 114 H 191 H 149 H (70-105) mg/dL HEART Score - HEART Score Troponin: Troponin T 0.015 ng/mL (0.00-0.029) 12/16/21 03:42
[2021-12-19] MEDS: FUROSEMIDE 40 MG/4 ML INJ IV SCH ×2 (05:23→16:59)
[2021-12-19] MEDS: INSULIN LISPRO 100 UNIT/ML SUB-Q SCH ×3 (09:21→16:17)
[2021-12-19] MEDS: FAMOTIDINE 20 MG TAB PO SCH ×2 (09:22→21:41)
[2021-12-19] MEDS: POTASSIUM CHLORIDE ER 10 MEQ TAB PO SCH ×3 (09:22→21:41)
[2021-12-19] MEDS: ASPIRIN 325 MG TAB PO SCH (09:22)
[2021-12-19] MEDS: RIVAROXABAN 20 MG TAB PO SCH (09:22)
[2021-12-19] MEDS: DOCUSATE SODIUM 100 MG CAP PO SCH ×3 (09:22→21:41)
--- NOTE | 2021-12-19 10:26 | Progress Note ---
Assessment and Plan Acute on chronic systolic heart failure (HFrEF) NICM H/O prior CVA and hypercoagulable state. Anticoagulated with Xarelto at home Recommend: Continue IV milrinone and lasix Restart GDMT including Entresto and beta ruddy prior to discharge. Subjective Date of service: 12/19/21 Principal diagnosis: Acute on chronic systolic heart failure Interval history: No acute events. Dyspnea improving on IV milrinone Objective Vital Signs Temp Pulse Resp BP Pulse Ox 12/19/21 08:31 97.1 F L 16 141/89 12/19/21 04:13 98.1 F 116 H 20 124/87 96 12/19/21 01:30 94 12/18/21 23:12 98.5 F 111 H 20 120/79 98 12/18/21 20:12 98.4 F 113 H 20 120/65 94 12/18/21 18:00 104 H 12/18/21 15:26 18 12/18/21 15:25 98.1 F 105 H 15 108/66 97 12/18/21 12:14 97.9 F 106 H 18 118/71 99 - Physical Examination General: No Apparent Distress HEENT: Positive: PERRL Neck: Positive: neck supple Cardiac: Positive: Reg Rate and Rhythm Lungs: Positive: Decreased Breath Sounds Neuro: Positive: Grossly Intact Abdomen: Positive: Soft Skin: Positive: Clear Extremities: Present: +1 Edema
[2021-12-19] MEDS: MILRINONE-D5W 20 MG/100 ML 20 MG/100 ML BAG IV SCH (12:43)
--- NOTE | 2021-12-19 23:55 | Progress Note ---
Assessment and Plan --CHF exacerbation - admit to telemetry bed - monitor with serial CE and EKG - will place on Aspirin, statin, and Lasix IV - order 2D echo and consult cardiology - cardiac diet now, daily weights, monitor in's and O's - provide DVT Px with lovenox -- initiated on milrone drip Subjective Date of service: 12/19/21 Principal diagnosis: Acute on chronic systolic heart failure Objective - Constitutional Vitals: Vital Signs - 12hr 12/19/21 12/19/21 12/19/21 12:16 16:14 20:35 Temperature 97.7 F 97.8 F 97.8 F Pulse Rate 115 H Pulse Rate [ Radial] Respiratory 18 18 18 Rate Blood Pressure 113/74 113/74 122/80 O2 Sat by Pulse 99 Oximetry 12/19/21 22:00 Temperature Pulse Rate Pulse Rate [ 111 H Radial] Respiratory 17 Rate Blood Pressure O2 Sat by Pulse 96 Oximetry - Labs CBC & Chem 7: 12/16/21 03:42 12/17/21 07:30 Labs: Abnormal lab results 12/19/21 12/19/21 Range/Units 08:30 12:15 POC Glucose 242 H 137 H (70-105) mg/dL HEART Score - HEART Score Troponin: Troponin T 0.015 ng/mL (0.00-0.029) 12/16/21 03:42
[2021-12-20] MEDS: MILRINONE-D5W 20 MG/100 ML 20 MG/100 ML BAG IV SCH (04:15)
[2021-12-20 08:15] VITALS: BP 122/81
[2021-12-20] MEDS: FAMOTIDINE 20 MG TAB PO SCH (09:27)
[2021-12-20] MEDS: RIVAROXABAN 20 MG TAB PO SCH (09:27)
[2021-12-20] MEDS: POTASSIUM CHLORIDE ER 10 MEQ TAB PO SCH ×2 (09:27→09:32)
[2021-12-20] MEDS: DOCUSATE SODIUM 100 MG CAP PO SCH ×2 (09:27→09:31)
[2021-12-20] MEDS: ASPIRIN 325 MG TAB PO SCH (09:27)
[2021-12-20] MEDS: INSULIN LISPRO 100 UNIT/ML SUB-Q SCH (09:33)
--- NOTE | 2021-12-20 10:58 | Progress Note ---
Assessment and Plan Pt left AMA this morning and not seen Subjective Date of service: 12/20/21 Principal diagnosis: Acute on chronic systolic heart failure Interval history: Pt left AMA this morning - not seen Objective Vital Signs Temp Pulse Pulse Resp BP Pulse Ox 12/20/21 10:00 130 H 12/20/21 08:14 97.5 F L 18 122/81 12/20/21 04:00 97.5 F L 125 H 18 148/98 96 12/20/21 02:00 105 H 12/20/21 00:28 98.2 F 116 H 19 120/82 96 12/19/21 22:00 111 H 17 96 12/19/21 20:35 97.8 F 115 H 18 122/80 99 12/19/21 16:14 97.8 F 18 113/74 12/19/21 12:16 97.7 F 18 113/74
--- NOTE | 2021-12-20 11:16 | Discharge Summary ---
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
== END 2021-12-20 11:36 | disposition left against medical advice (07) | DRG 291 ==
LOC: ED 02:58 → 4A 11:02
PROVIDERS: ADMIT Internal Medicine; ATTEND Internal Medicine
DX: I11.0 Hypertensive heart disease with heart failure (principal); I50.23 Acute on chronic systolic (congestive) heart failure; D68.59 Other primary thrombophilia; I42.0 Dilated cardiomyopathy; I25.2 Old myocardial infarction; E11.9 Type 2 diabetes mellitus without complications; G43.909 Migraine, unspecified, not intractable, without status migrainosus; E78.5 Hyperlipidemia, unspecified; I48.0 Paroxysmal atrial fibrillation; Z53.29 Procedure and treatment not carried out because of patient's decision for other reasons; Z86.73 Personal history of transient ischemic attack (TIA), and cerebral infarction without residual deficits; Z79.4 Long term (current) use of insulin
CPT/HCPCS: 36415; 71045; 80048; 80053; 82550; 82962; 83735; 83880; 84484; 85007; 85025; 85379; 85610; 85730; 93005; 93010; G0378; Q9967; J1815; J1940; J2260; J2270; J2405